=== PATIENT | male | born 1940 | race Caucasian/White ===

== ENCOUNTER 2019-12-26 06:10 | Outpatient (REF) | payer MEDICARE, SELFPAY ==
[2019-12-26 11:19] LABS: MANUAL DIFF FLAG NO
[2019-12-26 11:27] LABS: Basophils Percent Auto 0.5 % (0-2); Eosinophils Absolute Auto 0.1 X10*3/uL (0.0-0.4); Eosinophils Percent Auto 1.6 % (0-4); Hematocrit 47.3 % (42-52); Hemoglobin 14.9 g/dl (14.0-18.0); Imm Gran Abs Auto 0.02 X10*3/uL (0.00-0.03); Imm Gran Pct Auto 0.4 % (0.0-0.4); Lymphocytes Absolute Auto 1.2 X10*3/uL (1.2-4.9); Mean Corpuscular HGB Conc 31.5 g/dl (31.0-36.0); Mean Corpuscular Hemoglobin 32.5 pg (27.0-33.0); Mean Corpuscular Volume 103.3 fL (80-98); Mean Platelet Volume 12.2 fL (9.4-12.4); Monocytes Absolute Auto 0.4 X10*3/uL (0.1-1.2); Monocytes Percent Auto 7.9 % (2-11); Neutrophils Absolute Auto 3.8 X10*3/uL (2.0-8.3); Neutrophils Percent Auto 67.6 % (45-73); Platelet Count 152 X10*3/uL (160-400); Red Blood Count 4.58 X10*6/uL (4.60-5.80); White Blood Count 5.6 X10*3/uL (4.8-10.8)
[2019-12-26 12:18] LABS: Alanine Aminotransferase 11 U/L (0-40); Albumin Level 3.8 g/dL (3.5-5.0); Alkaline Phosphatase 67 U/L (39-117); Anion Gap 15 (12-20); Aspartate Amino Transferase 13 U/L (5-37); Bilirubin Total 0.9 mg/dL (0.0-1.0); Blood Urea Nitrogen 19 mg/dL (9-16); Calcium 8.2 mg/dL (8.4-10.2); Carbon Dioxide 27 mmol/L (22-29); Chloride 104 mmol/L (96-108); Cholesterol 157 mg/dL; Estimated Glomerular Filt Rate 58; Glucose Fasting 82 mg/dL (60-99); HDL Cholesterol 53 mg/dL; LDL Cholesterol Calculated 90 mg/dl; Potassium 3.9 mmol/l (3.3-5.1); Sodium 142 mmol/L (135-145); Total Protein 6.7 g/dL (6.5-8.0); Triglycerides 70 mg/dL
== END 2019-12-26 06:11 | disposition home or self-care (01) ==
LOC: HO.HMGCLDS 06:10
PROVIDERS: PCP Internal Medicine Medical Oncology; Visit Provider Internal Medicine Medical Oncology
DX: D69.6 Thrombocytopenia, unspecified (principal)
CPT/HCPCS: 36415; 80053; 80061; 84153; 85025

== ENCOUNTER → 2020-01-27 08:58 | Outpatient (BNVA) | payer MEDICARE, SELFPAY | PROVIDERS: PCP Internal Medicine Medical Oncology; Visit Provider Internal Medicine Cardiovascular Disease | DX: I48.0 Paroxysmal atrial fibrillation (principal); I50.30 Unspecified diastolic (congestive) heart failure; I51.89 Other ill-defined heart diseases; I27.20 Pulmonary hypertension, unspecified | CPT/HCPCS: 93005; 99212 ==

== ENCOUNTER → 2020-01-28 09:57 | Outpatient (BNVA) | payer MEDICARE, SELFPAY | PROVIDERS: PCP Internal Medicine Medical Oncology; Visit Provider Internal Medicine | DX: G47.33 Obstructive sleep apnea (adult) (pediatric) (principal); E66.9 Obesity, unspecified; Z99.89 Dependence on other enabling machines and devices | CPT/HCPCS: 99212 ==

== ENCOUNTER 2020-03-26 06:26 | Outpatient (REF) | payer MEDICARE, SELFPAY ==
[2020-03-26 07:02] LABS: MANUAL DIFF FLAG NO
[2020-03-26 07:10] LABS: Basophils Percent Auto 0.5 % (0-2); Eosinophils Absolute Auto 0.2 X10*3/uL (0.0-0.4); Eosinophils Percent Auto 2.6 % (0-4); Imm Gran Abs Auto 0.01 X10*3/uL (0.00-0.03); Imm Gran Pct Auto 0.2 % (0.0-0.4); Lymphocytes Absolute Auto 1.1 X10*3/uL (1.2-4.9); Lymphocytes Percent Auto 19.2 % (20-40); Mean Corpuscular HGB Conc 32.7 g/dl (31.0-36.0); Mean Corpuscular Hemoglobin 33.2 pg (27.0-33.0); Mean Corpuscular Volume 101.7 fL (80-98); Mean Platelet Volume 11.7 fL (9.4-12.4); Monocytes Absolute Auto 0.5 X10*3/uL (0.1-1.2); Monocytes Percent Auto 8.3 % (2-11); Neutrophils Absolute Auto 3.9 X10*3/uL (2.0-8.3); Neutrophils Percent Auto 69.2 % (45-73); Platelet Count 145 X10*3/uL (160-400); Red Blood Count 4.82 X10*6/uL (4.60-5.80); Red Cell Distribution Width 13.2 % (11.0-16.0); White Blood Count 5.7 X10*3/uL (4.8-10.8)
[2020-03-26 07:39] LABS: Alanine Aminotransferase 11 U/L (0-40); Albumin Level 3.9 g/dL (3.5-5.0); Alkaline Phosphatase 69 U/L (39-117); Anion Gap 11 (12-20); Aspartate Amino Transferase 13 U/L (5-37); Bilirubin Total 0.9 mg/dL (0.0-1.0); Blood Urea Nitrogen 26 mg/dL (9-16); Calcium 8.9 mg/dL (8.4-10.2); Carbon Dioxide 30 mmol/L (22-29); Chloride 105 mmol/L (96-108); Cholesterol 164 mg/dL; Estimated Glomerular Filt Rate 58; Glucose Fasting 97 mg/dL (60-99); HDL Cholesterol 48 mg/dL; LDL Cholesterol Calculated 104 mg/dl; Potassium 4.5 mmol/L (3.3-5.1); Sodium 141 mmol/L (135-145); Total Protein 6.9 g/dL (6.5-8.0); Triglycerides 63 mg/dL
== END 2020-03-26 06:27 | disposition home or self-care (01) ==
LOC: HO.LAB 06:26
PROVIDERS: Visit Provider Internal Medicine Medical Oncology
DX: D69.6 Thrombocytopenia, unspecified (principal); I10 Essential (primary) hypertension; E66.9 Obesity, unspecified
CPT/HCPCS: 36415; 80053; 80061; 85025

== ENCOUNTER 2020-06-24 06:22 | Outpatient (REF) | payer MEDICARE, SELFPAY ==
[2020-06-24 07:39] LABS: MANUAL DIFF FLAG NO
[2020-06-24 07:45] LABS: Basophils Percent Auto 0.6 % (0-2); Eosinophils Absolute Auto 0.1 X10*3/uL (0.0-0.4); Eosinophils Percent Auto 2.1 % (0-4); Hematocrit 47.5 % (42-52); Hemoglobin 15.3 g/dl (14.0-18.0); Imm Gran Abs Auto 0.01 X10*3/uL (0.00-0.03); Imm Gran Pct Auto 0.2 % (0.0-0.4); Lymphocytes Absolute Auto 1.2 X10*3/uL (1.2-4.9); Lymphocytes Percent Auto 22.4 % (20-40); Mean Corpuscular HGB Conc 32.2 g/dl (31.0-36.0); Mean Corpuscular Hemoglobin 32.6 pg (27.0-33.0); Mean Corpuscular Volume 101.3 fL (80-98); Mean Platelet Volume 12.1 fL (9.4-12.4); Monocytes Absolute Auto 0.5 X10*3/uL (0.1-1.2); Monocytes Percent Auto 9.1 % (2-11); Neutrophils Absolute Auto 3.5 X10*3/uL (2.0-8.3); Neutrophils Percent Auto 65.6 % (45-73); Platelet Count 140 X10*3/uL (160-400); Red Blood Count 4.69 X10*6/uL (4.60-5.80); Red Cell Distribution Width 13.3 % (11.0-16.0); White Blood Count 5.3 X10*3/uL (4.8-10.8)
[2020-06-24 08:01] LABS: Alanine Aminotransferase 12 U/L (0-40); Albumin Level 3.9 g/dL (3.5-5.0); Alkaline Phosphatase 72 U/L (39-117); Anion Gap 11 (12-20); Aspartate Amino Transferase 12 U/L (5-37); Bilirubin Total 0.7 mg/dL (0.0-1.0); Blood Urea Nitrogen 24 mg/dL (9-16); Calcium 8.9 mg/dL (8.4-10.2); Carbon Dioxide 29 mmol/L (22-29); Chloride 104 mmol/L (96-108); Cholesterol 159 mg/dL; Estimated Glomerular Filt Rate 49; Glucose Fasting 91 mg/dL (60-99); HDL Cholesterol 52 mg/dL; LDL Cholesterol Calculated 95 mg/dl; Potassium 4.1 mmol/L (3.3-5.1); Sodium 140 mmol/L (135-145); Total Protein 6.7 g/dL (6.5-8.0); Triglycerides 60 mg/dL
[2020-06-24 08:07] LABS: Estimated Average Glucose 97 mg/dL
[2020-06-24 08:32] LABS: Vitamin D 25-OH Total 11.7 ng/mL (>30)
== END 2020-06-24 06:23 | disposition home or self-care (01) ==
LOC: HO.LAB 06:22
PROVIDERS: PCP Internal Medicine Medical Oncology; Visit Provider Internal Medicine Medical Oncology
DX: D69.6 Thrombocytopenia, unspecified (principal); I10 Essential (primary) hypertension; E66.9 Obesity, unspecified
CPT/HCPCS: 36415; 80053; 80061; 82306; 83036; 85025

== ENCOUNTER 2020-07-01 06:42 | Emergency (ER) | payer MEDICARE, SELFPAY ==
--- NOTE | 2020-07-01 | ECG_ITS ---
Test Reason : CHEST PAIN Blood Pressure : / mmHG Vent. Rate : 067 BPM Atrial Rate : 067 BPM P-R Int : 198 ms QRS Dur : 114 ms QT Int : 468 ms P-R-T Axes : 017 -06 -11 degrees QTc Int : 494 ms Normal sinus rhythm Minimal voltage criteria for LVH, may be normal variant Prolonged QT Abnormal ECG When compared with ECG of 26-JAN-2018 12:11, Premature atrial complexes are no longer Present NM interval has decreased Referred By: Generic ED Physician Electronically Signed By:CHINMAY STOCK MD
--- NOTE | ~2020-07-01 | XR_ITS ---
EXAMINATION: XR CHEST CLINICAL INFORMATION: Chest pain COMPARISON: None TECHNIQUE: Frontal view of the chest was obtained. FINDINGS: The lungs are well-expanded and clear of acute process. There is a calcified density in the right lower lobe overlying the right anterior sixth rib likely costal cartilage calcification. The heart size and pulmonary vascularity is normal. No gross bony abnormality seen. XR/XR chest 1V IMPRESSION: Unremarkable chest exam. No major change from 05/16/2016.
[2020-07-01 06:44] VITALS: BP 156/80; BP 167/65; PULSE 66; PULSE 68; RESP 20; TEMP 36.7; O2SAT 96; O2SAT 98; BMI 38.9
--- NOTE | 2020-07-01 07:07 | ED_ITS ---
HPI - Chest Pain General Chief Complaint: Chest Pain Stated Complaint: INTERMITTENT, CHEST PAIN Time Seen by Provider: 07/01/20 06:52 Source: patient Mode of arrival: EMS Limitations: no limitations History of Present Illness HPI narrative: 79-year-old male who presents emergency department for evaluation of epigastric pain. Patient states that he woke up at 3:00 a.m. and had epigastric burning pain. He states the pain lasts approximately 15 minutes. The pain was 6/10 at its worst. The patient had no associated symptoms such as nausea, vomiting, lightheadedness, dizziness, diaphoresis, pain radiating to the neck, jaw, arms or back. He states that the symptoms resolved but then he had 2 more episodes. The last episode was at 5:30 a.m.. The patient then called an ambulance and was transported to the emergency department. He received no treatment in route. At the time of my evaluation he is pain free. Patient states he does have a history of heartburn but this pain is different than the heartburn pain these experienced in the past. He states that he has been in his normal state of health and has had no chest pain with exertion, dyspnea on exertion fever, chills, cough, change in his urine or change in his bowel movements. Related Data Home Medications Medication Instructions Recorded Confirmed amlodipine 5 mg tablet 5 mg PO DAILY 01/27/20 01/27/20 apixaban 5 mg tablet 5 mg PO BID 01/27/20 01/27/20 furosemide 40 mg tablet 40 mg PO DAILY 01/27/20 01/27/20 pantoprazole 40 mg tablet,delayed 40 mg PO .COMPLEX tab 01/27/20 01/27/20 release tamsulosin 0.4 mg capsule 0.4 mg PO DAILY 01/27/20 01/27/20 Previous Rx's Medication Instructions Recorded amiodarone 200 mg tablet 100 mg PO DAILY 90 Days #45 tab 06/30/20 Allergies Allergy/AdvReac Type Severity Reaction Status Date / Time morphine [MORPHINE] Allergy Intermediate RASH Verified 01/28/20 10:13 Review of Systems Review of Systems: Yes all other systems are reviewed and are negative [facility] Past Medical History FORMERLY [facility] Narrative: Social history: The patient is his Donna is here in the emergency department with him. He states that he is a former smoker but stopped smoking in 1966 and smoked for approximately 10 years. He drinks 4 beers per week. He denies drug use. Medical History (HFpEF) heart failure with preserved ejection fraction Diastolic dysfunction Enlarged RV (right ventricle) History of cardioversion Morbid obesity Obesity (BMI 30-39.9) RUMA on CPAP Paroxysmal atrial fibrillation Pulmonary hypertension Sleep apnea Surgical History History of excision of pilonidal cyst Hx of knee surgery Family History Family History Father Afib COPD (chronic obstructive pulmonary disease) Diabetes Mother Cancer Afib Social History Social History Smoking Status: Former smoker Advance Directives: Yes Advance Directives Information Provided: Yes Advance Directives on File: No Physical Exam Vital Signs: Vital Signs: Last Vital Signs Temp 98.1 F 07/01/20 06:44 Pulse 54 07/01/20 11:32 Resp 12 07/01/20 11:32 BP 147/64 H 07/01/20 11:32 Pulse Ox 98 07/01/20 11:32 Body Mass Index 38.9 Const: General: cooperative; No in distress Nutritional Appearance: obese Orientation/consciousness: oriented to person and oriented to place Michael itations: no limitations HENMT: Head: Yes normal to inspection, Yes normocephalic and Yes atraumatic Ears: external ears normal General nose exam: Normal external nose present Face and sinus: Yes normal facial exam Mouth: Normal oral and palatal mucosa present Throat: Yes posterior oropharynx normal Eyes: Periorbital: periorbital findings normal Eyelids: Yes eyelids normal Conjunctivae: conjunctivae normal Sclerae: sclerae normal Corneas: corneas normal Pupils: Equal, round and reactive pupils present Direct Ophthalmoscopy: normal light reflex Neck: Neck: Yes full ROM, Yes no lymphadenopathy, Yes no meningeal signs, Yes trachea midline and Yes supple Chest: Chest palpation & inspection: normal inspection of the chest and normal palpation of entire chest wall Resp: Effort & Inspection: normal respiratory effort and able to speak in complete sentences Auscultation: clear to auscultation bilaterally Cardio: Rate: regular rate Rhythm: regular rhythm Heart sounds: S1 normal heart sound present, S2 normal heart sound present and no murmurs GI: Inspection: Yes normal to inspection Palpation (GI): Soft to palpation, nontender, no guarding, not rigid and No hepatosplenomegaly present : General: Yes no CVA tenderness Back/Spine/Pelvis: Back: no CVA tenderness Cervical Spine: normal cervical lordosis Thoracic/Lumbar Spine: thoracic and lumbar spine normal to inspection Skin: Lesions: no lesions Rashes: no rashes Wounds: no wounds Neuro: General: oriented to person, oriented to place and no meningeal signs Cranial nerves: Yes CN's II-XII intact bilaterally and Yes Equal, round and reactive pupils present Cognition (Neuro): normal cognition Motor exam (neuro): 5/5 motor strength present throughout Extrem: General: Yes normal to inspection and Yes full ROM Psych: Appearance: well kempt Mental Status: mental status grossly normal Speech and movement: Normal speech and movement present Affect: normal affect Attitude: cooperative Thought process: Normal thought process present Thought content: Normal thought content present Course Course Course Narrative: 79-year-old male who presents emergency department for evaluation of 3 episodes of epigastric pain with each episode lasting approximately 10-15 minutes with no associated symptoms. Vital signs revealed that he was hypertensive with a blood pressure 167/65, respiratory rate was 20 , pulse was 66 and O2 saturation was 98% on room air. Physical examination was unremarkable, had no abdominal tenderness. Given the his age and past medical history, cardiac workup was ordered to include CBC, BMP, LFTs, lipase, troponin, chest x-ray and EKG. 1012: Patient's EKG was unremarkable with no evidence of ischemia or myocardial injury. Chest x-ray was negative. The patient's laboratory evaluation did reveal a detectable high sensitivity troponin at 4.9. I ordered a repeat high sensitivity troponin at 10:00 a.m.. The patient states these had some brief episodes of a burning sensation while he has been here in the emergency department. The sound like a typical symptoms therefore he was ordered Maalox 30 cc orally, viscous lidocaine 10 cc orally and 10 cc orally. I will also repeat his EKG. 1216: The patient's repeat 3 hour high sensitivity troponin was 4.5. This is encouraging since it did not change from the 1st troponin. The patient states that he did have another episode burning sensation but it was diminished after you received the GI cocktail pain. At this time, I suspect that the patient's pain is secondary to his gastrointestinal tract, he does take Protonix. He is advised to continue to take Protonix and to try [id number] antacids to see if this helps with his symptoms. He was advised to return to the emergency department if his symptoms persisted or if his symptoms get worse, he develops any new symptoms that were concerning to him. MDM - Chest Pain Lab Data Result diagrams: 07/01/20 07:01 07/01/20 07:01 Labs: Lab Results 07/01/20 07/01/20 07/01/20 Range/Units 07:01 07:01 07:01 WBC 4.8 (4.8-10.8) X10*3/uL RBC 4.77 (4.60-5.80) X10*6/uL Hgb 15.7 (14.0-18.0) g/dl Hct 48.1 (42-52) % MCV 100.8 H (80-98) fL MCH 32.9 (27.0-33.0) pg MCHC 32.6 (31.0-36.0) g/dl RDW 13.4 (11.0-16.0) % Plt Count 129 L (160-400) X10*3/uL MPV 11.8 (9.4-12.4) fL Immature Gran % (Auto) 0.2 (0.0-0.4) % Neut % (Auto) 69.7 (45-73) % Lymph % (Auto) 19.8 L (20-40) % [place] % (Auto) 8.4 (2-11) % Eos % (Auto) 1.3 (0-4) % Baso % (Auto) 0.6 (0-2) % Lymph # (Auto) 1.0 L (1.2-4.9) X10*3/uL [place] # (Auto) 0.4 (0.1-1.2) X10*3/uL Eos # (Auto) 0.1 (0.0-0.4) X10*3/uL Baso # (Auto) 0.0 (0.0-0.2) X10*3/uL Abs Immat Gran (auto) 0.01 (0.00-0.03) X10*3/uL Absolute Neuts (auto) 3.3 (2.0-8.3) X10*3/uL Absolute Nucleated RBC 0.000 (0.0-0.012) X10*3/uL Nucleated RBC % (auto) 0.0 (0.0-0.2) /100WBC Smear Tech's Comments VERIFIED Hold Blue Top SEE NOTE Sodium 142 (135-145) mmol/L Potassium 4.4 (3.3-5.1) mmol/L Chloride 104 (96-108) mmol/L Carbon Dioxide 29 (22-29) mmol/L Anion Gap 13 (12-20) BUN 19 H (9-16) mg/dL Creatinine 1.20 (0.5-1.4) mg/dL Estim Creat Clear Calc 64.5 Estimated GFR 58 Random Glucose 102 (60-115) mg/dL Calcium 8.8 (8.4-10.2) mg/dL Total Bilirubin 1.0 (0.0-1.0) mg/dL Direct Bilirubin 0.4 (0.0-0.5) mg/dL AST 15 (5-37) U/L ALT 13 (0-40) U/L Alkaline Phosphatase 64 (39-117) U/L Troponin I High Sens (<3.5-35.0) ng/L Total Protein 6.8 (6.5-8.0) g/dL Albumin 3.9 (3.5-5.0) g/dL Lipase 15 (8-78) U/L 07/01/20 07/01/20 Range/Units 07:01 10:15 WBC (4.8-10.8) X10*3/uL RBC (4.60-5.80) X10*6/uL Hgb (14.0-18.0) g/dl Hct (42-52) % MCV (80-98) fL MCH (27.0-33.0) pg MCHC (31.0-36.0) g/dl RDW (11.0-16.0) % Plt Count (160-400) X10*3/uL MPV (9.4-12.4) fL Immature Gran % (Auto) (0.0-0.4) % Neut % (Auto) (45-73) % Lymph % (Auto) (20-40) % [place] % (Auto) (2-11) % Eos % (Auto) (0-4) % Baso % (Auto) (0-2) % Lymph # (Auto) (1.2-4.9) X10*3/uL [place] # (Auto) (0.1-1.2) X10*3/uL Eos # (Auto) (0.0-0.4) X10*3/uL Baso # (Auto) (0.0-0.2) X10*3/uL Abs Immat Gran (auto) (0.00-0.03) X10*3/uL Absolute Neuts (auto) (2.0-8.3) X10*3/uL Absolute Nucleated RBC (0.0-0.012) X10*3/uL Nucleated RBC % (auto) (0.0-0.2) /100WBC Smear Tech's Comments Hold Blue Top Sodium (135-145) mmol/L Potassium (3.3-5.1) mmol/L Chloride (96-108) mmol/L Carbon Dioxide (22-29) mmol/L Anion Gap (12-20) BUN (9-16) mg/dL Creatinine (0.5-1.4) mg/dL Estim Creat Clear Calc Estimated GFR Random Glucose (60-115) mg/dL Calcium (8.4-10.2) mg/dL Total Bilirubin (0.0-1.0) mg/dL Direct Bilirubin (0.0-0.5) mg/dL AST (5-37) U/L ALT (0-40) U/L Alkaline Phosphatase (39-117) U/L Troponin I High Sens 4.9 4.5 (<3.5-35.0) ng/L Total Protein (6.5-8.0) g/dL Albumin (3.5-5.0) g/dL Lipase (8-78) U/L ECG Data ECG #1: Attestation: I personally reviewed and interpreted this ECG as follows: Interpretation: 0714: Normal sinus rhythm with a rate of 67, normal CO interval, prolonged QRS of 114 milliseconds, prolonged QTC of 494 milliseconds, no ST segment elevation, no ST segment depression, inverted T-wave in lead 3 and V1, no old EKG for comparison. 1022: Repeat EKG reveals sinus bradycardia with a rate of 55, prolonged CO interval of 216 milliseconds, prolonged QRS of 106 milliseconds, prolonged QTC of 482 milliseconds, inverted T-waves in lead 3 and the 1, no ST segment elevation or depression, compared to EKG 1. Done at 7:14 a.m., the bradycardia and first-degree AV block her new however there are no new ischemic or injury pattern noted. Discharge Plan Discharge Clinical Impression: Atypical chest pain Patient Disposition: Home, Self-Care Instructions: Chest Pain (ED) Additional Instructions: Your EKG is and laboratory evaluation were unremarkable. You did have a detectable high sensitivity troponin however this did not record changer 3 hours suggesting that you have not had any heart damage as the cause of today's pain. Continue taking your Protonix. If your symptoms persist try taking an [id number] antacid to see if this helps. Follow-up with your doctor in 2 days. Please return to the emergency department if your symptoms get worse or if you develop any symptoms that are concerning to you. Prescriptions: No Action amiodarone 200 mg tablet 100 mg PO DAILY 90 Days Qty: 45 RF: 1 Eliquis 5 mg tablet 5 mg PO BID RF: 0 tamsulosin 0.4 mg capsule 0.4 mg PO DAILY RF: 0 amlodipine 5 mg tablet 5 mg PO DAILY RF: 0 furosemide 40 mg tablet 40 mg PO DAILY RF: 0 pantoprazole 40 mg tablet,delayed release (DR/EC) 40 mg PO .COMPLEX RF: 0
[2020-07-01 07:09] LABS: Basophils Percent Auto 0.6 % (0-2); Eosinophils Absolute Auto 0.1 X10*3/uL (0.0-0.4); Eosinophils Percent Auto 1.3 % (0-4); Hematocrit 48.1 % (42-52); Hemoglobin 15.7 g/dl (14.0-18.0); Imm Gran Abs Auto 0.01 X10*3/uL (0.00-0.03); Imm Gran Pct Auto 0.2 % (0.0-0.4); Lymphocytes Percent Auto 19.8 % (20-40); MANUAL DIFF FLAG SCAN; Mean Corpuscular HGB Conc 32.6 g/dl (31.0-36.0); Mean Corpuscular Hemoglobin 32.9 pg (27.0-33.0); Mean Corpuscular Volume 100.8 fL (80-98); Mean Platelet Volume 11.8 fL (9.4-12.4); Monocytes Absolute Auto 0.4 X10*3/uL (0.1-1.2); Monocytes Percent Auto 8.4 % (2-11); Neutrophils Absolute Auto 3.3 X10*3/uL (2.0-8.3); Neutrophils Percent Auto 69.7 % (45-73); PLT CLUMP 1; Red Blood Count 4.77 X10*6/uL (4.60-5.80); Red Cell Distribution Width 13.4 % (11.0-16.0); SCAN SMEAR FLAG 1
[2020-07-01] MEDS: Aspirin 81 MG TAB.CHEW 162 MG PO (07:22)
[2020-07-01 07:25] VITALS: BP 138/58; PULSE 60; RESP 9; O2SAT 98
--- NOTE | 2020-07-01 07:26 | PC.NURSE ---
pt received in bed A/O x 3 RUSH follows commands. Speech clear and coherent. States CP woke him up at 3am today. 3 episdoes in total. No pain at this time. Resting in NAD. at bedside.
[2020-07-01 07:32] LABS: Platelet Count 129 X10*3/uL (160-400); SLIDE REVIEW VERIFIED; White Blood Count 4.8 X10*3/uL (4.8-10.8)
[2020-07-01 07:44] LABS: Alanine Aminotransferase 13 U/L (0-40); Albumin Level 3.9 g/dL (3.5-5.0); Alkaline Phosphatase 64 U/L (39-117); Anion Gap 13 (12-20); Aspartate Amino Transferase 15 U/L (5-37); Bilirubin Direct 0.4 mg/dL (0.0-0.5); Blood Urea Nitrogen 19 mg/dL (9-16); Calcium 8.8 mg/dL (8.4-10.2); Carbon Dioxide 29 mmol/L (22-29); Chloride 104 mmol/L (96-108); Creatinine Clr Calc Pharmacy 64.5; Estimated Glomerular Filt Rate 58; Glucose Random 102 mg/dL (60-115); Lipase 15 U/L (8-78); Potassium 4.4 mmol/L (3.3-5.1); Sodium 142 mmol/L (135-145); Total Protein 6.8 g/dL (6.5-8.0)
[2020-07-01 07:51] LABS: Troponin-I High Sensitivity 4.9 ng/L (<3.5-35.0)
--- NOTE | 2020-07-01 10:10 | ECG_ITS ---
Test Reason : REPEAT Blood Pressure : / mmHG Vent. Rate : 055 BPM Atrial Rate : 055 BPM P-R Int : 216 ms QRS Dur : 106 ms QT Int : 504 ms P-R-T Axes : 020 -11 -16 degrees QTc Int : 482 ms Sinus bradycardia with 1st degree A-V block Minimal voltage criteria for LVH, may be normal variant Prolonged QT Abnormal ECG When compared with ECG of 01-JUL-2020 06:51, No significant change was found Referred By: Sumeet Gerber Electronically Signed By:CHINMAY STOCK MD
[2020-07-01] MEDS: Lidocaine HCl Viscous 2 % 15 ML SOLUTION 10 ML PO (10:17)
[2020-07-01] MEDS: Magnesium Hydrox/Alum Hydrox 30 ML ORAL.SUSP PO (10:17)
[2020-07-01] MEDS: PHENobarb/Hyoscy/Atropine/Scop 10 ML ELIXIR PO (10:18)
--- NOTE | 2020-07-01 10:49 | PC.NURSE ---
patient alert and oriented; seen by Dr Gerber after initial labs. Repeat trop and ECG done; meds given as ordered. Pt in NAD. Awaiting dispo
[2020-07-01 10:57] LABS: Troponin-I High Sensitivity 4.5 ng/L (<3.5-35.0)
[2020-07-01 11:32] VITALS: BP 147/64; PULSE 54; RESP 12; O2SAT 98
== END 2020-07-01 12:42 | disposition home or self-care (01) ==
PROVIDERS: Emergency Provider Emergency Medicine Emergency Medical Services; PCP Internal Medicine Medical Oncology
DX: R07.89 Other chest pain (principal); R10.13 Epigastric pain; Z79.899 Other long term (current) drug therapy; Z87.891 Personal history of nicotine dependence
CPT/HCPCS: 36415; 71045; 80048; 80076; 83690; 84484; 85025; 93005; 99285

== ENCOUNTER → 2020-07-16 09:10 | Outpatient (REF) | payer MEDICARE, SELFPAY ==
--- NOTE | 2020-07-16 09:13 | CA_ITS ---
Transthoracic Echocardiogram Patient (Last, First, Middle): Behzad Mendoza P Gender: Male Date of : 1940 Age: 79 Procedure Date: 07/16/2020 Procedure Type: Transthoracic Echocardiogram Location: OP Height: 175.26 cm Weight: 122.47 kg BSA: 2.35 m2 Heart Rate: bpm BP: 135 / 80 mmHg [employer] Practitioner: ADELINE Serra MD: Durga Clayton MD Hides Soaker: Durga Clayton MD Symptoms: I48.0 - Paroxysmal atrial fibrillation Study Quality: Fair/contrast ECG Rhythm: Sinus Conclusions: - 1. Normal LV systolic function with pseudonormal filling pattern 2. Severely dilated left atrium 3. Trivial aortic regurgitation next 4. Normal RV systolic pressure 5. No pericardial effusion Findings Procedure Information Contrast agent, definity, is being given per protocol without apparent complications. Left Ventricle Normal left ventricular size, thickness, and systolic function. The visually estimated ejection fraction is between 60-65%. There is no evidence of regional wall motion abnormalities. Spectral Doppler is indicative of a pseudonormal filling pattern. E/E prime ratio is between 8 and 15 consistent with indeterminate filling pressures. Right Ventricle Moderately increased right ventricular cavity size. There is borderline right ventricular systolic function. Atria The left atrium is severely dilated. There is no evidence of interatrial shunt. The right atrium is mildly dilated. Aortic Valve There is mild calcification of the aortic valve. There is no aortic valve stenosis. There is trace (trivial) aortic valve regurgitation. Mitral Valve There is mild anterior and posterior mitral leaflet thickening. There is mild mitral annular calcification. There is trace mitral valve regurgitation. There is no mitral valve stenosis. Pulmonic Valve The pulmonic valve was not well visualized. Tricuspid Valve Likely normal tricuspid valve structure and function. There is mild tricuspid valve regurgitation. The right ventricular systolic pressure is normal. The right ventricular systolic pressure is 38 mmHg. Normal right atrial pressure. There is no evidence of pulmonary hypertension. Great Vessels All visible segments of the aorta are normal in size. The pulmonary artery was not well visualized. Venous The inferior vena cava is normal in size and collapses greater than 50% with inspiration. Pericardium/Pleural There is no evidence of pericardial effusion. Prior Study Comparison Changes noted compared to prior study dated: 04/26/2019. RV systolic pressure have improved Measurements 2D Linear Measurements IVSd: 1.10 0.6-0.9/0.6-1.0 cm LVIDd: 3.87 3.9-5.3/4.2-5.9 cm LVIDd Index: 1.65 2.4-3.2/2.2-3.1 cm/m2 LVIDs: 2.58 2.0-3.6 cm LVPWd: 1.10 0.7-1.1 cm Ao Root: 3.90 2.1-3.5 cm LA Diam: 4.50 2.7-3.8/3.0-4.0 cm LAIDs Index: 1.91 1.5-2.3 cm/m2 LV Mass: 185.19 67-162/88-224 g LV Mass Index: 78.80 43-95/49-115 g/m2 LVOT Diam: 2.10 3.0+(-)1.3 cm Mitral Valve MV Pk E: 0.74 MV PK A: 0.63 MV Decel Time: 339.00 E/A: 1.20 E'Lateral: 8.16 E'Medial: 5.66 E/E' Med: 13.00 E/E' Lat: 9.00 PHT: 99.00 MVA PHT: 2.22 Decel [place]: 2.17 Aortic Valve AoV Pk Emory: 1.32 AoV Mn Emory: 0.87 AoV VTI: 0.32 AoV Pk Grad: 7.00 Aov Mn Grad: 3.00 MARLON Cont.VTI: 2.74 LVOT LVOT Pk Emory: 1.03 LVOT Mn Emory: 0.63 LVOT VTI: 0.26 LVOT Pk Grad: 4.00 LVOT Mn Grad: 2.00 LVOT Diam: 2.10 LVOT Area: 3.46 Diastolic Function MV Pk E: 0.74 MV Pk A: 0.63 E/A: 1.20 E'Medial: 5.66 E/E' Med: 13.00 E' Laterial: 8.16 E/E' Lat: 9.00 Tricuspid Valve TR Pk Emory: 2.97 TR Pk Grad: 35.00 RA Press: 3.00 RVSP: 38.00 Great Vessels Aorta Ao Root-2D: 3.90 2.0-3.7 cm Ao Asc: 3.50 2.1-3.4 cm Ao Arch: 2.40 Updated in Other Vendor System with Status of Final Durga Clayton MD electronically signed on 07/17/2020 12:43:13 PM with status of Final
== END ==
LOC: HO.CARD 09:10
PROVIDERS: PCP Internal Medicine Medical Oncology; Visit Provider Internal Medicine Cardiovascular Disease
DX: I48.0 Paroxysmal atrial fibrillation (principal); I50.30 Unspecified diastolic (congestive) heart failure; I27.20 Pulmonary hypertension, unspecified; I51.89 Other ill-defined heart diseases
CPT/HCPCS: 93306; Q9957

== ENCOUNTER → 2020-08-26 14:29 | Outpatient (BNVA) | payer MEDICARE, SELFPAY | PROVIDERS: PCP Internal Medicine Medical Oncology; Visit Provider Internal Medicine Cardiovascular Disease | DX: I48.0 Paroxysmal atrial fibrillation (principal); I50.30 Unspecified diastolic (congestive) heart failure; R07.9 Chest pain, unspecified | CPT/HCPCS: 93005; 99212 ==

== ENCOUNTER → 2020-09-04 08:24 | Outpatient (REF) | payer MEDICARE, SELFPAY ==
--- NOTE | ~2020-09-04 | NM_ITS ---
Myocardial perfusion study Indication: Chest pain to evaluate for myocardial ischemia Technique: The patient was brought in for a Lexiscan perfusion study on 09/04/2020. Patient performed low-level exercise and was injected 0.4 mg of Lexiscan intravenously. Within a minute of injection, 45 mCi of sestamibi was given intravenously. Images were obtained using the SPECT gamma camera interlaced with the gating device. Images were obtained in supine position. Resting perfusion study was performed on 09/07/2020. Patient was administered 45 mCi of sestamibi intravenously at rest. Images were then obtained in supine position. Images obtained with and without CT attenuation. Total DLP 134 mGy-cm. Images were processed with the software and compared side to side in short axis, horizontal long axis and vertical long axis views. Findings: The stress perfusion study showed nonattenuated images show mildly to moderately reduced uptake in the inferior wall of the LV myocardium. Remainder of the LV myocardium is normally perfused. Attenuation corrected images show minimally reduced uptake in the apex of the LV myocardium.. The gated study shows normal LV systolic function with calculated LVEF of 56%. LV cavity is normal in size. The gated study shows normal systolic wall thickening and contraction of segments. Resting study shows no change in perfusion pattern compared to stress perfusion study. Gating at rest reveals normal systolic wall motion with ejection fraction at 64%. The findings are consistent with normal myocardial perfusion. NM/NM cardiolite stress test Impression: 1. Myocardial perfusion imaging study shows normal myocardial perfusion 2. Gated LVEF is 56% 3. Transient ischemic dilatation not present EKG is nondiagnostic for ischemia
--- NOTE | 2020-09-04 08:28 | CA_ITS ---
Acquisition Time: 2020-09-04 08:31:51 Total Exercise Time: 00:02:00 Test Indications: Chest Pain Medications: AMLODIPINE ELIQUIS AMIODORONE FUROSEMIDE PANTOPRAZOLE Protocol: LEXISCAN Max HR: 085 BPM 60% of Pred: 140 BPM Max BP: 140/068 mmHG Max Work Load: 1.6 METS Pharmacological stress test with Lexiscan injection, while walking on the treadmill, without anginal symptoms, without arrythmia, with normotensive response to injection, with nondiagnostic EKG for ischemia. Nuclear images pending. Test reviewed with Dr Clayton. Referred By: Durga Clayton Overread By: TRINA OSORIO
== END ==
LOC: HO.CARD 08:24
PROVIDERS: Visit Provider Internal Medicine Cardiovascular Disease
DX: R07.9 Chest pain, unspecified (principal)
CPT/HCPCS: 78452; 93017; A9500; J0280; J2785

== ENCOUNTER 2020-10-28 06:14 | Outpatient (REF) | payer MEDICARE, SELFPAY ==
[2020-10-28 11:22] LABS: MANUAL DIFF FLAG NO
[2020-10-28 11:30] LABS: Basophils Percent Auto 0.6 % (0-2); Eosinophils Absolute Auto 0.1 X10*3/uL (0.0-0.4); Eosinophils Percent Auto 2.5 % (0-4); Hematocrit 47.5 % (42-52); Hemoglobin 15.3 g/dl (14.0-18.0); Imm Gran Abs Auto 0.01 X10*3/uL (0.00-0.03); Imm Gran Pct Auto 0.2 % (0.0-0.4); Lymphocytes Absolute Auto 1.2 X10*3/uL (1.2-4.9); Lymphocytes Percent Auto 23.1 % (20-40); Mean Corpuscular HGB Conc 32.2 g/dl (31.0-36.0); Mean Corpuscular Hemoglobin 32.8 pg (27.0-33.0); Mean Corpuscular Volume 101.7 fL (80-98); Mean Platelet Volume 12.5 fL (9.4-12.4); Monocytes Absolute Auto 0.4 X10*3/uL (0.1-1.2); Monocytes Percent Auto 8.3 % (2-11); Neutrophils Absolute Auto 3.5 X10*3/uL (2.0-8.3); Neutrophils Percent Auto 65.3 % (45-73); Platelet Count 146 X10*3/uL (160-400); Red Blood Count 4.67 X10*6/uL (4.60-5.80); Red Cell Distribution Width 13.8 % (11.0-16.0); White Blood Count 5.3 X10*3/uL (4.8-10.8)
[2020-10-28 12:36] LABS: Alanine Aminotransferase 9 U/L (0-40); Albumin Level 3.8 g/dL (3.5-5.0); Alkaline Phosphatase 50 U/L (39-117); Anion Gap 13 (12-20); Aspartate Amino Transferase 13 U/L (5-37); Bilirubin Total 1.4 mg/dL (0.0-1.0); Blood Urea Nitrogen 17 mg/dL (9-16); Calcium 9.1 mg/dL (8.4-10.2); Carbon Dioxide 28 mmol/L (22-29); Chloride 105 mmol/L (96-108); Cholesterol 157 mg/dL; Estimated Glomerular Filt Rate > 60; Glucose Fasting 90 mg/dL (60-99); HDL Cholesterol 56 mg/dL; LDL Cholesterol Calculated 88 mg/dl; Sodium 142 mmol/L (135-145); Total Protein 6.5 g/dL (6.5-8.0); Triglycerides 66 mg/dL
== END 2020-10-28 06:15 | disposition home or self-care (01) ==
LOC: HO.HMGCLDS 06:14
PROVIDERS: PCP Internal Medicine Medical Oncology; Visit Provider Internal Medicine Medical Oncology
DX: D69.6 Thrombocytopenia, unspecified (principal); N40.0 Benign prostatic hyperplasia without lower urinary tract symptoms; E66.9 Obesity, unspecified; Z12.5 Encounter for screening for malignant neoplasm of prostate
CPT/HCPCS: 36415; 80053; 80061; 84153; 85025

== ENCOUNTER → 2021-01-18 09:28 | Outpatient (BNVA) | payer MEDICARE, SELFPAY | PROVIDERS: PCP Internal Medicine Medical Oncology; Visit Provider Internal Medicine | DX: G47.33 Obstructive sleep apnea (adult) (pediatric) (principal); E66.9 Obesity, unspecified; Z99.89 Dependence on other enabling machines and devices | CPT/HCPCS: 99212 ==

== ENCOUNTER → 2021-04-13 09:17 | Outpatient (BNVA) | payer MEDICARE, SELFPAY | PROVIDERS: PCP Internal Medicine Medical Oncology; Visit Provider Internal Medicine Cardiovascular Disease | DX: I48.19 Other persistent atrial fibrillation (principal); I50.30 Unspecified diastolic (congestive) heart failure; Z79.01 Long term (current) use of anticoagulants; Z99.89 Dependence on other enabling machines and devices | CPT/HCPCS: 93005; 99212 ==

== ENCOUNTER → 2021-04-27 06:53 | Outpatient (REF) | payer MEDICARE, SELFPAY ==
--- NOTE | 2021-04-27 06:56 | HM_ITS ---
Conclusion: 1. Patient was monitored for total period of 10 days and 16 hours 2. Baseline rhythm is atrial fibrillation with average heart of 62 beats per minute 3. No significant pauses or bradycardia noted 4. Total of 877 PVCs accounting for 0.34% total burden account for occasional PVCs 5. No patient reported events MTDD
== END ==
LOC: HO.CARD 06:53
PROVIDERS: PCP Internal Medicine Medical Oncology; Visit Provider Internal Medicine Cardiovascular Disease
DX: I48.19 Other persistent atrial fibrillation (principal)
CPT/HCPCS: 93242

== ENCOUNTER 2021-04-30 06:49 | Outpatient (REF) | payer MEDICARE, SELFPAY ==
[2021-04-30 07:05] LABS: MANUAL DIFF FLAG NO
[2021-04-30 07:24] LABS: Basophils Percent Auto 0.4 % (0-2); Eosinophils Absolute Auto 0.1 X10*3/uL (0.0-0.4); Hematocrit 53.1 % (42.0-52.0); Hemoglobin 16.9 g/dl (14.0-18.0); Imm Gran Abs Auto 0.02 X10*3/uL (0.00-0.03); Imm Gran Pct Auto 0.3 % (0.0-0.4); Lymphocytes Absolute Auto 1.2 X10*3/uL (1.2-4.9); Lymphocytes Percent Auto 16.9 % (20-40); Mean Corpuscular HGB Conc 31.8 g/dl (31.0-36.0); Mean Corpuscular Volume 100.6 fL (80.0-98.0); Mean Platelet Volume 12.2 fL (9.4-12.4); Monocytes Absolute Auto 0.7 X10*3/uL (0.1-1.2); Monocytes Percent Auto 10.1 % (2-11); Neutrophils Percent Auto 71.3 % (45-73); Platelet Count 143 X10*3/uL (160-400); Red Blood Count 5.28 X10*6/uL (4.60-5.80); White Blood Count 6.9 X10*3/uL (4.8-10.8)
[2021-04-30 07:43] LABS: Alanine Aminotransferase 19 U/L (0-40); Albumin Level 3.7 g/dL (3.5-5.0); Alkaline Phosphatase 56 U/L (39-117); Anion Gap 16 (12-20); Aspartate Amino Transferase 12 U/L (5-37); Bilirubin Total 1.6 mg/dL (0.0-1.0); Blood Urea Nitrogen 18 mg/dL (9-16); Calcium 9.5 mg/dL (8.4-10.2); Carbon Dioxide 26 mmol/L (22-29); Chloride 102 mmol/L (96-108); Cholesterol 152 mg/dL; Estimated Glomerular Filt Rate 56; Glucose Random 95 mg/dL (60-115); HDL Cholesterol 47 mg/dL; LDL Cholesterol Calculated 91 mg/dl; Potassium 4.2 mmol/L (3.3-5.1); Sodium 140 mmol/L (135-145); Total Protein 6.6 g/dL (6.5-8.0); Triglycerides 70 mg/dL
[2021-04-30 08:06] LABS: Prostate Specific Antigen 3.37 ng/mL (<0.05-4.0)
== END 2021-04-30 06:50 | disposition home or self-care (01) ==
LOC: HO.LAB 06:49
PROVIDERS: PCP Internal Medicine Medical Oncology; Visit Provider Internal Medicine Medical Oncology
DX: Z12.5 Encounter for screening for malignant neoplasm of prostate (principal); N40.0 Benign prostatic hyperplasia without lower urinary tract symptoms; D69.6 Thrombocytopenia, unspecified; I10 Essential (primary) hypertension
CPT/HCPCS: 36415; 80053; 80061; 84153; 85025

== ENCOUNTER → 2021-05-12 11:16 | Outpatient (BNVA) | payer MEDICARE, SELFPAY | PROVIDERS: PCP Internal Medicine Medical Oncology; Visit Provider Internal Medicine | DX: G47.33 Obstructive sleep apnea (adult) (pediatric) (principal); E66.9 Obesity, unspecified; Z99.89 Dependence on other enabling machines and devices | CPT/HCPCS: 99212 ==

== ENCOUNTER 2021-05-25 09:08 | Outpatient (REF) | payer MEDICARE, SELFPAY ==
[2021-05-25 12:22] LABS: Alanine Aminotransferase 16 U/L (0-40); Albumin Level 3.7 g/dL (3.5-5.0); Alkaline Phosphatase 51 U/L (39-117); Anion Gap 13 (12-20); Aspartate Amino Transferase 13 U/L (5-37); Bilirubin Direct 0.5 mg/dL (0.0-0.5); Bilirubin Total 1.2 mg/dL (0.0-1.0); Blood Urea Nitrogen 18 mg/dL (9-16); Calcium 9.3 mg/dL (8.4-10.2); Carbon Dioxide 26 mmol/L (22-29); Chloride 106 mmol/L (96-108); Estimated Glomerular Filt Rate 60; Glucose Random 96 mg/dL (60-115); Potassium 4.2 mmol/L (3.3-5.1); Sodium 141 mmol/L (135-145); Total Protein 6.7 g/dL (6.5-8.0)
[2021-05-25 12:25] LABS: B Type Natriuretic Peptide 247 pg/mL (<100)
[2021-05-25 12:43] LABS: TSH reflex Free T4 2.09 uIU/mL (0.32-4.0)
== END 2021-05-25 09:09 | disposition home or self-care (01) ==
LOC: HO.LAB 09:08
PROVIDERS: PCP Internal Medicine Medical Oncology; Referring Provider Internal Medicine Medical Oncology; Visit Provider Internal Medicine Cardiovascular Disease
DX: I50.30 Unspecified diastolic (congestive) heart failure (principal); I11.0 Hypertensive heart disease with heart failure; I48.19 Other persistent atrial fibrillation; I48.0 Paroxysmal atrial fibrillation; R42 Dizziness and giddiness; G47.33 Obstructive sleep apnea (adult) (pediatric); E66.01 Morbid (severe) obesity due to excess calories; Z68.39 Body mass index [BMI] 39.0-39.9, adult; Z87.891 Personal history of nicotine dependence; Z91.81 History of falling; Z98.890 Other specified postprocedural states; Z88.6 Allergy status to analgesic agent; Z99.89 Dependence on other enabling machines and devices; Z79.899 Other long term (current) drug therapy
CPT/HCPCS: 36415; 80048; 80076; 83880; 84443; 93005; 99212

== ENCOUNTER 2021-06-09 11:28 | Day surgery (SDC) | payer MEDICARE, SELFPAY ==
[2021-06-04 09:27] VITALS: BMI 39.5
[2021-06-09 12:10] VITALS: BMI 38.7
[2021-06-09 12:11] VITALS: BP 164/86; PULSE 60; RESP 16; TEMP 36.9; O2SAT 96
--- NOTE | 2021-06-09 12:14 | P.CONAN_ITS ---
[facility] Active Problems Active Problems: All Active Problems (Updated 06/03/21 @ 15:42 by Jocelyn Torres RN) Chest pain (Acute) Persistent atrial fibrillation (Acute) RUMA on CPAP (Acute) Obesity (BMI 30-39.9) (Acute) (HFpEF) heart failure with preserved ejection fraction (Acute) Diastolic dysfunction (Acute) Pulmonary hypertension (Acute) Enlarged RV (right ventricle) (Acute) Sleep apnea (Acute) Morbid obesity (Acute) Past Medical History Medical History (HFpEF) heart failure with preserved ejection fraction Diastolic dysfunction Enlarged RV (right ventricle) History of cardioversion Morbid obesity Obesity (BMI 30-39.9) RUMA on CPAP Paroxysmal atrial fibrillation Persistent atrial fibrillation Pulmonary hypertension Family History Family History Father Afib COPD (chronic obstructive pulmonary disease) Diabetes Mother Cancer Afib Surgical History Surgical History H/O colonoscopy History of excision of pilonidal cyst Hx of cataract extraction Hx of knee surgery History of Problems with Anesthesia: No Social History Social History Patient Tobacco Use Status: Former Tobacco user Quit Date: 54 Tobacco use type: Cigarette Years Smoked: 12 Smoked in Last 30 Days: No Use of substances other than those prescribed or required for medical reasons: No Are you DNR?: No Advance Directives Information Provided: Yes (brochure mailed) Advance Directives on File: No Meds Allergies Allergy/AdvReac Type Severity Reaction Status Date / Time morphine [MORPHINE] Allergy Intermediate RASH Verified 06/09/21 11:54 Home Medications Medication Instructions Recorded Confirmed Last Taken Type tamsulosin 0.4 mg capsule 0.4 mg PO DAILY 01/27/20 06/04/21 Unknown History pantoprazole 40 mg tablet,delayed 40 mg PO DAILY tab 08/26/20 06/04/21 06/09/21 05:30 History release cholecalciferol (vitamin D3) 25 25 mcg PO DAILY 01/18/21 06/04/21 Unknown History mcg (1,000 unit) tablet Exam Exam Date and Time: June 09, 2021 1214 Height,Weight and Vital Signs: Height 5 ft 10 in Weight 122.47 kg Airway Mallampati Class: III TM Dist: >3cm Neck ROM: Full Loose/Missing/Broken Teeth: No Heart: RRR Lungs: CTA Assessment and Plan Assessment Anesthesia Assessment: Anesthesia Plan Discussed and Chart Reviewed Final Anesthetic Review History of Problems with Anesthesia: No NPO: Yes ASA Class: III Final Preanesthetic Review: Meds/Allgs Chart Reviewed, Consent Obtained/Reviewed and Anes Risks/Benef Reviewed Patient Risk: Intermediate Procedure Risk: Intermediate Anesthetic Plan Anesthetic Plan: GA Disposition: Standard PACU
--- NOTE | 2021-06-09 12:29 | MHC.SHP ---
Pre-Procedural Eval Section A Date of Service: 06/09/21 The patient is an INPATIENT: No Changes since office visit: Yes Patient answered all questions; No Cold of Flu in the past 2 weeks, No New Medical Problems and No Changes in Medication The History & Physical has been completed within 30 days and I have reviewed it.: Yes Section B Chief Complaint: a-fib Allergies: Allergies Allergy/AdvReac Type Severity Reaction Status Date / Time morphine [MORPHINE] Allergy Intermediate RASH Verified 06/09/21 11:54 Plan I have reviewed the history and physical and performed a pertinent physical examination on my patient. No changes have occurred unless specified.
[2021-06-09] MEDS: Lactated Ringers 1,000 ML 50 ML IVCONT (13:16)
[2021-06-09 13:35] VITALS: BP 144/71; PULSE 56; RESP 12; TEMP 36.4; O2SAT 96
[2021-06-09 13:49] VITALS: BP 124/64; PULSE 55; RESP 14; O2SAT 95
--- NOTE | 2021-06-09 13:55 | ECG_ITS ---
Test Reason : post cardioversion Blood Pressure : / mmHG Vent. Rate : 052 BPM Atrial Rate : 052 BPM P-R Int : 276 ms QRS Dur : 106 ms QT Int : 524 ms P-R-T Axes : 055 -05 -09 degrees QTc Int : 487 ms Sinus bradycardia with 1st degree A-V block Nonspecific T wave abnormality Prolonged QT Abnormal ECG No previous ECGs available Referred By: Durga Clayton Electronically Signed By:JOSE DESHPANDE
--- NOTE | 2021-06-09 13:55 | HO.CARDIVERS ---
Cardioversion Procedure Note Cardioversion Date of Procedure: 06/09/2021 Ordering Provider: Myself Performing Provider: Myself Indication for Procedure: Symptomatic persistent atrial fibrillation Pre-Op Diagnosis: Same Post-Op Diagnosis: Sinus rhythm Performed with Transesophageal Echo: No History: See my office note Consent: Verbal and Written consent was obtained from the patient before starting and confirming oral anticoagulation use The patient was made aware of the risk of synchronized cardioversion including benefits, alternatives 2nd opinion. Procedure: After consent obtained, cardioversion pads were attached in AP configuration and the patient was sedated by the anesthesia team. Once adequate sedation achieved, patient was delivered 200 joules of biphasic synchronized energy in anteroposterior configuration. Complications: None Impression: Successful conversion to sinus rhythm Recommendations: 1. 12 lead EKG 2. Switch amiodarone to 200 mg daily 3. Follow-up Holter monitor in office visit in few weeks time 4. Continue full oral anticoagulation.
[2021-06-09 14:03] VITALS: BP 154/76; PULSE 53; RESP 14; TEMP 36.3; O2SAT 97
== END 2021-06-09 14:45 | disposition home or self-care (01) ==
PROVIDERS: PCP Internal Medicine Medical Oncology; Visit Provider Internal Medicine Cardiovascular Disease
PROC: 5A2204Z Restoration of Cardiac Rhythm, Single (ICD-10-PCS; principal; 2021-06-09 13:00)
DX: I48.19 Other persistent atrial fibrillation (principal); Z79.01 Long term (current) use of anticoagulants; R42 Dizziness and giddiness; I50.30 Unspecified diastolic (congestive) heart failure; I27.20 Pulmonary hypertension, unspecified; I51.7 Cardiomegaly; E66.01 Morbid (severe) obesity due to excess calories; Z68.39 Body mass index [BMI] 39.0-39.9, adult; G47.33 Obstructive sleep apnea (adult) (pediatric); Z79.899 Other long term (current) drug therapy; Z99.89 Dependence on other enabling machines and devices; Z88.8 Allergy status to other drugs, medicaments and biological substances; Z87.891 Personal history of nicotine dependence
CPT/HCPCS: 92960; 93005; J0461

== ENCOUNTER → 2021-06-23 06:54 | Outpatient (REF) | payer MEDICARE, SELFPAY ==
--- NOTE | 2021-06-23 06:58 | HM_ITS ---
* Total monitoring time 3 days 19 hours. * Underlying rhythm is sinus 60% the time and atrial fibrillation 40% the time. * While in sinus, average rate 69/Min. While atrial fibrillation, some controlled rates and some rapid rates up to 130s/Min. * Rare ventricular ectopy with minimal burden. * No patient events. MTDD
== END ==
LOC: HO.CARD 06:54
PROVIDERS: Visit Provider Internal Medicine Cardiovascular Disease
DX: I48.19 Other persistent atrial fibrillation (principal)
CPT/HCPCS: 93242

== ENCOUNTER → 2021-07-09 09:11 | Outpatient (BNVA) | payer MEDICARE, SELFPAY | PROVIDERS: PCP Internal Medicine Medical Oncology; Referring Provider Internal Medicine Medical Oncology; Visit Provider Internal Medicine Cardiovascular Disease | DX: I48.92 Unspecified atrial flutter (principal); I50.30 Unspecified diastolic (congestive) heart failure | CPT/HCPCS: 93005; 99212 ==

== ENCOUNTER 2021-08-04 06:18 | Outpatient (REF) | payer MEDICARE, SELFPAY ==
[2021-08-04 11:23] LABS: MANUAL DIFF FLAG NO
[2021-08-04 11:29] LABS: Basophils Percent Auto 0.5 % (0-2); Eosinophils Percent Auto 0.7 % (0-4); Hematocrit 50.1 % (42.0-52.0); Hemoglobin 16.2 g/dl (14.0-18.0); Imm Gran Abs Auto 0.03 X10*3/uL (0.00-0.03); Imm Gran Pct Auto 0.5 % (0.0-0.4); Lymphocytes Absolute Auto 1.1 X10*3/uL (1.2-4.9); Lymphocytes Percent Auto 19.1 % (20-40); Mean Corpuscular HGB Conc 32.3 g/dl (31.0-36.0); Mean Corpuscular Hemoglobin 33.2 pg (27.0-33.0); Mean Corpuscular Volume 102.7 fL (80.0-98.0); Mean Platelet Volume 12.3 fL (9.4-12.4); Monocytes Absolute Auto 0.5 X10*3/uL (0.1-1.2); Monocytes Percent Auto 7.9 % (2-11); Neutrophils Absolute Auto 4.3 x10*3/uL (2.0-8.3); Neutrophils Percent Auto 71.3 % (45-73); Platelet Count 151 X10*3/uL (160-400); Red Blood Count 4.88 X10*6/uL (4.60-5.80); Red Cell Distribution Width 14.6 % (11.0-16.0)
[2021-08-04 12:12] LABS: Alanine Aminotransferase 12 U/L (0-40); Albumin Level 3.7 g/dL (3.5-5.0); Alkaline Phosphatase 55 U/L (39-117); Anion Gap 11 (12-20); Aspartate Amino Transferase 12 U/L (5-37); Bilirubin Total 1.2 mg/dL (0.0-1.0); Blood Urea Nitrogen 20 mg/dL (9-16); Calcium 8.8 mg/dL (8.4-10.2); Carbon Dioxide 30 mmol/L (22-29); Chloride 104 mmol/L (96-108); Cholesterol 166 mg/dL; Estimated Glomerular Filt Rate 51; Glucose Fasting 100 mg/dL (60-99); HDL Cholesterol 61 mg/dL; LDL Cholesterol Calculated 94 mg/dl; Potassium 3.8 mmol/L (3.3-5.1); Sodium 141 mmol/L (135-145); Total Protein 6.4 g/dL (6.5-8.0); Triglycerides 58 mg/dL
== END 2021-08-04 06:19 | disposition home or self-care (01) ==
LOC: HO.HMGCLDS 06:18
PROVIDERS: Visit Provider Internal Medicine Medical Oncology
DX: D69.6 Thrombocytopenia, unspecified (principal); I10 Essential (primary) hypertension; I48.0 Paroxysmal atrial fibrillation; E66.9 Obesity, unspecified
CPT/HCPCS: 36415; 80053; 80061; 85025

== ENCOUNTER → 2021-09-13 08:17 | Outpatient (REF) | payer MEDICARE, SELFPAY ==
--- NOTE | 2021-09-13 08:20 | CA_ITS ---
Transthoracic Echocardiogram Patient (Last, First, Middle): Behzad Mendoza P Gender: Male Date of : 1940 Age: 80 Procedure Date: 09/13/2021 Procedure Type: Transthoracic Echocardiogram Location: OP Height: 175.26 cm Weight: 124.74 kg BSA: 2.37 m2 Heart Rate: bpm BP: 135 / 85 mmHg Jump Roll Operator: KAI Referring MD: Durga Clayton MD Ceramic Engineer: Durga Clayton MD Symptoms: I50.30 - Unspecified diastolic (congestive) heart failure Study Quality: Technically Difficult/BSA/No IV access ECG Rhythm: Atrial Fibrillation Conclusions: - 1. Technically limited study 2. Normal LV systolic function with LVEF of 55-60% 3. Severe biatrial enlargement 4. Mildly dilated ascending aorta at 3.9 cm 5. Normal RV systolic pressure Findings Left Ventricle Normal left ventricular size, thickness, and systolic function. The visually estimated ejection fraction is between 55-60%. Diastolic function is indeterminate on the basis of available data. Right Ventricle Severely increased right ventricular cavity size. Atria The left atrium is severely dilated. Interatrial shunt cannot be excluded. The right atrium is severely dilated. Aortic Valve There is mild calcification of the aortic valve. There is no aortic valve stenosis. There is no aortic valve regurgitation. Mitral Valve There is mild anterior and posterior mitral leaflet thickening. There is mild mitral annular calcification. There is trace mitral valve regurgitation. There is no mitral valve stenosis. Pulmonic Valve The pulmonic valve was not well visualized. There is trace to mild pulmonic valve regurgitation. Tricuspid Valve Likely normal tricuspid valve structure and function. There is mild to moderate tricuspid valve regurgitation. The right ventricular systolic pressure is normal. The right ventricular systolic pressure is 33 mmHg. There is no evidence of pulmonary hypertension. Great Vessels The pulmonary artery was not well visualized. There is mild dilatation of the ascending aorta measuring 3.90 cm. Venous The inferior vena cava is normal in size and collapses greater than 50% with inspiration. Pericardium/Pleural The pericardium was not well visualized. Prior Study Comparison Changes noted compared to prior study dated: 07/16/2020. ascending aorta is mildly dilated on this study. Patient noted to be in atrial fibrillation Measurements 2D Linear Measurements IVSd: 1.33 0.6-0.9/0.6-1.0 cm LVIDd: 5.28 3.9-5.3/4.2-5.9 cm LVIDd Index: 2.23 2.4-3.2/2.2-3.1 cm/m2 LVIDs: 3.69 2.0-3.6 cm LVPWd: 1.10 0.7-1.1 cm LA Diam: 4.90 2.7-3.8/3.0-4.0 cm LAIDs Index: 2.07 1.5-2.3 cm/m2 LV Mass: 329.89 67-162/88-224 g LV Mass Index: 139.20 43-95/49-115 g/m2 LVOT Diam: 2.20 3.0+(-)1.3 cm Aortic Valve AoV Pk [facility]: 1.16 AoV Mn [facility]: 0.78 AoV VTI: 0.25 AoV Pk Grad: 5.00 Aov Mn Grad: 3.00 MARLON Cont.VTI: 2.52 LVOT LVOT Pk [facility]: 0.71 LVOT Mn [facility]: 0.50 LVOT VTI: 0.17 LVOT Pk Grad: 2.00 LVOT Mn Grad: 1.00 LVOT Diam: 2.20 LVOT Area: 3.80 Right Ventricle TVS' [facility]: 6.20 Tricuspid Valve TR Pk [facility]: 2.49 TR Pk Grad: 25.00 RA Press: 8.00 RVSP: 33.00 Great Vessels Aorta Sinus of Valsalva: 3.80 2.0-3.5 cm Ao Asc: 3.90 2.1-3.4 cm Ao Arch: 3.70 Pulmonary Valve PV Pk [facility]: 0.63 Peak PV Grad: 2.00 Updated in Other Vendor System with Status of Final Durga Clayton MD electronically signed on 09/13/2021 12:17:20 PM with status of Final
== END ==
LOC: HO.CARD 08:17
PROVIDERS: PCP Internal Medicine Medical Oncology; Visit Provider Internal Medicine Cardiovascular Disease
DX: I50.30 Unspecified diastolic (congestive) heart failure (principal)
CPT/HCPCS: 93306

== ENCOUNTER → 2021-10-19 09:57 | Outpatient (BNVA) | payer MEDICARE, SELFPAY | PROVIDERS: PCP Internal Medicine Medical Oncology; Referring Provider Internal Medicine Medical Oncology; Visit Provider Internal Medicine Cardiovascular Disease | DX: I48.19 Other persistent atrial fibrillation (principal); I50.30 Unspecified diastolic (congestive) heart failure; R00.1 Bradycardia, unspecified; Z79.01 Long term (current) use of anticoagulants; Z79.899 Other long term (current) drug therapy | CPT/HCPCS: 93005; 99212 ==

== ENCOUNTER 2021-11-05 08:19 | Outpatient (REF) | payer MEDICARE, SELFPAY ==
[2021-11-05 11:12] LABS: MANUAL DIFF FLAG NO
[2021-11-05 11:22] LABS: Basophils Percent Auto 0.4 % (0-2); Eosinophils Absolute Auto 0.1 X10*3/uL (0.0-0.4); Eosinophils Percent Auto 1.2 % (0-4); Hematocrit 50.3 % (42.0-52.0); Hemoglobin 16.4 g/dl (14.0-18.0); Imm Gran Abs Auto 0.02 X10*3/uL (0.00-0.03); Imm Gran Pct Auto 0.4 % (0.0-0.4); Lymphocytes Percent Auto 20.5 % (20-40); Mean Corpuscular HGB Conc 32.6 g/dl (31.0-36.0); Mean Corpuscular Hemoglobin 33.6 pg (27.0-33.0); Mean Corpuscular Volume 103.1 fL (80.0-98.0); Mean Platelet Volume 12.3 fL (9.4-12.4); Monocytes Absolute Auto 0.5 X10*3/uL (0.1-1.2); Monocytes Percent Auto 9.4 % (2-11); Neutrophils Absolute Auto 3.3 x10*3/uL (2.0-8.3); Neutrophils Percent Auto 68.1 % (45-73); Platelet Count 146 X10*3/uL (160-400); Red Blood Count 4.88 X10*6/uL (4.60-5.80); Red Cell Distribution Width 13.7 % (11.0-16.0); White Blood Count 4.9 X10*3/uL (4.8-10.8)
[2021-11-05 11:48] LABS: Alanine Aminotransferase 14 U/L (0-40); Alkaline Phosphatase 62 U/L (39-117); Anion Gap 15 (12-20); Aspartate Amino Transferase 14 U/L (5-37); Bilirubin Total 1.4 mg/dL (0.0-1.0); Blood Urea Nitrogen 19 mg/dL (9-16); Calcium 8.9 mg/dL (8.4-10.2); Carbon Dioxide 28 mmol/L (22-29); Chloride 103 mmol/L (96-108); Cholesterol 162 mg/dL; Estimated Glomerular Filt Rate 50; Glucose Fasting 129 mg/dL (60-99); HDL Cholesterol 56 mg/dL; LDL Cholesterol Calculated 95 mg/dl; Potassium 4.3 mmol/L (3.3-5.1); Sodium 142 mmol/L (135-145); Total Protein 6.8 g/dL (6.5-8.0); Triglycerides 57 mg/dL
[2021-11-05 11:57] LABS: Prostate Specific Antigen 3.34 ng/mL (<0.05-4.0); Vitamin D 25-OH Total 29.8 ng/mL (>30)
== END 2021-11-05 08:20 | disposition home or self-care (01) ==
LOC: HO.HMGCLDS 08:19
PROVIDERS: PCP Internal Medicine Medical Oncology; Visit Provider Internal Medicine Medical Oncology
DX: Z12.5 Encounter for screening for malignant neoplasm of prostate (principal); D69.6 Thrombocytopenia, unspecified; N40.0 Benign prostatic hyperplasia without lower urinary tract symptoms; E66.01 Morbid (severe) obesity due to excess calories
CPT/HCPCS: 36415; 80053; 80061; 82306; 84153; 85025

== ENCOUNTER 2021-11-08 10:06 | Outpatient (REF) | payer MEDICARE, SELFPAY ==
--- NOTE | ~2021-11-08 | XR_ITS ---
EXAMINATION: XR THORACIC SPINE CLINICAL INFORMATION: Back pain COMPARISON: None TECHNIQUE: AP and lateral views of the thoracic spine. FINDINGS: Normal alignment and thoracic kyphosis. Moderate multilevel degenerative disc disease, most prominent in the mid thoracic spine and thoracolumbar junction. No fracture. XR/XR thoracic spine 2V IMPRESSION: Normal alignment with no acute fracture demonstrated. Moderate degenerative disc disease of the midthoracic spine.
== END 2021-11-08 10:07 | disposition home or self-care (01) ==
LOC: HO.XRAY 10:06
PROVIDERS: PCP Internal Medicine Medical Oncology; Visit Provider Internal Medicine Medical Oncology
DX: M54.50 Low back pain, unspecified (principal)
CPT/HCPCS: 72070

== ENCOUNTER → 2021-11-11 09:40 | Outpatient (BNVA) | payer MEDICARE, SELFPAY | PROVIDERS: PCP Internal Medicine Medical Oncology; Visit Provider Internal Medicine | DX: G47.33 Obstructive sleep apnea (adult) (pediatric) (principal); E66.9 Obesity, unspecified; Z99.89 Dependence on other enabling machines and devices | CPT/HCPCS: 99212 ==

== ENCOUNTER 2022-03-31 06:21 | Outpatient (REF) | payer MEDICARE, SELFPAY ==
[2022-03-31 11:24] LABS: MANUAL DIFF FLAG NO
[2022-03-31 11:32] LABS: Basophils Percent Auto 0.5 % (0-2); Eosinophils Absolute Auto 0.1 X10*3/uL (0.0-0.4); Eosinophils Percent Auto 1.2 % (0-4); Hematocrit 49.5 % (42.0-52.0); Hemoglobin 15.8 g/dl (14.0-18.0); Imm Gran Abs Auto 0.03 X10*3/uL (0.00-0.03); Imm Gran Pct Auto 0.5 % (0.0-0.4); Lymphocytes Absolute Auto 1.3 X10*3/uL (1.2-4.9); Lymphocytes Percent Auto 22.8 % (20-40); Mean Corpuscular HGB Conc 31.9 g/dl (31.0-36.0); Mean Corpuscular Hemoglobin 32.2 pg (27.0-33.0); Mean Platelet Volume 12.6 fL (9.4-12.4); Monocytes Absolute Auto 0.6 X10*3/uL (0.1-1.2); Monocytes Percent Auto 9.6 % (2-11); Neutrophils Absolute Auto 3.8 x10*3/uL (2.0-8.3); Neutrophils Percent Auto 65.4 % (45-73); Platelet Count 125 X10*3/uL (160-400); Red Cell Distribution Width 13.9 % (11.0-16.0); White Blood Count 5.8 X10*3/uL (4.8-10.8)
[2022-03-31 12:08] LABS: Alanine Aminotransferase 13 U/L (0-40); Albumin Level 3.6 g/dL (3.5-5.0); Alkaline Phosphatase 60 U/L (39-117); Anion Gap 14 (12-20); Aspartate Amino Transferase 13 U/L (5-37); Bilirubin Total 1.2 mg/dL (0.0-1.0); Blood Urea Nitrogen 24 mg/dL (9-16); Calcium 8.8 mg/dL (8.4-10.2); Carbon Dioxide 26 mmol/L (22-29); Chloride 106 mmol/L (96-108); Cholesterol 147 mg/dL; Estimated Glomerular Filt Rate 50; Glucose Fasting 99 mg/dL (60-99); HDL Cholesterol 52 mg/dL; LDL Cholesterol Calculated 82 mg/dl; Potassium 3.7 mmol/L (3.3-5.1); Sodium 142 mmol/L (135-145); Total Protein 6.2 g/dL (6.5-8.0); Triglycerides 66 mg/dL; Vitamin D 25-OH Total 29.4 ng/mL (>30)
== END 2022-03-31 06:22 | disposition home or self-care (01) ==
LOC: HO.HMGCLDS 06:21
PROVIDERS: PCP Internal Medicine Medical Oncology; Visit Provider Internal Medicine Medical Oncology
DX: D69.6 Thrombocytopenia, unspecified (principal); I10 Essential (primary) hypertension
CPT/HCPCS: 36415; 80053; 80061; 82306; 85025

== ENCOUNTER → 2022-05-17 09:03 | Outpatient (BNVA) | payer MEDICARE, SELFPAY | PROVIDERS: PCP Internal Medicine Medical Oncology; Visit Provider Internal Medicine | DX: G47.33 Obstructive sleep apnea (adult) (pediatric) (principal); E66.9 Obesity, unspecified; Z99.89 Dependence on other enabling machines and devices; Z68.39 Body mass index [BMI] 39.0-39.9, adult | CPT/HCPCS: 99212 ==

== ENCOUNTER → 2022-06-09 08:23 | Outpatient (BNVA) | payer MEDICARE, SELFPAY | PROVIDERS: PCP Internal Medicine Medical Oncology; Referring Provider Internal Medicine Medical Oncology; Visit Provider Internal Medicine Cardiovascular Disease | DX: I48.0 Paroxysmal atrial fibrillation (principal); I48.19 Other persistent atrial fibrillation; I45.10 Unspecified right bundle-branch block; I50.30 Unspecified diastolic (congestive) heart failure; I27.20 Pulmonary hypertension, unspecified; Z87.891 Personal history of nicotine dependence; Z98.890 Other specified postprocedural states | CPT/HCPCS: 93005; 99212 ==

== ENCOUNTER 2022-06-21 06:09 | Outpatient (REF) | payer MEDICARE, SELFPAY ==
[2022-06-21 11:22] LABS: MANUAL DIFF FLAG NO
[2022-06-21 11:31] LABS: Basophils Percent Auto 0.7 % (0-2); Eosinophils Absolute Auto 0.1 X10*3/uL (0.0-0.4); Eosinophils Percent Auto 1.4 % (0-4); Hematocrit 51.5 % (42.0-52.0); Hemoglobin 16.5 g/dl (14.0-18.0); Imm Gran Abs Auto 0.02 X10*3/uL (0.00-0.03); Imm Gran Pct Auto 0.3 % (0.0-0.4); Lymphocytes Absolute Auto 1.4 X10*3/uL (1.2-4.9); Lymphocytes Percent Auto 23.5 % (20-40); Mean Corpuscular Hemoglobin 32.4 pg (27.0-33.0); Mean Platelet Volume 12.7 fL (9.4-12.4); Monocytes Absolute Auto 0.5 X10*3/uL (0.1-1.2); Monocytes Percent Auto 9.2 % (2-11); Neutrophils Absolute Auto 3.8 x10*3/uL (2.0-8.3); Neutrophils Percent Auto 64.9 % (45-73); Platelet Count 137 X10*3/uL (160-400); Red Cell Distribution Width 13.9 % (11.0-16.0); White Blood Count 5.8 X10*3/uL (4.8-10.8)
[2022-06-21 12:42] LABS: Alanine Aminotransferase 14 U/L (0-40); Albumin Level 3.6 g/dL (3.5-5.0); Alkaline Phosphatase 60 U/L (39-117); Anion Gap 14 (12-20); Aspartate Amino Transferase 14 U/L (5-37); Bilirubin Total 1.9 mg/dL (0.0-1.0); Blood Urea Nitrogen 14 mg/dL (9-16); Carbon Dioxide 29 mmol/L (22-29); Chloride 104 mmol/L (96-108); Cholesterol 149 mg/dL; Estimated Glomerular Filt Rate 57; Glucose Fasting 83 mg/dL (60-99); HDL Cholesterol 46 mg/dL; LDL Cholesterol Calculated 87 mg/dl; Potassium 4.2 mmol/L (3.3-5.1); Sodium 143 mmol/L (135-145); Total Protein 6.2 g/dL (6.5-8.0); Triglycerides 83 mg/dL
== END 2022-06-21 06:10 | disposition home or self-care (01) ==
LOC: HO.HMGCLDS 06:09
PROVIDERS: PCP Internal Medicine Medical Oncology; Visit Provider Internal Medicine Medical Oncology
DX: I10 Essential (primary) hypertension (principal); I48.0 Paroxysmal atrial fibrillation; D69.6 Thrombocytopenia, unspecified; N40.0 Benign prostatic hyperplasia without lower urinary tract symptoms; E55.9 Vitamin D deficiency, unspecified
CPT/HCPCS: 36415; 80053; 80061; 82306; 85025

== ENCOUNTER 2022-08-09 07:34 | Outpatient (REF) | payer MEDICARE, SELFPAY ==
--- NOTE | ~2022-08-09 | XR_ITS ---
EXAMINATION: XR CHEST CLINICAL INFORMATION: Shortness of breath. Cough. COMPARISON: Previous chest x-ray June 2020 TECHNIQUE: 2 views of the chest were obtained. FINDINGS: The cardiac silhouette is enlarged but stable. Hilar and mediastinal contours are unremarkable. The lungs are clear. No pleural effusion or pneumothorax. There are degenerative changes of the spine. XR/XR chest 2V IMPRESSION: Stable enlargement of the cardiac silhouette.
[2022-08-09 08:46] LABS: B Type Natriuretic Peptide 416 pg/mL (<100)
== END 2022-08-09 07:35 | disposition home or self-care (01) ==
LOC: HO.LAB 07:34
PROVIDERS: Absent Provider Internal Medicine Cardiovascular Disease; Visit Provider Internal Medicine Medical Oncology
DX: I48.19 Other persistent atrial fibrillation (principal); I50.30 Unspecified diastolic (congestive) heart failure; I51.89 Other ill-defined heart diseases; R06.02 Shortness of breath; R05.1 Acute cough
CPT/HCPCS: 36415; 71046; 83880; 93005; 99211; Q3014

== ENCOUNTER 2022-08-17 06:41 | Outpatient (REF) | payer MEDICARE, SELFPAY | END 2022-08-17 06:42 | disposition home or self-care (01) | LOC: HO.LAB 06:41 | PROVIDERS: PCP Internal Medicine Medical Oncology; Visit Provider Internal Medicine Cardiovascular Disease | DX: I50.30 Unspecified diastolic (congestive) heart failure (principal) | CPT/HCPCS: 36415; 83880 ==

== ENCOUNTER 2022-11-02 06:22 | Outpatient (REF) | payer MEDICARE, SELFPAY ==
[2022-11-02 12:13] LABS: MANUAL DIFF FLAG NO
[2022-11-02 12:17] LABS: Basophils Percent Auto 0.7 % (0-2); Eosinophils Absolute Auto 0.1 X10*3/uL (0.0-0.4); Eosinophils Percent Auto 1.3 % (0-4); Hematocrit 54.1 % (42.0-52.0); Hemoglobin 17.1 g/dl (14.0-18.0); Imm Gran Abs Auto 0.01 X10*3/uL (0.00-0.03); Imm Gran Pct Auto 0.2 % (0.0-0.4); Lymphocytes Absolute Auto 1.3 X10*3/uL (1.2-4.9); Lymphocytes Percent Auto 23.6 % (20-40); Mean Corpuscular HGB Conc 31.6 g/dl (31.0-36.0); Mean Corpuscular Hemoglobin 32.4 pg (27.0-33.0); Mean Corpuscular Volume 102.5 fL (80.0-98.0); Mean Platelet Volume 12.8 fL (9.4-12.4); Monocytes Absolute Auto 0.4 X10*3/uL (0.1-1.2); Monocytes Percent Auto 7.9 % (2-11); Neutrophils Absolute Auto 3.7 x10*3/uL (2.0-8.3); Neutrophils Percent Auto 66.3 % (45-73); Platelet Count 146 X10*3/uL (160-400); Red Blood Count 5.28 X10*6/uL (4.60-5.80); Red Cell Distribution Width 14.1 % (11.0-16.0); White Blood Count 5.6 X10*3/uL (4.8-10.8)
[2022-11-02 13:05] LABS: Alanine Aminotransferase 14 U/L (0-40); Albumin Level 3.7 g/dL (3.5-5.0); Alkaline Phosphatase 56 U/L (39-117); Anion Gap 13 (12-20); Aspartate Amino Transferase 18 U/L (5-37); Bilirubin Total 1.1 mg/dL (0.0-1.0); Blood Urea Nitrogen 18 mg/dL (9-16); Calcium 9.6 mg/dL (8.4-10.2); Carbon Dioxide 29 mmol/L (22-29); Chloride 107 mmol/L (96-108); Cholesterol 144 mg/dL (<200); Estimated Glomerular Filt Rate 56; Glucose Fasting 104 mg/dL (60-99); HDL Cholesterol 52 mg/dL (>40); LDL Cholesterol Calculated 79 mg/dL (<100); Potassium 4.1 mmol/L (3.3-5.1); Sodium 145 mmol/L (135-145); Total Protein 6.8 g/dL (6.5-8.0); Triglycerides 67 mg/dL (<150)
[2022-11-02 13:12] LABS: Prostate Specific Antigen 3.45 ng/mL (<0.05-4.0)
== END 2022-11-02 06:23 | disposition home or self-care (01) ==
LOC: HO.HMGCLDS 06:22
PROVIDERS: PCP Internal Medicine Medical Oncology; Visit Provider Internal Medicine Medical Oncology
DX: Z12.5 Encounter for screening for malignant neoplasm of prostate (principal); I10 Essential (primary) hypertension; D69.6 Thrombocytopenia, unspecified; N40.0 Benign prostatic hyperplasia without lower urinary tract symptoms; E66.01 Morbid (severe) obesity due to excess calories; E55.9 Vitamin D deficiency, unspecified
CPT/HCPCS: 36415; 80053; 80061; 82306; 84153; 85025

== ENCOUNTER 2022-11-30 10:38 | Outpatient (AMB) | payer MEDICARE, SELFPAY ==
--- NOTE | 2022-11-30 10:50 | MHC.OFFVIS ---
Intake Vital Signs 11/30/22 10:57 Height 5 ft 10 in Weight 274 lb BMI 39.3 BP 110/70 Blood Pressure Location Lt brachial Position Sitting Pulse 74 Pulse Oximetry (%) 98 Intake Visit Reasons: Obstructive sleep apnea Allergies morphine [MORPHINE] Allergy (Intermediate, Verified 11/30/22 11:18) RASH Medication List - Last Reconciled 11/30/22 by Shaniqua Munson MD amlodipine 2.5 mg PO DAILY apixaban (Eliquis) 5 mg PO BID cholecalciferol (vitamin D3) 25 mcg PO DAILY empagliflozin (Jardiance) 10 mg PO DAILY furosemide 40 mg PO DAILY metoprolol succinate ER 50 mg PO DAILY pantoprazole 40 mg PO DAILY tamsulosin 0.4 mg PO DAILY Do you need a note to return to daycare/school/sports/work: No HPI Obstructive sleep apnea HPI Details This 82 years old very pleasant gentleman is here for 6 months follow-up for his sleep apnea. He uses his CPAP very regularly every night and sleeps well at least for 7 hours. He has no issue with the CPAP device or the mask. He denies. any daytime sleepiness Weight paula there has been no change. [facility] Medical History Atrial flutter Persistent atrial fibrillation RUMA on CPAP Obesity (BMI 30-39.9) Diastolic dysfunction Pulmonary hypertension Enlarged RV (right ventricle) Morbid obesity (HFpEF) heart failure with preserved ejection fraction Paroxysmal atrial fibrillation History of cardioversion Surgical History H/O colonoscopy Hx of cataract extraction History of excision of pilonidal cyst Hx of knee surgery Family History Father Afib COPD (chronic obstructive pulmonary disease) Diabetes Mother Cancer Afib Social History Patient Tobacco Use Status: Former Tobacco user Quit Date: 54 Tobacco use type: Cigarette Years Smoked: 12 Review of Systems Const All systems reviewed & are unremarkable except as noted in HPI and below Eyes Reports no additional complaints ENT Reports no additional complaints Card Reports irregular heart rhythm (Atrial fibrillation controlled) and Reports dyspnea (On walking) Resp Reports dyspnea (On walking) GI Reports heartburn (Controlled with med) Reports urinary hesitancy (Being treated with Flomax) Musc Reports joint swelling (Niece) Skin/Breast Reports system reviewed and no additional complaints, except as documented Neuro Reports no additional complaints Psych Reports no additional complaints Physical Exam Vital Signs: Last Vital Signs Pulse 74 11/30/22 10:57 BP 110/70 11/30/22 10:57 Pulse Ox 98 11/30/22 10:57 BMI result Body Mass Index 39.3 Const General: healthy appearing (Except for being overweight), comfortable, no acute distress, alert and awake Orientation/consciousness: patient oriented x3 HEENT Head: Yes normal to inspection General nose exam: No nasal polyps present and No nasal discharge present Face and sinus: Yes sinuses nontender Mouth: oropharynx normal Throat: Yes posterior oropharynx normal Eyes General: appearance normal, both eyes and all related structures Neck Neck: Yes normal visual inspection, Yes no lymphadenopathy, Yes trachea midline and Yes no JVD Thyroid: Thyroid normal Chest Chest palpation & inspection: normal inspection of the chest, normal palpation of entire chest wall and no tenderness Resp Effort & Inspection: normal respiratory effort and no cough Auscultation: clear to auscultation bilaterally, no crackles and no wheezes Percussion: percussion normal Cardio Palpation: normal PMI Rate: regular rate Rhythm: abnormal rhythm (Atrial fib) Heart sounds: no gallops and no murmurs GI Palpation (GI): Soft to palpation, nontender, No hepatosplenomegaly present, no masses and Other GI palpation findings present ( Abdomen is moderately obese and protuberant) Auscultation: normal bowel sounds Back/Spine/Pelvis Thoracic/Lumbar Spine: thoracic and lumbar spine normal to inspection Skin General skin exam: no rashes or lesions noted Neuro General: patient oriented x3 and no focal motor deficits Cranial nerves: Yes CN's II-XII intact bilaterally Extrem General: Yes normal to inspection, Yes no clubbing, cyanosis or edema and Yes no calf tenderness Psych Appearance: grossly normal and well kempt Speech and movement: Normal speech and movement present Results Reviewed Results Reviewed: Compliance report is reviewed. He has used 30/30 nights., 100% Average use it per night 7 hours 59 minutes. Pressure setting 10 cm. Residual AHI 4.8. This is due to some air leakage, maximum is 119 L per hour Assessment & Plan Assessment & Plan (1) Obesity (BMI 30-39.9): Comment: This is a chronic problem and it is difficult for him to lose weight as he cannot do much physical activity. He tries to control his diet. I educated him about the type of diet. He has to cut down the use of carbohydrates and increase the use of vegetables and salads etc. Code(s): E66.9 - Obesity, unspecified (2) RUMA on CPAP: Comment: Very COMPLIANT ,, and BENEFITTING . New CPAP machine is working well. We were able to download the compliance data online. Patient is commended for excellent compliance and he is advised to continue using. The CPAP regularly Code(s): G47.33 - Obstructive sleep apnea (adult) (pediatric); Z99.89 - Dependence on other enabling machines and devices Coding Level of Care Code Est Pt Level 3 (33530) Diagnoses Obesity (BMI 30-39.9) E66.9 RUMA on CPAP G47.33; Z99.89
[2022-11-30 10:57] VITALS: BP 110/70; PULSE 74; O2SAT 98; BMI 39.3
== END 2022-11-30 11:13 | disposition home or self-care (01) ==
PROVIDERS: PCP Internal Medicine Medical Oncology; Visit Provider Internal Medicine
DX: E66.9 Obesity, unspecified (principal); G47.33 Obstructive sleep apnea (adult) (pediatric); Z99.89 Dependence on other enabling machines and devices
CPT/HCPCS: 99213

== ENCOUNTER → 2022-11-30 10:38 | Outpatient (BNVA) | payer MEDICARE, SELFPAY | PROVIDERS: PCP Internal Medicine Medical Oncology; Visit Provider Internal Medicine | DX: G47.33 Obstructive sleep apnea (adult) (pediatric) (principal); E66.9 Obesity, unspecified; Z99.89 Dependence on other enabling machines and devices; Z68.39 Body mass index [BMI] 39.0-39.9, adult | CPT/HCPCS: 99212 ==

== ENCOUNTER 2022-12-12 08:26 | Outpatient (AMB) | payer MEDICARE, SELFPAY ==
[2022-12-12 08:29] VITALS: BP 106/68; PULSE 76; BMI 38.3
--- NOTE | 2022-12-12 08:29 | A.OFFVIS_ITS ---
Intake Vital Signs 12/12/22 08:29 Height 5 ft 10 in Weight 266 lb 12.149 oz BMI 38.3 BP 106/68 Blood Pressure Location Lt brachial Position Sitting Pulse 76 Intake Visit Reasons: 6 mth f/up Intake Note: 6 month follow-up feeling good Supervisor Partial Denture Department Required: No Plumbers And Top Helpers: Plumbers And Top Helpers Present Accompanied by: Spouse Allergies morphine [MORPHINE] Allergy (Intermediate, Verified 11/30/22 11:18) RASH Medication List - Last Reconciled 12/12/22 by Durga Clayton MD amlodipine 2.5 mg PO DAILY apixaban (Eliquis) 5 mg PO BID cholecalciferol (vitamin D3) 25 mcg PO DAILY empagliflozin (Jardiance) 10 mg PO DAILY furosemide 40 mg PO DAILY metoprolol succinate ER 50 mg PO DAILY pantoprazole 40 mg PO DAILY tamsulosin 0.4 mg PO DAILY HPI HPI Comments History of Present Illness Details Joshua comes for follow-up with his . Recently climbing many steps while he was in [facility] he had significant shortness of breath. Otherwise overall he is doing well. Continues to have exertional shortness of breath. No orthopnea, PND, leg edema has overall lost about 15 lb. No palpitation irregular heartbeat. Will also more short of breath when he had a low cold but this is not improved. No bleeding issues or neurologic events [facility] Medical History Atrial flutter Persistent atrial fibrillation RUMA on CPAP Obesity (BMI 30-39.9) Diastolic dysfunction Pulmonary hypertension Enlarged RV (right ventricle) Morbid obesity (HFpEF) heart failure with preserved ejection fraction Paroxysmal atrial fibrillation History of cardioversion Surgical History H/O colonoscopy Hx of cataract extraction History of excision of pilonidal cyst Hx of knee surgery Family History Father Afib COPD (chronic obstructive pulmonary disease) Diabetes Mother Cancer Afib Social History Patient Tobacco Use Status: Former Tobacco user Quit Date: 54 Tobacco use type: Cigarette Years Smoked: 12 Review of Systems Const Denies chills, Denies fatigue, Denies fever(s), Denies frequent falls, Denies weakness, Denies weight gain and Denies weight loss ENT Denies dizziness Card Denies chest pain, Denies leg edema, Denies lightheadedness, Denies palpitations, Denies dyspnea, Denies dyspnea on exertion, Denies orthopnea and Denies other (loss of consciousness) Resp Denies cough, Denies dyspnea and Denies dyspnea on exertion GI Denies hematochezia and Denies change in stool character Musc Denies abnormal gait, Denies muscle weakness, Denies numbness, Denies radiating pain into limb and Denies tingling Neuro Denies abnormal gait, Denies dizziness, Denies frequent falls, Denies numbness, Denies tingling and Denies weakness Endo Denies fatigue and Denies palpitations Physical Exam Vital Signs: Last Vital Signs Pulse 76 12/12/22 08:29 BP 106/68 12/12/22 08:29 BMI result Body Mass Index 38.3 Const General: cooperative, comfortable, no acute distress, alert and awake Nutritional Appearance: obese Orientation/consciousness: patient oriented x3 Limitations: no limitations HEENT Head: Yes normal to inspection, Yes normocephalic and Yes atraumatic Eyes General: appearance normal, both eyes and all related structures Neck Neck: Yes trachea midline, Yes supple and Yes no JVD Chest Chest palpation & inspection: normal inspection of the chest Resp Effort & Inspection: normal respiratory effort Auscultation: clear to auscultation bilaterally Cardio Jugular venous distension: no JVD Palpation: normal PMI Rate: bradycardic Rhythm: abnormal rhythm irregularly irregular Heart sounds: S1 normal heart sound present and S2 normal heart sound present GI Inspection: Yes obesity Auscultation: normal bowel sounds Skin General skin exam: no rashes or lesions noted and ecchymosis Neuro General: patient oriented x3 and no focal motor deficits Extrem General: Yes no clubbing, cyanosis or edema and Yes venous stasis dermatitis Psych Appearance: grossly normal Assessment & Plan Assessment & Plan (1) (HFpEF) heart failure with preserved ejection fraction: Code(s): I50.30 - Unspecified diastolic (congestive) heart failure Plan: Heart failure preserved ejection fraction secondary to chronic atrial fibrillation hypertensive heart disease. Clinically doing well. Clinically appears to be euvolemic and well compensated. Continue current diuretic dose. Daily weight monitoring avoidance of salt loading was discussed. Continue current therapy with Jardiance. Continue aggressive rate control approach. Continue CPAP therapy. Advised to call me with worsening symptoms. (2) Persistent atrial fibrillation: Code(s): I48.19 - Other persistent atrial fibrillation Plan: Persistent chronic atrial fibrillation has failed rhythm control approach given significant structural abnormality. Continue rate control approach at this point time. Unlikely to pursue rhythm control approach at this point time. Continue full oral anticoagulation, currently on Eliquis 5 mg b.i.d.. Semi annual renal function test should be pursued. Continue CPAP therapy. Will follow up in the clinic in 6 months time, sooner p.r.n.. Thank you for allowing me to partake in his care Coding Level of Care Code Est Pt Level 4 (93359) Diagnoses (HFpEF) heart failure with preserved ejection fraction I50.30 Persistent atrial fibrillation I48.19
== END 2022-12-12 08:56 | disposition home or self-care (01) ==
PROVIDERS: Visit Provider Internal Medicine Cardiovascular Disease
DX: I50.30 Unspecified diastolic (congestive) heart failure (principal); I48.19 Other persistent atrial fibrillation
CPT/HCPCS: 99214

== ENCOUNTER → 2022-12-12 08:26 | Outpatient (BNVA) | payer MEDICARE, SELFPAY | PROVIDERS: Visit Provider Internal Medicine Cardiovascular Disease | DX: I48.19 Other persistent atrial fibrillation (principal); I48.92 Unspecified atrial flutter; I48.0 Paroxysmal atrial fibrillation; I11.0 Hypertensive heart disease with heart failure; I50.33 Acute on chronic diastolic (congestive) heart failure; Z87.891 Personal history of nicotine dependence; Z98.890 Other specified postprocedural states | CPT/HCPCS: 99212 ==

== ENCOUNTER 2023-02-14 06:20 | Outpatient (REF) | payer MEDICARE, SELFPAY ==
[2023-02-14 06:28] LABS: MANUAL DIFF FLAG NO
[2023-02-14 07:08] LABS: Basophils Percent Auto 0.3 % (0-2); Eosinophils Absolute Auto 0.1 X10*3/uL (0.0-0.4); Eosinophils Percent Auto 1.6 % (0-4); Hematocrit 53.3 % (42.0-52.0); Hemoglobin 17.2 g/dl (14.0-18.0); Imm Gran Abs Auto 0.03 X10*3/uL (0.00-0.03); Imm Gran Pct Auto 0.5 % (0.0-0.4); Lymphocytes Absolute Auto 1.3 X10*3/uL (1.2-4.9); Lymphocytes Percent Auto 21.8 % (20-40); Mean Corpuscular HGB Conc 32.3 g/dl (31.0-36.0); Mean Corpuscular Hemoglobin 33.1 pg (27.0-33.0); Mean Corpuscular Volume 102.7 fL (80.0-98.0); Mean Platelet Volume 12.3 fL (9.4-12.4); Monocytes Absolute Auto 0.5 X10*3/uL (0.1-1.2); Monocytes Percent Auto 8.1 % (2-11); Neutrophils Absolute Auto 4.2 x10*3/uL (2.0-8.3); Neutrophils Percent Auto 67.7 % (45-73); Platelet Count 136 X10*3/uL (160-400); Red Blood Count 5.19 X10*6/uL (4.60-5.80); White Blood Count 6.2 X10*3/uL (4.8-10.8)
[2023-02-14 07:26] LABS: Alanine Aminotransferase 29 U/L (0-40); Albumin Level 3.8 g/dL (3.5-5.0); Alkaline Phosphatase 69 U/L (39-117); Anion Gap 12 (12-20); Aspartate Amino Transferase 24 U/L (5-37); Bilirubin Total 1.2 mg/dL (0.0-1.0); Blood Urea Nitrogen 17 mg/dL (9-16); Calcium 9.4 mg/dL (8.4-10.2); Carbon Dioxide 30 mmol/L (22-29); Chloride 107 mmol/L (96-108); Cholesterol 152 mg/dL (<200); Estimated Glomerular Filt Rate 59; Glucose Random 104 mg/dL (60-115); HDL Cholesterol 59 mg/dL (>40); LDL Cholesterol Calculated 81 mg/dL (<100); Sodium 145 mmol/L (135-145); Total Protein 7.1 g/dL (6.5-8.0); Triglycerides 62 mg/dL (<150)
[2023-02-14 07:50] LABS: Prostate Specific Antigen 3.89 ng/mL (<0.05-4.0)
[2023-02-14 07:58] LABS: Estimated Average Glucose 100 mg/dL; Hemoglobin A1c % 5.1 % (<6.0)
[2023-02-14 08:02] LABS: Creatinine Urine 243.52 mg/dL; Microalbum/Creatinine Ratio Ur 10.6 ug/mg cr (<30)
== END 2023-02-14 06:21 | disposition home or self-care (01) ==
LOC: HO.LAB 06:20
PROVIDERS: PCP Internal Medicine Medical Oncology; Visit Provider Internal Medicine Medical Oncology
DX: Z00.00 Encounter for general adult medical examination without abnormal findings (principal); I10 Essential (primary) hypertension; N40.0 Benign prostatic hyperplasia without lower urinary tract symptoms; E66.01 Morbid (severe) obesity due to excess calories; R73.09 Other abnormal glucose; Z12.5 Encounter for screening for malignant neoplasm of prostate
CPT/HCPCS: 36415; 80053; 80061; 82043; 82570; 83036; 84153; 85025

== ENCOUNTER 2023-05-11 06:11 | Outpatient (REF) | payer MEDICARE, SELFPAY ==
[2023-05-11 10:08] LABS: MANUAL DIFF FLAG NO
[2023-05-11 10:32] LABS: Basophils Percent Auto 0.6 % (0-2); Eosinophils Absolute Auto 0.1 X10*3/uL (0.0-0.4); Eosinophils Percent Auto 1.7 % (0-4); Imm Gran Abs Auto 0.02 X10*3/uL (0.00-0.03); Imm Gran Pct Auto 0.4 % (0.0-0.4); Lymphocytes Absolute Auto 1.4 X10*3/uL (1.2-4.9); Lymphocytes Percent Auto 25.2 % (20-40); Mean Corpuscular HGB Conc 32.7 g/dl (31.0-36.0); Mean Corpuscular Hemoglobin 32.8 pg (27.0-33.0); Mean Corpuscular Volume 100.4 fL (80.0-98.0); Mean Platelet Volume 12.3 fL (9.4-12.4); Monocytes Absolute Auto 0.5 X10*3/uL (0.1-1.2); Monocytes Percent Auto 9.8 % (2-11); Neutrophils Absolute Auto 3.4 x10*3/uL (2.0-8.3); Neutrophils Percent Auto 62.3 % (45-73); Platelet Count 129 X10*3/uL (160-400); Red Blood Count 5.18 X10*6/uL (4.60-5.80); Red Cell Distribution Width 14.5 % (11.0-16.0); White Blood Count 5.4 X10*3/uL (4.8-10.8)
[2023-05-11 11:17] LABS: Alanine Aminotransferase 13 U/L (0-40); Albumin Level 3.6 g/dL (3.5-5.0); Alkaline Phosphatase 58 U/L (39-117); Anion Gap 11 (12-20); Aspartate Amino Transferase 18 U/L (5-37); Bilirubin Total 1.1 mg/dL (0.0-1.0); Blood Urea Nitrogen 16 mg/dL (9-16); Calcium 9.1 mg/dL (8.4-10.2); Carbon Dioxide 28 mmol/L (22-29); Chloride 105 mmol/L (96-108); Cholesterol 148 mg/dL (<200); Estimated Glomerular Filt Rate > 60; Glucose Fasting 95 mg/dL (60-99); HDL Cholesterol 52 mg/dL (>40); LDL Cholesterol Calculated 83 mg/dL (<100); Potassium 3.3 mmol/L (3.3-5.1); Sodium 141 mmol/L (135-145); Total Protein 6.6 g/dL (6.5-8.0); Triglycerides 69 mg/dL (<150)
== END 2023-05-11 06:12 | disposition home or self-care (01) ==
LOC: HO.HMGCLDS 06:11
PROVIDERS: PCP Internal Medicine Medical Oncology; Visit Provider Internal Medicine Medical Oncology
DX: I10 Essential (primary) hypertension (principal); E66.01 Morbid (severe) obesity due to excess calories
CPT/HCPCS: 36415; 80053; 80061; 85025

== ENCOUNTER 2023-05-31 09:09 | Outpatient (AMB) | payer MEDICARE, SELFPAY ==
[2023-05-31 09:28] VITALS: BP 102/70; PULSE 70; O2SAT 98
--- NOTE | 2023-05-31 09:28 | MHC.OFFVIS ---
Intake Vital Signs 05/31/23 09:28 Height 50 ft Weight 264 lb BMI 0.5 BP 102/70 Blood Pressure Location Lt brachial Position Sitting Pulse 70 Pulse Source Pulse Oximeter Pulse Oximetry (%) 98 Oxygen Delivery Method Room Air Intake Visit Reasons: Obstructive sleep apnea Intake Note: pt is here for follow up and states he is doing well Rug Backing Stenciler Required: No Allergies morphine [MORPHINE] Allergy (Intermediate, Verified 05/31/23 09:33) RASH Do you need a note to return to daycare/school/sports/work: No HPI Obstructive sleep apnea HPI Details Mr. Kingsley 82 years old gentleman is the most dedicated patient to using CPAP. He uses every night and sleeps well up to 7 hours. He has no issues with the mask or CPAP machine. He remains very active. Denies any cough or shortness of breath. [facility] Medical History Atrial flutter Persistent atrial fibrillation RUMA on CPAP Obesity (BMI 30-39.9) Diastolic dysfunction Pulmonary hypertension Enlarged RV (right ventricle) Morbid obesity (HFpEF) heart failure with preserved ejection fraction Paroxysmal atrial fibrillation History of cardioversion Surgical History H/O colonoscopy Hx of cataract extraction History of excision of pilonidal cyst Hx of knee surgery Family History Father Afib COPD (chronic obstructive pulmonary disease) Diabetes Mother Cancer Afib Social History Patient Tobacco Use Status: Former Tobacco user Quit Date: 54 Tobacco use type: Cigarette Years Smoked: 12 Review of Systems Const All systems reviewed & are unremarkable except as noted in HPI and below Eyes Reports no additional complaints ENT Reports no additional complaints Card Reports irregular heart rhythm (Atrial fibrillation controlled) and Reports dyspnea (On walking) Resp Reports dyspnea (On walking) GI Reports heartburn (Controlled with med) Reports urinary hesitancy (Being treated with Flomax) Musc Reports joint swelling (Niece) Skin/Breast Reports system reviewed and no additional complaints, except as documented Neuro Reports no additional complaints Psych Reports no additional complaints Physical Exam Const General: healthy appearing (Except for being overweight), comfortable, no acute distress, alert and awake Orientation/consciousness: patient oriented x3 HEENT Head: Yes normal to inspection General nose exam: No nasal polyps present and No nasal discharge present Face and sinus: Yes sinuses nontender Mouth: oropharynx normal Throat: Yes posterior oropharynx normal Eyes General: appearance normal, both eyes and all related structures Neck Neck: Yes normal visual inspection, Yes no lymphadenopathy, Yes trachea midline and Yes no JVD Thyroid: Thyroid normal Chest Chest palpation & inspection: normal inspection of the chest, normal palpation of entire chest wall and no tenderness Resp Effort & Inspection: normal respiratory effort and no cough Auscultation: clear to auscultation bilaterally, no crackles and no wheezes Percussion: percussion normal Cardio Palpation: normal PMI Rate: regular rate Rhythm: abnormal rhythm (Atrial fib) Heart sounds: no gallops and no murmurs GI Palpation (GI): Soft to palpation, nontender, No hepatosplenomegaly present, no masses and Other GI palpation findings present ( Abdomen is moderately obese and protuberant) Auscultation: normal bowel sounds Back/Spine/Pelvis Thoracic/Lumbar Spine: thoracic and lumbar spine normal to inspection Skin General skin exam: no rashes or lesions noted Neuro General: patient oriented x3 and no focal motor deficits Cranial nerves: Yes CN's II-XII intact bilaterally Extrem General: Yes normal to inspection, Yes no clubbing, cyanosis or edema and Yes no calf tenderness Psych Appearance: grossly normal and well kempt Speech and movement: Normal speech and movement present Results Reviewed Results Reviewed: Compliance report is reviewed. His usage is 100% of the nights Average use it per night 7 hours 52 minutes. Pressure 10 cm. There is some leak at maximum of 111.8 L per minute, Residual AHI 3.3 Assessment & Plan Assessment & Plan (1) Obesity (BMI 30-39.9): Comment: This is a chronic problem and it is difficult for him to lose weight as he cannot do much physical activity. He tries to control his diet. Code(s): E66.9 - Obesity, unspecified Plan: Talked about the diet and level of exercise. Advised to keep on losing a few lb at a time. (2) RUMA on CPAP: Comment: Very COMPLIANT ,, and BENEFITTING . New CPAP machine is working well. Code(s): G47.33 - Obstructive sleep apnea (adult) (pediatric); Z99.89 - Dependence on other enabling machines and devices Plan: Commended for excellent compliance. Advised to continue using CPAP regularly. Coding Level of Care Code Est Pt Level 3 (48724) Diagnoses Obesity (BMI 30-39.9) E66.9 RUMA on CPAP G47.33; Z99.89
== END 2023-05-31 09:53 | disposition home or self-care (01) ==
PROVIDERS: PCP Internal Medicine Medical Oncology; Visit Provider Internal Medicine
DX: E66.9 Obesity, unspecified (principal); G47.33 Obstructive sleep apnea (adult) (pediatric); Z99.89 Dependence on other enabling machines and devices
CPT/HCPCS: 99213

== ENCOUNTER → 2023-05-31 09:09 | Outpatient (BNVA) | payer MEDICARE, SELFPAY | PROVIDERS: PCP Internal Medicine Medical Oncology; Visit Provider Internal Medicine | DX: G47.33 Obstructive sleep apnea (adult) (pediatric) (principal); E66.9 Obesity, unspecified; Z99.89 Dependence on other enabling machines and devices | CPT/HCPCS: 99212 ==

== ENCOUNTER 2023-06-13 08:48 | Outpatient (AMB) | payer MEDICARE, SELFPAY ==
[2023-06-13 09:00] VITALS: BP 120/70; PULSE 67; BMI 38.3
--- NOTE | 2023-06-13 09:00 | MHC.OFFVIS ---
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 He said he has been doing stable or slightly better. Still continues to have shortness of breath. No worsening orthopnea, PND, leg edema. No weight gain. As per his he has been increasing his activity level. Recent blood work has been stable. Denies any palpitations. No lightheadedness, syncope. No bleeding issues or neurologic events. Uses CPAP at nighttime. [facility] Medical History Atrial flutter Persistent atrial fibrillation RUMA on CPAP Obesity (BMI 30-39.9) Diastolic dysfunction Pulmonary hypertension Enlarged RV (right ventricle) Morbid obesity (HFpEF) heart failure with preserved ejection fraction Paroxysmal atrial fibrillation History of cardioversion Surgical History H/O colonoscopy Hx of cataract extraction History of excision of pilonidal cyst Hx of knee surgery Family History Father Afib COPD (chronic obstructive pulmonary disease) Diabetes Mother Cancer Afib Social History Patient Tobacco Use Status: Former Tobacco user Quit Date: 54 Tobacco use type: Cigarette Years Smoked: 12 Review of Systems Const Denies chills, Denies fatigue, Denies fever(s), Denies frequent falls, Denies weakness, Denies weight gain and Denies weight loss ENT Denies dizziness Card Denies chest pain, Denies leg edema, Denies lightheadedness, Denies palpitations, Denies dyspnea, Denies dyspnea on exertion, Denies orthopnea and Denies other (loss of consciousness) Resp Denies cough, Denies dyspnea and Denies dyspnea on exertion GI Denies hematochezia and Denies change in stool character Musc Denies abnormal gait, Denies muscle weakness, Denies numbness, Denies radiating pain into limb and Denies tingling Neuro Denies abnormal gait, Denies dizziness, Denies frequent falls, Denies numbness, Denies tingling and Denies weakness Endo Denies fatigue and Denies palpitations Physical Exam Vital Signs: Last Vital Signs Pulse 67 06/13/23 09:00 BP 120/70 06/13/23 09:00 BMI result Body Mass Index 38.3 Const General: cooperative, comfortable, no acute distress, alert and awake Nutritional Appearance: obese Orientation/consciousness: patient oriented x3 Limitations: no limitations HEENT Head: Yes normal to inspection, Yes normocephalic and Yes atraumatic Eyes General: appearance normal, both eyes and all related structures Neck Neck: Yes trachea midline, Yes supple and Yes no JVD Chest Chest palpation & inspection: normal inspection of the chest Resp Effort & Inspection: normal respiratory effort Auscultation: clear to auscultation bilaterally Cardio Jugular venous distension: no JVD Palpation: normal PMI Rate: bradycardic Rhythm: abnormal rhythm irregularly irregular Heart sounds: S1 normal heart sound present and S2 normal heart sound present GI Inspection: Yes obesity Auscultation: normal bowel sounds Skin General skin exam: no rashes or lesions noted and ecchymosis Neuro General: patient oriented x3 and no focal motor deficits Extrem General: Yes no clubbing, cyanosis or edema and Yes venous stasis dermatitis Psych Appearance: grossly normal Office Procedures EKG Details: EKG shows atrial fibrillation with complete right bundle-branch block [id number], Complete Assessment & Plan Assessment & Plan (1) (HFpEF) heart failure with preserved ejection fraction: Code(s): I50.30 - Unspecified diastolic (congestive) heart failure Category: Medical Plan: Heart failure preserved ejection fraction, clinically euvolemic and well compensated. Doing well on current diuretic therapy along with Jardiance. Continue the same. Daily weight monitoring avoidance of salt loading was discussed. Additional diuretics as need be. Goals of therapy were discussed including improving quality of life as well as avoiding hospitalizations. He understands and agrees. Advised to increase activity level gradually as the weather improves. He understands agrees. Continue current rate control strategy with metoprolol. Continue aggressive blood pressure control which appears to be well optimized at this point in time. Continue CPAP therapy. (2) Persistent atrial fibrillation: Code(s): I48.19 - Other persistent atrial fibrillation Category: Medical Plan: Chronic persistent atrial fibrillation which has failed rhythm control approach after long-term use of amiodarone. Severe biatrial enlargement. Unlikely to pursue rhythm control approach at this point time. Risk associated with this was discussed. Continue current rate control with metoprolol. Continue full oral anticoagulation, currently on Eliquis 5 mg b.i.d.. Semi annual renal function test should be pursued. Will follow up in the clinic in 6 months time after an echocardiogram. Thank you for allowing me to partake in his care Coding Level of Care Code Est Pt Level 4 (96632) Diagnoses (HFpEF) heart failure with preserved ejection fraction I50.30 Persistent atrial fibrillation I48.19 CPT Codes EKG - CPT: 16119-[id number], Complete ([id number])
== END 2023-06-13 09:31 | disposition home or self-care (01) ==
PROVIDERS: PCP Internal Medicine Medical Oncology; Visit Provider Internal Medicine Cardiovascular Disease
DX: I50.30 Unspecified diastolic (congestive) heart failure (principal); I48.19 Other persistent atrial fibrillation
CPT/HCPCS: 93010; 99214

== ENCOUNTER → 2023-06-13 08:48 | Outpatient (BNVA) | payer MEDICARE, SELFPAY | PROVIDERS: PCP Internal Medicine Medical Oncology; Visit Provider Internal Medicine Cardiovascular Disease | DX: I50.30 Unspecified diastolic (congestive) heart failure (principal); I48.19 Other persistent atrial fibrillation | CPT/HCPCS: 93005; 99212 ==

== ENCOUNTER 2023-08-24 06:10 | Outpatient (REF) | payer MEDICARE, SELFPAY ==
[2023-08-24 10:09] LABS: MANUAL DIFF FLAG NO
[2023-08-24 10:22] LABS: Basophils Percent Auto 0.8 % (0-2); Eosinophils Absolute Auto 0.1 X10*3/uL (0.0-0.4); Eosinophils Percent Auto 2.2 % (0-4); Hematocrit 49.9 % (42.0-52.0); Hemoglobin 16.1 g/dl (14.0-18.0); Imm Gran Abs Auto 0.01 X10*3/uL (0.00-0.03); Imm Gran Pct Auto 0.2 % (0.0-0.4); Lymphocytes Absolute Auto 1.3 X10*3/uL (1.2-4.9); Lymphocytes Percent Auto 25.8 % (20-40); Mean Corpuscular HGB Conc 32.3 g/dl (31.0-36.0); Mean Corpuscular Hemoglobin 32.4 pg (27.0-33.0); Mean Corpuscular Volume 100.4 fL (80.0-98.0); Mean Platelet Volume 12.9 fL (9.4-12.4); Monocytes Absolute Auto 0.5 X10*3/uL (0.1-1.2); Monocytes Percent Auto 10.8 % (2-11); Neutrophils Absolute Auto 2.9 x10*3/uL (2.0-8.3); Neutrophils Percent Auto 60.2 % (45-73); Platelet Count 140 X10*3/uL (160-400); Red Blood Count 4.97 X10*6/uL (4.60-5.80); Red Cell Distribution Width 14.2 % (11.0-16.0); White Blood Count 4.9 X10*3/uL (4.8-10.8)
[2023-08-24 10:25] LABS: Estimated Average Glucose 103 mg/dL; Hemoglobin A1c % 5.2 % (<6.0)
[2023-08-24 10:41] LABS: Alanine Aminotransferase 10 U/L (0-40); Albumin Level 3.4 g/dL (3.5-5.0); Alkaline Phosphatase 54 U/L (39-117); Anion Gap 13 (12-20); Aspartate Amino Transferase 14 U/L (5-37); Bilirubin Total 0.8 mg/dL (0.0-1.0); Blood Urea Nitrogen 20 mg/dL (9-16); Calcium 9.5 mg/dL (8.4-10.2); Carbon Dioxide 27 mmol/L (22-29); Chloride 104 mmol/L (96-108); Estimated Glomerular Filt Rate 56; Glucose Random 94 mg/dL (60-115); Potassium 3.7 mmol/L (3.3-5.1); Sodium 140 mmol/L (135-145); Total Protein 6.7 g/dL (6.5-8.0)
== END 2023-08-24 06:11 | disposition home or self-care (01) ==
LOC: HO.HMGCLDS 06:10
PROVIDERS: PCP Internal Medicine Medical Oncology; Visit Provider Internal Medicine Medical Oncology
DX: I10 Essential (primary) hypertension (principal); I48.0 Paroxysmal atrial fibrillation; D69.6 Thrombocytopenia, unspecified; Z13.1 Encounter for screening for diabetes mellitus
CPT/HCPCS: 36415; 80053; 83036; 85025

== ENCOUNTER 2023-11-08 06:11 | Outpatient (REF) | payer MEDICARE, SELFPAY ==
[2023-11-08 10:10] LABS: MANUAL DIFF FLAG NO
[2023-11-08 10:16] LABS: Basophils Percent Auto 0.5 % (0-2); Eosinophils Absolute Auto 0.1 X10*3/uL (0.0-0.4); Eosinophils Percent Auto 1.4 % (0-4); Hematocrit 54.8 % (42.0-52.0); Hemoglobin 17.8 g/dl (14.0-18.0); Imm Gran Abs Auto 0.03 X10*3/uL (0.00-0.03); Imm Gran Pct Auto 0.5 % (0.0-0.4); Lymphocytes Absolute Auto 1.1 X10*3/uL (1.2-4.9); Lymphocytes Percent Auto 16.1 % (20-40); Mean Corpuscular HGB Conc 32.5 g/dl (31.0-36.0); Mean Corpuscular Hemoglobin 33.3 pg (27.0-33.0); Mean Corpuscular Volume 102.6 fL (80.0-98.0); Mean Platelet Volume 11.9 fL (9.4-12.4); Monocytes Absolute Auto 0.6 X10*3/uL (0.1-1.2); Monocytes Percent Auto 8.3 % (2-11); Neutrophils Absolute Auto 4.9 x10*3/uL (2.0-8.3); Neutrophils Percent Auto 73.2 % (45-73); Platelet Count 131 X10*3/uL (160-400); Red Blood Count 5.34 X10*6/uL (4.60-5.80); Red Cell Distribution Width 14.6 % (11.0-16.0); White Blood Count 6.7 X10*3/uL (4.8-10.8)
[2023-11-08 10:32] LABS: Estimated Average Glucose 97 mg/dL
[2023-11-08 10:54] LABS: Alanine Aminotransferase 13 U/L (0-40); Albumin Level 3.7 g/dL (3.5-5.0); Alkaline Phosphatase 56 U/L (39-117); Anion Gap 14 (12-20); Aspartate Amino Transferase 13 U/L (5-37); Bilirubin Total 1.7 mg/dL (0.0-1.0); Blood Urea Nitrogen 17 mg/dL (9-16); Calcium 9.7 mg/dL (8.4-10.2); Carbon Dioxide 29 mmol/L (22-29); Chloride 104 mmol/L (96-108); Cholesterol 141 mg/dL (<200); Estimated Glomerular Filt Rate 56; Glucose Fasting 85 mg/dL (60-99); HDL Cholesterol 51 mg/dL (>40); LDL Cholesterol Calculated 78 mg/dL (<100); Sodium 142 mmol/L (135-145); Total Protein 7.2 g/dL (6.5-8.0); Triglycerides 62 mg/dL (<150)
== END 2023-11-08 06:12 | disposition home or self-care (01) ==
LOC: HO.HMGCLDS 06:11
PROVIDERS: PCP Internal Medicine Medical Oncology; Visit Provider Internal Medicine Medical Oncology
DX: I10 Essential (primary) hypertension (principal); D69.6 Thrombocytopenia, unspecified; E66.9 Obesity, unspecified; Z13.1 Encounter for screening for diabetes mellitus
CPT/HCPCS: 36415; 80053; 80061; 83036; 85025

== ENCOUNTER 2023-11-21 09:30 | Outpatient (AMB) | payer MEDICARE, SELFPAY ==
--- NOTE | 2023-11-21 09:32 | MHC.OFFVIS ---
Vital Signs 11/21/23 09:33 Height 5 ft 10 in Weight 260 lb 2.327 oz BMI 37.3 BP 118/64 Blood Pressure Location Lt brachial Position Sitting Pulse 60 Pulse Source Pulse Oximeter Pulse Oximetry (%) 95 Oxygen Delivery Method Room Air Intake Visit Reasons: Sleep apnea Allergies morphine [MORPHINE] Allergy (Intermediate, Verified 11/21/23 09:38) RASH Medication List - Last Reconciled 11/21/23 by Shaniqua Munson MD amlodipine 2.5 mg PO DAILY apixaban (Eliquis) 5 mg PO BID cholecalciferol (vitamin D3) 25 mcg PO DAILY empagliflozin (Jardiance) 10 mg PO DAILY furosemide 40 mg PO DAILY metoprolol succinate ER 50 mg PO DAILY pantoprazole 40 mg PO DAILY tamsulosin 0.4 mg PO DAILY Do you need a note to return to daycare/school/sports/work: No HPI HPI Sleep apnea: Details: Mr. Mendoza 82 years old very pleasant gentleman, grossly obese. Known case of obstructive sleep apnea which is being treated with the CPAP. He is very compliant and sleeps very good with the help of CPAP. In fact he is using it for more than 7 hours every night. He has no daytime sleepiness. No issues with the CPAP machine. Weight remains up but he did lose 6 lb since last visit. [facility] Medical History Atrial flutter Persistent atrial fibrillation RUMA on CPAP Obesity (BMI 30-39.9) Diastolic dysfunction Pulmonary hypertension Enlarged RV (right ventricle) Morbid obesity (HFpEF) heart failure with preserved ejection fraction Paroxysmal atrial fibrillation History of cardioversion Surgical History H/O colonoscopy Hx of cataract extraction History of excision of pilonidal cyst Hx of knee surgery Family History Father Afib COPD (chronic obstructive pulmonary disease) Diabetes Mother Cancer Afib Social History Patient Tobacco Use Status: Former Tobacco user Tobacco use type: Cigarette Years Smoked: 12 Review of Systems Const All systems reviewed & are unremarkable except as noted in HPI and below Eyes Reports no additional complaints ENT Reports no additional complaints Card Reports irregular heart rhythm (Atrial fibrillation controlled) and Reports dyspnea (On walking) Resp Reports dyspnea (On walking) GI Reports heartburn (Controlled with med) Reports urinary hesitancy (Being treated with Flomax) Musc Reports joint swelling (Niece) Skin/Breast Reports system reviewed and no additional complaints, except as documented Neuro Reports no additional complaints Psych Reports no additional complaints Physical Exam Vital Signs: Last Vital Signs Pulse 60 11/21/23 09:33 BP 118/64 11/21/23 09:33 Pulse Ox 95 11/21/23 09:33 Oxygen Delivery Method Room Air 11/21/23 09:33 BMI result Body Mass Index 37.3 Const General: healthy appearing (Except for being overweight), comfortable, no acute distress, alert and awake Orientation/consciousness: patient oriented x3 HEENT Head: Yes normal to inspection General nose exam: No nasal polyps present and No nasal discharge present Face and sinus: Yes sinuses nontender Mouth: oropharynx normal Throat: Yes posterior oropharynx normal Eyes General: appearance normal, both eyes and all related structures Neck Neck: Yes normal visual inspection, Yes no lymphadenopathy, Yes trachea midline and Yes no JVD Thyroid: Thyroid normal Chest Chest palpation & inspection: normal inspection of the chest, normal palpation of entire chest wall and no tenderness Resp Effort & Inspection: normal respiratory effort and no cough Auscultation: clear to auscultation bilaterally, no crackles and no wheezes Percussion: percussion normal Cardio Palpation: normal PMI Rate: regular rate Rhythm: abnormal rhythm (Atrial fib) Heart sounds: no gallops and no murmurs GI Palpation (GI): Soft to palpation, nontender, No hepatosplenomegaly present, no masses and Other GI palpation findings present ( Abdomen is moderately obese and protuberant) Auscultation: normal bowel sounds Back/Spine/Pelvis Thoracic/Lumbar Spine: thoracic and lumbar spine normal to inspection Skin General skin exam: no rashes or lesions noted Neuro General: patient oriented x3 and no focal motor deficits Cranial nerves: Yes CN's II-XII intact bilaterally Extrem General: Yes normal to inspection, Yes no clubbing, cyanosis or edema and Yes no calf tenderness Psych Appearance: grossly normal and well kempt Speech and movement: Normal speech and movement present Results Reviewed Results Reviewed: Compliance report for the last 30 nights reviewed and his usage has been 100% of the nights. Average use per night. 7 hours 39 minutes which is excellent Pressure 10 cm, there is moderate amount of air leak. No residual AHI Assessment & Plan Assessment & Plan (1) Obesity (BMI 30-39.9): Comment: This is a chronic problem and it is difficult for him to lose weight as he cannot do much physical activity. He tries to control his diet. He did lose 6 lb in the last 6 months. Code(s): E66.9 - Obesity, unspecified Category: Medical Plan: Discussed about the diet and walking around during the daytime as much as tolerated. (2) RUMA on CPAP: Comment: Very COMPLIANT ,, and BENEFITTING . New CPAP machine is working well. Code(s): G47.33 - Obstructive sleep apnea (adult) (pediatric); Z99.89 - Dependence on other enabling machines and devices Category: Medical Plan: Commended for excellent compliance and advised to continue using it regularly. Coding Level of Care Code Est Pt Level 3 (02473) Diagnoses Obesity (BMI 30-39.9) E66.9 RUMA on CPAP G47.33; Z99.89
[2023-11-21 09:33] VITALS: BP 118/64; PULSE 60; O2SAT 95; BMI 37.3
== END 2023-11-21 09:49 | disposition home or self-care (01) ==
PROVIDERS: PCP Internal Medicine Medical Oncology; Visit Provider Internal Medicine
DX: E66.9 Obesity, unspecified (principal); G47.33 Obstructive sleep apnea (adult) (pediatric); Z99.89 Dependence on other enabling machines and devices
CPT/HCPCS: 99213

== ENCOUNTER → 2023-11-21 09:30 | Outpatient (BNVA) | payer MEDICARE, SELFPAY | PROVIDERS: PCP Internal Medicine Medical Oncology; Visit Provider Internal Medicine | DX: E66.9 Obesity, unspecified (principal); G47.33 Obstructive sleep apnea (adult) (pediatric); Z99.89 Dependence on other enabling machines and devices; Z68.37 Body mass index [BMI] 37.0-37.9, adult | CPT/HCPCS: 99212 ==

== ENCOUNTER 2023-12-29 08:21 | Outpatient (AMB) | payer MEDICARE, SELFPAY ==
--- NOTE | 2023-12-29 08:25 | A.OFFVIS_ITS ---
Vital Signs 12/29/23 08:26 Height 5 ft 10 in Weight 257 lb 15.053 oz BMI 37.0 BP 120/78 Blood Pressure Location Lt brachial Position Sitting Pulse 73 Intake Visit Reasons: 6 mth f/up Intake Note: 6 month follow-up with ekg feeling good has tooth extraction coming up ? hold blood thinner Senior Abap Developer Required: No Allergies morphine [MORPHINE] Allergy (Intermediate, Verified 11/21/23 09:38) RASH Medication List - Last Reconciled 12/29/23 by Durga Clayton MD amlodipine 2.5 mg PO DAILY apixaban (Eliquis) 5 mg PO BID cholecalciferol (vitamin D3) 25 mcg PO DAILY empagliflozin (Jardiance) 10 mg PO DAILY furosemide 40 mg PO DAILY metoprolol succinate ER 50 mg PO DAILY pantoprazole 40 mg PO DAILY tamsulosin 0.4 mg PO DAILY HPI Comments Details: Joshua comes for follow-up, accompanied by his . He had 1 fall recently very could not balance himself. He did not have any major injuries. He has been more sedentary as per the . She says that when he walks regularly he feels better and has less shortness of breath. He has no other symptoms at current time. No worsening shortness of breath. No orthopnea, PND, leg edema. Does not measures weight on a regular basis. Denies any palpitations. Denies any lightheadedness, syncope. Denies any exertional chest pain. No bleeding issues or neurologic events. [facility] Medical History Atrial flutter Persistent atrial fibrillation RUMA on CPAP Obesity (BMI 30-39.9) Diastolic dysfunction Pulmonary hypertension Enlarged RV (right ventricle) Morbid obesity (HFpEF) heart failure with preserved ejection fraction Paroxysmal atrial fibrillation History of cardioversion Surgical History H/O colonoscopy Hx of cataract extraction History of excision of pilonidal cyst Hx of knee surgery Family History Father Afib COPD (chronic obstructive pulmonary disease) Diabetes Mother Cancer Afib Social History Patient Tobacco Use Status: Former Tobacco user Tobacco use type: Cigarette Years Smoked: 12 Review of Systems Const Denies chills, Denies fatigue, Denies fever(s), Denies frequent falls, Denies weakness, Denies weight gain and Denies weight loss ENT Denies dizziness Card Denies chest pain, Denies leg edema, Denies lightheadedness, Denies palpitations, Denies dyspnea, Denies dyspnea on exertion, Denies orthopnea and Denies other (loss of consciousness) Resp Denies cough, Denies dyspnea and Denies dyspnea on exertion GI Denies hematochezia and Denies change in stool character Musc Denies abnormal gait, Denies muscle weakness, Denies numbness, Denies radiating pain into limb and Denies tingling Neuro Denies abnormal gait, Denies dizziness, Denies frequent falls, Denies numbness, Denies tingling and Denies weakness Endo Denies fatigue and Denies palpitations Physical Exam Vital Signs: Last Vital Signs Pulse 73 12/29/23 08:26 BP 120/78 12/29/23 08:26 BMI result Body Mass Index 37.0 Const General: cooperative, comfortable, no acute distress, alert and awake Nutritional Appearance: obese Orientation/consciousness: patient oriented x3 Limitations: no limitations HEENT Head: Yes normal to inspection, Yes normocephalic and Yes atraumatic Eyes General: appearance normal, both eyes and all related structures Neck Neck: Yes trachea midline, Yes supple and Yes no JVD Chest Chest palpation & inspection: normal inspection of the chest Resp Effort & Inspection: normal respiratory effort Auscultation: clear to auscultation bilaterally Cardio Jugular venous distension: no JVD Palpation: normal PMI Rate: bradycardic Rhythm: abnormal rhythm irregularly irregular Heart sounds: S1 normal heart sound present and S2 normal heart sound present GI Inspection: Yes obesity Auscultation: normal bowel sounds Skin General skin exam: no rashes or lesions noted and ecchymosis Neuro General: patient oriented x3 and no focal motor deficits Extrem General: Yes no clubbing, cyanosis or edema and Yes venous stasis dermatitis Psych Appearance: grossly normal Office Procedures EKG Details: EKG shows atrial fibrillation with incomplete right bundle-branch block and nonspecific ST changes 70164-Tbenpuarzrjaykquc, Complete Assessment & Plan Assessment & Plan (1) (HFpEF) heart failure with preserved ejection fraction: Code(s): I50.30 - Unspecified diastolic (congestive) heart failure Category: Medical Plan: Heart failure preserved ejection fraction, clinically euvolemic and well compe nsated. Has NYHA class 2 symptoms mostly due to sedentary lifestyle. Continue current diuretic regimen. Importance of daily weight monitoring was discussed. Continue current Jardiance therapy also to reduce risk of recurrent heart failure hospitalization. Continue rate control approach. Continue aggressive blood pressure control. Avoidance of salt loading was discussed. Additional diuretics as need be. Advised to call me with any new symptoms. Encouraged to increase activity level and will refer him to physical therapy for balance training. Continue CPAP therapy. Continue participate in weight loss program. (2) Persistent atrial fibrillation: Code(s): I48.19 - Other persistent atrial fibrillation Category: Medical Plan: Chronic persistent atrial fibrillation has failed rhythm control approach after ocean transportation intermediary control with amiodarone. Had done well and currently doing well with no progressive signs of heart failure although remains at risk for the same. Continue current rate control approach. Continue full oral anticoagulation, currently on Eliquis 5 mg b.i.d.. Semi annual renal function test should be pursued. Continue CPAP therapy. Will follow up in the clinic in 6 months time, sooner p.r.n.. Thank you for a llowing me to partake in his care Orders: Orders PT Evaluation and Treatment Today W19.XXXA - Unspecified fall, initial encounter Coding Level of Care Code Est Pt Level 4 (91966) Complex EM visit Add On G2211 Diagnoses (HFpEF) heart failure with preserved ejection fraction I50.30 Persistent atrial fibrillation I48.19 CPT Codes EKG - CPT: 25930-Nratonmywavrtgjpu, Complete ([id number])
[2023-12-29 08:26] VITALS: BP 120/78; PULSE 73; BMI 37.0
== END 2023-12-29 08:58 | disposition home or self-care (01) ==
PROVIDERS: PCP Internal Medicine Medical Oncology; Visit Provider Internal Medicine Cardiovascular Disease
DX: I50.30 Unspecified diastolic (congestive) heart failure (principal); I48.19 Other persistent atrial fibrillation
CPT/HCPCS: 93010; 99214; G2211

== ENCOUNTER → 2023-12-29 08:21 | Outpatient (BNVA) | payer MEDICARE, SELFPAY | PROVIDERS: PCP Internal Medicine Medical Oncology; Visit Provider Internal Medicine Cardiovascular Disease | DX: I50.30 Unspecified diastolic (congestive) heart failure (principal); I48.19 Other persistent atrial fibrillation; I45.10 Unspecified right bundle-branch block; R94.31 Abnormal electrocardiogram [ECG] [EKG] | CPT/HCPCS: 93005; 99212 ==

== ENCOUNTER 2024-01-20 07:11 | Emergency (ER) | payer MEDICARE, SELFPAY ==
[2024-01-20 07:14] VITALS: BP 161/85; PULSE 66; RESP 19; TEMP 36.6; O2SAT 100; BMI 38.7
--- NOTE | 2024-01-20 08:00 | ED_ITS ---
HPI - Wound/Laceration General Chief Complaint: Wound/Laceration Stated Complaint: l leg laceration Time Seen by Provider: 01/20/24 09:06 Source: patient Mode of arrival: ambulatory Limitations: no limitations History of Present Illness ED Provider: VARUN MUSTAFA PA-C HPI narrative: 83 yo male hx of RUMA on CPAP, pulmonary HTN, afib on eliquis, CHF here for eval of skin tear to left goncalves since last night after tripping and hitting the goncalves against a table. he did not fall to the ground. denies head strike or LOC. he is on eliquis. reports continued bleeding to the area. he presents with the wound bandaged. denies fatigue, chest pain, sob. States his tetanus is not up-to-date. Related Data Home Medications ?Medication ?Instructions ?Recorded ?Confirmed tamsulosin 0.4 mg capsule 0.4 mg PO DAILY 01/27/20 12/29/23 pantoprazole 40 mg tablet,delayed 40 mg PO DAILY 08/26/20 12/29/23 release cholecalciferol (vitamin D3) 25 25 mcg PO DAILY 01/18/21 12/29/23 mcg (1,000 unit) tablet Previous Rx's ?Medication ?Instructions ?Recorded apixaban 5 mg tablet (Eliquis) 5 mg PO BID #180 tabs 07/04/23 furosemide 40 mg tablet 40 mg PO DAILY #90 tabs 07/04/23 empagliflozin 10 mg tablet 10 mg PO DAILY #90 tabs 08/11/23 (Jardiance) amlodipine 2.5 mg tablet 2.5 mg PO DAILY #90 tabs 09/18/23 metoprolol succinate 50 mg 50 mg PO DAILY #90 tabs 12/11/23 tablet,extended release 24 hr Allergies Allergy/AdvReac Type Severity Reaction Status Date / Time morphine [MORPHINE] Allergy Intermediate RASH Verified 01/20/24 07:16 Review of Systems Review of Systems: Yes all other systems are reviewed and are negative PMFSH Past Medical History Attestation statement: The following information was validated with the patient. Source: old records reviewed and nursing notes reviewed Medical History Atrial flutter Persistent atrial fibrillation RUMA on CPAP Obesity (BMI 30-39.9) Diastolic dysfunction Pulmonary hypertension Enlarged RV (right ventricle) Morbid obesity (HFpEF) heart failure with preserved ejection fraction Paroxysmal atrial fibrillation History of cardioversion Surgical History H/O colonoscopy Hx of cataract extraction History of excision of pilonidal cyst Hx of knee surgery Family History Family History Father Afib COPD (chronic obstructive pulmonary disease) Diabetes Mother Cancer Afib Social History Social History Patient Tobacco Use Status: Former Tobacco user Tobacco use type: Cigarette Years Smoked: 12 Physical Exam Vital Signs: Vital Signs: Last Vital Signs Temp 97.6 F 01/20/24 10:51 Pulse 68 01/20/24 10:51 Resp 18 01/20/24 10:51 BP 158/66 H 01/20/24 10:51 Pulse Ox 96 01/20/24 10:51 O2 Del Method Room Air 01/20/24 10:51 BMI result Body Mass Index 38.7 hypertensive, vitals are otherwise wnl General: Well appearing, in no acute distress. Skin: +approx 3 cm laceration to anterior left goncalves. no active bleeding. no involvement of deeper structures. no palpable fracture or crepitus. 2+ dp/pt pulse inact. Head: Normocephalic, atraumatic. EENT: Hearing is intact b/l. Conjunctiva clear. PERRLA. EOM intact. Moist mucous membranes.? Cardiac: Chest wall symmetric. RRR Lungs: Normal respiratory effort without accessory muscle use. CTA bilaterally. Ext: Upper and lower extremities atraumatic, without tenderness, deformity, swelling or erythema. Full ROM throughout. Strength 5/5 throughout. Capillary refill <2 seconds in all extremities. Pulses 2+ equal and bilateral. Neuro: AOx3. Normal speech. Ambulating with steady gait. Psych: Appropriate mood and affect. Responds appropriately to questions. Course Course Course Narrative: Skin tear repaired with Steri-Strips. Patient tolerated well. No active bleeding. No indication to discontinue blood thinner at this time. His tetanus was updated today. Advised to follow up with PCP. Patient has remained stable throughout ED visit today. Discussed worrisome signs and symptoms and when to return to the ED. All questions answered at this time. Patient is agreeable with disposition and stable for discharge. Medications Administered Discontinued Medications Generic Name Dose Route Start Last Admin Trade Name Frearun PRN Reason Stop Dose Admin Diphtheria/Tetanus/Acell Pertussis 0.5 ml 01/20/24 09:18 01/20/24 09:28 Diphth,Pertus(Acell),Tet Adult 0.5 Ml Syringe IM 01/20/24 09:19 0.5 ml .ONCE ONE Administration Lidocaine HCl 1 appl 01/20/24 09:17 01/20/24 09:27 Lidocaine 4 % Cream Kit TOPICAL 01/20/24 09:18 Not Given ONCE ONE Protocol Medical Decision Making Medical Decision Making MDM Narrative: 83 yo male hx of RUMA on CPAP, pulmonary HTN, afib on eliquis, CHF here for eval of skin tear to left goncalves since last night after tripping and hitting the goncalves against a table. patient hypertensive, vitals are otherwise wnl. he is non toxic appearing and in NAD. on exam, there is approx 3 cm laceration to anterior left goncalves. no active bleeding. no involvement of deeper structures. no palpable fracture or crepitus. 2+ dp/pt pulse inact. ambulating w/ steady gait. Differential diagnosis includes skin tear, laceration, abrasion. unlikely fracture, osteomyelitis, open fracture. Plan for tdap, repair, and disposition. Differential Diagnosis Differential Diagnoses: The differential diagnosis associated with the presentation includes as above. Admission/Observation not indicated.83 yo male hx of RUMA on CPAP, pulmonary HTN, afib on eliquis, CHF here for eval of skin tear to left goncalves since last night after tripping and hitting the goncalves against a table. Chronic Conditions Patient?s care impacted by: Other (afib) Social Determinants Patient?s care significantly limited by Social Determinants of Health including: Other Social Determinant of Health Procedures Laceration Laceration 1: Site: lower extremity Side (If applicable): left Size (cm): 3 Description: linear Depth: simple, single layer Local Anesthetic: lidocaine 1% (LMX cream) Pre-repair: wound explored and irrigated extensively Skin layer closed with: other (steri strips) Critical Care Time Critical Care Time Critical Care Time: No Discharge Plan Discharge Clinical Impression: Noninfected skin tear of left leg Patient Disposition: Home, Self-Care Instructions: Laceration (ED), Steristrips (ED) Additional Instructions: You were evaluated in the ED today for a skin tear. This was repaired with steri strips. Keep these in place until they wall off. Your tetanus vaccination was updated today. You need to follow up with wound care. You have been provided with a referral Call them to make an appointment, they will not call you. Return with new or worsening symptoms. In the case of an emergency call 911. Prescriptions: No Action furosemide 40 mg tablet 40 mg PO DAILY Qty: 90 3RF Eliquis 5 mg tablet 5 mg PO BID Qty: 180 3RF Jardiance 10 mg tablet 10 mg PO DAILY Qty: 90 3RF amlodipine 2.5 mg tablet 2.5 mg PO DAILY Qty: 90 3RF metoprolol succinate 50 mg tablet extended release 24 hr 50 mg PO DAILY Qty: 90 3RF Rx Instructions: ATTN: [facility] Invoice # [id number] tamsulosin 0.4 mg capsule 0.4 mg PO DAILY pantoprazole 40 mg tablet,delayed release (DR/EC) 40 mg PO DAILY cholecalciferol (vitamin D3) 25 mcg (1,000 unit) tablet 25 mcg PO DAILY Referrals: [facility] [Provider Group] - 2 days Inocente Painting MD [Primary Care Provider] - Interventions: ED Discharge Assessment Last Done: 01/20/24 10:51 Discharge Date/Time: 01/20/24 10:52 Print Language: Citizen Of [place]
[2024-01-20] MEDS: Diphth,Pertus(ACell),Tet Adult 0.5 ML SYRINGE IM (09:28)
--- NOTE | 2024-01-20 09:34 | PC.NURSE ---
pt medicated with tetanus per order, provider opted to hold lido
[2024-01-20 10:51] VITALS: BP 158/66; PULSE 68; RESP 18; TEMP 36.4; O2SAT 96
== END 2024-01-20 10:52 | disposition home or self-care (01) ==
PROVIDERS: Emergency Provider Emergency Medicine Emergency Medical Services; PCP Internal Medicine Medical Oncology
DX: S81.812A Laceration without foreign body, left lower leg, initial encounter (principal); W18.49XA Other slipping, tripping and stumbling without falling, initial encounter; I48.0 Paroxysmal atrial fibrillation; Z79.01 Long term (current) use of anticoagulants; Y93.9 Activity, unspecified; Y92.9 Unspecified place or not applicable; Y99.9 Unspecified external cause status; Z23 Encounter for immunization
CPT/HCPCS: 90471; 90715; 99282; 99284

== ENCOUNTER 2024-02-02 06:36 | Outpatient (REF) | payer MEDICARE, SELFPAY ==
[2024-02-02 10:51] LABS: MANUAL DIFF FLAG NO
[2024-02-02 11:00] LABS: Basophils Percent Auto 0.7 % (0-2); Eosinophils Absolute Auto 0.1 X10*3/uL (0.0-0.4); Eosinophils Percent Auto 1.8 % (0-4); Hemoglobin 15.9 g/dl (14.0-18.0); Imm Gran Abs Auto 0.02 X10*3/uL (0.00-0.03); Imm Gran Pct Auto 0.4 % (0.0-0.4); Lymphocytes Absolute Auto 1.2 X10*3/uL (1.2-4.9); Lymphocytes Percent Auto 22.5 % (20-40); Mean Corpuscular HGB Conc 33.1 g/dl (31.0-36.0); Mean Corpuscular Hemoglobin 33.1 pg (27.0-33.0); Mean Corpuscular Volume 99.8 fL (80.0-98.0); Mean Platelet Volume 12.5 fL (9.4-12.4); Monocytes Absolute Auto 0.6 X10*3/uL (0.1-1.2); Monocytes Percent Auto 10.7 % (2-11); Neutrophils Absolute Auto 3.5 x10*3/uL (2.0-8.3); Neutrophils Percent Auto 63.9 % (45-73); Platelet Count 148 X10*3/uL (160-400); Red Blood Count 4.81 X10*6/uL (4.60-5.80); Red Cell Distribution Width 14.4 % (11.0-16.0); White Blood Count 5.4 X10*3/uL (4.8-10.8)
[2024-02-02 11:36] LABS: Alanine Aminotransferase 13 U/L (0-40); Albumin Level 3.4 g/dL (3.5-5.0); Alkaline Phosphatase 58 U/L (39-117); Anion Gap 13 (12-20); Aspartate Amino Transferase 19 U/L (5-37); Bilirubin Total 0.8 mg/dL (0.0-1.0); Blood Urea Nitrogen 22 mg/dL (9-16); Calcium 8.8 mg/dL (8.4-10.2); Carbon Dioxide 28 mmol/L (22-29); Chloride 105 mmol/L (96-108); Cholesterol 128 mg/dL (<200); Estimated Glomerular Filt Rate > 60; Glucose Fasting 98 mg/dL (60-99); HDL Cholesterol 48 mg/dL (>40); LDL Cholesterol Calculated 71 mg/dL (<100); Potassium 3.8 mmol/L (3.3-5.1); Sodium 142 mmol/L (135-145); Total Protein 6.6 g/dL (6.5-8.0); Triglycerides 45 mg/dL (<150); Vitamin D 25-OH Total 29.8 ng/mL (>30)
== END 2024-02-02 06:37 | disposition home or self-care (01) ==
LOC: HO.HMGCLDS 06:36
PROVIDERS: PCP Internal Medicine Medical Oncology; Visit Provider Internal Medicine Medical Oncology
DX: I10 Essential (primary) hypertension (principal); E55.9 Vitamin D deficiency, unspecified; E66.9 Obesity, unspecified
CPT/HCPCS: 36415; 80053; 80061; 82306; 85025

== ENCOUNTER 2024-02-29 09:15 | Outpatient (RCR) | payer MEDICARE, SELFPAY | END 2024-04-08 13:52 | disposition home or self-care (01) | LOC: HO.WCC 09:15 | PROVIDERS: PCP Internal Medicine Medical Oncology; Visit Provider Surgery | DX: S81.812D Laceration without foreign body, left lower leg, subsequent encounter (principal) | CPT/HCPCS: 11042; 99212 ==

== ENCOUNTER 2024-03-22 07:00 | Outpatient (RCR) | payer MEDICARE, SELFPAY ==
--- NOTE | 2024-02-20 08:03 | MHC.PT.EP ---
[facility] [place] Office [place] Office [place] [facility] [address] Jeana Edwardsley Katerin [address] [phone] F: [phone] F: [phone] F: [phone] F: [phone] Physical Therapy Plan of Care Date of Evaluation: 02/20/24 Date of Surgery: Diagnosis: other abnormalities of gait and mobility. Assessment: Patient is a 83 year old R handed male who presents with s/s consistent with abnormalities of gait and moiblity. He does not work and is fairly sedentary [place] . Patient past medical history includes b/l TKA and AFib. Current impairments include pain, balance, ROM, strength, activity tolerance and functional mobility. Functional limitations include decreased ability to transfer, walk, stand, negotiate stairs, get in/out of car, and get out into the community. Patient is motivated with good rehab potential. Skilled PT will address impairments and functional limitations in order to achieve goals. Frequency and Duration: The patient will be seen 2x/week for 5 weeks. Short Term Goals: I with HEP - 2 weeks SLB > 5 seconds b/l - 3 weeks Able to walk 20 minutes or greater with rest - 3 weeks STS 5x in 30 seconds - 3 weeks [facility] Goals: STS 7x in 30 seconds - 5 weeks Able to walk 30 minutes without rest - 5 weeks LEFS 49/80 - 5 weeks LE strength 4+/5 grossly - 5 weeks SLB > 8 seconds - 5 weeks Treatment Plan: Modalities to reduce pain, spasms and effusion. Manual therapy to restore motion and function. Therapeutic exercise to improve strength and flexibility. Neuromuscular re-education for posture and balance. Therapeutic activities to return to functional activities of daily living. Electronically signed by: Luis Miguel Reynoso, PT Please sign and return to therapist. Thank you for your referral.
--- NOTE | 2024-03-27 13:26 | MHC.PT.DC ---
[facility] [place] Office [place] Office [place] Office [address] Jeana Conklin [address] [phone] F: [phone] F: [phone] F: [phone] F: [phone] Physical Therapy Discharge Report Diagnosis: other abnormalities of gait and mobility. Date of Surgery: Date of Evaluation: 02/20/24 Date of Discharge: 03/22/24 Treatments to Date: 9 Cancellations to Date: No Shows to Date: Discharge Status: Improved Function Independent with HEP Discharge Summary: 03/22/24: reviewed HEP. no adverse reactions. pt progressed towards or met all goals. he is appropriate to d/c to HEP at this time. 03/19/24: pt progressing well with skilled PT. responding well to progress and I with HEP. we will plan to d/c to HEP [place]. 03/15/24: pt progressing well and maintains good motivation. reduced fatigue and rest breaks throughout. we will continue to progress as tolerated. 03/12/24: reduced STS to 1 airex. 10 in 30 seconds. continue to progress strength and balance. 03/08/24: pt progressing well. motivated and works hard. progressed with step ups and EO/EC on airex. able to correct for mod multi-directional perts with EO, a few LOB with EC. 03/06/24: progressed with balance and strength. continues to be motivated and progress well. 03/01/24: pt progressing well. 11 STS in 30 seconds 3x today. continue to progress towards lower seat. progress hip and ankle strategy interventions as well as tolerated. 02/27/24: pt progressing well with skilled PT. no adverse reactions. progressing strength and balance. 02/23/24: pt compliant with HEP. progressed ex and balance. no adverse reactions. continue to progress as tolerated. Patient is a 83 year old R handed male who presents with s/s consistent with abnormalities of gait and moiblity. He does not work and is fairly sedentary [place] . Patient past medical history includes b/l TKA and AFib. Current impairments include pain, balance, ROM, strength, activity tolerance and functional mobility. Functional limitations include decreased ability to transfer, walk, stand, negotiate stairs, get in/out of car, and get out into the community. Patient is motivated with good rehab potential. Skilled PT will address impairments and functional limitations in order to achieve goals. Electronically signed by: Luis Miguel Reynoso, PT Please sign and return to therapist. Thank you for your referral.
== END 2024-03-27 13:27 | disposition home or self-care (01) ==
LOC: HO.PTCHIC 07:00
PROVIDERS: PCP Internal Medicine Medical Oncology; Visit Provider Internal Medicine Cardiovascular Disease
DX: R26.89 Other abnormalities of gait and mobility (principal)
CPT/HCPCS: 97110; 97112; 97163

== ENCOUNTER 2024-05-23 09:32 | Outpatient (AMB) | payer MEDICARE, SELFPAY ==
--- NOTE | 2024-05-23 09:50 | MHC.OFFVIS ---
Vital Signs 05/23/24 09:51 Height 5 ft 9 in Weight 262 lb 5.601 oz BMI 38.7 BP 140/78 H Blood Pressure Location Lt brachial Position Sitting Pulse 65 Pulse Source Pulse Oximeter Pulse Oximetry (%) 99 Oxygen Delivery Method Room Air Intake Visit Reasons: Sleep apnea Intake Note: pt is her for jackson follow up and does well. 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 Sleep apnea comes for follow-up after 6 months He is a very regular user of CPAP, Sleeps better than what he used to do in his younger age. Wakes up refreshed, and denies any daytime sleepiness. He is aware of the fact that there is some air leak during the night, and he has to adjust the mask. There has been no change in his weight. [facility] Medical History Atrial flutter Persistent atrial fibrillation JACKSON on CPAP Obesity (BMI 30-39.9) Diastolic dysfunction Pulmonary hypertension Enlarged RV (right ventricle) Morbid obesity (HFpEF) heart failure with preserved ejection fraction Paroxysmal atrial fibrillation History of cardioversion Surgical History H/O colonoscopy Hx of cataract extraction History of excision of pilonidal cyst Hx of knee surgery Family History Father Afib COPD (chronic obstructive pulmonary disease) Diabetes Mother Cancer Afib Social History Patient Tobacco Use Status: Former Tobacco user Tobacco use type: Cigarette Years Smoked: 12 Review of Systems Const All systems reviewed & are unremarkable except as noted in HPI and below Eyes Reports no additional complaints ENT Reports no additional complaints Card Reports irregular heart rhythm (Atrial fibrillation controlled) and Reports dyspnea (On walking) Resp Reports dyspnea (On walking) GI Reports heartburn (Controlled with med) Reports urinary hesitancy (Being treated with Flomax) Musc Reports joint swelling (Niece) Skin/Breast Reports system reviewed and no additional complaints, except as documented Neuro Reports no additional complaints Psych Reports no additional complaints Physical Exam Vital Signs: Last Vital Signs Pulse 65 05/23/24 09:51 BP 140/78 H 05/23/24 09:51 Pulse Ox 99 05/23/24 09:51 Oxygen Delivery Method Room Air 05/23/24 09:51 BMI result Body Mass Index 38.7 Const General: healthy appearing (Except for being overweight), comfortable, no acute distress, alert and awake Orientation/consciousness: patient oriented x3 HEENT Head: Yes normal to inspection General nose exam: No nasal polyps present and No nasal discharge present Face and sinus: Yes sinuses nontender Mouth: oropharynx normal Throat: Yes posterior oropharynx normal Eyes General: appearance normal, both eyes and all related structures Neck Neck: Yes normal visual inspection, Yes no lymphadenopathy, Yes trachea midline and Yes no JVD Thyroid: Thyroid normal Chest Chest palpation & inspection: normal inspection of the chest, normal palpation of entire chest wall and no tenderness Resp Effort & Inspection: normal respiratory effort and no cough Auscultation: clear to auscultation bilaterally, no crackles and no wheezes Percussion: percussion normal Cardio Palpation: normal PMI Rate: regular rate Rhythm: abnormal rhythm (Atrial fib) Heart sounds: no gallops and no murmurs GI Palpation (GI): Soft to palpation, nontender, No hepatosplenomegaly present, no masses and Other GI palpation findings present ( Abdomen is moderately obese and protuberant) Auscultation: normal bowel sounds Back/Spine/Pelvis Thoracic/Lumbar Spine: thoracic and lumbar spine normal to inspection Skin General skin exam: no rashes or lesions noted Neuro General: patient oriented x3 and no focal motor deficits Cranial nerves: Yes CN's II-XII intact bilaterally Extrem General: Yes normal to inspection, Yes no clubbing, cyanosis or edema, Yes no calf tenderness and Yes venous stasis dermatitis (He does have mild skin discoloration due to chronic stasis dermatitis) Psych Appearance: grossly normal and well kempt Speech and movement: Normal speech and movement present Results Reviewed Results Reviewed: Compliance report for the last 30 nights is excellent showing that he uses 100% of the nights and average use it per night is 8 hours 11 minutes. Assessment & Plan Assessment & Plan (1) JACKSON on CPAP: Comment: Very COMPLIANT ,, and BENEFITTING . CPAP machine is working well. He is very happy with the CPAP usage. Code(s): G47.33 - Obstructive sleep apnea (adult) (pediatric); Z99.89 - Dependence on other enabling machines and devices Category: Medical Plan: Commended for good compliance and advise that he should continue using the CPAP every night. He needs to tighten the straps to minimize air leak issue. (2) Obesity (BMI 30-39.9): Comment: This is a chronic problem and it is difficult for him to lose weight as he cannot do much physical activity. He tries to control his diet. Some of his weight is due to fluid retention in the legs which is being kept under control. Code(s): E66.9 - Obesity, unspecified Category: Medical Plan: Continue to try losing weight by restricting the calories intake. Coding Level of Care Code Est Pt Level 3 (26378) Diagnoses JACKSON on CPAP G47.33; Z99.89 Obesity (BMI 30-39.9) E66.9
[2024-05-23 09:51] VITALS: BP 140/78; PULSE 65; O2SAT 99; BMI 38.7
--- OUTSIDE RECORDS SUMMARY | 2024-05-23 10:32 | XMS_ITS | Clinical Summary ---
Author Organization [facility] Address [address] [place] [address] Care Team Providers Care Traffic Court Referee Name Role Phone Shaniqua Munson Primary Care Provider [phone] Surgical History Surgery Date Site/Laterality Comments KNEE SURGERY PROCEDURE: HISTORICAL KNEE SURGERY; COMMENT: bilateral Medical History Medical History Date Comments HTN (hypertension) DX:HTN (hyper tension) GERD (gastroesophageal reflux disease) DX:GERD (gastroesophageal reflux disease) Atrial fibrillation (CMS/HCC V24, CMS/HCC V28) DX:Atrial fibrillation (HCC) Pulmonary hypertension (CMS/ HCC V24, CMS/HCC V28) DX:Pulmonary hypertension (H CC) Urinary retention DX:Urinary ret ention Family History Medical History Relation Name Comments Hypertension Father Other: atrial fib Father Hypertension Mother Other: atrial fib Mother Other: renal cancer Mother Relation Name Status Comments Father Mother Social History Tobacco Use Types Packs/Day Years Used Date Smoking Tobacco: Former Cigarettes Q uit: 08/24/1966 Smokeless Tobacco: Never Alcohol Use Standard Drinks/Week Comments Yes 0 (1 standard drink = 0.6 oz pur e alcohol) Sex and Gender Information Value Date Recorded Sex Assigned at Not on file Legal Sex Male 12:23 PM EST Gender Identity Not on file Sexual Orientation Not on file Obstetrics History Plan of Treatment Health Maintenance Due Date Last Done Comments DTaP,Tdap,and Td Vaccines (1 - Tdap) 11/22/1958 Pneumococcal Vaccine: 50+ Ye ars (1 of 1 - PCV) 11/22/1989 Zoster Vaccines (1 of 2) 11/22/1989 RSV Immunization Adult Patie nts (1 - 1-dose 75+ series) 11/22/2014 COVID-19 Vaccine ( - 2023-2 5 season) 2023 Influenza Vaccine (Season Ended) 2024 HIB Vaccines Aged Out No longer eligi ble based on patient's age to complete this topic HPV Vaccines Aged Out No longer eligi ble based on patient's age to complete this topic Hepatitis A Vaccines Aged Out No long er eligible based on patient's age to complete this topic Hepatitis B Vaccines Aged Out No long er eligible based on patient's age to complete this topic IPV Vaccines Aged Out No longer eligi ble based on patient's age to complete this topic MMR Vaccines Aged Out No longer eligi ble based on patient's age to complete this topic Meningococcal ACWY Vaccine Aged Out N o longer eligible based on patient's age to complete this topic Meningococcal B Vaccine Aged Out No l onger eligible based on patient's age to complete this topic RSV Immunization Patients Un fely 20 months Aged Out No longer eligible b ased on patient's age to complete this topic Varicella Vaccines Aged Out No longer eligible based on patient's age to complete this topic Advance Directives Documents on File Type Date Recorded 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 Expl anation Health Care Decision (hx) 02/27/2019 AD JACKSON DIRECTIVE Health Care Decision (hx) 02/27/2019 AD JACKSON DIRECTIVE Health Care Decision (hx) 02/27/2019 AD JACKSON DIRECTIVE Health Care Decision (hx) 02/27/2019 AD JACKSON DIRECTIVE Health Care Decision (hx) 02/27/2019 AD JACKSON DIRECTIVE Health Care Decision (hx) 02/27/2019 AD JACKSON DIRECTIVE Health Care Decision (hx) 02/27/2019 AD JACKSON DIRECTIVE Health Care Decision (hx) 02/27/2019 AD JACKSON DIRECTIVE Care Teams Traffic Court Referee Relationship Specialty Start Date End Date Shaniqua Munson [address] [place] [address] Dr Alex MA PCP - General Internal Medicine 03/06/19
--- OUTSIDE RECORDS SUMMARY | 2024-05-23 10:32 | XMS_ITS ---
Author Organization [facility], MD Address [address] [place] [address] Care Team Providers Care Corporate Concierge Name Role Phone [facility] Primary Care Provider Allergies Allergen (clinical drug [...] Date Provider Diagnosis In[facility] Painting III, MD [address] [place] [address] [place] [address] 02/09/2024 [facility] Essential hypertensi on I10 [...] - K21.9) The reflux is well-controlled with zvfu-ccm-oahnyxy medications. 02/09/2024 Central sleep apnea (ICD-10 - [...] Up: 4 Months, Reason: OV Provider Name:Inocente Painting, 06/11/2024 09:00:00 AM, [address] [place] [address] [place] [address], [place], [address], Provider Name:[facility] Painting, 11/14/2024 10:00:00 AM, [address] [place] [address] ISAIAS WHITLEY, [place], [address], Progress Notes * Behzad MENDOZADOB:[birth year] (83 yo M)Acc No.[id number]:02/09/2024 Progress Notes Patient:Behzad RYAN Provider:?Inocente Painting MD :1940???Age:83 Y???Sex:Male Gordo e:02/09/2024 Address: [address] [facility] [id number] Subjective: * Chief Complaints: * ???HypertensionLaceration an terior left lower leg, treated in wound clinicParoxysmal atrial fibrillationSleep apneaGERDMacrocytosisHistory of pulmonary embolismChronic anticoagulationObesity * HPI: ???COVID-19 Screening:?Questions?Have you had any new onset fever, chills, cough, congestion, sore throat, shortness of breath, muscle aches??No ???:?The patient, an 83-year-old male, reported a recent incident where he tripped on a steel object at his balhhc-gi-nme's place a couple of weeks ago, resulting in a significant gouge in his left leg. The wound has not completely healed, and the patient has been attending a wound clinic for treatment. The patient has not reported any other new symptoms or problems. Inspection of the left leg shows the wound is almost healed.? On examination today he was a slow irregular rhythm.? He is anticoagulated without any bleeding.? He has had no difficulty breathing.? His appetite is good.? His vital signs were stable. * ROS:?General/Constitutional:?pain?left leg wound, otherwise only normal aches and pains.?Chills?denies.?Fatigue?admits.?Fever?denies.?ENT:?Decreased hearing?in both ears.?Respiratory:?Cough?denies.?Cardiovascular:?Chest pain with exertion?denies.?Dyspnea on exertion?denies.?Shortness of breath?denies.?Gastrointestinal:?Constipation?occasional.?Decreased appetite?denies.?Diarrhea?denies.?Heartburn?denies.?Nausea?denies.?Rectal bleeding?denies.?Vomiting?denies.?Hematology:?bruising?denies.?petechiae?denies.?Swollen glands?none have been noted.?Genitourinary:?Frequent urination?once a night.?Musculoskeletal:?Muscle aches?denies.?Painful joints?denies.?Sciatica?denies.?Weakness?denies.?Skin:?Itching?denies.?Rash?denies.?Skin lesion(s)?denies.?Neurologic:?Difficulty speaking?denies.?Dizziness?denies.?Headache?denies.?Low back pain?denies.?Psychiatric:?Depressed mood?denies.? * Medical History:? * Surgical History:?right knee rplacement [facility] 2012T&A 1944 pilonidal cyxt 1059 breast biopsy right lipoma excisions basal cell ca excisions right breast mass, benign September 2003colonoscopy, tubular adenoma May 2006colonoscopy, tubular adenoma September 2009colonoscopy 2015cardio verted Melanoma removed from upper left chest- Negative result 10/2023No history * Hospitalization/Major Diagno stic Procedure:?Epigastric pain 06/2020Intermittent chest pain 06/2020No history * Family History:?Father: dece ased 91 yrs, diabetes mellitus, hypertension, artial fibrillation, dementia, diagnosed with DM, HTN.?Mother: 91 yrs, Macular, renal cell cancer, diagnosed with HTN, Cancer.?Spouse: alive.?1 brother(s) , 3 sister(s) . 2 daughter(s) - healthy. .? His youngest sister had breast cancer twice and leukemia. Brother had cancer. One of his brothers had cancer. His oldest sister is hypertensive. 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 He has been to Donna for 43 years. They have 2 healthy daughters and 4 grandchildren. He no longer smokes cigarettes. He says he has several drinks per day. * Medications:?TakingProtonix 40 MG Tablet Delayed Release 1 tablet [...] reviewed and reconciled with the patient * Allergies:?Morphine Sulfate: Rashno[Allergies Verified] Objective: * Vitals:?Ht: 69.5, Wt:264, BM I:38.42, BP:130/70, HR:73, Temp:98.2, Wt-k.75. * ???Past Orders: Lab:Complete Blood Count Aut o Diff [...] g/dl) Hematocrit 48.0 (Ref Range: 42.0-52.0 %) 54.8?H (Ref Range: 42.0-52.0 %) 49.9 (Ref Range: 42.0-52.0 %) Mean Corpuscular Volume 99.8?H (Ref Range: 80.0-98.0 fL) 102.6?H (Ref Range: 80.0-98.0 fL) 100.4?H (Ref Range: 80.0-98.0 fL) Mean Corpuscular Hemoglobin 33.1?H (Ref Range: 27.0-33.0 pg) 33.3?H (Ref Range: 27.0-33.0 pg) 32.4 (Ref Range: 27.0-33.0 pg) Mean Corpuscular HGB Conc 33.1 (Ref Range: 31.0-36.0 g/dl) 32.5 (Ref Range: 31.0-36.0 g/dl) 32.3 (Ref Range: 31.0-36.0 g/dl) Red Cell Distribution Width 14.4 (Ref Range: 11.0-16.0 %) 14.6 (Ref Range: 11.0-16.0 %) 14.2 (Ref Range: 11.0-16.0 %) Platelet Count 148?L (Ref Range: 160-400 X10*3/uL) 131?L (Ref Range: 160-400 X10*3/uL) 140?L (Ref Range: 160-400 X10*3/uL) Mean Platelet Volume 12.5?H (Ref Range: 9.4-12.4 fL) 11.9 (Ref Range: 9.4-12.4 fL) 12.9?H (Ref Range: 9.4-12.4 fL) Neutrophils Percent Auto 63.9 (Ref Range: 45-73 %) 73.2?H (Ref Range: 45-73 %) 60.2 (Ref Range: 45-73 %) Imm Gran Pct Auto 0.4 (Ref Range: 0.0-0.4 %) 0.5?H (Ref Range: 0.0-0.4 %) 0.2 (Ref Range: 0.0-0.4 %) Lymphocytes Percent Auto 22.5 (Ref Range: 20-40 %) 16.1?L (Ref Range: 20-40 %) 25.8 (Ref Range: [...] Absolute Auto 1.2 (Ref Range: 1.2-4.9 X10*3/uL) 1.1?L (Ref Range: 1.2-4.9 X10*3/uL) 1.3 (Ref Range: [...] 0.000 (Ref Range: 0.0-0.012 X10*3/uL) * Lab:[facility] * Collection Date 02/02/2024 11/08/2023 05/11/2023 Collection Time 06:52 AM 06:32 AM 06:17 AM Order Date 02/02/2024 11/08/2023 05/11/2023 Sodium 142 (Ref Range: 135-145 mmol/L) 142 (Ref Range: 135-145 mmol/L) 141 (Ref Range: 135-145 mmol/L) Bilirubin Total 0.8 (Ref Range: 0.0-1.0 mg/dL) 1.7?H (Ref Range: 0.0-1.0 mg/dL) 1.1?H (Ref Range: 0.0-1.0 mg/dL) Aspartate Amino Transferase 19 (Ref Range: 5-37 U/L) 13 (Ref Range: 5-37 U/L) 18 (Ref Range: 5-37 U/L) Alanine Aminotransferase 13 (Ref Range: 0-40 U/L) 13 (Ref Range: 0-40 U/L) 13 (Ref Range: 0-40 U/L) Total Protein 6.6 (Ref Range: 6.5-8.0 g/dL) 7.2 (Ref Range: 6.5-8.0 g/dL) 6.6 (Ref Range: 6.5-8.0 g/dL) Albumin Level 3.4?L (Ref Range: 3.5-5.0 g/dL) 3.7 (Ref Range: [...] (Ref Range: 12-20) 14 (Ref Range: 12-20) 11?L (Ref Range: 12-20) Blood Urea Nitrogen 22?H (Ref Range: 9-16 mg/dL) 17?H (Ref Range: 9-16 mg/dL) 16 (Ref Range: [...] 02/02/2024 11/02/2022 06/21/2022 Vitamin D 25-OH Total 29.8?L (Ref Range: >30 ng/mL) 33.0 (Ref Range: [...] Negative -) Menstrating NR N/A * Examination: ???General Examination: ?GENERAL APPEARANCE:?pleasant, well nourished, well developed, in no acute distress, calm and relaxed, obese, elderly man, obese, elderly man.?HEAD:?atraumatic, normocephalic.?EYES:?eomi, perrla, anicteric, conjugate.?EARS:?normal.?NOSE:?septum intact.?ORAL CAVITY:?normal, unremarkable.?NECK/THYROID:?no jugular venous distention, no carotid bruit, thyroid normal.?LYMPH NODES:?no enlarged lymph nodes,spleen normal.?SKIN:?no suspicious lesions, anicteric.?HEART:?no clicks, gallops, murmurs, or rubs, irregular rhythm, S1, S2 normal, no s3, or vascular bruits.?LUNGS:?clear to auscultation .?BREASTS:??no masses palpable bilaterally.?ABDOMEN:?bowel sounds normal, no ascites, no organomegaly, no mass, centripital obesity.?RECTAL EXAM:?not examined.?MUSCULOSKELETAL:?extremities unremarkable, no clubbing, cyanosis or edema, Healing laceration just above left ankle anteriorly.?PERIPHERAL PULSES:?normal.?NEUROLOGIC:?alert and oriented, cranial nerves 2-12 grossly intact, deep tendon reflexes 2+ symmetrical, motor strength normal upper and lower extremities, sensory exam intact.?PSYCH:?alert, oriented, cognitive function intact, thought process logical, goal directed.? Assessment: * Assessment: 1.?AF (paroxysmal atrial fib rillation) - I48.0 (Primary)???Notes :His heart rate was irregular today and well controlled. No change in his regimen was necessary. He remains anticoagulated.???2.?Essential hypertension - I10???Notes :His blood pressure is stable today at 130/70 and no change in his regimen was necessary. We reviewed the wisdom of progressive sodium restriction and weight loss.???3.?Obesity (BMI 30- 39.9) - E66.9???Notes :His body mass index is 38.4.? He weighs 264 pounds.? We discussed his diet and nutrition.? We discussed lifestyle modifications he could make to lose weight.? We made a plan to lose weight at a rate of one half of a pound per week.???4.?Former smoker - Z87.891???Notes :He is highly motivated not to smoke. We discussed a plan for prevention of relapse in times of stress.???5.?Gastro- esophageal reflux disease without esophagitis - K21.9???Notes :The reflux is well- controlled with qcfn-gua-cfmkmod medications.???6.?Central sleep apnea - G47.31???Notes :He is using his CPAP every night and feels much better.???7.?Thrombocytopenia - D69.6???Notes :His platelet count has increased from 131,000-148,000. He is anticoagulated and has had no bleeding. No change in his therapy is indicated. He is avoiding aspirin.???8.?Macrocytosis - D75.89???Notes :His mean cell volume is now 99.8. It has improved substantially from 102.6. The cause is unclear but may be dietary.Evaluation with folic acid and vitamin B12 and reticulocytes is indicated.???9.?History of pulmonary embolism - Z86.711???Notes :He is had no further pulmonary symptoms and is anticoagulated. The fat was in 2004 and he has been anticoagulated.???10.?BPH (benign prostatic hyperplasia) - N40.0???Notes :He arises from sleep once or twice a night to urinate. It depends upon fluid intake. We discussed lifestyle modification as a way to relieve nocturia.??? Plan: * Treatment: 2.?Obesity (BMI 30-39.9)?LAB: PROFILE, FASTING (COMPREHENSIVE METABOLIC) ?LAB: PSA, TOTAL ?LAB: CBC WITH AUTO DIFF ?LAB: Lipid Panel 3.?BPH (benign prostatic hyp erplasia)?LAB: PROFILE, FASTING (COMPREHENSIVE METABOLIC) ?LAB: PSA, TOTAL ?LAB: CBC WITH AUTO DIFF ?LAB: Lipid Panel 4.?Others? Continue Protonix Tablet Delayed Release, 40 MG, 1 tablet, Orally, every other day;?Continue Vitamin D Tablet, 25 MCG (1000 UT), 1 tablet, Orally, Once a day;?Continue Flomax Capsule Extended Release 24 Hour, 0.4 MG, 1 capsule 30 minutes after the same meal each day, Orally, Once a day;?Continue Jardiance Tablet, 10 MG, Oral.?? * Procedure Codes:? * Preventive Medicine:? ??Counseling:?Care goal follow-up plan:?Counseling for abnormal BMI given?Yes ?Above Normal BMI Follow-up?Dietary management education, guidance, and counseling, Dietary needs education, Exercise promotion: strength training, Exercise promotion: stretching, Feeding regime, Giving encouragement to exercise, Lifestyle education regarding diet, Nutrition / feeding management, Nutrition therapy, Prescribed activity/exercise education, Prescribed diet education, Prescribed dietary intake, Special diet education, Weight monitoring , Intervention, Order not done: Medical or Other reason not done ?Smoking/Tobacco Use?Patient counseled on the dangers of tobacco use and urged to quit.?02/09/2024 * Follow Up:?4 Months (Reason: OV) * Images: * Sign off status: Completed true * Provider:?[facility] MD Date:?01/14 Generated for Vu cole/Vaughn/eTransmitting on:?05/23/2024 10:32 AM EDT History and Physical Notes * [...]
--- OUTSIDE RECORDS SUMMARY | 2024-05-23 10:33 | XMS_ITS ---
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 08/31/2023 AF (paroxysmal atria l fibrillation) [...] As Scheduled, Kim son: OV Provider Name:In[facility] Painting, 06/11/2024 09:00:00 AM, [address] [place] [address] DR, [facility] [address], [place], [address], Provider Name:Inocente Amadorrne, 11/14/2024 10:00:00 AM, [address] [place] [address] [address]AI[address], [place], [address], Progress Notes * Behzad MENDOZADOB:[birth year] (82 yo M)Acc No.[id number]:08/31/2023 Progress Notes Patient:?Behzad Mendoza Provider:?Inocente Painting MD :1940???Age:82 Y???Sex:Male Gordo e:08/31/2023 [facility] [id number] Subjective: * Chief Complaints: * ???HypertensionParoxysmal at rial fibrillationAnticoagulationOccurredMacrocytosisThrombocytopeniaSleep apneaHistory of pulmonary embolismBenign prostatic hypertrophyObesity * HPI: ???COVID-19 Screening:? He returns to the office for a [...] of his medications. His heartburn is controlled. ?Questions?Have you experienced fever, chills, cough, sore throat, shortness of breath, difficulty breathing, muscle aches, loss of taste or smell??No ?Have you been exposed to the virus within the last 10 days??No ?Have you travelled internationally in the last 10 days??No ?Have you been exposed to COVID-19 in the past??Yes * ROS:?General/Constitutional:?pain?only normal aches and pains.?Chills?denies.?Fatigue?admits.?Fever?denies.?ENT:?Decreased hearing?mild.?Respiratory:?Cough?denies.?Cardiovascular:?Chest pain with exertion?denies.?Dyspnea on exertion?denies.?Shortness of breath?denies.?Gastrointestinal:?Constipation?occasional.?Decreased appetite?denies.?Diarrhea?denies.?Heartburn?controlled with medications.?Nausea?denies.?Rectal bleeding?denies.?Vomiting?denies.?Hematology:?bruising?denies.?petechiae?denies.?Swollen glands?none have been noted.?Genitourinary:?Frequent urination?once a night.?Musculoskeletal:?Muscle aches?denies.?Painful joints?denies.?Sciatica?denies.?Weakness?denies.?Skin:?Itching?denies.?Rash?denies.?Skin lesion(s)?denies.?Neurologic:?Difficulty speaking?denies.?Dizziness?denies.?Headache?denies.?Low back pain?denies.?Psychiatric:?Depressed mood?denies.? * Medical History:? * Surgical History:?right knee rplacement [facility] 2012T&A 1944 pilonidal cyxt 1059 breast biopsy right lipoma excisions basal cell ca excisions right breast mass, benign September 2003colonoscopy, tubular adenoma May 2006colonoscopy, tubular adenoma September 2009colonoscopy 2015cardio verted * Hospitalization/Major Diagno stic Procedure:?Epigastric pain 06/2020Intermittent chest pain 06/2020 * Family History:?Father: dece ased 91 yrs, diabetes mellitus, hypertension, artial fibrillation, dementia, diagnosed with DM, HTN.?Mother: 91 yrs, Macular, renal cell cancer, diagnosed with Cancer, HTN.?Spouse: alive.?1 brother(s) , 3 sister(s) . 2 daughter(s) - healthy. .? His youngest sister had breast cancer twice and leukemia. Brother had cancer. One of his brothers had cancer. His oldest sister is hypertensive. 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 He has been to Donna for 43 [...] Sulfate: Rashno[Allergies Verified] Objective: * Vitals:?Ht: 69.5, Wt:262, BM I:38.13, BP:140/87, HR:68, Temp:97.6, Wt-k.84. * ???Past Orders: Lab:Hemoglobin A1c * Order Date 08/24/2023 [...] Bilirubin Total 0.8 (Ref Range: 0.0-1.0 mg/dL) 1.2?H (Ref Range: 0.0-1.0 mg/dL) 1.6?H (Ref Range: 0.0-1.0 mg/dL) Aspartate Amino Transferase 14 (Ref Range: 5-37 U/L) 24 (Ref Range: 5-37 U/L) 12 (Ref Range: 5-37 U/L) Alanine Aminotransferase 10 (Ref Range: 0-40 U/L) 29 (Ref Range: 0-40 U/L) 19 (Ref Range: 0-40 U/L) Total Protein 6.7 (Ref Range: 6.5-8.0 g/dL) 7.1 (Ref Range: 6.5-8.0 g/dL) 6.6 (Ref Range: 6.5-8.0 g/dL) Albumin Level 3.4?L (Ref Range: 3.5-5.0 g/dL) 3.8 (Ref Range: [...] Carbon Dioxide 27 (Ref Range: 22-29 mmol/L) 30?H (Ref Range: 22-29 mmol/L) 26 (Ref Range: 22-29 mmol/L) Anion Gap 13 (Ref Range: 12-20) 12 (Ref Range: 12-20) 16 (Ref Range: 12-20) Blood Urea Nitrogen 20?H (Ref Range: 9-16 mg/dL) 17?H (Ref Range: 9-16 mg/dL) 18?H (Ref Range: 9-16 mg/dL) Creatinine 1.23 (Ref [...] 42.0-52.0 %) 52.0 (Ref Range: 42.0-52.0 %) 53.3?H (Ref Range: 42.0-52.0 %) Mean Corpuscular Volume 100.4?H (Ref Range: 80.0-98.0 fL) 100.4?H (Ref Range: 80.0-98.0 fL) 102.7?H (Ref Range: 80.0-98.0 fL) Mean Corpuscular Hemoglobin 32.4 (Ref Range: 27.0-33.0 pg) 32.8 (Ref Range: 27.0-33.0 pg) 33.1?H (Ref Range: 27.0-33.0 pg) Mean Corpuscular HGB Conc 32.3 (Ref Range: 31.0-36.0 g/dl) 32.7 (Ref Range: 31.0-36.0 g/dl) 32.3 (Ref Range: 31.0-36.0 g/dl) Red Cell Distribution Width 14.2 (Ref Range: 11.0-16.0 %) 14.5 (Ref Range: 11.0-16.0 %) 15.0 (Ref Range: 11.0-16.0 %) Platelet Count 140?L (Ref Range: 160-400 X10*3/uL) 129?L (Ref Range: 160-400 X10*3/uL) 136?L (Ref Range: 160-400 X10*3/uL) Mean Platelet Volume 12.9?H (Ref Range: 9.4-12.4 fL) 12.3 (Ref Range: 9.4-12.4 fL) 12.3 (Ref Range: 9.4-12.4 fL) Neutrophils Percent Auto 60.2 (Ref Range: 45-73 %) 62.3 (Ref Range: 45-73 %) 67.7 (Ref Range: 45-73 %) Imm Gran Pct Auto 0.2 (Ref Range: 0.0-0.4 %) 0.4 (Ref Range: 0.0-0.4 %) 0.5?H (Ref Range: 0.0-0.4 %) Lymphocytes Percent Auto [...] 0.000 (Ref Range: 0.0-0.012 X10*3/uL) * Examination: ???General Examination: ?GENERAL APPEARANCE:?pleasant, well nourished, well developed, in no acute distress, calm and relaxed , obese , man.?HEAD:?atraumatic, normocephalic.?EYES:?eomi, perrla, anicteric, conjugate.?EARS:?normal.?NOSE:?septum intact.?ORAL CAVITY:?normal, unremarkable.?NECK/THYROID:?no jugular venous distention, no carotid bruit, thyroid normal.?LYMPH NODES:?no enlarged lymph nodes,spleen normal.?SKIN:?no suspicious lesions, anicteric.?HEART:?no clicks, gallops, murmurs, or rubs, irregular rhythm, S1, S2 normal, no s3, or vascular bruits.?LUNGS:?clear to auscultation .?BREASTS:??no masses palpable bilaterally.?ABDOMEN:?bowel sounds normal, no ascites, no organomegaly, no mass , centripital obesity.?RECTAL EXAM:?not examined.?MUSCULOSKELETAL:?extremities unremarkable, no clubbing, cyanosis or edema.?PERIPHERAL PULSES:?normal.?NEUROLOGIC:?alert and oriented, cranial nerves 2-12 grossly intact, deep tendon reflexes 2+ symmetrical, motor strength normal upper and lower extremities, sensory exam intact.?PSYCH:?alert, oriented , cognitive function intact , cooperative with exam , good eye contact , speech clear.? Assessment: * Assessment: 1.?Essential hypertension - I10 (Primary), His blood pressure is stable today and no change in his regimen was necessary. We reviewed the wisdom of progressive sodium restriction and weight loss.?2.?Thrombocytopenia - D69.6, His platelet count has increased from 129,000-140,000. He is anticoagulated and has had no bleeding. No change in his therapy is indicated. He is avoiding aspirin.?3.?Obesity (BMI 30- 39.9) - E66.9, He has lost 1 pound and weighs 262. His body mass index is 38. We reviewed his weight loss strategy today. We made a plan to lose weight at a rate of one half of a pound per week through a diet restricted in fat calories and sodium.?4.?Gastro-esophageal reflux disease without esophagitis - K21.9, The reflux is well-controlled with pyce-wgr-miryqut medications.?5.?AF (paroxysmal atrial fibrillation) - I48.0, His heart rate was regular today and well controlled. No change in his regimen was necessary. He remains anticoagulated. 6.?Macrocytosis - D75.89, His mean cell volume has improved now being 100.4. The cause is unclear but may be dietary.?7.?Central sleep apnea - G47.31, He is using his CPAP every night and feels much better.?8.?History of pulmonary embolism - Z86.711, He is had no further pulmonary symptoms and is anticoagulated. The fat was in 2004 and he has been anticoagulated. 9.?Former smoker - Z87.891, He is highly motivated not to smoke. We discussed a plan for prevention of relapse in times of stress.?10.?BPH (benign prostatic hyperplasia) - N40.0, He arises from sleep once or twice a night to urinate. It depends upon fluid intake. We discussed lifestyle modification as a way to relieve nocturia.?11.?Chronic anticoagulation - Z79.01, He has had no bleeding or clotting. Since his last visit. He will continue on current therapy. Because of the atrial fibrillation.?12.?Vitamin D deficiency, unspecified - E55.9, He has been compliant with his vitamin D supplementation.? Plan: * Treatment: 2.?Thrombocytopenia?LAB: PROFILE, FASTING (COMPREHENSIVE METABOLIC) ?LAB: CBC WITH AUTO DIFF ?LAB: Lipid Panel ?LAB: Hemoglobin A1c 3.?Obesity (BMI 30-39.9)?LAB: PROFILE, FASTING (COMPREHENSIVE METABOLIC) ?LAB: CBC WITH AUTO DIFF ?LAB: Lipid Panel ?LAB: Hemoglobin A1c 4.?Others? Continue Protonix Tablet Delayed Release, 40 [...] dangers of tobacco use and urged to quit.?08/31/2023 ??DM Care Plan:?Patient Lifestyle Goals?Patient wants to be able to manage diabetes without too much effort.?Treatment Goals?Blood Sugars less than < 115, HbA1C < 7.0.?Barriers?no barriers.?Self-Managment Goals?Work on weight loss, with a goal of losing 1 lb per week, Increase exercise to 3 times a week for 30 mins, Stop drinking juice and/or soda, replace with more water.? * Follow Up:?As Scheduled (Kim son: OV) * Images: * Sign off status: Completed true * Provider:?Inocente Painting MD Date:?08/13 Generated for Vu cole/Vaughn/eTransmitting on:?05/23/2024 10:32 AM [...]
--- OUTSIDE RECORDS SUMMARY | 2024-05-23 10:34 | XMS_ITS | Patient Health Record ---
Author Organization Inocente Painting III, MD Address [address] [place] [address] Care Team Providers Care 3D Designer Name Role Phone Inocente Painting Primary Care [...] 0.2 - 1.3 BLD Negative Negative - Complete Blood Count Auto Di ff Reviewed date:08/26/2023 07:07:58 AM Interpretation: Performing Lab:[facility], [address] [place] [phone] Notes/Report: White Blood Count 4.9 4.8-10.8 X10*3/uL Red Blood Count 4.97 4.60-5.80 X10*6/uL Hemoglobin 16.1 14.0-18.0 g/dl Hematocrit 49.9 42.0-52.0 % Mean Corpuscular Volume 100.4 80.0-98.0 fL Mean Corpuscular Hemoglobin 32.4 27.0-33.0 pg Mean Corpuscular HGB Conc 32.3 31.0-36.0 g/dl Red Cell Distribution Width 14.2 11.0-16.0 % Platelet Count 140 160-400 X10*3/uL Mean Platelet Volume 12.9 9.4-12.4 fL Neutrophils Percent Auto 60.2 45-73 % Imm Gran Pct Auto 0.2 0.0-0.4 % Lymphocytes Percent Auto 25.8 20-40 % Monocytes Percent Auto 10.8 2-11 % Eosinophils Percent Auto 2.2 0-4 % Basophils Percent Auto 0.8 0-2 % NRBC Pct Auto 0.0 0.0-0.2 /100WBC Neutrophils Absolute Auto 2.9 2.0-8.3 x10*3/u L Imm Gran Abs Auto 0.01 0.00-0.03 X10*3/uL Lymphocytes Absolute Auto 1.3 1.2-4.9 X10*3/u L Monocytes Absolute Auto 0.5 0.1-1.2 X10*3/uL Eosinophils Absolute Auto 0.1 0.0-0.4 X10*3/u L Basophils Absolute Auto 0.0 0.0-0.2 X10*3/uL NRBC Abs Auto 0.000 0.0-0.012 X10*3/uL Comprehensive Met. Panel Reviewed date:08/26/2023 07:07:58 AM Interpretation: Performing Lab:[facility], [address] [place] [phone] Notes/Report: Sodium 140 135-145 mmol/L Potassium 3.7 3.3-5.1 mmol/L Chloride 104 96-108 mmol/L Carbon Dioxide 27 22-29 mmol/L Anion Gap 13 12-20 Blood Urea Nitrogen 20 9-16 mg/dL Creatinine 1.23 0.5-1.4 mg/dL Estimated Glomerular Filt Rate 56 NOTE: For -[place] Zeal[place] individuals, multiply the result by 1.210. Chronic Kidney Disease: Estimated GFR < 60 mL/min/1.73m2 Severe Kidney Disease: Estimated GFR < 15 mL/min/1.73m2 Glucose Random 94 60-115 mg/dL Calcium 9.5 8.4-10.2 mg/dL Bilirubin Total 0.8 0.0-1.0 mg/dL Aspartate Amino Transferase 14 5-37 U/L Alanine Aminotransferase 10 0-40 U/L Total Protein 6.7 6.5-8.0 g/dL Albumin Level 3.4 3.5-5.0 g/dL Alkaline Phosphatase 54 39-117 U/L Hemoglobin A1c Reviewed date:08/26/2023 07:07:58 AM Interpretation: Performing Lab:[facility], [address] [place] [phone] Notes/Report: Hemoglobin A1c % 5.2 <6.0 % Hemoglobin A1C Reference Range Adults: 4.8 - 6.0 % Non diabetic: < 6.0 % Goal: < 7.0 % Additional Action Suggested: > 8.0 % Note: Hemoglobin A1c results are invalid for patients with abnormal amounts of HbF. Blood transfusions may impact the HbA1c concentration in the patient sample. Estimated Average Glucose 103 eAG = Estimated average glucose which is %A1C expressed as average glucose, using the formula of the I5H-Ztkffui Average Glucose study (ADAG), Diabetes Care, Vol.31,#8, Sep. 2007 Complete Blood Count Auto Di ff Reviewed date:11/13/2023 05:56:09 AM Interpretation: Performing Lab:[facility], [address] [place] [phone] Notes/Report: White Blood Count 6.7 4.8-10.8 X10*3/uL Red Blood Count 5.34 4.60-5.80 X10*6/uL Hemoglobin 17.8 14.0-18.0 g/dl Hematocrit 54.8 42.0-52.0 % Mean Corpuscular Volume 102.6 80.0-98.0 fL Mean Corpuscular Hemoglobin 33.3 27.0-33.0 pg Mean Corpuscular HGB Conc 32.5 31.0-36.0 g/dl Red Cell Distribution Width 14.6 11.0-16.0 % Platelet Count 131 160-400 X10*3/uL Mean Platelet Volume 11.9 9.4-12.4 fL Neutrophils Percent Auto 73.2 45-73 % Imm Gran Pct Auto 0.5 0.0-0.4 % Lymphocytes Percent Auto 16.1 20-40 % Monocytes Percent Auto 8.3 2-11 % Eosinophils Percent Auto 1.4 0-4 % Basophils Percent Auto 0.5 0-2 % NRBC Pct Auto 0.0 0.0-0.2 /100WBC Neutrophils Absolute Auto 4.9 2.0-8.3 x10*3/u L Imm Gran Abs Auto 0.03 0.00-0.03 X10*3/uL Lymphocytes Absolute Auto 1.1 1.2-4.9 X10*3/u L Monocytes Absolute Auto 0.6 0.1-1.2 X10*3/uL Eosinophils Absolute Auto 0.1 0.0-0.4 X10*3/u L Basophils Absolute Auto 0.0 0.0-0.2 X10*3/uL NRBC Abs Auto 0.000 0.0-0.012 X10*3/uL Comprehensive [employer] [place]. Panel Fa st Reviewed date:11/13/2023 05:56:09 AM Interpretation: Performing Lab:[address] [phone] Notes/Report: Sodium 142 135-145 mmol/L Potassium 5.0 3.3-5.1 mmol/L Chloride 104 96-108 mmol/L Carbon Dioxide 29 22-29 mmol/L Anion Gap 14 12-20 Blood Urea Nitrogen 17 9-16 mg/dL Creatinine 1.24 0.5-1.4 mg/dL Estimated Glomerular Filt Rate 56 NOTE: For -[place] Ze[place] individuals, multiply the result by 1.210. Chronic Kidney Disease: Estimated GFR < 60 mL/min/1.73m2 Severe Kidney Disease: Estimated GFR < 15 mL/min/1.73m2 Glucose Fasting 85 60-99 mg/dL Calcium 9.7 8.4-10.2 mg/dL Bilirubin Total 1.7 0.0-1.0 mg/dL Aspartate Amino Transferase 13 5-37 U/L Alanine Aminotransferase 13 0-40 U/L Total Protein 7.2 6.5-8.0 g/dL Albumin Level 3.7 3.5-5.0 g/dL Alkaline Phosphatase 56 39-117 U/L Lipid Panel Reviewed date:11/13/2023 05:56:09 AM Interpretation: Performing Lab:[facility], [address] [place] [phone] Notes/Report: Triglycerides 62 <150 mg/dL Desirable Triglyceride: less than 150 mg/dL Borderline High Triglyceride 150-199 mg/dL High Triglyceride: 200-499 mg/dL Very High Triglyceride: greater than or equal to 5OO mg/dL Cholesterol 141 <200 mg/dL Desirable Cholesterol: less than 200 mg/dL Borderline High Cholesterol: 200-239 mg/dL High Cholesterol: greater than 239 mg/dL LDL Cholesterol Calculated 78 <100 mg/dL Desirable LDL: less than 100 mg/dL Near Optimal/Above Optimal LDL: 110-129 mg/dL Borderline High LDL: 130-159 mg/dL High LDL: 160-189 mg/dL Very High LDL: greater than or equal to 190 mg/dL HDL Cholesterol 51 >40 mg/dL Desirable HDL: greater than 40 mg/dL Note: This HDL assay may give artificially low results in patients with liver disease. Hemoglobin A1c Reviewed date:11/13/2023 05:56:09 AM Interpretation: Performing Lab:[facility], [address] [place] [phone] Notes/Report: Hemoglobin A1c % 5.0 <6.0 % Hemoglobin A1C Reference Range Adults: 4.8 - 6.0 % Non diabetic: < 6.0 % Goal: < 7.0 % Additional Action Suggested: > 8.0 % Note: Hemoglobin A1c results are invalid for patients with abnormal amounts of HbF. Blood transfusions may impact the HbA1c concentration in the patient sample. Estimated Average Glucose 97 eAG = Estimated average glucose which is %A1C expressed as average glucose, using the formula of the H7R-Krhusjr Average Glucose study (ADAG), Diabetes Care, Vol.31,#8, Sep. 2007 Complete Blood Count Auto Di ff Reviewed date:02/04/2024 08:33:16 PM Interpretation: Performing Lab:[facility], [address] [place] [phone] Notes/Report: White Blood Count 5.4 4.8-10.8 X10*3/uL Red Blood Count 4.81 4.60-5.80 X10*6/uL Hemoglobin 15.9 14.0-18.0 g/dl Hematocrit 48.0 42.0-52.0 % Mean Corpuscular Volume 99.8 80.0-98.0 fL Mean Corpuscular Hemoglobin 33.1 27.0-33.0 pg Mean Corpuscular HGB Conc 33.1 31.0-36.0 g/dl Red Cell Distribution Width 14.4 11.0-16.0 % Platelet Count 148 160-400 X10*3/uL Mean Platelet Volume 12.5 9.4-12.4 fL Neutrophils Percent Auto 63.9 45-73 % Imm Gran Pct Auto 0.4 0.0-0.4 % Lymphocytes Percent Auto 22.5 20-40 % Monocytes Percent Auto 10.7 2-11 % Eosinophils Percent Auto 1.8 0-4 % Basophils Percent Auto 0.7 0-2 % NRBC Pct Auto 0.0 0.0-0.2 /100WBC Neutrophils Absolute Auto 3.5 2.0-8.3 x10*3/u L Imm Gran Abs Auto 0.02 0.00-0.03 X10*3/uL Lymphocytes Absolute Auto 1.2 1.2-4.9 X10*3/u L Monocytes Absolute Auto 0.6 0.1-1.2 X10*3/uL Eosinophils Absolute Auto 0.1 0.0-0.4 X10*3/u L Basophils Absolute Auto 0.0 0.0-0.2 X10*3/uL NRBC Abs Auto 0.000 0.0-0.012 X10*3/uL Comprehensive [employer]. Panel Fa st Reviewed date:02/04/2024 08:33:16 PM Interpretation: Performing Lab:[facility], [address] [place] [phone] Notes/Report: Sodium 142 135-145 mmol/L Potassium 3.8 3.3-5.1 mmol/L Chloride 105 96-108 mmol/L Carbon Dioxide 28 22-29 mmol/L Anion Gap 13 12-20 Blood Urea Nitrogen 22 9-16 mg/dL Creatinine 1.08 0.5-1.4 mg/dL Estimated Glomerular Filt Rate > 60 Chronic Kidney Disease: Estimated GFR < 60 mL/min/1.73m2 Severe Kidney Disease: Estimated GFR < 15 mL/min/1.73m2 Glucose Fasting 98 60-99 mg/dL Calcium 8.8 8.4-10.2 mg/dL Bilirubin Total 0.8 0.0-1.0 mg/dL Aspartate Amino Transferase 19 5-37 U/L Alanine Aminotransferase 13 0-40 U/L Total Protein 6.6 6.5-8.0 g/dL Albumin Level 3.4 3.5-5.0 g/dL Alkaline Phosphatase 58 39-117 U/L Lipid Panel Reviewed date:02/04/2024 08:33:16 PM Interpretation: Performing Lab:[facility], [address] [place] [phone] Notes/Report: Triglycerides 45 <150 mg/dL Desirable Triglyceride: less than 150 mg/dL Borderline High Triglyceride 150-199 mg/dL High Triglyceride: 200-499 mg/dL Very High Triglyceride: greater than or equal to 5OO mg/dL Cholesterol 128 <200 mg/dL Desirable Cholesterol: less than 200 mg/dL Borderline High Cholesterol: 200-239 mg/dL High Cholesterol: greater than 239 mg/dL LDL Cholesterol Calculated 71 <100 mg/dL Desirable LDL: less than 100 mg/dL Near Optimal/Above Optimal LDL: 110-129 mg/dL Borderline High LDL: 130-159 mg/dL High LDL: 160-189 mg/dL Very High LDL: greater than or equal to 190 mg/dL HDL Cholesterol 48 >40 mg/dL Desirable HDL: greater than 40 mg/dL Note: This HDL assay may give artificially low results in patients with liver disease. Vitamin D 25-OH Total Reviewed date:02/04/2024 08:33:16 PM Interpretation: Performing Lab:[facility], [address] [place] [phone] Notes/Report: Vitamin D 25-OH Total 29.8 >30 ng/mL Health Based Reference Values* < 20 ng/mL Deficient 20-30 ng/mL Insufficient > 30 ng/mL Sufficient *Ayleen HOANG. N Engl J Med. 2007;357:266-280 Care must be taken in interpreting Vitamin D results from different laboratories and methodologies. Published data demonstrated that results from patients undergoing hemodialysis may show a negative bias when tested with various automated 25-OH vitamin D assays when compared to LC-MS/MS. When testing samples from patients whose predominant form of Vitamin D is Vitamin D2, such as patients receiving Vitamin D2 supplementation, results that are subtherapeutic should be confirmed with another method such as LC-MS/MS. Reason For Referral No Information Medications Medication SIG (Take, Route, Frequency, Duration) [...] tablet Orally Once a day A ctive Eliquis 5 MG as directed Orally t wice a day Active amLODIPine Besylate 2.5 MG 1 tablet Orally Once a day Active Immunizations Vaccine Route Administration Date Status Comme nts Influenza Unknown 11/25/2014 Administered Influenza IM Intramuscular 12/31/2015 Administered Influenza no Preserv 3 and > IM Intramuscular 12/06/2016 Administered Influenza no Preserv 3 and > IM Intramuscular 11/24/2017 Administered Influenza no Preserv 3 and > IM Intramuscular 12/11/2018 Administered COVID- 19 Vaccine Unknown 04/02/2020 Administered Social History Tobacco Use: Social History Observation [...] ast year? No Points 0 Interpretation Negative Problems Problem Type SNOMED Code ICD Code Onset Dates Problem Status W/U Status Risk Notes Problem 0276850 Former smoker (Z87.891) Active confirmed He is highly motivated not to smoke. We discussed a plan for prevention of relapse in times of stress. Problem 780302736 Thrombocytopenia (D69.6) Active confirmed His platelet count has increased from 131,000-148,000. He is anticoagulated and has had no bleeding. No change in his therapy is indicated. He is avoiding aspirin. Problem Vitamin D deficiency (66395770) Vitamin D deficiency, unspecified (E55.9) Active confirmed He was continue d on his vitamin D supplements Problem 765304286 Gastro-esophagea l reflux disease without esophagitis (K21.9) Active confirmed The reflux is well-controlled with qwow-hkl-lznqjnx medications. Problem 546323173 BPH (benign prostatic hyperplasia) (N40.0) Active confirmed He arises from sleep once or twice a night to urinate. It depends upon fluid intake. We discussed lifestyle modification as a way to relieve nocturia. Problem 861648394 Obesity (BMI 30-39.9) (E66.9) Active confirmed His body ma ss index is 38.4. He weighs 264 pounds. We discussed his diet and nutrition. We discussed lifestyle modifications he could make to lose weight. We made a plan to lose weight at a rate of one half of a pound per week. Problem 879520970 Chronic anticoagulation (Z79.01) Active confirmed He has had no bleeding or clotting. Since his last visit. He will continue on current therapy. Because of the atrial fibrillation. Problem 43067365 Essential hypertension (I10) Active confirmed His blood pressure is stable today at 130/70 and no change in his regimen was necessary. We reviewed the wisdom of progressive sodium restriction and weight loss. Problem 55465651 Colonic polyp (K63.5) Active confirmed He will undergo colonoscopies periodically. He is currently up-to-date. Problem 254893757 Osteoarthritis (M19.90) Active confirmed The pain is primarily in his knees and he feels quite well. Problem 884595707 History of pulmonary embolism (Z86.711) Active confirmed He is had no further pulmonary symptoms and is anticoagulated. The fat was in 2004 and he has been anticoagulated. Problem 154185754 AF (paroxysmal atrial fibrillation) (I48.0) Active confirmed His heart rate was irregular today and well controlled. No change in his regimen was necessary. He remains anticoagulated. Problem 71896193 Strabismus (H50.9) Active confirmed This abnormality was still present and is long-standing. He was encouraged to see the maintenance engineer oil field regularly. Problem 154255635 Macrocytosis (D75.89) Active confirmed His mean cell volume is now 99.8. It has improved substantially from 102.6. The cause is unclear but may be dietary.Evaluati on with folic acid and vitamin B12 and reticulocytes is indicated. Problem 95644295 Central sleep apnea (G47.31) Active confirmed He is using h is CPAP every night and feels much better. Vital Signs Heart Rate 73 /min 02/09/2024 Temperature 98.2 degrees Fahrenheit 02/09/2024 Oximetry 100 % 11/13/2023 Blood pressure diastolic 70 mm Hg 02/09/2024 Height 69.5 in 02/09/2024 Blood pressure systolic 130 mm Hg 02/09/2024 Weight 264 lbs 02/09/2024 BMI 38.42 kg/m2 02/09/2024 Encounters Encounter Location Date Provider Diagnosis Inocente Painting III, MD [address] [place] [address] [place] [address] 08/31/2023 Inocente Painting Essential hypertensi on I10 ; Thrombocytopenia D69.6 ; Obesity (BMI 30-39.9) E66.9 ; Gastro-esophageal reflux disease without esophagitis K21.9 ; AF (paroxysmal atrial fibrillation) I48.0 ; Macrocytosis D75.89 ; Central sleep apnea G47.31 ; History of pulmonary embolism Z86.711 ; Former smoker Z87.891 ; BPH (benign prostatic hyperplasia) N40.0 ; Chronic anticoagulation Z79.01 and Vitamin D deficiency, unspecified E55.9 Inocente Painting III, MD [address] [place] [address] [place] [phone] 11/13/2023 Inocente Painting Essential hypertensi on I10 [...] prostatic hyperplasia) N40.0 and Chronic anticoagulation Z79.01 Inocente Painting III, MD [address] [place] [address] [place] [phone] 02/09/2024 Inocente Painting Essential hypertensi on I10 [...] T reatment Notes Treatment Clinical Notes 08/31/2023 Thrombocytopenia (ICD-10 - D69.6) His platelet count has increased from 129,000-140,000. He is anticoagulated and has had no bleeding. No change in his therapy is indicated. He is avoiding aspirin. 08/31/2023 Essential hypertensi on (ICD-10 - I10) His blood pressure is stable today and no change in his regimen was necessary. We reviewed the wisdom of progressive sodium restriction and weight loss. 11/13/2023 Essential hypertensi on (ICD-10 - I10) His blood pressure is stable today at 143/75 and no change in his regimen was necessary. We reviewed the wisdom of progressive sodium restriction and weight loss. 11/13/2023 AF (paroxysmal atria l fibrillation) (ICD-10 - I48.0) His heart rate was irregular today and well controlled. No change in his regimen was necessary. He remains anticoagulated. 02/09/2024 Essential hypertensi on (ICD-10 - I10) His blood pressure is stable today at 130/70 and no change in his regimen was necessary. We reviewed the wisdom of progressive sodium restriction and weight loss. 02/09/2024 AF (paroxysmal atria l fibrillation) (ICD-10 - I48.0) His heart rate was irregular today and well controlled. No change in his regimen was necessary. He remains anticoagulated. 08/31/2023 Obesity (BMI 30-39.9 ) (ICD-10 - E66.9) He has lost 1 pound and weighs 262. His body mass index is 38. We reviewed his weight loss strategy today. We made a plan to lose weight at a rate of one half of a pound per week through a diet restricted in fat calories and sodium. 11/13/2023 Vitamin D deficiency , unspecified (ICD-10 - E55.9) He was continued on his vitamin D supplements 02/09/2024 Obesity (BMI 30-39.9 ) (ICD-10 - E66.9) His body mass index is 38.4. He weighs 264 pounds. We discussed his diet and nutrition. We discussed lifestyle modifications he could make to lose weight. We made a plan to lose weight at a rate of one half of a pound per week. 08/31/2023 Gastro-esophageal reflux disease without esophagitis (ICD-10 - K21.9) The reflux is well-controlled with mcxh-ijz-buduwdt medications. 11/13/2023 Obesity (ICD-10 - E66.9) His body [...] of relapse in times of stress. 08/31/2023 AF (paroxysmal atria l fibrillation) (ICD-10 - I48.0) His heart rate was regular today and well controlled. No change in his regimen was necessary. He remains anticoagulated. 11/13/2023 Gastro-esophageal reflux disease without esophagitis (ICD-10 - K21.9) The reflux is well-controlled with byol-rmg-djuxncd medications. 02/09/2024 Gastro-esophageal reflux disease without esophagitis (ICD-10 - K21.9) The reflux is well-controlled with ljqz-qli-nrdjxqi medications. 08/31/2023 Macrocytosis (ICD-10 - D75.89) His mean cell volume has improved now being 100.4. The cause is unclear but may be dietary. 11/13/2023 Strabismus (ICD-10 - H50.9) This abnormality was still present and is long-standing. He was encouraged to see the maintenance engineer oil field regularly. 02/09/2024 Central sleep apnea (ICD-10 - G47.31) He is using his CPAP every night and feels much better. 08/31/2023 Central sleep apnea (ICD-10 - G47.31) He is using his CPAP every night and feels much better. 11/13/2023 Colonic polyp (ICD-1 0 - K63.5) He will undergo colonoscopies periodically. He is currently up-to-date. 02/09/2024 Thrombocytopenia (ICD-10 - D69.6) His platelet count has increased from 131,000-148,000. He is anticoagulated and has had no bleeding. No change in his therapy is indicated. He is avoiding aspirin. 08/31/2023 History of pulmonary embolism (ICD-10 - Z86.711) He is had no further pulmonary symptoms and is anticoagulated. The fat was in 2004 and he has been anticoagulated. 11/13/2023 Macrocytosis (ICD-10 - D75.89) His mean cell volume is now 102. The cause is unclear but may be dietary.Evaluation with folic acid and vitamin B12 and reticulocytes is indicated. 02/09/2024 Macrocytosis (ICD-10 - D75.89) His mean cell volume is now 99.8. It has improved substantially from 102.6. The cause is unclear but may be dietary.Evaluation with folic acid and vitamin B12 and reticulocytes is indicated. 08/31/2023 Former smoker (ICD-1 0 - Z87.891) He is highly motivated not to smoke. We discussed a plan for prevention of relapse in times of stress. 11/13/2023 Thrombocytopenia (ICD-10 - D69.6) His platelet count has increased from 129,000-140,000. He is anticoagulated and has had no bleeding. No change in his therapy is indicated. He is avoiding aspirin. 02/09/2024 History of pulmonary embolism (ICD-10 - Z86.711) He is had no further pulmonary symptoms and is anticoagulated. The fat was in 2004 and he has been anticoagulated. 08/31/2023 BPH (benign prostati c hyperplasia) (ICD-10 - N40.0) He arises from sleep once or twice a night to urinate. It depends upon fluid intake. We discussed lifestyle modification as a way to relieve nocturia. 11/13/2023 Central sleep apnea (ICD-10 - G47.31) He is using his CPAP every night and feels much better. 02/09/2024 BPH (benign prostati c hyperplasia) (ICD-10 - N40.0) He arises from sleep once or twice a night to urinate. It depends upon fluid intake. We discussed lifestyle modification as a way to relieve nocturia. 08/31/2023 Chronic anticoagulation (ICD-10 - Z79.01) He has had no bleeding or clotting. Since his last visit. He will continue on current therapy. Because of the atrial fibrillation. 11/13/2023 Osteoarthritis (ICD- 10 - M19.90) The pain is primarily in his knees and he feels quite well. 08/31/2023 Vitamin D deficiency , unspecified (ICD-10 - E55.9) He has been compliant with his vitamin D supplementation. 11/13/2023 Former smoker (ICD-1 0 - Z87.891) [...] of the atrial fibrillation. Plan Of Treatment Pending Test Test Name Order Date PROFILE, FASTING (COMPREHENSIVE METABOLI C) 11/13/2023 PROFILE, FASTING (COMPREHENSIVE METABOLI C) 11/09/2022 PROFILE, FASTING (COMPREHENSIVE METABOLI C) 06/30/2022 PROFILE, FASTING (COMPREHENSIVE METABOLI C) 02/16/2023 PROFILE, FASTING (COMPREHENSIVE METABOLI C) 09/27/2019 PROFILE, FASTING (COMPREHENSIVE METABOLI C) 08/31/2023 PROFILE, FASTING (COMPREHENSIVE METABOLI C) 04/07/2022 PROFILE, FASTING (COMPREHENSIVE METABOLI C) 07/15/2020 PROFILE, FASTING (COMPREHENSIVE METABOLI C) 04/02/2020 PROFILE, FASTING (COMPREHENSIVE METABOLI C) 08/11/2021 PROFILE, FASTING (COMPREHENSIVE METABOLI C) 01/03/2022 PROFILE, FASTING (COMPREHENSIVE METABOLI C) 02/09/2024 PROFILE, FASTING (COMPREHENSIVE METABOLI C) 01/02/2020 PROFILE, FASTING (COMPREHENSIVE METABOLI C) 05/06/2021 PROFILE, RANDOM (COMPREHENSIVE METABOLIC ) 02/03/2021 PROFILE, RANDOM (COMPREHENSIVE METABOLIC ) 05/18/2023 HEMOGLOBIN A1C (GLYCOHEMOGLOBIN) 023 HEMOGLOBIN A1C (GLYCOHEMOGLOBIN) 021 HEMOGLOBIN A1C (GLYCOHEMOGLOBIN) 024 LIPID PANEL 01/02/2020 LIPID PANEL 05/06/2021 LIPID PANEL 06/30/2022 LIPID PANEL 09/27/2019 LIPID PANEL 02/03/2021 LIPID PANEL 11/09/2022 LIPID PANEL 04/07/2022 LIPID PANEL 01/03/2022 LIPID PANEL 04/02/2020 PSA, TOTAL 02/09/2024 PSA, TOTAL 06/30/2022 PSA, TOTAL 09/27/2019 PSA, TOTAL 02/03/2021 PSA, TOTAL 07/15/2020 PSA, TOTAL 11/09/2022 PSA, TOTAL 08/11/2021 MICROALBUMIN, RANDOM 11/09/2022 CBC w DIFF 11/09/2022 CBC w DIFF 01/03/2022 CBC w DIFF 04/02/2020 CBC w DIFF 05/18/2023 CBC w DIFF 01/02/2020 CBC w DIFF 05/06/2021 CBC w DIFF 06/30/2022 CBC w DIFF 09/27/2019 CBC w DIFF 02/03/2021 CBC w DIFF 04/07/2022 CBC w DIFF 07/15/2020 CBC w DIFF 08/11/2021 XR CHEST 2 VIEW PA & LAT 08/08/2022 XR LUMBAR SPINE 4+ VIEWS 11/08/2021 VITAMIN D 25-OH TOTAL 08/11/2021 VITAMIN D 25-OH TOTAL 01/03/2022 VITAMIN D 25-OH TOTAL 04/02/2020 VITAMIN D 25-OH TOTAL 06/30/2022 VITAMIN D 25-OH TOTAL 04/07/2022 CBC WITH AUTO DIFF 02/09/2024 CBC WITH AUTO DIFF 11/13/2023 CBC WITH AUTO DIFF 02/16/2023 CBC WITH AUTO DIFF 08/31/2023 Lipid Panel 07/15/2020 Lipid Panel 08/11/2021 Lipid Panel 02/09/2024 Lipid Panel 11/13/2023 Lipid Panel 02/16/2023 Lipid Panel 08/31/2023 Vitamin D 25-OH Total 11/13/2023 Hemoglobin A1c 08/31/2023 Next Appt Details Provider Name:Inocente Painting, 06/11/2024 09:00:00 AM, [address] [facility] [place], [place], [address], Provider Name:Inocente Painting, 11/14/2024 10:00:00 AM, [address] [facility] [place], [place], [address], Insurance Providers Payer Name Payer Address Payer Phone Subscriber Number Group Number Insured Name Patient Relationship to Insured Coverage Start Date Coverage End Date [employer] [address] [address] [place] [address] [id number] Behzad Mendoza Self - patient is the insured MEDICARE NGS [address] [place] [phone] [id number] Behzad [place] Self - patient is the insured Medical (General) History Medical History History ICD Code sleep apnea with cpap at10 cm 2004 pulmonary embolism atrial fibrillation obesity bph hypertension thrombocytopenia gerd right strabismus tubular adenomas on colonoscopy macrocytosis osteoarthritis obesity former smoker intermittent low back pain left TKR 07/2015 [facility] Surgical History Surgery Date(Month/Year) right knee rplacement [facility] 2012 T&A 1944 pilonidal cyxt 1059 breast biopsy right lipoma excisions basal cell ca excisions right breast mass, benign September 2003 colonoscopy, tubular adenoma May 2006 colonoscopy, tubular adenoma September 2009 colonoscopy 2014 cardio verted Melanoma removed from upper left chest- Negative result 10/2023 No history Hospitalization History Reason Date(Month/Year) Epigastric pain 06/2020 Intermittent chest pain 06/2020 No history
--- OUTSIDE RECORDS SUMMARY | 2024-05-23 10:34 | XMS_ITS ---
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 [address] 11/13/2023 [facility] Essential hypertensi on I10 [...] - K21.9) The reflux is well-controlled with nnfb-ddv-kwltswn medications. 11/13/2023 Strabismus (ICD-10 - H50.9) This abnormality was still present and is long-standing. He was encouraged to see the signal and communications maintainer regularly. 11/13/2023 Colonic polyp (ICD-1 0 - [...] Up: 3 Months, Reason: OV Provider Name:[facility], 06/11/2024 09:00:00 AM, [address] [place] [address] [address], [place], [address], Provider Name:[facility], 11/14/2024 10:00:00 AM, [address] [place] [address] [address], [place], [address], Progress Notes * Behzad MENDOZADOB:[birth year] (82 yo M)Acc No.[id number]:11/13/2023 Progress Notes Patient:Behzad RYAN Provider:?[facility] Painting MD :1940???Age:82 Y???Sex:Male Gordo e:11/13/2023 [facility] [id number] Subjective: * Chief Complaints: * ???Annual Exam * HPI: ???Depression Screening:?He returns to the office at the age of 82 for his annual physical examination.? Since his last visit he has been well.? He has been compliant with all of his medications.? He rises from sleep about once a night to urinate.? We have discussed lifestyle modifications that would reduce nocturia.? His platelet count was slightly low at 131,000 but improved.? He was has slow atrial fibrillation today with normal vital signs. A biopsy of a skin lesion on his left breast recently showed early stage melanoma.? A wide excision was recently done.? We have requested the records from dermatology.? The wound is healing well with no sign of infection. ?PHQ-9?Little interest or pleasure in doing things?Not at all ?Feeling down, depressed, or hopeless?Not at all ?Trouble falling or staying asleep, or sleeping too much?Not at all ?Feeling tired or having little energy?Not at all ?Poor appetite or overeating?Not at all ?Feeling bad about yourself or that you are a failure, or have let yourself or your family down?Not at all ?Trouble concentrating on things, such as reading the newspaper or watching television?Not at all ?Moving or speaking so slowly that other people could have noticed; or the opposite, being so fidgety or restless that you have been moving around a lot more than usual?Not at all ?Thoughts that you would be better off or of hurting yourself in some way?Not at all ?Total Score?0 ???COVID-19 Screening:?old, skin left upper chest melanoma excised,. ?Questions?Have you experienced fever, chills, cough, sore throat, shortness of breath, difficulty breathing, muscle aches, loss of taste or smell??No ?Have you been exposed to the virus within the last 10 days??No ?Have you travelled internationally in the last 10 days??No ?Have you been exposed to COVID-19 in the past??Yes ???Fall Risk Screening:?Fall History?Have you had any falls with injury in the past year??No ?Have you had two or more falls in the past year??No ?Fall Risk Assessment:?No falls in the past year * ROS:?General/Constitutional:?pain?Incision left breast.?Chills?denies.?Fatigue?admits.?Fever?denies.?ENT:?Decreased hearing?mild.?Respiratory:?Cough?denies.?Cardiovascular:?Chest pain with exertion?denies.?Dyspnea on exertion?denies.?Shortness of breath?denies.?Gastrointestinal:?Constipation?occasional.?Decreased appetite?denies.?Diarrhea?denies.?Heartburn?denies.?Nausea?denies.?Rectal bleeding?denies.?Vomiting?denies.?Hematology:?bruising?denies.?petechiae?denies.?Swollen glands?none have been noted.?Genitourinary:?Frequent urination?once a night.?Musculoskeletal:?Muscle aches?denies.?Painful joints?denies.?Sciatica?denies.?Weakness?denies.?Skin:?Itching?denies.?Rash?denies.?Skin lesion(s)?Recent lesion removed left breast.?Neurologic:?Difficulty speaking?denies.?Dizziness?denies.?Headache?denies.?Low back pain?denies.?Psychiatric:?Depressed mood?denies.? * Medical History:? * Surgical History:?right knee rplacement [facility] 2012T&A 1944 pilonidal cyxt 1059 breast biopsy right lipoma excisions basal cell ca excisions right breast mass, benign September 2003colonoscopy, tubular adenoma May 2006colonoscopy, tubular adenoma September 2009colonoscopy 2014cardio verted Melanoma removed from upper left chest- Negative result 10/2023 * Hospitalization/Major Diagno stic Procedure:?Epigastric pain 06/2020Intermittent [...] 10 years ?Additional Findings: Tobacco non-user?Ex-cigarette smoker ???Drugs/Alcohol:?Drugs?Have you used drugs other than those for medical reasons in the past 12 months??No ???Drug/Alcohol:?AUDIT-C (Standard)?Did you have a drink containing alcohol in the past year??No ?Points?0 ?Interpretation?Negative ???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 He has been to [place] for 43 [...] reconciled with the patient * Allergies:?Morphine Sulfate: Elzano[Allergies Verified] Objective: * Vitals:?Ht: 69.5, Wt:262, BM I:38.13, BP:143/75, HR:72, Temp:97.2, Oxygen sat %:100, Wt-k.84. * ???Past Orders: Lab:Hemoglobin A1c * Collection Date 11/08/2023 [...] 59 (Ref Range: >40 mg/dL) * Lab:Comprehensive [place]. Pane l Fast * Collection Date 11/08/2023 05/11/2023 11/02/2022 Collection Time 06:32 AM 06:17 AM 06:28 AM Order Date 11/08/2023 05/11/2023 11/02/2022 Sodium 142 (Ref Range: 135-145 mmol/L) 141 (Ref Range: 135-145 mmol/L) 145 (Ref Range: 135-145 mmol/L) Bilirubin Total 1.7?H (Ref Range: 0.0-1.0 mg/dL) 1.1?H (Ref Range: 0.0-1.0 mg/dL) 1.1?H (Ref Range: [...] mmol/L) Anion Gap 14 (Ref Range: 12-20) 11?L (Ref Range: 12-20) 13 (Ref Range: 12-20) Blood Urea Nitrogen 17?H (Ref Range: 9-16 mg/dL) 16 (Ref Range: 9-16 mg/dL) 18?H (Ref Range: 9-16 mg/dL) Creatinine 1.24 (Ref Range: 0.5-1.4 mg/dL) 1.11 (Ref Range: 0.5-1.4 mg/dL) 1.24 (Ref Range: 0.5-1.4 mg/dL) Estimated Glomerular Filt Rate 56 > 60 56 Glucose Fasting 85 (Ref Range: 60-99 mg/dL) 95 (Ref Range: 60-99 mg/dL) 104?H (Ref Range: 60-99 mg/dL) Calcium 9.7 (Ref [...] g/dl) 17.0 (Ref Range: 14.0-18.0 g/dl) Hematocrit 54.8?H (Ref Range: 42.0-52.0 %) 49.9 (Ref Range: 42.0-52.0 %) 52.0 (Ref Range: 42.0-52.0 %) Mean Corpuscular Volume 102.6?H (Ref Range: 80.0-98.0 fL) 100.4?H (Ref Range: 80.0-98.0 fL) 100.4?H (Ref Range: 80.0-98.0 fL) Mean Corpuscular Hemoglobin 33.3?H (Ref Range: 27.0-33.0 pg) 32.4 (Ref Range: 27.0-33.0 pg) 32.8 (Ref Range: 27.0-33.0 pg) Mean Corpuscular HGB Conc 32.5 (Ref Range: 31.0-36.0 g/dl) 32.3 (Ref Range: 31.0-36.0 g/dl) 32.7 (Ref Range: 31.0-36.0 g/dl) Red Cell Distribution Width 14.6 (Ref Range: 11.0-16.0 %) 14.2 (Ref Range: 11.0-16.0 %) 14.5 (Ref Range: 11.0-16.0 %) Platelet Count 131?L (Ref Range: 160-400 X10*3/uL) 140?L (Ref Range: 160-400 X10*3/uL) 129?L (Ref Range: 160-400 X10*3/uL) Mean Platelet Volume 11.9 (Ref Range: 9.4-12.4 fL) 12.9?H (Ref Range: 9.4-12.4 fL) 12.3 (Ref Range: 9.4-12.4 fL) Neutrophils Percent Auto 73.2?H (Ref Range: 45-73 %) 60.2 (Ref Range: 45-73 %) 62.3 (Ref Range: 45-73 %) Imm Gran Pct Auto 0.5?H (Ref Range: 0.0-0.4 %) 0.2 (Ref Range: 0.0-0.4 %) 0.4 (Ref Range: 0.0-0.4 %) Lymphocytes Percent Auto 16.1?L (Ref Range: 20-40 %) 25.8 (Ref [...] (Ref Range: 0.00-0.03 X10*3/uL) Lymphocytes Absolute Auto 1.1?L (Ref Range: 1.2-4.9 X10*3/uL) 1.3 (Ref [...] neg Menstrating NR N/A no * Examination: ???General Examination: ?GENERAL APPEARANCE:?pleasant, well nourished, well developed, in no acute distress, calm and relaxed, overweight, elderly man.?HEAD:?atraumatic, normocephalic.?EYES:?eomi, perrla, anicteric, Strabismus.?EARS:?normal.?NOSE:?septum intact.?ORAL CAVITY:?normal, unremarkable.?NECK/THYROID:?no jugular venous distention, no [...] upper and lower extremities, sensory exam intact.?PSYCH:?alert, oriented.? Assessment: * Assessment: 1.?AF (paroxysmal atrial fib rillation) - I48.0 (Primary)???Notes :His heart rate was irregular today and well controlled. No change in his regimen was necessary. He remains anticoagulated.???2.?Essential hypertension - I10???Notes :His blood pressure is stable today at 143/75 and no change in his regimen was necessary. We reviewed the wisdom of progressive sodium restriction and weight loss.???3.?Vitamin D deficiency, unspecified - E55.9???Notes :He was continued on his vitamin D supplements???4.?Obesity - E66.9???Notes :His body mass index is stable at 38.? I strongly recommended aggressive weight loss and sodium restriction.? We made a plan to lose weight at a rate of one half of a pound per week.???5.?Gastro-esophageal reflux disease without esophagitis - K21.9???Notes :The reflux is well- controlled with bzkt-trt-vidocvr medications.???6.?Strabismus - H50.9???Notes :This abnormality was still present and is long-standing.? He was encouraged to see the signal and communications maintainer regularly.???7.?Colonic polyp - K63.5???Notes :He will undergo colonoscopies periodically. He is currently up-to-date.???8.?Macrocytosis - D75.89???Notes :His mean cell volume is now 102. The cause is unclear but may be dietary.Evaluation with folic acid and vitamin B12 and reticulocytes is indicated.???9.?Thrombocytopenia - D69.6???Notes :His platelet count has increased from 129,000-140,000. He is anticoagulated and has had no bleeding. No change in his therapy is indicated. He is avoiding aspirin.???10.?Central sleep apnea - G47.31???Notes :He is using his CPAP every night and feels much better.???11.?Osteoarthritis - M19.90???Notes :The pain is primarily in his knees and he feels quite well.???12.?Former smoker - Z87.891???Notes :He is highly motivated not to smoke. We discussed a plan for prevention of relapse in times of stress.???13.?BPH (benign prostatic hyperplasia) - N40.0???Notes :He arises from sleep once or twice a night to urinate. It depends upon fluid intake. We discussed lifestyle modification as a way to relieve nocturia.???14.?Chronic anticoagulation - Z79.01???Notes :He has had no bleeding or clotting. Since his last visit. He will continue on current therapy. Because of the atrial fibrillation.??? Plan: * Treatment: 2.?Vitamin D deficiency, uns pecified?LAB: PROFILE, FASTING (COMPREHENSIVE METABOLIC) ?LAB: CBC WITH AUTO DIFF ?LAB: Lipid Panel ?LAB: Vitamin D 25-OH Total 3.?Obesity?LAB: PROFILE, FASTING (COMPREHENSIVE METABOLIC) ?LAB: CBC WITH AUTO DIFF ?LAB: Lipid Panel ?LAB: Vitamin D 25-OH Total 4.?Others? Continue Protonix Tablet Delayed Release, 40 MG, 1 tablet, Orally, every other day;?Continue Vitamin D Tablet, 25 MCG (1000 UT), 1 tablet, Orally, Once a day;?Continue Flomax Capsule Extended Release 24 Hour, 0.4 MG, 1 capsule 30 minutes after the same meal each day, Orally, Once a day;?Continue Jardiance Tablet, 10 MG, Oral.?? * Labs:? * ?Lab: URINE DIP STICK (C ollection Date & Time - 11/13/2023) ? Value Reference Range ?SG 1.010 1.005 - 1.025 * ?pH 6.5 5.0 - 9.0 * ?CASTILLO Negative Negative - * ?NIT Negative Negative - * ?PRO 15 Negative - Trac e * ?GLU 500 Negative - * ?KET 5 Negative - * ?UBG 0.2 0.1 - 1.8 * ?EVERETT Negative 0.2 - 1.3 * ?BLD Negative Negative - * Procedure Codes:?07581 MEASU RE BLOOD OXYGEN [id number] URINE-NO MICRO * Preventive Medicine:? ??Counseling:?Care goal follow-up plan:?Counseling [...] dangers of tobacco use and urged to quit.?11/13/2023 * Follow Up:?3 Months (Reason: OV) * Images: * Sign off status: Completed true * Provider:?[facility] MD Date:?10/16 Generated for Akankshai kelsey/Vaughn/eTransmitting on:?05/23/2024 10:33 AM EDT History and Physical Notes * [...] Have you been exposed to the virus with n the last 10 days?: No Have you travelled internationally in [facility] last 10 days?: No Have you been [...]
== END 2024-05-23 10:12 | disposition home or self-care (01) ==
LOC: HO.HPS 09:33
PROVIDERS: PCP Internal Medicine Medical Oncology; Visit Provider Internal Medicine
DX: G47.33 Obstructive sleep apnea (adult) (pediatric) (principal); Z99.89 Dependence on other enabling machines and devices; E66.9 Obesity, unspecified
CPT/HCPCS: 99213

== ENCOUNTER → 2024-05-23 09:32 | Outpatient (BNVA) | payer MEDICARE, SELFPAY | PROVIDERS: PCP Internal Medicine Medical Oncology; Visit Provider Internal Medicine | DX: G47.33 Obstructive sleep apnea (adult) (pediatric) (principal); E66.09 Other obesity due to excess calories; Z68.38 Body mass index [BMI] 38.0-38.9, adult; Z99.89 Dependence on other enabling machines and devices | CPT/HCPCS: 99212 ==

== ENCOUNTER 2024-06-04 06:15 | Outpatient (REF) | payer MEDICARE, SELFPAY ==
--- OUTSIDE RECORDS SUMMARY | 2024-06-04 06:18 | XMS_ITS ---
Author Organization [facility], MD Address [address] [place] [address] Care Team Providers Care Radioisotope Production Operator Name Role Phone [facility] Primary [...] Date Provider Diagnosis [facility] III, MD [address] [place] [address] [place] [address] 02/09/2024 [facility] Essential hypertensi on I10 [...] - K21.9) The reflux is well-controlled with xgko-zhd-bqrfyyg medications. 02/09/2024 Central sleep apnea (ICD-10 - [...] OV Provider Name:[facility]ting, 06/11/2024 09:00:00 AM, [address] [place] [address] [place] [address], [place], [address], Provider Name:[facility]ting, 11/14/2024 10:00:00 AM, [address] [place] [address] [address], [place], [address], Progress Notes * Behzad MENDOZADOB:[birth year] (83 yo M)Acc No.[id number]:02/09/2024 Progress Notes Patient:Behzad RYAN Provider:?[facility] Painting MD :1940???Age:83 Y???Sex:Male Gordo e:02/09/2024 Address: [address] [facility] [id number] Subjective: * Chief Complaints: * ???HypertensionLaceration an terior left lower leg, treated in wound clinicParoxysmal atrial fibrillationSleep apneaGERDMacrocytosisHistory of pulmonary embolismChronic anticoagulationObesity * HPI: ???COVID-19 Screening:?Questions?Have you had any new onset fever, chills, cough, congestion, sore throat, shortness of breath, muscle aches??No ???:?The patient, an 83-year-old male, reported a recent incident where he tripped on a steel object at his zgiydi-au-jra's place a couple of weeks ago, resulting [...] 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
--- OUTSIDE RECORDS SUMMARY | 2024-06-04 06:18 | XMS_ITS | Clinical Summary ---
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
--- OUTSIDE RECORDS SUMMARY | 2024-06-04 06:19 | XMS_ITS ---
Author Organization [facility], MD Address [address] [place] [address] Care Team Providers Care Yard Worker Name Role Phone [facility] Primary Care [...] Date Provider Diagnosis [facility] III, MD [address] [place] [address] [place], [place] [address] 08/31/2023 [facility] Essential hypertensi on I10 [...] - K21.9) The reflux is well-controlled with pvbf-ccg-suwvrlr medications. 08/31/2023 AF (paroxysmal atria l fibrillation) [...] OV Provider Name:Inocente Painting, 06/11/2024 09:00:00 AM, [address] [place] [address] DR, [facility] [address], [place], [address], Provider Name:Inocente Amadorrne, 11/14/2024 10:00:00 AM, [address] [place] [address] [address], [place], [address], Progress Notes * Behzad MENDOZADOB:[birth year] (82 yo M)Acc No.[id number]:08/31/2023 Progress Notes Patient:?Behzad Mendoza Provider:?Inocente Painting MD :1940???Age:82 Y???Sex:Male Gordo e:08/31/2023 [facility] [id number] Subjective: * Chief Complaints: * ???HypertensionParoxysmal at [...] Tobacco Non-User?Ex-cigarette smoker ???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 He has been to [place] for 43 [...] - K21.9, The reflux is well-controlled with waew-gyz-eqpvpts medications.?5.?AF (paroxysmal atrial fibrillation) - I48.0, His [...] Painting MD Date:?08/13 Generated for Vu cole/Vaughn/eTransmitting on:?06/04/2024 06:18 AM [...]
--- OUTSIDE RECORDS SUMMARY | 2024-06-04 06:19 | XMS_ITS | Patient Health Record ---
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 Name Role Phone Inocente Painting Primary Care [...] ff Reviewed date:08/26/2023 07:07:58 AM Interpretation: Performing Lab:[facility], [address] [place] [phone] Notes/Report: White Blood Count 4.9 4.8-10.8 X10*3/uL [...] Panel Reviewed date:08/26/2023 07:07:58 AM Interpretation: Performing Lab:[facility], [address] [place] [phone] Notes/Report: Sodium 140 135-145 mmol/L Potassium 3.7 3.3-5.1 mmol/L Chloride 104 96-108 mmol/L Carbon Dioxide 27 22-29 mmol/L Anion Gap 13 12-20 Blood Urea Nitrogen 20 9-16 mg/dL Creatinine 1.23 0.5-1.4 mg/dL Estimated Glomerular Filt Rate 56 NOTE: For -Ivorian individuals, multiply the result by 1.210. Chronic [...] A1c Reviewed date:08/26/2023 07:07:58 AM Interpretation: Performing Lab:[facility], [address] [place] [phone] Notes/Report: Hemoglobin A1c % 5.2 <6.0 % [...] average glucose, using the formula of the C4L-Tcxytvj Average Glucose study (ADAG), Diabetes Care, Vol.31,#8, Sep. 2007 Complete Blood Count Auto Di ff Reviewed date:11/13/2023 05:56:09 AM Interpretation: Performing Lab:[facility], [address] [place] [phone] Notes/Report: White Blood Count 6.7 4.8-10.8 X10*3/uL [...] NRBC Abs Auto 0.000 0.0-0.012 X10*3/uL Comprehensive [place]. Panel Fa st Reviewed date:11/13/2023 05:56:09 AM Interpretation: Performing Lab:[address] [phone] Notes/Report: Sodium 142 135-145 mmol/L Potassium 5.0 3.3-5.1 mmol/L Chloride 104 96-108 mmol/L Carbon Dioxide 29 22-29 mmol/L Anion Gap 14 12-20 Blood Urea Nitrogen 17 9-16 mg/dL Creatinine 1.24 0.5-1.4 mg/dL Estimated Glomerular Filt Rate 56 NOTE: For -Ivorian individuals, multiply the result by 1.210. Chronic [...] Panel Reviewed date:11/13/2023 05:56:09 AM Interpretation: Performing Lab:[facility], [address] [place] [phone] Notes/Report: Triglycerides 62 <150 mg/dL Desirable Triglyceride: [...] A1c Reviewed date:11/13/2023 05:56:09 AM Interpretation: Performing Lab:[facility], [address] [place] [phone] Notes/Report: Hemoglobin A1c % 5.0 <6.0 % [...] average glucose, using the formula of the J6R-Dfelqho Average Glucose study (ADAG), Diabetes Care, Vol.31,#8, Sep. 2007 Complete Blood Count Auto Di ff Reviewed date:02/04/2024 08:33:16 PM Interpretation: Performing Lab:[facility], [address] [place] [phone] Notes/Report: White Blood Count 5.4 4.8-10.8 X10*3/uL [...] NRBC Abs Auto 0.000 0.0-0.012 X10*3/uL Comprehensive [place]. Panel Fa st Reviewed date:02/04/2024 08:33:16 PM Interpretation: Performing Lab:[facility], [address] [place] [phone] Notes/Report: Sodium 142 135-145 mmol/L Potassium 3.8 [...] Panel Reviewed date:02/04/2024 08:33:16 PM Interpretation: Performing Lab:[facility], [address] [place] [phone] Notes/Report: Triglycerides 45 <150 mg/dL Desirable Triglyceride: [...] Total Reviewed date:02/04/2024 08:33:16 PM Interpretation: Performing Lab:[facility], [address] [place] [phone] Notes/Report: Vitamin D 25-OH Total 29.8 >30 [...] Problem Status W/U Status Risk Notes Problem 0942210 Former smoker (Z87.891) Active confirmed He is highly motivated not to smoke. We discussed a plan for prevention of relapse in times of stress. Problem 784278680 Thrombocytopenia (D69.6) Active confirmed His platelet count has increased from 131,000-148,000. He is anticoagulated and has had no bleeding. No change in his therapy is indicated. He is avoiding aspirin. Problem Vitamin D deficiency (97022977) Vitamin D deficiency, unspecified (E55.9) Active confirmed He was continue d on his vitamin D supplements Problem 782838442 Gastro-esophagea l reflux disease without esophagitis (K21.9) Active confirmed The reflux is well-controlled with tdvj-ior-kaodfxn medications. Problem 639364461 BPH (benign prostatic hyperplasia) (N40.0) Active confirmed He arises from sleep once or twice a night to urinate. It depends upon fluid intake. We discussed lifestyle modification as a way to relieve nocturia. Problem 668364004 Obesity (BMI 30-39.9) (E66.9) Active confirmed His body ma ss index is 38.4. He weighs 264 pounds. We discussed his diet and nutrition. We discussed lifestyle modifications he could make to lose weight. We made a plan to lose weight at a rate of one half of a pound per week. Problem 098556362 Chronic anticoagulation (Z79.01) Active confirmed He has had no bleeding or clotting. Since his last visit. He will continue on current therapy. Because of the atrial fibrillation. Problem 13011089 Essential hypertension (I10) Active confirmed His blood pressure is stable today at 130/70 and no change in his regimen was necessary. We reviewed the wisdom of progressive sodium restriction and weight loss. Problem 08289735 Colonic polyp (K63.5) Active confirmed He will undergo colonoscopies periodically. He is currently up-to-date. Problem 917087673 Osteoarthritis (M19.90) Active confirmed The pain is primarily in his knees and he feels quite well. Problem 502145382 History of pulmonary embolism (Z86.711) Active confirmed He is had no further pulmonary symptoms and is anticoagulated. The fat was in 2004 and he has been anticoagulated. Problem 725935028 AF (paroxysmal atrial fibrillation) (I48.0) Active confirmed His heart rate was irregular today and well controlled. No change in his regimen was necessary. He remains anticoagulated. Problem 78083667 Strabismus (H50.9) Active confirmed This abnormality was still present and is long-standing. He was encouraged to see the linseed cake trimmer regularly. Problem 686617870 Macrocytosis (D75.89) Active confirmed His mean cell volume is now 99.8. It has improved substantially from 102.6. The cause is unclear but may be dietary.Evaluati on with folic acid and vitamin B12 and reticulocytes is indicated. Problem 33382772 Central sleep apnea (G47.31) Active confirmed He [...] Date Provider Diagnosis Inocente Painting III, MD [address] [place] [address] [place] [address] 08/31/2023 Inocente Painting Essential hypertensi on I10 [...] deficiency, unspecified E55.9 Inocente Painting III, MD [address] [place] [address] [place] [phone] 11/13/2023 Inocente Painting Essential hypertensi on I10 [...] Chronic anticoagulation Z79.01 Inocente Painting III, MD [address] [place] [address] [place] [address] 02/09/2024 Inocente Painting Essential hypertensi on I10 [...] - K21.9) The reflux is well-controlled with mnlh-tet-txjhnjd medications. 11/13/2023 Obesity (ICD-10 - E66.9) His [...] - K21.9) The reflux is well-controlled with pttj-ama-vxraxqj medications. 02/09/2024 Gastro-esophageal reflux disease without esophagitis (ICD-10 - K21.9) The reflux is well-controlled with sbeh-flb-ktwmola medications. 08/31/2023 Macrocytosis (ICD-10 - D75.89) His mean cell volume has improved now being 100.4. The cause is unclear but may be dietary. 11/13/2023 Strabismus (ICD-10 - H50.9) This abnormality was still present and is long-standing. He was encouraged to see the linseed cake trimmer regularly. 02/09/2024 Central sleep apnea (ICD-10 - [...] Order Date PROFILE, FASTING (COMPREHENSIVE METABOLI C) 11/09/2022 PROFILE, FASTING (COMPREHENSIVE METABOLI C) 11/13/2023 PROFILE, FASTING (COMPREHENSIVE METABOLI C) 06/30/2022 PROFILE, [...] TOTAL 09/27/2019 PSA, TOTAL 02/03/2021 PSA, TOTAL 11/09/2022 PSA, TOTAL 07/15/2020 PSA, TOTAL 08/11/2021 MICROALBUMIN, RANDOM 11/09/2022 CBC w DIFF 01/03/2022 CBC w DIFF 11/09/2022 CBC w DIFF 04/02/2020 CBC w DIFF 05/18/2023 CBC w DIFF 01/02/2020 CBC w DIFF 05/06/2021 CBC w DIFF 06/30/2022 CBC w DIFF 04/07/2022 CBC w DIFF 09/27/2019 CBC w DIFF 02/03/2021 CBC w DIFF 07/15/2020 CBC w DIFF [...] Provider Name:Inocente Painting, 06/11/2024 09:00:00 AM, [address] [facility] [place] [place], [place], [address], Provider Name:Inocente Painting, 11/14/2024 10:00:00 AM, [address] [facility] [place], [place], [address], Insurance Providers Payer Name Payer Address Payer Phone Subscriber Number Group Number Insured Name Patient Relationship to Insured Coverage Start Date Coverage End Date [employer]age [address] [address] [place] [address] [id number] Behzad Mendoza Self - patient is the insured MEDICARE NGS [address] [place] [phone] [id number] Behzad Mendoza Self - patient is [...]
--- OUTSIDE RECORDS SUMMARY | 2024-06-04 06:19 | XMS_ITS ---
Author Organization Inocente Painting III, MD Address [address] [place] [address] Care Team Providers Care Bakery Chef Name Role Phone [facility] Painting Primary Care Provider [phone] Allergies Allergen (clinical drug ingredient) Drug/Non Drug [...] Provider Diagnosis Inocente Painting III, MD [address] [place] [address] [address] [place] [address] 11/13/2023 Inocente Painting Essential hypertensi on I10 [...] - K21.9) The reflux is well-controlled with ndqy-slx-ctvfuxs medications. 11/13/2023 Strabismus (ICD-10 - H50.9) This abnormality was still present and is long-standing. He was encouraged to see the civil clerk regularly. 11/13/2023 Colonic polyp (ICD-1 0 - [...] OV Provider Name:Inocente Painting, 06/11/2024 09:00:00 AM, [address] [place] [address] [address] [place], [place], [address], Provider Name:Inocente Painting, 11/14/2024 10:00:00 AM, [address] [place] [address] [address], [place], [address], Progress Notes * Behzad MENDOZADOB:[birth year] (82 yo M)Acc No.[id number]:11/13/2023 Progress Notes Patient:Behzad RYAN Provider:?Inocente Painting MD :1940???Age:82 Y???Sex:Male Gordo e:11/13/2023 [facility] [id number] Subjective: * Chief Complaints: * ???Annual [...] 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 He has been to [place] for 43 [...] 59 (Ref Range: >40 mg/dL) * Lab:[facility] * Collection Date 11/08/2023 [...] K21.9???Notes :The reflux is well- controlled with xhof-icz-cxrozmk medications.???6.?Strabismus - H50.9???Notes :This abnormality was still present and is long-standing.? He was encouraged to see the civil clerk regularly.???7.?Colonic polyp - K63.5???Notes :He will undergo [...] * ?BLD Negative Negative - * Procedure Codes:?91719 MEASU RE BLOOD OXYGEN [id number] URINE-NO MICRO * Preventive Medicine:? ??Counseling:?Care goal [...] Painting MD Date:?10/16 Generated for Akankshai kelsey/Vaughn/eTransmitting on:?06/04/2024 06:18 AM EDT History and Physical [...] days?: No Have you travelled internationally in [facility] last 10 days?: No Have you [...]
[2024-06-04 10:10] LABS: MANUAL DIFF FLAG NO
[2024-06-04 10:23] LABS: Basophils Percent Auto 0.4 % (0-2); Eosinophils Absolute Auto 0.1 X10*3/uL (0.0-0.4); Eosinophils Percent Auto 0.8 % (0-4); Hematocrit 51.2 % (42.0-52.0); Hemoglobin 16.4 g/dl (14.0-18.0); Imm Gran Abs Auto 0.03 X10*3/uL (0.00-0.03); Imm Gran Pct Auto 0.4 % (0.0-0.4); Lymphocytes Absolute Auto 1.3 X10*3/uL (1.2-4.9); Lymphocytes Percent Auto 17.8 % (20-40); Mean Corpuscular Hemoglobin 32.8 pg (27.0-33.0); Mean Corpuscular Volume 102.4 fL (80.0-98.0); Mean Platelet Volume 12.6 fL (9.4-12.4); Monocytes Absolute Auto 0.6 X10*3/uL (0.1-1.2); Monocytes Percent Auto 7.7 % (2-11); Neutrophils Absolute Auto 5.3 x10*3/uL (2.0-8.3); Neutrophils Percent Auto 72.9 % (45-73); Platelet Count 155 X10*3/uL (160-400); Red Cell Distribution Width 14.7 % (11.0-16.0); White Blood Count 7.3 X10*3/uL (4.8-10.8)
[2024-06-04 10:34] LABS: Alanine Aminotransferase 16 U/L (0-40); Albumin Level 3.7 g/dL (3.5-5.0); Alkaline Phosphatase 57 U/L (39-117); Anion Gap 10 (12-20); Aspartate Amino Transferase 22 U/L (5-37); Blood Urea Nitrogen 25 mg/dL (9-16); Calcium 9.3 mg/dL (8.4-10.2); Carbon Dioxide 32 mmol/L (22-29); Chloride 106 mmol/L (96-108); Cholesterol 129 mg/dL (<200); Estimated Glomerular Filt Rate 58; Glucose Fasting 98 mg/dL (60-99); HDL Cholesterol 54 mg/dL (>40); LDL Cholesterol Calculated 66 mg/dL (<100); Potassium 5.1 mmol/L (3.3-5.1); Sodium 143 mmol/L (135-145); Total Protein 6.5 g/dL (6.5-8.0); Triglycerides 49 mg/dL (<150)
[2024-06-04 11:00] LABS: Prostate Specific Antigen 3.88 ng/mL (<0.05-4.0)
== END 2024-06-04 06:16 | disposition home or self-care (01) ==
LOC: HO.HMGCLDS 06:15
PROVIDERS: PCP Internal Medicine Medical Oncology; Visit Provider Internal Medicine Medical Oncology
DX: I10 Essential (primary) hypertension (principal); N40.0 Benign prostatic hyperplasia without lower urinary tract symptoms; E66.9 Obesity, unspecified; Z12.5 Encounter for screening for malignant neoplasm of prostate
CPT/HCPCS: 36415; 80053; 80061; 84153; 85025

== ENCOUNTER 2024-07-03 08:30 | Outpatient (AMB) | payer MEDICARE, SELFPAY ==
[2024-07-03 08:38] VITALS: BP 138/84; PULSE 69; BMI 37.8
--- NOTE | 2024-07-03 08:38 | A.OFFVIS_ITS ---
Vital Signs 07/03/24 08:38 Height 5 ft 9 in Weight 255 lb 11.779 oz BMI 37.8 BP 138/84 Blood Pressure Location Lt brachial Position Sitting Pulse 69 Intake Visit Reasons: 6m follow up Intake Note: 6 month follow-up with ekg feeling good need letter regarding holding eliquis prior to dental extration Protective Signal Installer Helper Required: No Allergies morphine [MORPHINE] Allergy (Intermediate, Verified 05/23/24 10:12) RASH Medication List - Last Reconciled 07/03/24 by Durga Clayton MD amlodipine 2.5 mg PO DAILY apixaban (Eliquis) 5 mg PO BID cholecalciferol (vitamin D3) 25 mcg PO DAILY empagliflozin (Jardiance) 10 mg PO DAILY furosemide 40 mg PO DAILY metoprolol succinate ER 50 mg PO DAILY pantoprazole 40 mg PO DAILY tamsulosin 0.4 mg PO DAILY HPI Comments Details: Joshua comes for follow-up. Overall he has been doing well. He has not had any significant worsening symptoms of heart failure. Denies any significant weight gain, leg edema, orthopnea, PND. Continues to be exertionally short of breath although says does not participate in regular physical activity. Denies any prolonged palpitation irregular heartbeat. No lightheadedness, syncope. No exertional chest pain. Kidney functions have remained stable. No bleeding issues or neurologic events. [facility] Medical History Atrial flutter Persistent atrial fibrillation RUMA on CPAP Obesity (BMI 30-39.9) Diastolic dysfunction Pulmonary hypertension Enlarged RV (right ventricle) Morbid obesity (HFpEF) heart failure with preserved ejection fraction Paroxysmal atrial fibrillation History of cardioversion Surgical History H/O colonoscopy Hx of cataract extraction History of excision of pilonidal cyst Hx of knee surgery Family History Father Afib COPD (chronic obstructive pulmonary disease) Diabetes Mother Cancer Afib Social History Patient Tobacco Use Status: Former Tobacco user Tobacco use type: Cigarette Years Smoked: 12 Review of Systems Const Denies chills, Denies fatigue, Denies fever(s), Denies frequent falls, Denies weakness, Denies weight gain and Denies weight loss ENT Denies dizziness Card Denies chest pain, Denies leg edema, Denies lightheadedness, Denies palpitations, Denies dyspnea, Denies dyspnea on exertion, Denies orthopnea and Denies other (loss of consciousness) Resp Denies cough, Denies dyspnea and Denies dyspnea on exertion GI Denies hematochezia and Denies change in stool character Musc Denies abnormal gait, Denies muscle weakness, Denies numbness, Denies radiating pain into limb and Denies tingling Neuro Denies abnormal gait, Denies dizziness, Denies frequent falls, Denies numbness, Denies tingling and Denies weakness Endo Denies fatigue and Denies palpitations Physical Exam Vital Signs: Last Vital Signs Pulse 69 07/03/24 08:38 BP 138/84 07/03/24 08:38 BMI result Body Mass Index 37.8 Const General: cooperative, comfortable, no acute distress, alert and awake Nutritional Appearance: obese Orientation/consciousness: patient oriented x3 Limitations: no limitations HEENT Head: Yes normal to inspection, Yes normocephalic and Yes atraumatic Eyes General: appearance normal, both eyes and all related structures Neck Neck: Yes trachea midline, Yes supple and Yes no JVD Chest Chest palpation & inspection: normal inspection of the chest Resp Effort & Inspection: normal respiratory effort Auscultation: clear to auscultation bilaterally Cardio Jugular venous distension: no JVD Palpation: normal PMI Rate: bradycardic Rhythm: abnormal rhythm irregularly irregular Heart sounds: S1 normal heart sound present and S2 normal heart sound present GI Inspection: Yes obesity Auscultation: normal bowel sounds Skin General skin exam: no rashes or lesions noted and ecchymosis Neuro General: patient oriented x3 and no focal motor deficits Extrem General: Yes edema (Plus one edema bilaterally) and Yes venous stasis dermatitis Psych Appearance: grossly normal Office Procedures EKG Details: EKG shows atrial fibrillation with incomplete right bundle-branch block at 69 beats per minute 87636-[id number], Complete Assessment & Plan Assessment & Plan (1) (HFpEF) heart failure with preserved ejection fraction: Code(s): I50.30 - Unspecified diastolic (congestive) heart failure Category: Medical Plan: Heart failure with preserved ejection fraction with secondary complications pulmonary hypertension as well as enlarged right ventricle in the setting of chronic atrial fibrillation. Has failed rhythm control. Clinically appears to be euvolemic and well compensated. At this point time advised to continue current diuretic therapy along with Jardiance. We discussed about management of heart failure. Daily weight monitoring avoidance salt loading was discussed additional diuretics as need be. Goals of therapy were discussed. Encouraged to increase activity level as tolerated. Continue CPAP therapy. (2) Persistent atrial fibrillation: Code(s): I48.19 - Other persistent atrial fibrillation Category: Medical Plan: Persistent rate control atrial fibrillation has failed rhythm control approach. Will continue current rate control with metoprolol. Continue CPAP therapy. Continue full oral anticoagulation, currently on apixaban 5 mg b.i.d.. Semi annual renal function test should be pursued. Continue aggressive blood pressure control. Will follow up in the clinic in 6 months time, sooner p.r.n.. Thank you for allowing me to partake in his care Coding Level of Care Code Est Pt Level 4 (62762) Complex EM visit Add On G2211 Diagnoses (HFpEF) heart failure with preserved ejection fraction I50.30 Persistent atrial fibrillation I48.19 CPT Codes EKG - CPT: 04312-Xmiybylylzvklazia, Complete ([id number])
== END 2024-07-03 08:56 | disposition home or self-care (01) ==
LOC: HO.HCS 08:31
PROVIDERS: PCP Internal Medicine Medical Oncology; Visit Provider Internal Medicine Cardiovascular Disease
DX: I50.30 Unspecified diastolic (congestive) heart failure (principal); I48.19 Other persistent atrial fibrillation
CPT/HCPCS: 93010; 99214; G2211

== ENCOUNTER → 2024-07-03 08:30 | Outpatient (BNVA) | payer MEDICARE, SELFPAY | PROVIDERS: PCP Internal Medicine Medical Oncology; Visit Provider Internal Medicine Cardiovascular Disease | DX: I50.30 Unspecified diastolic (congestive) heart failure (principal); I48.19 Other persistent atrial fibrillation; R94.31 Abnormal electrocardiogram [ECG] [EKG]; I45.19 Other right bundle-branch block | CPT/HCPCS: 93005; 99212 ==

== ENCOUNTER 2024-09-25 06:11 | Outpatient (REF) | payer MEDICARE, SELFPAY ==
--- OUTSIDE RECORDS SUMMARY | 2024-06-11 05:00 | XMS_ITS ---
Author Organization [facility], MD Address [address] [place] [address] Care Team Providers Care Devulcanizer Tender Name Role Phone [facility]ting Primary Care Provider [phone] Allergies Allergen (clinical drug ingredient) Drug/Non Drug [...] Date Provider Diagnosis [facility]ente Painting III, MD [address] [place] [address] [place], [place] [address] 06/11/2024 [facility] Essential hypertensi on I10 [...] - K21.9) The reflux is well-controlled with dwsw-def-gyjrmoo medications. 06/11/2024 Macrocytosis (ICD-10 - D75.89) His [...] labs Provider Name:Inocente Painting, 10/01/2024 09:30:00 AM, [address] [place] [address] DR, [address], [place], [address], Provider Name:Inocente Painting, 11/14/2024 10:00:00 AM, [address] [place] [address] [address] [place], [place], [address], Progress Notes * Behzad MENDOZADOB:[birth year] (83 yo M)Acc No.[id number]:06/11/2024 Progress Notes Patient: Behzad OQUENDO Provider: Autumn Painting MD :1940 A ge:83 Y S ex:Male Date:06/11/2024 [facility] [place] [id number] Subjective: * Chief Complaints: * H ypertensionParoxysmal [...] 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 He has been to [place] for 43 [...] K21.9 ?Notes :The reflux is well-controlled with frzd-faa-kzkjwfm medications. 5 . M acrocytosis - D75.89 [...] 06/11/2024 Generated for Vu cole/Vaughn/Brandoitting on: 0 09/25/2024 06:13 AM EDT History and Physical Notes * [...]
--- OUTSIDE RECORDS SUMMARY | 2024-09-25 06:13 | XMS_ITS | Clinical Summary ---
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
--- OUTSIDE RECORDS SUMMARY | 2024-09-25 06:13 | XMS_ITS | Clinical Summary ---
Author Organization [facility] Address [address] [place] [address] Phone Care Team Providers Care Concrete Mixer Operator Helper Name Role Phone Inocente Painting MD Primary Care Provider [phone] Allergies Active Allergy Reactions Criticality Noted Date Comments Morphine Rash Low 06/05/2014 Medications apixaban (ELIQUIS) 5 mg tablet Take 5 mg by mouth 2 (two) times a day. Active pantoprazole (PROTONIX) 40 MG tablet Take 40 mg by mouth daily. Active amLODIPine (NORVASC) 5 MG tablet Take 5 mg by mouth daily. Active metoprolol tartrate (LOPRESSOR) 50 MG tablet Take 50 mg by mouth 2 (two) times a day. Active tamsulosin (FLOMAX) 0.4 mg Cap Take 0.4 mg by mouth daily. Active furosemide (LASIX) 40 MG tablet Take 40 mg by mouth. Active Active Problems Problem Noted Date Diagnosed Date Thrombocytopenic disorder 06/05/2014 Overview (01/20/2015): Thrombocytopenic disorder Family History Medical History Relation Comments Diabetes Father Diabetes Mellitu s Hypertension Mother Hypertension Uncoded Family History Mother Renal Can cer Relation Status Comments Father Mother Social History Tobacco Use Types Packs/Day Years Used Date Smoking Tobacco: Never Assessed Education Answer Date Recorded Are you interested in more education? Not on jorge e 06/27/2022 Are you concerned about learning? Not on file 06/27/2022 No 06/27/2022 No 06/27/2022 Digital Access Answer Date Recorded No 07/11/2022 No 07/11/2022 Reliable internet access at home? Not on file 07/11/2022 Device with a working camera? Not on file Sex and Gender Information Value Date Recorded Sex Assigned at Not on file Legal Sex Male 7:04 PM EST Gender Identity Not on file Sexual Orientation Not on file Last Filed Vital Signs Vital Sign Reading Time Taken Comments Blood Pressure 127/69 05/20/2021 6:28 PM EDT Pulse 79 05/20/2021 6:28 PM EDT Temperature 36.9 C (98.4 F) 05/20/2021 6:28 PM EDT Respiratory Rate 18 05/20/2021 6:28 PM EDT Oxygen Saturation 98% 05/20/2021 6:28 PM EDT Inhaled Oxygen Concentration - - Weight 122.5 kg (270 lb) 05/20/2021 4:42 PM EDT Height 177.8 cm (5' 10 ) 05/20/2021 4:42 PM EDT Body Mass Index 38.74 05/20/2021 4:42 PM EDT Plan of Treatment Health Maintenance Due Date Last Done Comments Adult Td,Tdap Booster 1940 DEPRESSION SCREENING 1952 PNEUMOCOCCAL VACCINES (50+ years) (1 of 1 - PCV) 11/22/1989 RSV VACCINE (1 - 1-dose 75+ series) 11/22/2014 CREATININE LEVEL 12/04/2015 12/03/2014, , 08/08/2011 COVID-19 VACCINE ( season) 2023 11/07/2020, 04/14/2020, 04/02/2020, Additional history exists ZOSTER VACCINES Completed 02/16/2020, 12/18/2019 HEPATITIS A VACCINES Aged Out No long er eligible based on patient's age to complete this topic HIB VACCINES Aged Out No longer eligi ble based on patient's age to complete this topic MENINGOCOCCAL VACCINES (ACWY) Aged Out No longer eligible based on patient's age to complete this topic MENINGOCOCCAL VACCINES (B) Aged Out N o longer eligible based on patient's age to complete this topic Medical Devices Not on file Procedures Procedure Name Priority Date/Time Associated Diagnosis Comments BASIC METABOLIC PANEL Routine 12/03/2014 8:12 AM EDT from Last 3 Months or Most Recently Relevant to Health Maintenance Results * (ABNORMAL) Basic metabolic panel (12/03/2014 8:12 AM EDT) Plasma Sodium 141 135 - 145 mmol/L [facility] Plasma Potassium 4.7 3.4 - 5.0 mmol/L [facility] Plasma Chloride 102 98 - 108 mmol/L [facility] Plasma Carbon Dioxide 28 23 - 32 mmol/L [facility] Plasma Urea Nitrogen 14 8 - 25 mg/dL [facility] Plasma Creatinine 1.18 0.60 - 1.50 mg/dL [facility] Plasma Glucose 112(Abnor thomas H) 70 - 110 mg/dL [facility] Calcium 9.5 8.5 - 10.5 mg/dL [facility] eGFR >60 mL/min/1. 73m2 [facility] Comment: Abnormal if <60 mL/min/1.73m2. If patient is -Canadian, multiply the result by 1.21. Plasma Anion GAP 11 3 - 17 mmol/L [facility] 12/03/2014 8:12 AM EDT 12/03/2014 8:14 AM EDT Comment:BLOOD us Jennyfer Fitzgerald MD LAB BLOOD ORDERABLES Edited Result - Final [address] [address] from Last 3 Months or Most Recently Relevant to Health Maintenance Insurance [facility] MEDICARE REPLACEMENT [facility] MEDICARE REPLACEMENT [facility] MEDICARE REPLACEMENT [facility] MEDICARE REPLACEMENT [facility] MEDICARE REPLACEMENT [facility] MEDICARE REPLACEMENT [facility] MEDICARE REPLACEMENT [facility] MEDICARE REPLACEMENT Care Teams Concrete Mixer Operator Helper Relationship Specialty Start Date End Date Inocente Painting MD [address] [place] [address] PCP - General Medical Oncology 05/20/21 Additional Source Comments The information contained in this document represents components of the legal health record. It is not the complete legal health record.[facility]
[2024-09-25 10:37] LABS: MANUAL DIFF FLAG NO
[2024-09-25 10:43] LABS: Hematocrit 51.3 % (42.0-52.0); Hemoglobin 16.8 g/dl (14.0-18.0); Imm Gran Abs Auto 0.03 X10*3/uL (0.00-0.03); Imm Gran Pct Auto 0.5 % (0.0-0.4); Lymphocytes Absolute Auto 1.2 X10*3/uL (1.2-4.9); Mean Corpuscular HGB Conc 32.7 g/dl (31.0-36.0); Mean Corpuscular Hemoglobin 33.1 pg (27.0-33.0); Mean Corpuscular Volume 101.0 fL (80.0-98.0); NRBC Abs Auto 0.000 X10*3/uL (0.0-0.012); NRBC Pct Auto 0.0 /100WBC (0.0-0.2); Platelet Count 126 X10*3/uL (160-400); Red Blood Count 5.08 X10*6/uL (4.60-5.80); White Blood Count 6.0 X10*3/uL (4.8-10.8)
[2024-09-25 11:18] LABS: Alanine Aminotransferase 15 U/L (0-40); Albumin Level 3.6 g/dL (3.5-5.0); Alkaline Phosphatase 49 U/L (39-117); Anion Gap 13 (12-20); Aspartate Amino Transferase 23 U/L (5-37); Blood Urea Nitrogen 21 mg/dL (9-16); Calcium 8.5 mg/dL (8.4-10.2); Carbon Dioxide 25 mmol/L (22-29); Chloride 107 mmol/L (96-108); Cholesterol 142 mg/dL (<200); Estimated Glomerular Filt Rate > 60; HDL Cholesterol 50 mg/dL (>40); Potassium 3.9 mmol/L (3.3-5.1); Sodium 141 mmol/L (135-145); Total Protein 6.4 g/dL (6.5-8.0); Triglycerides 55 mg/dL (<150)
== END 2024-09-25 06:12 | disposition home or self-care (01) ==
LOC: HO.HMGCLDS 06:11
PROVIDERS: PCP Internal Medicine Medical Oncology; Visit Provider Internal Medicine Medical Oncology
DX: I10 Essential (primary) hypertension (principal); D69.6 Thrombocytopenia, unspecified; E55.9 Vitamin D deficiency, unspecified; E66.9 Obesity, unspecified
CPT/HCPCS: 36415; 80053; 80061; 82306; 85025

== ENCOUNTER 2024-09-30 14:23 | Outpatient (AMB) | payer MEDICARE, SELFPAY ==
--- OUTSIDE RECORDS SUMMARY | 2024-06-11 05:00 | XMS_ITS ---
Author Organization Inocente Painting III, MD Address [address] [place] [address] Care Team Providers Care Heating Repair Technician Name Role Phone Inocente Painting Primary Care [...] has it been since you last smoked? [address] ter than 10 years Additional Findings: Tobacco non-user Ex-cigaret te smoker Vital Signs Temperature 97.3 degrees Fahrenheit 06/12/19 25 Blood pressure systolic 134 mm Hg 06/12/19 25 Blood pressure diastolic 78 mm Hg 025 Heart Rate 77 /min 06/11/2024 Height 69.5 in 06/11/2024 Weight 258 lbs 06/11/2024 BMI 37.55 kg/m2 06/11/2024 Encounters Encounter Location Date Provider Diagnosis Inocente Painting III, MD [address] [place] [address] [place], [place] [address] 06/11/2024 Inocente Painting Essential hypertensi on I10 [...] - K21.9) The reflux is well-controlled with xtzk-zok-milyejp medications. 06/11/2024 Macrocytosis (ICD-10 - D75.89) His [...] Months, Reason: ov review labs Provider Name:Inocente Painting, 10/01/2024 09:30:00 AM, [address] [place] [address] DR, [address], [place], [address], Provider Name:Inocente Painting, 11/14/2024 10:00:00 AM, [address] [place] [address] [place], [place], [address], Progress Notes * Behzad MENDOZADOB:[birth year] (83 yo M)Acc No.[id number]:06/11/2024 Progress Notes Patient: Behzad OQUENDO Provider: Autumn Painting MD :1940 A ge:83 Y S ex:Male Date:06/11/2024 [facility] [place] [id number] Subjective: * Chief Complaints: * H ypertensionParoxysmal [...] 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 5 . M acrocytosis - D75.89 [...] 06/11/2024 Generated for Vu cole/Vaughn/Brandoitting on: 0 09/30/2024 03:06 PM EDT History and Physical Notes * HPI [...]
--- OUTSIDE RECORDS SUMMARY | 2024-09-30 15:06 | XMS_ITS | Clinical Summary ---
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
--- OUTSIDE RECORDS SUMMARY | 2024-09-30 15:07 | XMS_ITS | Clinical Summary ---
Author Organization [facility] Address [address] [facility] [address] [place] [address] Phone Care Team Providers Care Car Ferry Captain Name Role Phone Inocente Painting MD Primary Care Provider [phone] Allergies Active Allergy Reactions Criticality Noted Date [...] Plasma Sodium 141 135 - 145 mmol/L [facility] Plasma Potassium 4.7 3.4 - 5.0 mmol/L [facility] Plasma Chloride 102 98 - 108 mmol/L [facility] Plasma Carbon Dioxide 28 23 - 32 mmol/L [facility] Plasma Urea Nitrogen 14 8 - 25 mg/dL [facility] Plasma Creatinine 1.18 0.60 - 1.50 mg/dL [facility] Plasma Glucose 112(Abnor thomas H) 70 - 110 mg/dL [facility] Calcium 9.5 8.5 - 10.5 mg/dL [facility] eGFR >60 mL/min/1. 73m2 [facility] Comment: Abnormal if <60 mL/min/1.73m2. If patient is -Guyanese, multiply the result by 1.21. Plasma Anion GAP 11 3 - 17 mmol/L [facility] 12/03/2014 8:12 AM EDT 12/03/2014 8:14 AM EDT Comment:BLOOD us Jennyfer Fitzgerald MD LAB BLOOD ORDERABLES Edited Result - Final [address] [address] from Last 3 Months or Most Recently Relevant to Health Maintenance Insurance [facility] RE[facility] Care Teams Car Ferry Captain Relationship Specialty Start Date End Date Inocente Painting MD [address] [place] [id number] PCP - General Medical Oncology 05/20/21 Additional Source Comments The information contained in this document represents components of the legal health record. It is not the complete legal health record.[facility]
== END 2024-09-30 14:25 | disposition home or self-care (01) ==
LOC: HO.HMGAL 14:23
PROVIDERS: PCP Internal Medicine Medical Oncology; Visit Provider Registered Nurse Emergency
DX: J30.89 Other allergic rhinitis (principal)
CPT/HCPCS: 95117; 95165

== ENCOUNTER 2024-11-04 13:45 | Outpatient (AMB) | payer MEDICARE, SELFPAY ==
--- OUTSIDE RECORDS SUMMARY | 2023-08-31 05:15 | XMS_ITS ---
Demographics Address [address] [place] [address] Mobile Email Address [email or web address]
== END 2024-11-04 13:55 | disposition home or self-care (01) ==
LOC: HO.HMGAL 13:45
PROVIDERS: PCP Internal Medicine Medical Oncology; Visit Provider Registered Nurse Emergency
DX: J30.89 Other allergic rhinitis (principal)
CPT/HCPCS: 95117; 95165

== ENCOUNTER 2024-11-06 06:17 | Outpatient (REF) | payer MEDICARE, SELFPAY ==
--- OUTSIDE RECORDS SUMMARY | 2023-08-31 05:15 | XMS_ITS ---
Author Organization [facility], MD Address [address] [place] [address] Care Team Providers Care Field Checker Name Role Phone Dr. [facility] III [...] Date Provider Diagnosis [facility], MD [address] [place] [address] [place] [address] 08/31/2023 [facility] Essential hypertensi on I10 [...] - K21.9) The reflux is well-controlled with egbd-bnq-dyeaoao medications. 08/31/2023 AF (paroxysmal atria l fibrillation) [...] Kim son: OV Provider Name:[facility] , 11/14/2024 10:00:00 AM, [address] [place] [address] [address], [place], [address], Progress Notes * Behzad MENDOZADOB:[birth year] (82 yo M)Acc No.[id number]:08/31/2023 Progress Notes Patient: Behzad Agrawal Provider: [facility] MD :1940 A ge:82 Y S ex:Male Date:08/31/2023 [facility] [place] [id number] Subjective: * Chief Complaints: * H ypertensionParoxysmal [...] Surgical History: r ight knee rplacement [facility] 2011T&A 194 pilonidal cyxt 1059 breast biopsy right lipoma [...] x-cigarette smoker 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 He has been to [place] for 43 [...] Examination: G eneral Examination: GENERAL APPEARANCE: p krystina, well nourished, well developed, in no acute [...] - K21.9, The reflux is well-controlled with bbxq-zal-vsfhamp medications. 5 . A F (paroxysmal atrial [...] true * Provider: [facility] MD Date: 08/31/2023 Generated for Vu cole/Vaughn/Brandoitting on: 0 11/06/2024 06:20 AM EDT History and Physical Notes * HPI (History of Present Illness) Category Sub-Category Detail Notes COVID-19 Screening Questions Have you had any new onset fever, chills, cough, congestion, sore throat, shortness of breath, muscle aches?: No Have you been exposed to the virus withi n the last 10 days?: No Have you travelled internationally in last 10 days?: No Have you been [...]
--- OUTSIDE RECORDS SUMMARY | 2023-11-13 06:00 | XMS_ITS ---
Author Organization [facility] III, MD Address [address] [place] [address] Care Team Providers Care Parachute Line Tier Name Role Phone Dr. Inocente Painting III Primary Care Provider [phone] Allergies Allergen (clinical drug ingredient) Drug/Non Drug [...] Date Provider Diagnosis Inocente Painting III, MD [address] [place] [address] [place] [address] 11/13/2023 [facility] Essential hypertensi on I10 [...] - K21.9) The reflux is well-controlled with cnmj-eqk-qjxqvmy medications. 11/13/2023 Strabismus (ICD-10 - H50.9) This abnormality was still present and is long-standing. He was encouraged to see the four slide machine setter regularly. 11/13/2023 Colonic polyp (ICD-1 0 - [...] Months, Reason: OV Provider Name:Inocente Painting , 11/14/2024 10:00:00 AM, [address] [place] [address], [address], Progress Notes * Behzad MENDOZADOB:[birth year] (82 yo M)Acc No.[id number]:11/13/2023 Progress Notes Patient: Behzad OQUENDO Provider: Autumn Painting MD :1940 A ge:82 Y S ex:Male Date:11/13/2023 Address:[address] [place] [address] [facility] Subjective: * Chief Complaints: * A nnual [...] non-user E x-cigarette smoker D rugs/Alcohol: D rugs H ave you used drugs other than those for medical reasons in the past 12 months? N o D rug/Alcohol: A RUSH-C (Standard) D id you have a drink containing alcohol in the past year? 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 Pane l Fast * Collection Date 11/08/2023 [...] K21.9 ?Notes :The reflux is well-controlled with cuar-oii-phindhj medications. 6 . S trabismus - H50.9 N otes :This abnormality was still present and is long-standing. He was encouraged to see the four slide machine setter regularly. 7 . C olonic polyp - [...] Procedure Codes: 9 4760 MEASURE BLOOD OXYGEN [id number] URINE-NO MICRO * Preventive Medicine: Counseling: C [...] MD Date: 0 11/13/2023 Generated for Vu cole/Vaughn/eTcarylsmitting on: 11/06/2024 06:20 AM EDT History and Physical [...] had two or more falls in the year?: No Fall Risk Assessment:: No falls in the p year COVID-19 Screening Questions Have you had [...]
--- OUTSIDE RECORDS SUMMARY | 2024-02-09 05:00 | XMS_ITS ---
Author Organization Inocente Painting III, MD Address [address] [place] [address] Care Team Providers Care Solo Truck Driver Name Role Phone Dr. Inocente Painting III Primary Care Provider [phone] Allergies Allergen (clinical drug ingredient) Drug/Non Drug [...] Date Provider Diagnosis Inocente Painting III, MD [address] [place] [address] [place] [address] 02/09/2024 Inocente Painting Essential hypertensi on I10 [...] - K21.9) The reflux is well-controlled with ughz-zcp-vciohnf medications. 02/09/2024 Central sleep apnea (ICD-10 - [...] Provider Name:Inocente Painting , 11/14/2024 10:00:00 AM, [address] [place] [address] , [facility], [place], [address], Progress Notes * Jd MENDOZA:[birth year] (83 yo M)Acc No.[id number]:02/09/2024 Progress Notes Patient: Behzad OQUENDO Provider: Autumn Painting MD :1940 A ge:83 Y S ex:Male Date:02/09/2024 Address: [place], [id number] Subjective: * Chief Complaints: * H ypertensionLaceration anterior left lower leg, treated in wound clinicParoxysmal atrial fibrillationSleep apneaGERDMacrocytosisHistory of pulmonary embolismChronic anticoagulationObesity * HPI: C - Screening: Questions H ave you had any new onset fever, chills, cough, congestion, sore throat, shortness of breath, muscle aches? 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 * Collection Date 02/02/2024 11/08/2023 [...] restriction and weight loss. 3 . O besity (BMI 30-39.9) - E66.9 N otes :His [...] K21.9 ?Notes :The reflux is well-controlled with pwxk-vnp-ykuuwhd medications. 6 . C entral sleep apnea [...] relieve nocturia. Plan: * Treatment: 2. O besity (BMI 30-39.9) L AB: PROFILE, [...] Autumn Painting MD Date: 04/11/2023 Generated for Akankshai kelsey/Vaughn/eTransmitting on: 0 11/06/2024 06:19 AM EDT History and Physical Notes * [...]
--- OUTSIDE RECORDS SUMMARY | 2024-06-11 05:00 | XMS_ITS ---
Author Organization Inocente Painting III, MD Address [address] [place] [address] Care Team Providers Care Data Operations Leader Name Role Phone Dr. Inocente Painting III [...] Date Provider Diagnosis Inocente Painting III, MD [address] [place] [address] [place], [place] [id number] 06/11/2024 Inocente Painting Essential hypertensi on I10 [...] - K21.9) The reflux is well-controlled with lpvm-jhp-gralucp medications. 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 He has been to [place] for 43 [...] 0.000 (Ref Range: 0.0-0.012 X10*3/uL) * Lab:Jesusita rodriguez Fast * Collection Date 06/04/2024 02/02/2024 11/08/2023 [...] K21.9 ?Notes :The reflux is well-controlled with qeep-new-uaoocvp medications. 5 . M acrocytosis - D75.89 [...] 0 06/11/2024 Generated for Vu cole/Vaughn/Brandoitting on: 0 11/06/2024 06:19 AM EDT History [...]
--- OUTSIDE RECORDS SUMMARY | 2024-10-01 05:30 | XMS_ITS ---
Author Organization Inocente Painting III, MD Address [address] [facility] [place] [address] Care Team Providers Care Sports Intern Name Role Phone Dr. Inocente Painting III [...] Date Provider Diagnosis Inocente Painting III, MD [address] [place] [address] [address] [place], [place] [address] 10/01/2024 Inocente Painting Essential hypertensi on I10 [...] - K21.9) The reflux is well-controlled with hsxl-dpw-yufoeqk medications. 10/01/2024 Strabismus (ICD-10 - H50.9) This abnormality was still present and is long-standing. He was encouraged to see the home health care provider regularly. 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 3 . O besity (BMI 30-39.9) - [...] K21.9 ?Notes :The reflux is well-controlled with xsrc-btk-avwubyf medications. 5 . S trabismus - H50.9 N otes :This abnormality was still present and is long-standing. He was encouraged to see the home health care provider regularly. 6 . C hronic anticoagulation - [...] MD Date: 0 10/01/2024 Generated for Vu cole/Vaughn/eTransmitting on: 0 11/06/2024 06:19 AM EDT History [...]
--- OUTSIDE RECORDS SUMMARY | 2024-11-06 06:20 | XMS_ITS | Encounter Summary ---
Author Organization [facility] Address [address] [place] [address] Phone Care Team Providers Care Natural Gas Field Processing Supervisor Name Role Phone Inocente Painting MD Primary Care Provider [phone] Encounter Details Date Type Department Care Team (Late st Contact Info) Description 05/20/2021 Procedure Pass [facility], Ct Scan - [address] [address] Social History Tobacco Use Types Packs/Day Years Used Date Smoking Tobacco: Never Assessed Sex and Gender Information Value Date Recorded Sex Assigned at Not on file Legal Sex Male 7:04 PM EST Gender Identity Not on file Sexual Orientation Not on file documented as of this encounter Functional Status * Calculated C-SSRS Risk Score (Lifetime/Recent) Answer Date of Assessment Author No Risk Indicated 05/20/2021 4:45 PM EDT Josie Martínez RN * [place] Suicide Severity Rating Scale (Screener/Recent Self-Report) Question Answer Date of Assessment Author 1. Wish to be (Past 1 Month) No 05/20/2021 4:45 PM EDT Josie Martínez RN 2. Non-Specific Active Suici marjorie Thoughts (Past 1 Month) No 05/20/2021 4:45 PM EDT Bev Martínez RN 6. Suicidal Behavior (Lifetime) No 4:45 PM EDT Josie Martínez RN documented as of this encounter Plan of Treatment Not on file documented as of this encounter Visit Diagnoses Not on filedocumented in this encounter Care Teams Natural Gas Field Processing Supervisor Relationship Specialty Start Date End Date Inocente Painting MD [facility] [place] [address] PCP - General Medical Oncology 05/20/21 documented as of this encounter Additional Source Comments The information contained in this document represents components of the legal health record. It is not the complete legal health record.[facility]
--- OUTSIDE RECORDS SUMMARY | 2024-11-06 06:20 | XMS_ITS | Patient Health Record ---
Author Organization Inocente Painting III, MD Address [address] [place] [address] Care Team Providers Care Park Keeper Name Role Phone Dr. Inocente Painting III [...] ff Reviewed date:11/13/2023 05:56:09 AM Interpretation: Performing Lab:[facility], [address] [place] [phone] Notes/Report: White Blood Count 6.7 4.8-10.8 X10*3/uL [...] NRBC Abs Auto 0.000 0.0-0.012 X10*3/uL Comprehensive [place]. Panel Fa st Reviewed date:11/13/2023 05:56:09 AM Interpretation: Performing Lab:[facility], [address] [place] [phone] Notes/Report: Sodium 142 135-145 mmol/L Potassium 5.0 3.3-5.1 mmol/L Chloride 104 96-108 mmol/L Carbon Dioxide 29 22-29 mmol/L Anion Gap 14 12-20 Blood Urea Nitrogen 17 9-16 mg/dL Creatinine 1.24 0.5-1.4 mg/dL Estimated Glomerular Filt Rate 56 NOTE: For -Citizen Of [place] individuals, multiply the result by 1.210. Chronic [...] Panel Reviewed date:11/13/2023 05:56:09 AM Interpretation: Performing Lab:[facility], [address] [place] [phone] Notes/Report: Triglycerides 62 <150 mg/dL Desirable Triglyceride: [...] A1c Reviewed date:11/13/2023 05:56:09 AM Interpretation: Performing Lab:[facility], [address] [place] [phone] Notes/Report: Hemoglobin A1c % 5.0 <6.0 % [...] average glucose, using the formula of the [id number] Average Glucose study (ADAG), Diabetes Care, Vol.31,#8, Sep. 2007 Complete Blood Count Auto Di ff Reviewed date:02/04/2024 08:33:16 PM Interpretation: Performing Lab:[facility], [address] [place] [phone] Notes/Report: White Blood Count 5.4 4.8-10.8 X10*3/uL [...] NRBC Abs Auto 0.000 0.0-0.012 X10*3/uL Comprehensive [place]. Panel Fa st Reviewed date:02/04/2024 08:33:16 PM Interpretation: Performing Lab:[facility], [address] [place] [phone] Notes/Report: Sodium 142 135-145 mmol/L Potassium 3.8 [...] Panel Reviewed date:02/04/2024 08:33:16 PM Interpretation: Performing Lab:[facility], [address] [place] [phone] Notes/Report: Triglycerides 45 <150 mg/dL Desirable Triglyceride: [...] Total Reviewed date:02/04/2024 08:33:16 PM Interpretation: Performing Lab:[facility], [address] [place] [phone] Notes/Report: Vitamin D 25-OH Total 29.8 >30 [...] confirmed with another method such as LC-MS/MS. Complete Blood Count Auto Di ff Reviewed date:06/05/2024 05:13:41 AM Interpretation: Performing Lab:[facility], [address] [place] [phone] Notes/Report: White Blood Count 7.3 4.8-10.8 X10*3/uL Red Blood Count 5.00 4.60-5.80 X10*6/uL Hemoglobin 16.4 14.0-18.0 g/dl Hematocrit 51.2 42.0-52.0 % Mean Corpuscular Volume 102.4 80.0-98.0 fL Mean Corpuscular Hemoglobin 32.8 27.0-33.0 pg Mean Corpuscular HGB Conc 32.0 31.0-36.0 g/dl Red Cell Distribution Width 14.7 11.0-16.0 % Platelet Count 155 160-400 X10*3/uL Mean Platelet Volume 12.6 9.4-12.4 fL Neutrophils Percent Auto 72.9 45-73 % Imm Gran Pct Auto 0.4 0.0-0.4 % Lymphocytes Percent Auto 17.8 20-40 % Monocytes Percent Auto 7.7 2-11 % Eosinophils Percent Auto 0.8 0-4 % Basophils Percent Auto 0.4 0-2 % NRBC Pct Auto 0.0 0.0-0.2 /100WBC Neutrophils Absolute Auto 5.3 2.0-8.3 x10*3/u L Imm Gran Abs Auto 0.03 0.00-0.03 X10*3/uL Lymphocytes Absolute Auto 1.3 1.2-4.9 X10*3/u L Monocytes Absolute Auto 0.6 0.1-1.2 X10*3/uL Eosinophils Absolute Auto 0.1 0.0-0.4 X10*3/u L Basophils Absolute Auto 0.0 0.0-0.2 X10*3/uL NRBC Abs Auto 0.000 0.0-0.012 X10*3/uL Comprehensive [place]. Panel Fa st Reviewed date:06/05/2024 05:13:41 AM Interpretation: Performing Lab:[facility], [address] [place] [phone] Notes/Report: Sodium 143 135-145 mmol/L Potassium 5.1 3.3-5.1 mmol/L Chloride 106 96-108 mmol/L Carbon Dioxide 32 22-29 mmol/L Anion Gap 10 12-20 Blood Urea Nitrogen 25 9-16 mg/dL Creatinine 1.19 0.5-1.4 mg/dL Estimated Glomerular Filt Rate 58 Chronic Kidney Disease: Estimated GFR < 60 mL/min/1.73m2 Severe Kidney Disease: Estimated GFR < 15 mL/min/1.73m2 Glucose Fasting 98 60-99 mg/dL Calcium 9.3 8.4-10.2 mg/dL Bilirubin Total 1.0 0.0-1.0 mg/dL Aspartate Amino Transferase 22 5-37 U/L Alanine Aminotransferase 16 0-40 U/L Total Protein 6.5 6.5-8.0 g/dL Albumin Level 3.7 3.5-5.0 g/dL Alkaline Phosphatase 57 39-117 U/L Lipid Panel Reviewed date:06/05/2024 05:13:41 AM Interpretation: Performing Lab:[facility], [address] [place] [phone] Notes/Report: Triglycerides 49 <150 mg/dL Desirable Triglyceride: less than 150 mg/dL Borderline High Triglyceride 150-199 mg/dL High Triglyceride: 200-499 mg/dL Very High Triglyceride: greater than or equal to 5OO mg/dL Cholesterol 129 <200 mg/dL Desirable Cholesterol: less than 200 mg/dL Borderline High Cholesterol: 200-239 mg/dL High Cholesterol: greater than 239 mg/dL LDL Cholesterol Calculated 66 <100 mg/dL Desirable LDL: less than 100 mg/dL Near Optimal/Above Optimal LDL: 110-129 mg/dL Borderline High LDL: 130-159 mg/dL High LDL: 160-189 mg/dL Very High LDL: greater than or equal to 190 mg/dL HDL Cholesterol 54 >40 mg/dL Desirable HDL: greater than 40 mg/dL Note: This HDL assay may give artificially low results in patients with liver disease. Prostate Specific Antigen Reviewed date:06/05/2024 05:13:41 AM Interpretation: Performing Lab:[facility], [address] [place] [phone] Notes/Report: Prostate Specific Antigen 3.88 <0.05-4.0 ng/mL PSA methodology: Paz Alinity i Chemiluminescent Microparticle Immunoassay (CMIA) Complete Blood Count Auto Di ff Reviewed date:10/01/2024 09:40:10 AM Interpretation: Performing Lab:[facility], [address] [place] [address], [place] [address] Notes/Report: White Blood Count 6.0 4.8-10.8 X10*3/uL Red Blood Count 5.08 4.60-5.80 X10*6/uL Hemoglobin 16.8 14.0-18.0 g/dl Hematocrit 51.3 42.0-52.0 % Mean Corpuscular Volume 101.0 80.0-98.0 fL Mean Corpuscular Hemoglobin 33.1 27.0-33.0 pg Mean Corpuscular HGB Conc 32.7 31.0-36.0 g/dl Red Cell Distribution Width 14.2 11.0-16.0 % Platelet Count 126 160-400 X10*3/uL Mean Platelet Volume 11.7 9.4-12.4 fL Neutrophils Percent Auto 71.0 45-73 % Imm Gran Pct Auto 0.5 0.0-0.4 % Lymphocytes Percent Auto 20.0 20-40 % Monocytes Percent Auto 6.5 2-11 % Eosinophils Percent Auto 1.7 0-4 % Basophils Percent Auto 0.3 0-2 % NRBC Pct Auto 0.0 0.0-0.2 /100WBC Neutrophils Absolute Auto 4.3 2.0-8.3 x10*3/u L Imm Gran Abs Auto 0.03 0.00-0.03 X10*3/uL Lymphocytes Absolute Auto 1.2 1.2-4.9 X10*3/u L Monocytes Absolute Auto 0.4 0.1-1.2 X10*3/uL Eosinophils Absolute Auto 0.1 0.0-0.4 X10*3/u L Basophils Absolute Auto 0.0 0.0-0.2 X10*3/uL NRBC Abs Auto 0.000 0.0-0.012 X10*3/uL Comprehensive [place]. Panel Fa st Reviewed date:10/01/2024 09:40:10 AM Interpretation: Performing Lab:[facility], [address] [place] [phone] Notes/Report: Sodium 141 135-145 mmol/L Potassium 3.9 3.3-5.1 mmol/L Chloride 107 96-108 mmol/L Carbon Dioxide 25 22-29 mmol/L Anion Gap 13 12-20 Blood Urea Nitrogen 21 9-16 mg/dL Creatinine 1.12 0.5-1.4 mg/dL Estimated Glomerular Filt Rate > 60 Chronic Kidney Disease: Estimated GFR < 60 mL/min/1.73m2 Severe Kidney Disease: Estimated GFR < 15 mL/min/1.73m2 Glucose Fasting 77 60-99 mg/dL Calcium 8.5 8.4-10.2 mg/dL Bilirubin Total 1.5 0.0-1.0 mg/dL Aspartate Amino Transferase 23 5-37 U/L Alanine Aminotransferase 15 0-40 U/L Total Protein 6.4 6.5-8.0 g/dL Albumin Level 3.6 3.5-5.0 g/dL Alkaline Phosphatase 49 39-117 U/L Lipid Panel Reviewed date:10/01/2024 09:40:10 AM Interpretation: Performing Lab:[facility], [address] [place] [phone] Notes/Report: Triglycerides 55 <150 mg/dL Desirable Triglyceride: less than 150 mg/dL Borderline High Triglyceride 150-199 mg/dL High Triglyceride: 200-499 mg/dL Very High Triglyceride: greater than or equal to 5OO mg/dL Cholesterol 142 <200 mg/dL Desirable Cholesterol: less than 200 mg/dL Borderline High Cholesterol: 200-239 mg/dL High Cholesterol: greater than 239 mg/dL LDL Cholesterol Calculated 81 <100 mg/dL Desirable LDL: less than 100 mg/dL Near Optimal/Above Optimal LDL: 110-129 mg/dL Borderline High LDL: 130-159 mg/dL High LDL: 160-189 mg/dL Very High LDL: greater than or equal to 190 mg/dL HDL Cholesterol 50 >40 mg/dL Desirable HDL: greater than 40 mg/dL Note: This HDL assay may give artificially low results in patients with liver disease. Vitamin D 25-OH Total Reviewed date:10/01/2024 09:40:10 AM Interpretation: Performing Lab:[facility], [address] [place] [phone] Notes/Report: Vitamin D 25-OH Total 37.6 >30 ng/mL Health Based Reference Values* < 20 ng/mL Deficient 20-30 ng/mL Insufficient > 30 ng/mL Sufficient *Ayleen HOANG. N Engl J Med. 2007;357:266-280 There is no well-established upper level of normal vitamin D levels. Some laboratories use 50 ng/mL as an upper limit of normal. However, toxicity is patient-dependent and may occur at any level. Careful correlation with the patient's presentation is necessary and, if there is concern for vitamin D toxicity, treatment should be considered irrespective of the serum level. Care must be taken in interpreting Vitamin [...] Duration) Notes Start Date End Date Status Protonix 40 MG 1 tablet Orally ever y other day Active Vitamin D 25 MCG (1000 UT) 1 tablet Orally Once a day Active Jardiance 10 MG Oral Acti ve Flomax [...] directed Orally t wice a day Active Immunizations Vaccine Route Administration [...] Problem Status W/U Status Risk Notes Problem 1630837 Former smoker (Z87.891) Active confirmed He is highly motivated not to smoke. We discussed a plan for prevention of relapse in times of stress. Problem 930299372 Thrombocytopenia (D69.6) Active confirmed This platelet count is currently stable and improved at 155,000. No change in his regimen was made. Problem Vitamin D deficiency (11439137) Vitamin D deficiency, unspecified (E55.9) Active confirmed He was continue d on his vitamin D supplements Problem 449526849 Gastro-esophagea l reflux disease without esophagitis (K21.9) Active confirmed The reflux is well-controlled with ihev-htg-joxlhiw medications. Problem 708338573 BPH (benign prostatic hyperplasia) (N40.0) Active confirmed He arises from sleep once or twice a night to urinate. It depends upon fluid intake. We discussed lifestyle modification as a way to relieve nocturia. Problem 159170362 Obesity (BMI 30-39.9) (E66.9) Active confirmed His body ma ss index is 37.1.He has lost 6 pounds. We discussed his diet and nutrition. We discussed lifestyle modifications he could make to lose weight. We made a plan to lose weight at a rate of one half of a pound per week. Problem 657129067 Chronic anticoagulation (Z79.01) Active confirmed He has had no bleeding or clotting. Since his last visit. He will continue on current therapy. Because of the atrial fibrillation. Problem 50395516 Essential hypertension (I10) Active confirmed His blood pressure is stable today at 133/78 and no change in his regimen was necessary. We reviewed the wisdom of progressive sodium restriction and weight loss. Problem 45132155 Colonic polyp (K63.5) Active confirmed He will undergo colonoscopies periodically. He is currently up-to-date. Problem 611118294 Osteoarthritis (M19.90) Active confirmed The pain is primarily in his knees and he feels quite well. Problem 177043842 History of pulmonary embolism (Z86.711) Active confirmed He is had no further pulmonary symptoms and is anticoagulated. The fat was in 2004 and he has been anticoagulated. Problem 955155562 AF (paroxysmal atrial fibrillation) (I48.0) Active confirmed His heart rate was regular today and well controlled. No change in his regimen was necessary. He remains anticoagulated. 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 He was encouraged to see the cinder pit crane operator regularly. Problem 541004722 Macrocytosis (D75.89) Active confirmed His mean cell volume is now 102.4. It has improved substantially from 102.6. The cause is unclear but may be dietary.Evaluati on with folic acid and vitamin B12 and reticulocytes is indicated. Problem 46531347 Central sleep apnea (G47.31) Active confirmed He is using h is CPAP every night and feels much better. Vital Signs Heart Rate 69 /min 10/01/2024 Temperature 97.2 degrees Fahrenheit 10/01/2024 Oximetry 100 % 11/13/2023 Blood pressure diastolic 78 mm Hg 10/01/2024 Height 69.5 in 10/01/2024 Blood pressure systolic 133 mm Hg 10/01/2024 Weight 255 lbs 10/01/2024 BMI 37.11 kg/m2 10/01/2024 Encounters Encounter Location Date Provider Diagnosis Inocente Painting III, MD [address] [place] [address] [place] [address] 11/13/2023 Inocente Painting Essential hypertensi on I10 [...] Chronic anticoagulation Z79.01 Inocente Painting III, MD [address] [place] [address] [place] [phone] 02/09/2024 Inocente Painting Essential hypertensi on I10 ; AF (paroxysmal atrial fibrillation) I48.0 ; Obesity (BMI 30-39.9) E66.9 ; Former smoker Z87.891 ; Gastro-esophageal reflux disease without esophagitis K21.9 ; Central sleep apnea G47.31 ; Thrombocytopenia D69.6 ; Macrocytosis D75.89 ; History of pulmonary embolism Z86.711 and BPH (benign prostatic hyperplasia) N40.0 Inocente Painting III, MD [address] [place] [address] [address] [place] [address] 06/11/2024 Inocente Painting Essential hypertensi on I10 ; AF (paroxysmal atrial fibrillation) I48.0 ; Thrombocytopenia D69.6 ; Gastro-esophageal reflux disease without esophagitis K21.9 ; Macrocytosis D75.89 ; Central sleep apnea G47.31 ; Osteoarthritis M19.90 ; History of pulmonary embolism Z86.711 ; BPH (benign prostatic hyperplasia) N40.0 ; Former smoker Z87.891 ; Chronic anticoagulation Z79.01 and Obesity (BMI 30-39.9) E66.9 Inocente Painting III, MD [address] [place] [address] [address] [place] [address] 10/01/2024 Inocente Painting Essential hypertensi on I10 [...] regimen was necessary. He remains anticoagulated. 06/11/2024 Essential hypertensi on (ICD-10 - I10) His blood pressure is stable today at 134/78 and no change in his regimen was necessary. We reviewed the wisdom of progressive sodium restriction and weight loss. 06/11/2024 AF (paroxysmal atria l fibrillation) (ICD-10 - I48.0) His heart rate was regular today and well controlled. No change in his regimen was necessary. He remains anticoagulated. 10/01/2024 Former smoker (ICD-1 0 - Z87.891) He is highly motivated not to smoke. We discussed a plan for prevention of relapse in times of stress. 10/01/2024 Essential hypertensi on (ICD-10 - I10) His blood pressure is stable today at 133/78 and no change in his regimen was necessary. We reviewed the wisdom of progressive sodium restriction and weight loss. 11/13/2023 Vitamin D deficiency , unspecified (ICD-10 [...] one half of a pound per week. 06/11/2024 Thrombocytopenia (ICD-10 - D69.6) This platelet count is currently stable and improved at 155,000. No change in his regimen was made. 10/01/2024 Obesity (BMI 30-39.9 ) (ICD-10 - E66.9) His body mass index is 37.1.He has lost 6 pounds. We discussed his diet and nutrition. We discussed lifestyle modifications he could make to lose weight. We made a plan to lose weight at a rate of one half of a pound per week. 11/13/2023 Obesity (ICD-10 - E66.9) His body [...] of relapse in times of stress. 06/11/2024 Gastro-esophageal reflux disease without esophagitis (ICD-10 - K21.9) The reflux is well-controlled with zhjg-eyi-oglqbmj medications. 10/01/2024 Gastro-esophageal reflux disease without esophagitis (ICD-10 - K21.9) The reflux is well-controlled with gzwu-mqk-vihozbq medications. 11/13/2023 Gastro-esophageal reflux disease without esophagitis (ICD-10 - K21.9) The reflux is well-controlled with fgqy-vgf-qqhjqxe medications. 02/09/2024 Gastro-esophageal reflux disease without esophagitis (ICD-10 - K21.9) The reflux is well-controlled with ypdh-nqa-fferyhz medications. 06/11/2024 Macrocytosis (ICD-10 - D75.89) His mean cell volume is now 102.4. It has improved substantially from 102.6. The cause is unclear but may be dietary.Evaluation with folic acid and vitamin B12 and reticulocytes is indicated. 10/01/2024 Strabismus (ICD-10 - H50.9) This abnormality was still present and is long-standing. He was encouraged to see the cinder pit crane operator regularly. 11/13/2023 Strabismus (ICD-10 - H50.9) This abnormality was still present and is long-standing. He was encouraged to see the cinder pit crane operator regularly. 02/09/2024 Central sleep apnea (ICD-10 - G47.31) He is using his CPAP every night and feels much better. 06/11/2024 Central sleep apnea (ICD-10 - G47.31) He is using his CPAP every night and feels much better. 10/01/2024 Chronic anticoagulation (ICD-10 - Z79.01) He has had no bleeding or clotting. Since his last visit. He will continue on current therapy. Because of the atrial fibrillation. 11/13/2023 Colonic polyp (ICD-1 0 - K63.5) He will undergo colonoscopies periodically. He is currently up-to-date. 02/09/2024 Thrombocytopenia (ICD-10 - D69.6) His platelet count has increased from 131,000-148,000. He is anticoagulated and has had no bleeding. No change in his therapy is indicated. He is avoiding aspirin. 06/11/2024 Osteoarthritis (ICD- 10 - M19.90) The pain is primarily in his knees and he feels quite well. 10/01/2024 BPH (benign prostati c hyperplasia) (ICD-10 - N40.0) He arises from sleep once or twice a night to urinate. It depends upon fluid intake. We discussed lifestyle modification as a way to relieve nocturia. 11/13/2023 Macrocytosis (ICD-10 - D75.89) His mean [...] vitamin B12 and reticulocytes is indicated. 06/11/2024 History of pulmonary embolism (ICD-10 - Z86.711) He is had no further pulmonary symptoms and is anticoagulated. The fat was in 2004 and he has been anticoagulated. 10/01/2024 History of pulmonary embolism (ICD-10 - Z86.711) He is had no further pulmonary symptoms and is anticoagulated. The fat was in 2004 and he has been anticoagulated. 11/13/2023 Thrombocytopenia (ICD-10 - D69.6) His platelet [...] as a way to relieve nocturia. 10/01/2024 Vitamin D deficiency , unspecified (ICD-10 - E55.9) He was continued on his vitamin D supplements 11/13/2023 Central sleep apnea (ICD-10 - G47.31) [...] of relapse in times of stress. 11/13/2023 Osteoarthritis (ICD- 10 - M19.90) The pain is primarily in his knees and he feels quite well. 06/11/2024 Chronic anticoagulation (ICD-10 - Z79.01) He has had no bleeding or clotting. Since his last visit. He will continue on current therapy. Because of the atrial fibrillation. 11/13/2023 Former smoker (ICD-1 0 - Z87.891) He is highly motivated not to smoke. We discussed a plan for prevention of relapse in times of stress. 06/11/2024 Obesity (BMI 30-39.9 ) (ICD-10 - E66.9) His body mass index is 37.5.He has lost 6 pounds. We discussed his diet and nutrition. We discussed lifestyle modifications he could make to lose weight. We made a plan to lose weight at a rate of one half of a pound per week. 11/13/2023 BPH (benign prostati c hyperplasia) (ICD-10 [...] C) 08/31/2023 PROFILE, FASTING (COMPREHENSIVE METABOLI C) 10/01/2024 PROFILE, FASTING (COMPREHENSIVE METABOLI C) 04/07/2022 PROFILE, FASTING (COMPREHENSIVE METABOLI C) 07/15/2020 PROFILE, FASTING (COMPREHENSIVE METABOLI C) 04/02/2020 PROFILE, FASTING (COMPREHENSIVE METABOLI C) 08/11/2021 PROFILE, FASTING (COMPREHENSIVE METABOLI C) 06/11/2024 PROFILE, FASTING (COMPREHENSIVE METABOLI C) 01/03/2022 PROFILE, [...] TOTAL 02/09/2024 PSA, TOTAL 06/30/2022 PSA, TOTAL 10/01/2024 PSA, TOTAL 09/27/2019 PSA, TOTAL 02/03/2021 PSA, TOTAL 11/09/2022 PSA, TOTAL 07/15/2020 PSA, TOTAL 08/11/2021 MICROALBUMIN, RANDOM 11/09/2022 CBC w DIFF 01/03/2022 CBC w DIFF 11/09/2022 CBC w DIFF 04/02/2020 CBC w DIFF 05/18/2023 CBC w DIFF 01/02/2020 CBC w DIFF 05/06/2021 CBC w DIFF 06/30/2022 CBC w DIFF 10/01/2024 CBC w DIFF 04/07/2022 CBC w DIFF 09/27/2019 CBC w DIFF 06/11/2024 CBC w DIFF 02/03/2021 CBC w DIFF [...] 11/13/2023 Lipid Panel 02/16/2023 Lipid Panel 08/31/2023 Lipid Panel 10/01/2024 Lipid Panel 06/11/2024 Vitamin D 25-OH Total 10/01/2024 Vitamin D 25-OH Total 06/11/2024 Vitamin D 25-OH Total 11/13/2023 Hemoglobin A1c 08/31/2023 Next Appt Details Provider Name:Inocente Gaviota Painting , 11/14/2024 10:00:00 AM, [address] [place] [address] ISAIAS [address]LEY, [place], [address], Insurance Providers Payer Name Payer Address Payer Phone Subscriber Number Group Number Insured Name Patient Relationship to Insured Coverage Start Date Coverage End Date [employer] Advantage [address] [address] [place] [address] [id number] Behzad Mendoza Self - patient is the insured MEDICARE NGS [address] [place] [phone] [id number] Kelly Behzad Self - patient is the insured Medical (General) History Medical History History ICD Code sleep apnea with cpap at10 cm 2004 pulmonary embolism atrial fibrillation obesity bph hypertension thrombocytopenia gerd right strabismus tubular adenomas on colonoscopy macrocytosis osteoarthritis obesity former smoker intermittent low back pain left TKR 07/2015 [facility] Surgical History Surgery Date(Month/Year) No history Melanoma removed from upper left chest- Negative result 10/2023 cardio verted colonoscopy 2014 colonoscopy, tubular adenoma September 2009 colonoscopy, tubular adenoma May 2006 right breast mass, benign September 2003 basal cell ca excisions lipoma excisions breast biopsy right pilonidal cyxt 1059 T&A 1944 right knee rplacement [facility] 2012 Hospitalization History Reason Date(Month/Year) No history Intermittent chest pain 06/2020 Epigastric pain 06/2020
--- OUTSIDE RECORDS SUMMARY | 2024-11-06 06:20 | XMS_ITS | Encounter Summary ---
Author Organization [facility] Address [address] [place] [address] Phone Care Team Providers Care Sports Instructor Name Role Phone Inocente Painting MD Primary Care Provider [phone] Encounter Details Date Type Department Care Team (Late st Contact Info) Description 05/20/2021 Procedure [facility], Ct Scan - [address] [address] Social History Tobacco Use Types Packs/Day Years [...] 4:45 PM EDT Josie Martínez RN * Rudolph Suicide Severity Rating Scale (Screener/Recent Self-Report) Question [...] on filedocumented in this encounter Care Teams Sports Instructor Relationship Specialty Start Date End Date Inocente Painting MD [facility] [place] [address] PCP - General Medical Oncology 05/20/21 documented as of this encounter Additional Source Comments The information contained in this document represents components of the legal health record. It is not the complete legal health record.[facility]
--- OUTSIDE RECORDS SUMMARY | 2024-11-06 06:20 | XMS_ITS | Clinical Summary ---
Author Organization [facility] Address [address] [place] [address] Phone Care Team Providers Care Rack Pusher Name Role Phone Inocente Painting MD Primary Care Provider [phone] Allergies Active Allergy Reactions Criticality Noted Date [...] 11/22/2014 CREATININE LEVEL 12/04/2015 12/03/2014, , 08/08/2011 INFLUENZA VACCINE (#1) 2024 , 12/18/2019, 12/11/2018, Additional history exists COVID-19 VACCINE ( season) 2024 11/07/2020, 04/14/2020, 04/02/2020, Additional history exists ZOSTER [...] Plasma Sodium 141 135 - 145 mmol/L [facility] Plasma Potassium 4.7 3.4 - 5.0 mmol/L [facility] Plasma Chloride 102 98 - 108 mmol/L [facility] Plasma Carbon Dioxide 28 23 - 32 mmol/L [facility] Plasma Urea Nitrogen 14 8 - 25 mg/dL [facility] Plasma Creatinine 1.18 0.60 - 1.50 mg/dL [facility] Plasma Glucose 112(Abnor thomas H) 70 - 110 mg/dL [facility] Calcium 9.5 8.5 - 10.5 mg/dL [facility] eGFR >60 mL/min/1. 73m2 [facility] Comment: Abnormal if <60 mL/min/1.73m2. If patient is -Tanz[place], multiply the result by 1.21. Plasma Anion GAP 11 3 - 17 mmol/L [facility] 12/03/2014 8:12 AM EDT 12/03/2014 8:14 AM EDT Comment:BLOOD us Jennyfer Fitzgerald MD LAB BLOOD ORDERABLES Edited Result - Final [address] [phone] from Last 3 Months or Most Recently Relevant to Health Maintenance Insurance MEDICARE REPLACEMENT MEDICARE [place] [address] [address] MEDICARE REPLACEMENT [facility] MEDICARE REPLACEMENT [facility] MEDICARE REPLACEMENT [facility] MEDICARE REPLACEMENT [facility] MEDICARE REPLACEMENT Care Teams Rack Pusher Relationship Specialty Start Date End Date Inocente Painting MD [address] [place] [address] [phone] PCP - General Medical Oncology 05/20/21 Additional Source Comments The information contained in this document represents components of the legal health record. It is not the complete legal health record.[facility]
--- OUTSIDE RECORDS SUMMARY | 2024-11-06 06:20 | XMS_ITS | Clinical Summary ---
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
[2024-11-06 10:34] LABS: MANUAL DIFF FLAG NO
[2024-11-06 10:40] LABS: Hematocrit 49.4 % (42.0-52.0); Hemoglobin 16.0 g/dl (14.0-18.0); Imm Gran Abs Auto 0.02 X10*3/uL (0.00-0.03); Imm Gran Pct Auto 0.4 % (0.0-0.4); Lymphocytes Absolute Auto 1.1 X10*3/uL (1.2-4.9); Mean Corpuscular HGB Conc 32.4 g/dl (31.0-36.0); Mean Corpuscular Hemoglobin 32.9 pg (27.0-33.0); Mean Corpuscular Volume 101.4 fL (80.0-98.0); NRBC Abs Auto 0.000 X10*3/uL (0.0-0.012); NRBC Pct Auto 0.0 /100WBC (0.0-0.2); Platelet Count 122 X10*3/uL (160-400); Red Blood Count 4.87 X10*6/uL (4.60-5.80); White Blood Count 5.0 X10*3/uL (4.8-10.8)
[2024-11-06 11:42] LABS: Alanine Aminotransferase 15 U/L (0-40); Albumin Level 3.6 g/dL (3.5-5.0); Alkaline Phosphatase 59 U/L (39-117); Anion Gap 11 (12-20); Aspartate Amino Transferase 20 U/L (5-37); Blood Urea Nitrogen 17 mg/dL (9-16); Calcium 8.8 mg/dL (8.4-10.2); Carbon Dioxide 26 mmol/L (22-29); Chloride 108 mmol/L (96-108); Cholesterol 137 mg/dL (<200); Estimated Glomerular Filt Rate 59; HDL Cholesterol 48 mg/dL (>40); Potassium 3.9 mmol/L (3.3-5.1); Sodium 141 mmol/L (135-145); Total Protein 6.5 g/dL (6.5-8.0); Triglycerides 53 mg/dL (<150)
[2024-11-06 11:46] LABS: Prostate Specific Antigen 3.59 ng/mL (<0.05-4.0)
== END 2024-11-06 06:18 | disposition home or self-care (01) ==
LOC: HO.HMGCLDS 06:17
PROVIDERS: PCP Internal Medicine Medical Oncology; Visit Provider Internal Medicine Medical Oncology
DX: Z12.5 Encounter for screening for malignant neoplasm of prostate (principal); I10 Essential (primary) hypertension; N40.0 Benign prostatic hyperplasia without lower urinary tract symptoms; E55.9 Vitamin D deficiency, unspecified; E66.9 Obesity, unspecified; D75.89 Other specified diseases of blood and blood-forming organs
CPT/HCPCS: 36415; 80053; 80061; 82306; 84153; 85025

== ENCOUNTER 2024-11-21 09:22 | Outpatient (AMB) | payer MEDICARE, SELFPAY ==
[2024-11-21 09:27] VITALS: BP 140/82; PULSE 45; O2SAT 97; BMI 39.2
--- NOTE | 2024-11-21 09:27 | A.OFFVIS_ITS ---
Vital Signs 11/21/24 09:27 Height 5 ft 9 in Weight 265 lb 10.512 oz BMI 39.2 BP 140/82 H Blood Pressure Location Rt brachial Position Sitting Pulse 45 L Pulse Source Pulse Oximeter Pulse Oximetry (%) 97 Oxygen Delivery Method Room Air Intake Visit Reasons: Sleep apnea Allergies morphine (MORPHINE) Allergy (Intermediate, Verified 11/21/24 09:48) RASH Medication List - Last Reconciled 11/21/24 by Shaniqua Munson MD amlodipine 2.5 mg PO DAILY apixaban (Eliquis) 5 mg PO BID cholecalciferol (vitamin D3) 25 mcg PO DAILY empagliflozin (Jardiance) 10 mg PO DAILY furosemide 40 mg PO DAILY metoprolol succinate ER 50 mg PO DAILY pantoprazole 40 mg PO DAILY tamsulosin 0.4 mg PO DAILY Do you need a note to return to daycare/school/sports/work: No HPI HPI Sleep apnea: Details: 83 years old very pleasant gentleman is here for 6 months follow-up for his sleep apnea. He uses CPAP device every night and sleeps up to 8 hours per night, with only 1 awakening to go to the bathroom. He remains very active and also remains very fond of eating. Does his weight is up by a few lbs. He has no issues with the CPAP device are any daytime sleepiness. HAS BEEN USING THE CPAP SINCE 2020 FORMERLY [facility] Medical History Atrial flutter Persistent atrial fibrillation RUMA on CPAP Obesity (BMI 30-39.9) Diastolic dysfunction Pulmonary hypertension Enlarged RV (right ventricle) Morbid obesity (HFpEF) heart failure with preserved ejection fraction Paroxysmal atrial fibrillation History of cardioversion Surgical History H/O colonoscopy Hx of cataract extraction History of excision of pilonidal cyst Hx of knee surgery Family History Father Afib COPD (chronic obstructive pulmonary disease) Diabetes Mother Cancer Afib Social History Patient Tobacco Use Status: Former Tobacco user Tobacco use type: Cigarette Years Smoked: 12 Review of Systems Const All systems reviewed & are unremarkable except as noted in HPI and below Eyes Reports no additional complaints ENT Reports no additional complaints Card Reports irregular heart rhythm (Atrial fibrillation controlled) and Reports dyspnea (On walking) Resp Reports dyspnea (On walking) GI Reports heartburn (Controlled with med) Reports urinary hesitancy (Being treated with Flomax) Musc Reports joint swelling (Niece) Skin/Breast Reports system reviewed and no additional complaints, except as documented Neuro Reports no additional complaints Psych Reports no additional complaints Physical Exam Vital Signs: Last Vital Signs Pulse 45 L 11/21/24 09:27 BP 140/82 H 11/21/24 09:27 Pulse Ox 97 11/21/24 09:27 Oxygen Delivery Method Room Air 11/21/24 09:27 BMI result Body Mass Index 39.2 Const General: healthy appearing (Except for being overweight), comfortable, no acute distress, alert and awake Orientation/consciousness: patient oriented x3 HEENT Head: Yes normal to inspection General nose exam: No nasal polyps present and No nasal discharge present Face and sinus: Yes sinuses nontender Mouth: oropharynx normal Throat: Yes posterior oropharynx normal Eyes General: appearance normal, both eyes and all related structures Neck Neck: Yes normal visual inspection, Yes no lymphadenopathy, Yes trachea midline and Yes no JVD Thyroid: Thyroid normal Chest Chest palpation & inspection: normal inspection of the chest, normal palpation of entire chest wall and no tenderness Resp Effort & Inspection: normal respiratory effort and no cough Auscultation: clear to auscultation bilaterally, no crackles and no wheezes Percussion: percussion normal Cardio Palpation: normal PMI Rate: regular rate Rhythm: abnormal rhythm (Atrial fib) Heart sounds: no gallops and no murmurs GI Palpation (GI): Soft to palpation, nontender, No hepatosplenomegaly present, no masses and Other GI palpation findings present ( Abdomen is moderately obese and protuberant) Auscultation: normal bowel sounds Back/Spine/Pelvis Thoracic/Lumbar Spine: thoracic and lumbar spine normal to inspection Skin General skin exam: no rashes or lesions noted Neuro General: patient oriented x3 and no focal motor deficits Cranial nerves: Yes CN's II-XII intact bilaterally Extrem General: Yes normal to inspection, Yes no clubbing, cyanosis or edema, Yes no calf tenderness and Yes venous stasis dermatitis (He does have mild skin discoloration due to chronic stasis dermatitis) Psych Appearance: grossly normal and well kempt Speech and movement: Normal speech and movement present Results Reviewed Results Reviewed: COMPLIANCE REPORT FOR THE LAST 30 NIGHTS REVIEWED AND HE HAS USED 100% OF THE NIGHTS WITH AVERAGE USE IT PER NIGHT 8 HOURS 0 MINUTES. HE IS ON CPAP OF 10 CM THERE IS A SLIGHT AIR LEAK THIS HAPPENS WHEN HE GOES TO THE BATHROOM. RESIDUAL AHI 5.7 Assessment & Plan Assessment & Plan (1) Obesity (BMI 30-39.9): Comment: This is a chronic problem and it is difficult for him to lose weight as he cannot do much physical activity. He tries to control his diet, but he also loves to go out and eat. Some of his weight is due to fluid retention in the legs which is being kept under control. Code(s): E66.9 - Obesity, unspecified Category: Medical Plan: Discussed about his weight and he would try to limit his calories intake (2) RUMA on CPAP: Comment: Very COMPLIANT ,, and BENEFITTING . Using CPAP since 2020. CPAP machine is working well. He is very happy with the CPAP usage. Code(s): G47.33 - Obstructive sleep apnea (adult) (pediatric); Z99.89 - Dependence on other enabling machines and devices Category: Medical Plan: Continue to use the CPAP regularly. Try to lose weight. Coding Level of Care Code Est Pt Level 3 (18205) Diagnoses Obesity (BMI 30-39.9) E66.9 RUMA on CPAP G47.33; Z99.89
== END 2024-11-21 09:49 | disposition home or self-care (01) ==
LOC: HO.HPS 09:23
PROVIDERS: PCP Internal Medicine Medical Oncology; Visit Provider Internal Medicine
DX: E66.9 Obesity, unspecified (principal); G47.33 Obstructive sleep apnea (adult) (pediatric); Z99.89 Dependence on other enabling machines and devices
CPT/HCPCS: 99213

== ENCOUNTER → 2024-11-21 09:22 | Outpatient (BNVA) | payer MEDICARE, SELFPAY | PROVIDERS: PCP Internal Medicine Medical Oncology; Visit Provider Internal Medicine | DX: G47.33 Obstructive sleep apnea (adult) (pediatric) (principal); E66.9 Obesity, unspecified; Z99.89 Dependence on other enabling machines and devices | CPT/HCPCS: 99212 ==

== ENCOUNTER 2024-12-02 13:52 | Outpatient (AMB) | payer MEDICARE, SELFPAY | END 2024-12-02 14:01 | disposition home or self-care (01) | LOC: HO.HMGAL 13:52 | PROVIDERS: PCP Internal Medicine Medical Oncology; Visit Provider Registered Nurse Emergency | DX: J30.89 Other allergic rhinitis (principal) | CPT/HCPCS: 95117; 95165 ==

== ENCOUNTER 2024-12-30 13:56 | Outpatient (AMB) | payer MEDICARE, SELFPAY | END 2024-12-30 13:57 | disposition home or self-care (01) | LOC: HO.HMGAL 13:56 | PROVIDERS: PCP Internal Medicine Medical Oncology; Visit Provider Registered Nurse Emergency | DX: J30.89 Other allergic rhinitis (principal) | CPT/HCPCS: 95117; 95165 ==

== ENCOUNTER 2025-01-01 08:20 | Outpatient (AMB) | payer MEDICARE, SELFPAY ==
--- OUTSIDE RECORDS SUMMARY | 2023-08-31 04:15 | XMS_ITS ---
Author Organization [facility], MD Address [address] [place] [address] Care Team Providers Care Help Desk Coordinator Name Role Phone Dr. [facility] [...] Date Provider Diagnosis [facility], MD [address] [place] [address] [place] [address] 08/31/2023 [facility] Essential hypertensi on I10 [...] - K21.9) The reflux is well-controlled with omql-ugk-oddgxkx medications. 08/31/2023 AF (paroxysmal atria l fibrillation) [...] Provider Name:[facility] , 03/18/2025 09:00:00 AM, [address] [place] [address] [address], [address], [facility], [address], Provider Name:[facility]ador[facility] , 11/18/2025 09:00:00 AM, [address] [place] [address] [address], [place], [address], Progress Notes * Behzad MENDOZADOB:[birth year] (82 yo M)Acc No.[id number]:08/31/2023 Progress Notes Patient: Behzad Agrawal Provider: [facility] MD :1940 A ge:82 Y S ex:Male Date:08/31/2023 [facility] [place] [id number] Subjective: * Chief Complaints: * H ypertensionParoxysmal [...] Findings: Tobacco Non-User E x-cigarette smoker 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 He has been to [place] for 43 [...] - K21.9, The reflux is well-controlled with ypnu-fug-kjtpeku medications. 5 . A F (paroxysmal atrial [...] 0 08/31/2023 Generated for Vu cole/Vaughn/eTcarylsmitting on: 03/03/2024 04:01 PM EST History and Physical Notes * HPI (History of Present Illness) Category Sub-Category Detail Notes COVID-19 Screening Questions Have you had any new onset fever, chills, cough, congestion, sore throat, shortness of breath, muscle aches?: No Have you been exposed to the virus withi n the last 10 days?: No Have you travelled internationally in [facility] last 10 days?: No Have you [...]
--- OUTSIDE RECORDS SUMMARY | 2023-11-13 05:00 | XMS_ITS ---
Author Organization [facility] III, MD Address [address] [place] [place] [address] Care Team Providers Care Spout Liner Name Role Phone Dr. Inocente Painting III [...] Date Provider Diagnosis Inocente Painting III, MD [address] [place] [address] [place] [address] 11/13/2023 [facility] Essential hypertensi on I10 [...] - K21.9) The reflux is well-controlled with dofh-xvh-oaweqth medications. 11/13/2023 Strabismus (ICD-10 - H50.9) This abnormality was still present and is long-standing. He was encouraged to see the sound mixer regularly. 11/13/2023 Colonic polyp (ICD-1 0 - [...] Provider Name:Inocente Painting , 03/18/2025 09:00:00 AM, [address] [place] [address] [address], [place], [address], Provider Name:Inocente Painting , 11/18/2025 09:00:00 AM, [address] [place] [address] [address], [place], [address], Progress Notes * Behzad MENDOZADOB:[birth year] (82 yo M)Acc No.[id number]:11/13/2023 Progress Notes Patient: Behzad OQUENDO Provider: Autmun Painting MD :1940 A ge:82 Y S ex:Male Date:11/13/2023 [facility] [id number] Subjective: * Chief Complaints: * A [...] 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 Pane l Fast * Collection Date 11/08/2023 [...] K21.9 ?Notes :The reflux is well-controlled with ihub-mry-qhxukyw medications. 6 . S trabismus - H50.9 N otes :This abnormality was still present and is long-standing. He was encouraged to see the sound mixer regularly. 7 . C olonic polyp - [...] Procedure Codes: 9 4760 MEASURE BLOOD OXYGEN [id number] URINE-NO MICRO * Preventive Medicine: Counseling: C [...] 0 11/13/2023 Generated for Vu cole/Vaughn/Brandoitting on: 03/03/2024 04:01 PM EST History and [...]
--- OUTSIDE RECORDS SUMMARY | 2024-02-09 04:00 | XMS_ITS ---
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 Inocente Painting III [...] Date Provider Diagnosis Inocente Painting III, MD [address] [place] [address] [place] [address] 02/09/2024 Inocente Painting Essential hypertensi on I10 [...] - K21.9) The reflux is well-controlled with kavn-nqn-yimzvzw medications. 02/09/2024 Central sleep apnea (ICD-10 - [...] Provider Name:Inocente Painting , 03/18/2025 09:00:00 AM, [address] [place] [address], [place] [address], [place], [address], Provider Name:Inocente Painting , 11/18/2025 09:00:00 AM, [address] [place] [address] [address], [place], [address], Progress Notes * Behzad MENDOZADOB:[birth year] (83 yo M)Acc No.[id number]:02/09/2024 Progress Notes Patient: Behzad OQUENDO Provider: Autumn Painting MD :1940 A ge:83 Y S ex:Male Date:02/09/2024 Address: [address] [place], [id number] Subjective: * Chief Complaints: * H ypertensionLaceration [...] tripped on a steel object at his dqubtx-zf-uhz's place a couple of weeks ago, resulting [...] x-cigarette smoker 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 6 . C entral sleep apnea [...] Date: 04/11/2023 Generated for Vu cole/Vaughn/Brandoitting on: 03/03/2024 04:01 [...]
--- OUTSIDE RECORDS SUMMARY | 2024-06-11 04:00 | XMS_ITS ---
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 Inocente Painting III Primary Care Provider [phone] Allergies Allergen (clinical drug ingredient) Drug/Non Drug Allergy documented on EMR Reaction Allergy Type Onset Date Status morphine Morphine Sulfate Rash Drug Allergy Active REASON FOR VISIT Hypertension, Paroxysmal atrial fibrillation, GERD, Thrombocytopenia, Macrocytosis, Sleep apnea, Obesity, Anticoagulated, Benign prostatic hypertrophy Medications Medication SIG (Take, Route, Frequency, Duration) Notes Start Date End Date Status Flomax 0.4 MG 1 capsule 30 minutes after the same meal each day Orally Once a day 02/16/2023 Active Metoprolol Succinate ER 50 MG 1 tablet Orally Once a day A ctive Jardiance 10 MG Oral Acti ve Lasix 40 MG 1 tablet Orally Once a day Active amLODIPine Besylate 2.5 MG [...] Observation Description Sex Assigned At Male Tobacco Control (Standard) Question Answer Notes Tobacco use: Former smoker How long has it been since you last smoked? Grea ter than 10 years Additional Findings: Tobacco non-user Ex-cigaret te smoker Vital Signs Temperature 97.3 degrees Fahrenheit 06/12/19 25 Blood pressure systolic 134 mm Hg 04/29/20 25 Blood pressure diastolic 78 mm Hg 025 Heart Rate 77 /min 06/11/2024 Height 69.5 in 06/11/2024 Weight 258 lbs 06/11/2024 BMI 37.55 kg/m2 06/11/2024 Encounters Encounter Location Date Provider Diagnosis Inocente Painting III, MD [address] [place] [address] [place], [place] [address] 06/11/2024 Inocente Painting Essential hypertensi on I10 ; AF (paroxysmal atrial fibrillation) I48.0 ; Thrombocytopenia D69.6 ; Gastro-esophageal reflux disease without esophagitis K21.9 ; Macrocytosis D75.89 ; Central sleep apnea G47.31 ; Osteoarthritis M19.90 ; History of pulmonary embolism Z86.711 ; BPH (benign prostatic hyperplasia) N40.0 ; Former smoker Z87.891 ; Chronic anticoagulation Z79.01 and Obesity (BMI 30-39.9) E66.9 Assessments Encounter Date Diagnosis (ICD Code) Assessment Notes Treat ment Notes Treatment Clinical Notes 06/11/2024 Essential hypertensi on (ICD-10 - I10) His blood pressure is stable today at 134/78 and no change in his regimen was necessary. We reviewed the wisdom of progressive sodium restriction and weight loss. 06/11/2024 AF (paroxysmal atria l fibrillation) (ICD-10 - I48.0) His heart rate was regular today and well controlled. No change in his regimen was necessary. He remains anticoagulated. 06/11/2024 Thrombocytopenia (ICD-10 - D69.6) This platelet count is currently stable and improved at 155,000. No change in his regimen was made. 06/11/2024 Gastro-esophageal reflux disease without esophagitis (ICD-10 - K21.9) The reflux is well-controlled with pmdo-yvl-uwanfid medications. 06/11/2024 Macrocytosis (ICD-10 - D75.89) His mean cell volume is now 102.4. It has improved substantially from 102.6. The cause is unclear but may be dietary.Evaluation with folic acid and vitamin B12 and reticulocytes is indicated. 06/11/2024 Central sleep apnea (ICD-10 - G47.31) He is using his CPAP every night and feels much better. 06/11/2024 Osteoarthritis (ICD- 10 - M19.90) The pain is primarily in his knees and he feels quite well. 06/11/2024 History of pulmonary embolism (ICD-10 - Z86.711) He is had no further pulmonary symptoms and is anticoagulated. The fat was in 2004 and he has been anticoagulated. 06/11/2024 BPH (benign prostati c hyperplasia) (ICD-10 - N40.0) He arises from sleep once or twice a night to urinate. It depends upon fluid intake. We discussed lifestyle modification as a way to relieve nocturia. 06/11/2024 Former smoker (ICD-1 0 - Z87.891) He is highly motivated not to smoke. We discussed a plan for prevention of relapse in times of stress. 06/11/2024 Chronic anticoagulation (ICD-10 - Z79.01) He has had no bleeding or clotting. Since his last visit. He will continue on current therapy. Because of the atrial fibrillation. 06/11/2024 Obesity (BMI 30-39.9 ) (ICD-10 - E66.9) His body mass index is 37.5.He has lost 6 pounds. We discussed his diet and nutrition. We discussed lifestyle modifications he could make to lose weight. We made a plan to lose weight at a rate of one half of a pound per week. Plan Of Treatment Medication Medication Name Sig Start Date Stop Date Notes Flomax 0.4 MG 1 capsule 30 minutes after the same meal each day Orally Once a day 02/16/2023 Metoprolol Succinate ER 50 MG 1 tablet Orally Once a day Jardiance 10 MG Oral Lasix 40 MG [...] Order Date PROFILE, FASTING (COMPREHENSIVE METABOLI C) 06/11/2024 CBC w DIFF 06/11/2024 Lipid Panel 06/11/2024 Vitamin D 25-OH Total 06/11/2024 Next Appt Details Follow Up: 4 Months, Reason: ov review labs Provider Name:Inocente Painting , 03/18/2025 09:00:00 AM, [address] [place] [address] , [address], [place], [address], Provider Name:Inocente Painting , 11/18/2025 09:00:00 AM, [address] [place] [address] [address] [place], [place], [address], Progress Notes * Behzad MENDOZADOB:[birth year] (83 yo M)Acc No.[id number]:06/11/2024 Progress Notes Patient: Behzad OQUENDO Provider: Autumn Painting MD :1940 A ge:83 Y S ex:Male Date:06/11/2024 [facility] [id number] Subjective: * Chief Complaints: * H ypertensionParoxysmal atrial fibrillationGERDThrombocytopeniaMacrocytosisSleep apneaObesityAnticoagulatedBenign prostatic hypertrophy * HPI: C OVID-19 Screening: He returns to the office for management of several medical issues. He was in normal sinus rhythm today. His blood pressure was controlled and his heart rate was normal. He is anticoagulated and has had no bleeding. Diana george has been compliant with all of his medications. He is trying to lose weight steadily. He is using his CPAP machine without difficulty. His esophageal reflux symptoms are well controlled with medication. Questions H ave you had any new onset fever, chills, cough, congestion, sore throat, shortness of breath, muscle aches? N o * ROS: G eneral/Constitutional: pain o nly normal aches and pains. C hills d enies.?Fatigue a dmits. F ever d enies. E NT: Decreased hearing m ild. R espiratory: Cough d enies. C ardiovascular: Chest pain with exertion d enies. D yspnea on exertion?denies. S hortness of breath w ith exertion. G astrointestinal: Constipation o ccasional. D ecreased [...] Muscle aches d enies. P ainful joints S houlders, hips and knees. S ciatica d enies. W eakness d [...] mellitus, hypertension, artial fibrillation, dementia, diagnosed with HTN, DM. M other: 89 yrs, Macular, renal cell cancer, diagnosed with HTN, Cancer. S pouse: alive. 1 brother(s) , 3 sister(s) . 2 daughter(s) - healthy. . His youngest sister had breast cancer twice and leukemia. Brother had cancer. One of his brothers had cancer. His oldest sister is hypertensive. 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 He has been to [place] for [...] Verified] Objective: * Vitals: H t: 69.5, Wt:258, BMI:37.55, BP:134/78, HR:77, Temp:97.3, Wt-k.03. * P ast Orders: Lab:Complete Blood Count Aut o Diff * Collection Date 06/04/2024 02/02/2024 11/08/2023 Collection Time 06:28 AM 06:52 AM 06:32 AM Order Date 06/04/2024 02/02/2024 11/08/2023 White Blood Count 7.3 (Ref Range: 4.8-10.8 X10*3/uL) 5.4 (Ref Range: 4.8-10.8 X10*3/uL) 6.7 (Ref Range: 4.8-10.8 X10*3/uL) Red Blood Count 5.00 (Ref Range: 4.60-5.80 X10*6/uL) 4.81 (Ref Range: 4.60-5.80 X10*6/uL) 5.34 (Ref Range: 4.60-5.80 X10*6/uL) Hemoglobin 16.4 (Ref Range: 14.0-18.0 g/dl) 15.9 (Ref Range: 14.0-18.0 g/dl) 17.8 (Ref Range: 14.0-18.0 g/dl) Hematocrit 51.2 (Ref Range: 42.0-52.0 %) 48.0 (Ref Range: 42.0-52.0 %) 54.8 H (Ref Range: 42.0-52.0 %) Mean Corpuscular Volume 102.4 H (Ref Range: 80.0-98.0 fL) 99.8 H (Ref Range: 80.0-98.0 fL) 102.6 H (Ref Range: 80.0-98.0 fL) Mean Corpuscular Hemoglobin 32.8 (Ref Range: 27.0-33.0 pg) 33.1 H (Ref Range: 27.0-33.0 pg) 33.3 H (Ref Range: 27.0-33.0 pg) Mean Corpuscular HGB Conc 32.0 (Ref Range: 31.0-36.0 g/dl) 33.1 (Ref Range: 31.0-36.0 g/dl) 32.5 (Ref Range: 31.0-36.0 g/dl) Red Cell Distribution Width 14.7 (Ref Range: 11.0-16.0 %) 14.4 (Ref Range: 11.0-16.0 %) 14.6 (Ref Range: 11.0-16.0 %) Platelet Count 155 L (Ref Range: 160-400 X10*3/uL) 148 L (Ref Range: 160-400 X10*3/uL) 131 L (Ref Range: 160-400 X10*3/uL) Mean Platelet Volume 12.6 H (Ref Range: 9.4-12.4 fL) 12.5 H (Ref Range: 9.4-12.4 fL) 11.9 (Ref Range: 9.4-12.4 fL) Neutrophils Percent Auto 72.9 (Ref Range: 45-73 %) 63.9 (Ref Range: 45-73 %) 73.2 H (Ref Range: 45-73 %) Imm Gran Pct Auto 0.4 (Ref Range: 0.0-0.4 %) 0.4 (Ref Range: 0.0-0.4 %) 0.5 H (Ref Range: 0.0-0.4 %) Lymphocytes Percent Auto 17.8 L (Ref Range: 20-40 %) 22.5 (Ref Range: 20-40 %) 16.1 L (Ref Range: 20-40 %) Monocytes Percent Auto 7.7 (Ref Range: 2-11 %) 10.7 (Ref Range: 2-11 %) 8.3 (Ref Range: 2-11 %) Eosinophils Percent Auto 0.8 (Ref Range: 0-4 %) 1.8 (Ref Range: 0-4 %) 1.4 (Ref Range: 0-4 %) Basophils Percent Auto 0.4 (Ref Range: 0-2 %) 0.7 (Ref Range: 0-2 %) 0.5 (Ref Range: 0-2 %) NRBC Pct Auto 0.0 (Ref Range: 0.0-0.2 /100WBC) 0.0 (Ref Range: 0.0-0.2 /100WBC) 0.0 (Ref Range: 0.0-0.2 /100WBC) Neutrophils Absolute Auto 5.3 (Ref Range: 2.0-8.3 x10*3/uL) 3.5 (Ref Range: 2.0-8.3 x10*3/uL) 4.9 (Ref Range: 2.0-8.3 x10*3/uL) Imm Gran Abs Auto 0.03 (Ref Range: 0.00-0.03 X10*3/uL) 0.02 (Ref Range: 0.00-0.03 X10*3/uL) 0.03 (Ref Range: 0.00-0.03 X10*3/uL) Lymphocytes Absolute Auto 1.3 (Ref Range: 1.2-4.9 X10*3/uL) 1.2 (Ref Range: 1.2-4.9 X10*3/uL) 1.1 L (Ref Range: 1.2-4.9 X10*3/uL) Monocytes Absolute Auto 0.6 (Ref Range: 0.1-1.2 X10*3/uL) 0.6 (Ref Range: 0.1-1.2 X10*3/uL) 0.6 (Ref Range: 0.1-1.2 X10*3/uL) Eosinophils Absolute Auto 0.1 (Ref Range: 0.0-0.4 X10*3/uL) 0.1 (Ref Range: 0.0-0.4 X10*3/uL) 0.1 (Ref Range: 0.0-0.4 X10*3/uL) Basophils Absolute Auto 0.0 (Ref Range: 0.0-0.2 X10*3/uL) 0.0 (Ref Range: 0.0-0.2 X10*3/uL) 0.0 (Ref Range: 0.0-0.2 X10*3/uL) NRBC Abs Auto 0.000 (Ref Range: 0.0-0.012 X10*3/uL) 0.000 (Ref Range: 0.0-0.012 X10*3/uL) 0.000 (Ref Range: 0.0-0.012 X10*3/uL) * Lab:Jesusita Chery. Irena l Fast * Collection Date 06/04/2024 02/02/2024 11/08/2023 Collection Time 06:28 AM 06:52 AM 06:32 AM Order Date 06/04/2024 02/02/2024 11/08/2023 Sodium 143 (Ref Range: 135-145 mmol/L) 142 (Ref Range: 135-145 mmol/L) 142 (Ref Range: 135-145 mmol/L) Bilirubin Total 1.0 (Ref Range: 0.0-1.0 mg/dL) 0.8 (Ref Range: 0.0-1.0 mg/dL) 1.7 H (Ref Range: 0.0-1.0 mg/dL) Aspartate Amino Transferase 22 (Ref Range: 5-37 U/L) 19 (Ref Range: 5-37 U/L) 13 (Ref Range: 5-37 U/L) Alanine Aminotransferase 16 (Ref Range: 0-40 U/L) 13 (Ref Range: 0-40 U/L) 13 (Ref Range: 0-40 U/L) Total Protein 6.5 (Ref Range: 6.5-8.0 g/dL) 6.6 (Ref Range: 6.5-8.0 g/dL) 7.2 (Ref Range: 6.5-8.0 g/dL) Albumin Level 3.7 (Ref Range: 3.5-5.0 g/dL) 3.4 L (Ref Range: 3.5-5.0 g/dL) 3.7 (Ref Range: 3.5-5.0 g/dL) Alkaline Phosphatase 57 (Ref Range: 39-117 U/L) 58 (Ref Range: 39-117 U/L) 56 (Ref Range: 39-117 U/L) Potassium 5.1 (Ref Range: 3.3-5.1 mmol/L) 3.8 (Ref Range: 3.3-5.1 mmol/L) 5.0 (Ref Range: 3.3-5.1 mmol/L) Chloride 106 (Ref Range: 96-108 mmol/L) 105 (Ref Range: 96-108 mmol/L) 104 (Ref Range: 96-108 mmol/L) Carbon Dioxide 32 H (Ref Range: 22-29 mmol/L) 28 (Ref Range: 22-29 mmol/L) 29 (Ref Range: 22-29 mmol/L) Anion Gap 10 L (Ref Range: 12-20) 13 (Ref Range: 12-20) 14 (Ref Range: 12-20) Blood Urea Nitrogen 25 H (Ref Range: 9-16 mg/dL) 22 H (Ref Range: 9-16 mg/dL) 17 H (Ref Range: 9-16 mg/dL) Creatinine 1.19 (Ref Range: 0.5-1.4 mg/dL) 1.08 (Ref Range: 0.5-1.4 mg/dL) 1.24 (Ref Range: 0.5-1.4 mg/dL) Estimated Glomerular Filt Rate 58 > 60 56 Glucose Fasting 98 (Ref Range: 60-99 mg/dL) 98 (Ref Range: 60-99 mg/dL) 85 (Ref Range: 60-99 mg/dL) Calcium 9.3 (Ref Range: 8.4-10.2 mg/dL) 8.8 (Ref Range: 8.4-10.2 mg/dL) 9.7 (Ref Range: 8.4-10.2 mg/dL) * Lab:Lipid Panel * Collection Date 06/04/2024 02/02/2024 11/08/2023 Collection Time 06:28 AM 06:52 AM 06:32 AM Order Date 06/04/2024 02/02/2024 11/08/2023 Triglycerides 49 (Ref Range: <150 mg/dL) 45 (Ref Range: <150 mg/dL) 62 (Ref Range: <150 mg/dL) Cholesterol 129 (Ref Range: <200 mg/dL) 128 (Ref Range: <200 mg/dL) 141 (Ref Range: <200 mg/dL) LDL Cholesterol Calculated 66 (Ref Range: <100 mg/dL) 71 (Ref Range: <100 mg/dL) 78 (Ref Range: <100 mg/dL) HDL Cholesterol 54 (Ref Range: >40 mg/dL) 48 (Ref Range: >40 mg/dL) 51 (Ref Range: >40 mg/dL) * Lab:Prostate Specific Antige n * Collection Date 06/04/2024 02/14/2023 11/02/2022 Collection Time 06:28 AM 06:27 AM 06:34 AM Order Date 06/04/2024 02/14/2023 11/02/2022 Prostate Specific Antigen 3.88 (Ref Range: <0.05-4.0 ng/mL) 3.89 (Ref Range: <0.05-4.0 ng/mL) 3.45 (Ref Range: <0.05-4.0 ng/mL) * Examination: G eneral Examination: GENERAL APPEARANCE: p leasant, well nourished, well developed, in no acute distress, calm and relaxed, obese, man. HEAD: a traumatic, normocephalic. EYES: e sumaya, perrla, anicteric, conjugate. EARS: n ormal. NOSE: s eptum intact. ORAL CAVITY: n ormal, unremarkable. NECK/THYROID: n o jugular venous distention, no carotid bruit, thyroid normal. LYMPH NODES: n o enlarged lymph nodes,spleen normal. SKIN: n o suspicious lesions, anicteric. HEART: n o clicks, gallops, murmurs, or rubs, regular rhythm, S1, S2 normal, no s3, or vascular bruits. LUNGS: c lear to auscultation . BREASTS: no masses palpable bilaterally. ABDOMEN: b owel sounds normal, no ascites, no organomegaly, no mass, centripital obesity, no rebound tenderness. RECTAL EXAM: n ot examined. MUSCULOSKELETAL: e [...] (Primary) N otes :His heart rate was regular today and well controlled. No change in his regimen was necessary. He remains anticoagulated. 2 . E ssential hypertension - I10 N otes :His blood pressure is stable today at 134/78 and no change in his regimen was necessary. We reviewed the wisdom of progressive sodium restriction and weight loss. 3 . T hrombocytopenia - D69.6 N otes :This platelet count is currently stable and improved at 155,000. No change in his regimen was made. 4 . G nasreen-esophageal reflux disease without esophagitis - K21.9 ?Notes :The reflux is well-controlled with saaf-xjx-seaazvl medications. 5 . M acrocytosis - D75.89 N otes :His mean cell volume is now 102.4. It has improved substantially from 102.6. The cause is unclear but may be dietary.Evaluation with folic acid and vitamin B12 and reticulocytes is indicated. 6 . C entral sleep apnea - G47.31 N otes :He is using his CPAP every night and feels much better. 7 . O steoarthritis - M19.90 N otes :The pain is primarily in his knees and he feels quite well. 8 . H istory of pulmonary embolism - Z86.711 N otes :He is had no further pulmonary symptoms and is anticoagulated. The fat was in 2004 and he has been anticoagulated. 9 . B PH (benign prostatic hyperplasia) - N40.0 N otes :He arises from sleep once or twice a night to urinate. It depends upon fluid intake. We discussed lifestyle modification as a way to relieve nocturia. 1 0. F ormer smoker - Z87.891 N otes :He is highly motivated not to smoke. We discussed a plan for prevention of relapse in times of stress. 1 1. C hronic anticoagulation - Z79.01 N otes :He has had no bleeding or clotting. Since his last visit. He will continue on current therapy. Because of the atrial fibrillation. 1 2. O besity (BMI 30-39.9) - E66.9 N otes :His body mass index is 37.5.He has lost 6 pounds. W e discussed his diet and nutrition. We discussed lifestyle modifications he could make to lose weight. We made a plan to lose weight at a rate of one half of a pound per week. Plan: * Treatment: 2. T hrombocytopenia L AB: PROFILE, FASTING (COMPREHENSIVE METABOLIC) L AB: CBC w DIFF L AB: Lipid Panel L AB: Vitamin D 25-OH Total 3. O thers Continue Protonix Tablet Delayed Release, [...] tobacco use and urged to quit. 0 06/11/2024 * Follow Up: 4 Months (Reason: ov review labs) * Images: * Sign off status: Completed true * Provider: Autumn Painting MD Date: 0 06/11/2024 Generated for Vu cole/Vaughn/Brandoitting on: 1 03/03/2024 04:00 PM EST History and Physical Notes * HPI (History of Present Illness) Category Sub-Category Detail Notes COVID-19 Screening Questions Have you had any new onset fever, chills, cough, congestion, sore throat, shortness of breath, muscle aches?: No Examination Category Sub-Category Detail Notes General Examination GENERAL APPEARANCE: pleasant , well nourished, well developed, in no acute distress, calm and relaxed, obese, man HEAD: atraumatic, normocep halic EYES: eomi, perrla, anicte ho, conjugate EARS: normal NOSE: septum intact NECK/THYROID: no jugular venous di stention, no carotid bruit, thyroid normal HEART: no clicks, gallops, murmurs, or rubs, regular rhythm, S1, S2 normal, no s3, or vascular bruits LUNGS: clear to auscultatio n ABDOMEN: bowel sounds normal, no ascites, no organomegaly, no mass, centripital obesity, no rebound tenderness NEUROLOGIC: alert and oriented, cranial nerves 2-12 [...]
--- OUTSIDE RECORDS SUMMARY | 2024-10-01 04:30 | XMS_ITS ---
Author Organization Inocente Painting III, MD Address [address] [place] [address] Care Team Providers Care Tableau Lead Name Role Phone Dr. Inocente Painting III [...] Provider Diagnosis Inocente Painting III, MD [address] [place] [address] [address] [place], [place] [address] 10/01/2024 Inocente Painting Essential hypertensi on I10 [...] - K21.9) The reflux is well-controlled with ngpt-ppz-lkbaxva medications. 10/01/2024 Strabismus (ICD-10 - H50.9) This abnormality was still present and is long-standing. He was encouraged to see the bingo floater regularly. 10/01/2024 Chronic anticoagulation (ICD-10 - Z79.01) [...] Provider Name:Inocente Painting , 03/18/2025 09:00:00 AM, [address] [place] [address] [address], [place], [address], Provider Name:Inocente Painting , 11/18/2025 09:00:00 AM, [address] [place] [address] [address], [place], [address], Progress Notes * Behzad MENDOZADOB:[birth year] (83 yo M)Acc No.[id number]:10/01/2024 Progress Notes Patient: Behzad OQUENDO Provider: Autumn Painting MD :1940 A ge:83 Y S ex:Male Date:10/01/2024 Address: [address], [facility] [place], [id number] Subjective: * Chief Complaints: * H ypertensionParoxysmal [...] x-cigarette smoker 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 5 . S trabismus - H50.9 N otes :This abnormality was still present and is long-standing. He was encouraged to see the bingo floater regularly. 6 . C hronic anticoagulation - [...] 0 10/01/2024 Generated for Vu cole/Vaughn/Brandoitting on: 03/03/2024 04:00 PM EST History and Physical [...]
--- OUTSIDE RECORDS SUMMARY | 2024-11-14 05:00 | XMS_ITS ---
Author Organization Inocente Painting III, MD Address [address] [place] [address] Care Team Providers Care Gas Welder Apprentice Name Role Phone Dr. Inocente Painting III [...] Date Provider Diagnosis Inocente Painting III, MD [address] [place] [address] [place] [address] 11/14/2024 Inocente Painting Essential hypertensi on I10 [...] - K21.9) The reflux is well-controlled with hsqu-czz-fczalvt medications. 11/14/2024 Thrombocytopenia (ICD-10 - D69.6) This [...] Name:Inocente Painting , 03/18/2025 09:00:00 AM, [address] [facility] [address], [place], [address], Provider Name:Inocente Painting , 11/18/2025 09:00:00 AM, [address] [place] [address] [address], [place], [address], Progress Notes * Behzad MENDOZADOB:[birth year] (83 yo M)Acc No.[id number]:11/14/2024 Progress Notes Patient: Behzad OQUENDO Provider: Autumn Painting MD :1940 A ge:83 Y S ex:Male Date:11/14/2024 Address: [address] [id number] Subjective: * Chief Complaints: * A nnual [...] N egative 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 He has been to [facility] for 43 [...] 3.89 (Ref Range: <0.05-4.0 ng/mL) * Lab:Comprehensive [place]. Pane l Fast * Collection Date 11/06/2024 [...] K21.9 Notes :The reflux is well-controlled with qpbk-hqf-lndncvo medications. 7 . T hrombocytopenia - D69.6 [...] Autumn Painting MD Date: Generated for Vu cole/Vaughn/eTransmitting on: 03/03/2024 04:02 PM EST History and Physical Notes * [...] RECTAL EXAM: not examined PSYCH: alert, oriented: production cook perative with exam: cognitive function intact: judgement and insight good: speech clear: thought process logical, goal directed ORAL CAVITY: normal, unremarkable
[2025-01-01 08:40] VITALS: BP 126/70; PULSE 65; BMI 38.5
--- NOTE | 2025-01-01 08:40 | A.OFFVIS_ITS ---
Vital Signs 01/01/25 08:40 Height 5 ft 9 in Weight 261 lb 0.437 oz BMI 38.5 BP 126/70 Blood Pressure Location Lt brachial Position Sitting Pulse 65 Pulse Source Monitor Intake Visit Reasons: 6m follow up Intake Note: 6m follow up Sports Medicine [place] Required: No Accompanied by: Self / Same As Patient Allergies morphine (MORPHINE) Allergy (Intermediate, Verified 01/01/25 08:43) RASH Medication List - Last Reconciled 01/01/25 by Durga Clayton MD amlodipine 2.5 mg PO DAILY apixaban (Eliquis) 5 mg PO BID cholecalciferol (vitamin D3) 25 mcg PO DAILY empagliflozin (Jardiance) 10 mg PO DAILY furosemide 40 mg PO DAILY metoprolol succinate ER 50 mg PO DAILY pantoprazole 40 mg PO DAILY tamsulosin 0.4 mg PO DAILY HPI Comments Details: Joshua comes for follow-up. Overall he has been doing well from cardiac perspective. He denies any worsening heart failure symptoms. Denies any orthopnea or PND, worsening leg edema. He does not measure his weight on a daily basis. He denies any palpitations, lightheadedness, syncope. Takes all his medications. No bleeding issues or neurologic events. Recent labs are stable. [facility]LY [facility] Medical History Atrial flutter Persistent atrial fibrillation RUMA on CPAP Obesity (BMI 30-39.9) Diastolic dysfunction Pulmonary hypertension Enlarged RV (right ventricle) Morbid obesity (HFpEF) heart failure with preserved ejection fraction Paroxysmal atrial fibrillation History of cardioversion Surgical History H/O colonoscopy Hx of cataract extraction History of excision of pilonidal cyst Hx of knee surgery Family History Father Afib COPD (chronic obstructive pulmonary disease) Diabetes Mother Cancer Afib Social History Patient Tobacco Use Status: Former Tobacco user Tobacco use type: Cigarette Years Smoked: 12 Review of Systems Const Denies daytime sleepiness, Denies difficulty sleeping, Denies snoring, Denies stops breathing during sleep and Denies weakness Card Denies chest pain, Denies rapid heart rate, Denies irregular heart rhythm, Denies claudication, Denies leg edema, Denies lightheadedness, Denies palpitations, Denies dyspnea, Reports dyspnea on exertion, Denies orthopnea, Denies paroxysmal nocturnal dyspnea and Denies slow heart rate Resp Denies cough, Denies dyspnea, Reports dyspnea on exertion and Denies snoring GI Reports no additional complaints, Denies hematochezia, Denies change in stool character and Denies dyspepsia Musc Denies abnormal gait, Denies muscle weakness and Denies numbness Neuro Denies abnormal gait, Denies numbness and Denies weakness Endo Denies palpitations Physical Exam Vital Signs: Last Vital Signs Pulse 65 01/01/25 08:40 BP 126/70 01/01/25 08:40 BMI result Body Mass Index 38.5 Const General: cooperative, comfortable, no acute distress, alert and awake Nutritional Appearance: obese Orientation/consciousness: patient oriented x3 Limitations: no limitations HEENT Head: Yes normal to inspection, Yes normocephalic and Yes atraumatic Eyes General: appearance normal, both eyes and all related structures Neck Neck: Yes trachea midline, Yes supple and Yes no JVD Chest Chest palpation & inspection: normal inspection of the chest Resp Effort & Inspection: normal respiratory effort Auscultation: clear to auscultation bilaterally Cardio Jugular venous distension: no JVD Palpation: normal PMI Rate: bradycardic Rhythm: abnormal rhythm irregularly irregular Heart sounds: S1 normal heart sound present and S2 normal heart sound present GI Inspection: Yes obesity Auscultation: normal bowel sounds Skin General skin exam: no rashes or lesions noted and ecchymosis Neuro General: patient oriented x3 and no focal motor deficits Extrem General: Yes edema (Plus one edema bilaterally) and Yes venous stasis dermatitis Psych Appearance: grossly normal Office Procedures EKG Details: EKG shows atrial fibrillation with incomplete right bundle-branch block with nonspecific T-wave changes [id number], Complete Assessment & Plan Assessment & Plan (1) (HFpEF) heart failure with preserved ejection fraction: Code(s): I50.30 - Unspecified diastolic (congestive) heart failure Category: Medical Plan: Heart failure preserved ejection fraction, clinically euvolemic and well compensated on current diuretic dose as well as SGLT2 inhibitor therapy. Importance of medical therapy was discussed. Heart failure management discussed. Daily weight monitoring avoidance salt loading was discussed. Additional diuretics as need be. Rolls of diuretics were discussed. Goals of therapy were discussed. Recommended to increase activity level to overall improved functionality as well as avoid worsening symptoms (2) Persistent atrial fibrillation: Code(s): I48.19 - Other persistent atrial fibrillation Category: Medical Plan: Chronic persistent atrial fibrillation, currently rate controlled on current metoprolol therapy. Has failed rhythm control approach. Continue pursue rate control approach. Continue full oral anticoagulation, currently on Eliquis 5 mg b.i.d.. Semi annual renal function test should be pursued. Will follow up in the clinic after echocardiogram. Thank you for allowing me to partake in his care Coding Level of Care Code Est Pt Level 4 (74100) Complex EM visit Add On G2211 Diagnoses (HFpEF) heart failure with preserved ejection fraction I50.30 Persistent atrial fibrillation I48.19 CPT Codes EKG - CPT: 72014-[id number], Complete ([id number])
--- OUTSIDE RECORDS SUMMARY | 2025-01-01 16:01 | XMS_ITS | Clinical Summary ---
Author Organization [facility] Address [address] [place] [address] Phone Care Team Providers Care Formation Testing Operator Name Role Phone Inocente Painting MD Primary Care Provider [phone]- [phone] Allergies Active Allergy Reactions Criticality Noted Date [...] patient's age to complete this topic IPV VACCINES Aged Out No longer eligi ble [...] Date/Time Associated Diagnosis Comments BASIC METABOLIC PANEL (BMP) Routine 12/03/2014 8:12 AM EDT from Last 3 Months or Most Recently Relevant to Health Maintenance Results * (ABNORMAL) Basic metabolic panel (12/03/2014 8:12 AM EDT) Plasma Sodium 141 135 - 145 mmol/L [facility] Plasma Potassium 4.7 3.4 - 5.0 mmol/L [facility] Plasma Chloride 102 98 - 108 mmol/L [facility] Plasma Carbon Dioxide 28 23 - 32 mmol/L [facility] Plasma Urea Nitrogen 14 8 - 25 mg/dL [facility] Plasma Creatinine 1.18 0.60 - 1.50 mg/dL [facility] Plasma Glucose 112(Abnor thomas H) 70 - 110 mg/dL [facility] Calcium 9.5 8.5 - 10.5 mg/dL [facility] eGFR >60 mL/min/1. 73m2 [facility] Comment: Abnormal if <60 mL/min/1.73m2. If patient is -Baham[place], multiply the result by 1.21. Plasma Anion GAP 11 3 - 17 mmol/L [facility] 12/03/2014 8:12 AM EDT 12/03/2014 8:14 AM EDT Comment:BLOOD us Jennyfer Fitzgerald MD LAB BLOOD BKR ORDERABLES Ed ited Result - Final [address] [address] from Last 3 Months or Most Recently Relevant to Health Maintenance Insurance [facility] MEDICARE REPLACEMENT [place] [id number] MEDICARE REPLACEMENT Care Teams Formation Testing Operator Relationship Specialty Start Date End Date Inocente Painting MD [address] [place] [address] [place] [address] PCP - General Medical Oncology 05/20/21 Additional Source Comments The information contained in this document represents components of the legal health record. It is not the complete legal health record.[facility]
--- OUTSIDE RECORDS SUMMARY | 2025-01-01 16:01 | XMS_ITS | Encounter Summary ---
Author Organization [facility] Address [address] [place] [address] Phone Care Team Providers Care Optical Laboratory Manager Name Role Phone Inocente Painting MD Primary Care Provider [phone]- [phone] Encounter Details Date Type Department Care Team (Late st Contact Info) Description 05/20/2021 Procedure Pass [facility], Ct Scan - [address] [address] Social History Tobacco Use Types Packs/Day Years [...] 4:45 PM EDT Josie Martínez RN * [place] Suicide Severity Rating Scale (Screener/Recent Self-Report) Question [...] on filedocumented in this encounter Care Teams Optical Laboratory Manager Relationship Specialty Start Date End Date Inocente Painting MD [address] [place] [address] [place] [address] PCP - General Medical Oncology 05/20/21 documented as of this encounter Additional Source Comments The information contained in this document represents components of the legal health record. It is not the complete legal health record.[facility]
--- OUTSIDE RECORDS SUMMARY | 2025-01-01 16:01 | XMS_ITS | Encounter Summary ---
Author Organization [facility] Address [address] [place] [address] Phone Care Team Providers Care Appellate Law Clerk Name Role Phone Inocente Painting MD Primary Care Provider [phone]- [phone] Encounter Details Date Type Department Care Team (Late st Contact Info) Description 05/20/2021 Procedure Pass [facility], Ct Scan - [address] [address] Social History Tobacco Use Types Packs/Day Years [...] 4:45 PM EDT Josie Martínez RN * [place] Suicide Severity Rating Scale (Screener/Recent Self-Report) Question [...] on filedocumented in this encounter Care Teams Appellate Law Clerk Relationship Specialty Start Date End Date Inocente Painting MD [address] [place] [address] [place] [address] PCP - General Medical Oncology 05/20/21 documented as of this encounter Additional Source Comments The information contained in this document represents components of the legal health record. It is not the complete legal health record.[facility]
--- OUTSIDE RECORDS SUMMARY | 2025-01-01 16:01 | XMS_ITS | Clinical Summary ---
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
--- OUTSIDE RECORDS SUMMARY | 2025-01-01 16:01 | XMS_ITS | Patient Health Record ---
Author Organization Inocente Painting III, MD Address [address] [place] [address] Care Team Providers Care Compressor Operator Portable Name Role Phone Dr. Inocente Painting III Primary Care Provider [phone] Allergies Allergen (clinical drug ingredient) Drug/Non Drug Allergy documented on EMR Reaction Allergy Type Onset Date Status No Known Food Allergy Unknown Drug Allergy Active morphine Morphine Sulfate Rash Drug Allergy Active Results Component Value Reference Range Notes Complete Blood Count Auto Di ff Reviewed date:02/04/2024 08:33:16 PM Interpretation: Performing Lab:[facility], [address] [place] [phone] Notes/Report: White Blood Count 5.4 4.8-10.8 X10*3/uL [...] NRBC Abs Auto 0.000 0.0-0.012 X10*3/uL Comprehensive [place]. Panel Fa st Reviewed date:02/04/2024 08:33:16 PM Interpretation: Performing Lab:[address] [phone] Notes/Report: Sodium 142 135-145 mmol/L Potassium 3.8 [...] Panel Reviewed date:02/04/2024 08:33:16 PM Interpretation: Performing Lab:[facility], [address] [place] [phone] Notes/Report: Triglycerides 45 <150 mg/dL Desirable Triglyceride: [...] Total Reviewed date:02/04/2024 08:33:16 PM Interpretation: Performing Lab:[address] [address] Notes/Report: Vitamin D 25-OH Total 29.8 >30 [...] ff Reviewed date:06/05/2024 05:13:41 AM Interpretation: Performing Lab:[facility], [address] [place] [phone] Notes/Report: White Blood Count 7.3 4.8-10.8 X10*3/uL [...] NRBC Abs Auto 0.000 0.0-0.012 X10*3/uL Comprehensive [place]. Panel Fa st Reviewed date:06/05/2024 05:13:41 AM Interpretation: Performing Lab:[facility], [address] [place] [phone] Notes/Report: Sodium 143 135-145 mmol/L Potassium 5.1 [...] Panel Reviewed date:06/05/2024 05:13:41 AM Interpretation: Performing Lab:[address] [address] Notes/Report: Triglycerides 49 <150 mg/dL Desirable Triglyceride: [...] Antigen Reviewed date:06/05/2024 05:13:41 AM Interpretation: Performing Lab:[address] [address] Notes/Report: Prostate Specific Antigen 3.88 <0.05-4.0 ng/mL PSA methodology: Paz Alinity i Chemiluminescent Microparticle Immunoassay (CMIA) Complete Blood Count Auto Di ff Reviewed date:10/01/2024 09:40:10 AM Interpretation: Performing Lab:[address] [address] Notes/Report: White Blood Count 6.0 4.8-10.8 X10*3/uL [...] NRBC Abs Auto 0.000 0.0-0.012 X10*3/uL Comprehensive [place]. Panel Fa st Reviewed date:10/01/2024 09:40:10 AM Interpretation: Performing Lab:[facility], [address] [place] [phone] Notes/Report: Sodium 141 135-145 mmol/L Potassium 3.9 [...] Panel Reviewed date:10/01/2024 09:40:10 AM Interpretation: Performing Lab:[facility], [address] [place] [phone] Notes/Report: Triglycerides 55 <150 mg/dL Desirable Triglyceride: [...] Total Reviewed date:10/01/2024 09:40:10 AM Interpretation: Performing Lab:[facility], [address] [place] [phone] Notes/Report: Vitamin D 25-OH Total 37.6 >30 [...] Complete Blood Count Auto Di ff Reviewed date:11/09/2024 08:32:29 PM Interpretation: Performing Lab:[facility], [address] [place] [phone] Notes/Report: White Blood Count 5.0 4.8-10.8 X10*3/uL Red Blood Count 4.87 4.60-5.80 X10*6/uL Hemoglobin 16.0 14.0-18.0 g/dl Hematocrit 49.4 42.0-52.0 % Mean Corpuscular Volume 101.4 80.0-98.0 fL Mean Corpuscular Hemoglobin 32.9 27.0-33.0 pg Mean Corpuscular HGB Conc 32.4 31.0-36.0 g/dl Red Cell Distribution Width 14.8 11.0-16.0 % Platelet Count 122 160-400 X10*3/uL Mean Platelet Volume 12.2 9.4-12.4 fL Neutrophils Percent Auto 65.8 45-73 % Imm Gran Pct Auto 0.4 0.0-0.4 % Lymphocytes Percent Auto 21.9 20-40 % Monocytes Percent Auto 9.9 2-11 % Eosinophils Percent Auto 1.4 0-4 % Basophils Percent Auto 0.6 0-2 % NRBC Pct Auto 0.0 0.0-0.2 /100WBC Neutrophils Absolute Auto 3.3 2.0-8.3 x10*3/u L Imm Gran Abs Auto 0.02 0.00-0.03 X10*3/uL Lymphocytes Absolute Auto 1.1 1.2-4.9 X10*3/u L Monocytes Absolute Auto 0.5 0.1-1.2 X10*3/uL Eosinophils Absolute Auto 0.1 0.0-0.4 X10*3/u L Basophils Absolute Auto 0.0 0.0-0.2 X10*3/uL NRBC Abs Auto 0.000 0.0-0.012 X10*3/uL Comprehensive [place]. Panel Fa st Reviewed date:11/09/2024 08:32:29 PM Interpretation: Performing Lab:[facility], [address] [place] [phone] Notes/Report: Sodium 141 135-145 mmol/L Potassium 3.9 3.3-5.1 mmol/L Chloride 108 96-108 mmol/L Carbon Dioxide 26 22-29 mmol/L Anion Gap 11 12-20 Blood Urea Nitrogen 17 9-16 mg/dL Creatinine 1.17 0.5-1.4 mg/dL Estimated Glomerular Filt Rate 59 Chronic Kidney Disease: Estimated GFR < 60 mL/min/1.73m2 Severe Kidney Disease: Estimated GFR < 15 mL/min/1.73m2 Glucose Fasting 91 60-99 mg/dL Calcium 8.8 8.4-10.2 mg/dL Bilirubin Total 1.1 0.0-1.0 mg/dL Aspartate Amino Transferase 20 5-37 U/L Alanine Aminotransferase 15 0-40 U/L Total Protein 6.5 6.5-8.0 g/dL Albumin Level 3.6 3.5-5.0 g/dL Alkaline Phosphatase 59 39-117 U/L Lipid Panel Reviewed date:11/09/2024 08:32:29 PM Interpretation: Performing Lab:[facility], [address] [place] [phone] Notes/Report: Triglycerides 53 <150 mg/dL Desirable Triglyceride: less than 150 mg/dL Borderline High Triglyceride 150-199 mg/dL High Triglyceride: 200-499 mg/dL Very High Triglyceride: greater than or equal to 5OO mg/dL Cholesterol 137 <200 mg/dL Desirable Cholesterol: less than 200 mg/dL Borderline High Cholesterol: 200-239 mg/dL High Cholesterol: greater than 239 mg/dL LDL Cholesterol Calculated 79 <100 mg/dL Desirable LDL: less than 100 mg/dL Near Optimal/Above Optimal LDL: 110-129 mg/dL Borderline High LDL: 130-159 mg/dL High LDL: 160-189 mg/dL Very High LDL: greater than or equal to 190 mg/dL HDL Cholesterol 48 >40 mg/dL Desirable HDL: greater than 40 mg/dL Note: This HDL assay may give artificially low results in patients with liver disease. Prostate Specific Antigen Reviewed date:11/09/2024 08:32:29 PM Interpretation: Performing Lab:[facility], [address] [place] [phone] Notes/Report: Prostate Specific Antigen 3.59 <0.05-4.0 ng/mL PSA methodology: Paz Alinity i Chemiluminescent Microparticle Immunoassay (CMIA) Vitamin D 25-OH Total Reviewed date:11/09/2024 08:32:29 PM Interpretation: Performing Lab:[facility], [address] [place] [phone] Notes/Report: Vitamin D 25-OH Total 32.4 >30 ng/mL Health Based Reference Values* < [...] Duration) Notes Start Date End Date Status Vitamin D 25 MCG (1000 UT) 1 tablet Orally Once a day Active Protonix 40 MG 1 tablet Orally ever y other day Active Metoprolol Succinate ER 50 MG 1 tablet Orally Once a day A ctive Flomax 0.4 MG 1 capsule 30 minutes after the same meal each day Orally Once a day 02/16/2023 Active Lasix 40 MG 1 tablet Orally Once a day Active Jardiance 10 MG Oral Acti ve Eliquis 5 MG as directed Orally t [...] Administered COVID- 19 Vaccine Unknown 04/02/2020 Administered COVID PFIZER Unknown 06/28/2021 Administered RSV vaccine, bivalent, protein subunit RSV prefusion F Unknown 12/14/2022 Administered Fluzone High-Dose (HD-IIV3) Unknown 01/05/2024 Administered Influenza-iiv4 p-free high dose Unknown 12/18/2019 Administered Influenza-iiv4 p-free high dose Unknown 11/02/2021 Administered Fluzone High-Dose (HD-IIV3) Unknown 11/25/2014 Administered SHINGRIX Unknown 12/18/2019 Administered Comirnaty Pfizer COVID-19 12+ Unknown 11/20/2022 Administered SHINGRIX Unknown 02/16/2020 Administered COVID Pfizer Bivalent Unknown 11/02/2021 Administered COVID PFIZER Unknown 04/14/2020 Administered Comirnaty Pfizer COVID-19 12+ Unknown 01/05/2024 Administered Tdap Unknown 01/20/2024 Administered COVID PFIZER Unknown 03/14/2020 Administered Comirnaty Pfizer COVID-19 12+ Unknown 08/21/2023 Administered COVID PFIZER Unknown 11/07/2020 Administered Social History Tobacco Use: Social History [...] Never (0 point) Points 3 Interpretation Negative Problems Problem Type SNOMED Code ICD Code Onset Dates Problem Status W/U Status Risk Notes Problem 7725498 Former smoker (Z87.891) Active confirmed He is highly motivated not to smoke. We discussed a plan for prevention of relapse in times of stress. Problem 094886431 Thrombocytopenia (D69.6) Active confirmed This platelet count is currently stable and improved at 155,000. No change in his regimen was made. Problem Vitamin D deficiency (97840035) Vitamin D deficiency, unspecified (E55.9) Active confirmed He has been continued on his vitamin D supplement. Problem 212323103 Gastro-esophagea l reflux disease without esophagitis (K21.9) Active confirmed The reflux is well-controlled with [id number]-cvzixnp medications. Problem 203268160 BPH (benign prostatic hyperplasia) (N40.0) Active confirmed He has been rising from sleep twice a night to urinate. We reviewed lifestyle modifications he could make to reduce this. Problem 512612340 Obesity (BMI 30-39.9) (E66.9) Active confirmed His body ma ss index is 37.1.He has lost 6 pounds. We discussed his diet and nutrition. We discussed lifestyle modifications he could make to lose weight. We made a plan to lose weight at a rate of one half of a pound per week. Problem 569388170 Chronic anticoagulation (Z79.01) Active confirmed He has had no bleeding or clotting. Since his last visit. He will continue on current therapy. Because of the atrial fibrillation. Problem 75133161 Essential hypertension (I10) Active confirmed His blood pressure is stable today and no change in his regimen was necessary. We reviewed the wisdom of progressive sodium restriction and weight loss. Problem 61522486 Colonic polyp (K63.5) Active confirmed He will undergo colonoscopies periodically. He is currently up-to-date. Problem 551727447 Osteoarthritis (M19.90) Active confirmed The pain is primarily in his knees and he feels quite well. Problem 445292734 History of pulmonary embolism (Z86.711) Active confirmed He is had no further pulmonary symptoms and is anticoagulated. The fat was in 2004 and he has been anticoagulated. Problem 762953902 AF (paroxysmal atrial fibrillation) (I48.0) Active confirmed His heart rate was regular today and well controlled. No change in his regimen was necessary. He remains anticoagulated. Problem 25812960 Strabismus (H50.9) Active confirmed This abnormality was still present and is long-standing. He was encouraged to see the wall covering installer regularly. Problem 993986871 Macrocytosis (D75.89) Active confirmed His mean cell volume is stable at 101.4. This value does not appear to be due to vitamin deficiency but maybe early myelodysplasia. The value is being observed without treatment. Problem 10944042 Central sleep apnea (G47.31) Active confirmed He is using h is CPAP every night and feels much better. Vital Signs Heart Rate 54 /min 11/14/2024 Temperature 97.2 degrees Fahrenheit 11/14/2024 Blood pressure diastolic 72 mm Hg 11/14/2024 Height 69.5 in 11/14/2024 Blood pressure systolic 130 mm Hg 11/14/2024 Weight 261 lbs 11/14/2024 BMI 37.99 kg/m2 11/14/2024 Encounters Encounter Location Date Provider Diagnosis Inocente Painting III, MD [address] [place] [address] [place] [address] 02/09/2024 Inocente Painting Essential hypertensi on I10 ; AF (paroxysmal atrial fibrillation) I48.0 ; Obesity (BMI 30-39.9) E66.9 ; Former smoker Z87.891 ; Gastro-esophageal reflux disease without esophagitis K21.9 ; Central sleep apnea G47.31 ; Thrombocytopenia D69.6 ; Macrocytosis D75.89 ; History of pulmonary embolism Z86.711 and BPH (benign prostatic hyperplasia) N40.0 Inocente Painting III, MD [address] [place] [address] [place] [address] 06/11/2024 Inocente Painting Essential hypertensi on I10 ; AF (paroxysmal atrial fibrillation) I48.0 ; Thrombocytopenia D69.6 ; Gastro-esophageal reflux disease without esophagitis K21.9 ; Macrocytosis D75.89 ; Central sleep apnea G47.31 ; Osteoarthritis M19.90 ; History of pulmonary embolism Z86.711 ; BPH (benign prostatic hyperplasia) N40.0 ; Former smoker Z87.891 ; Chronic anticoagulation Z79.01 and Obesity (BMI 30-39.9) E66.9 Inocente Painting III, MD [address] [place] [address] [place] [phone] 10/01/2024 Inocente Painting Essential hypertensi on I10 ; Former smoker Z87.891 ; Obesity (BMI 30-39.9) E66.9 ; Gastro-esophageal reflux disease without esophagitis K21.9 ; Strabismus H50.9 ; Chronic anticoagulation Z79.01 ; BPH (benign prostatic hyperplasia) N40.0 ; History of pulmonary embolism Z86.711 and Vitamin D deficiency, unspecified E55.9 Inocente Painting III, MD [address] [place] [address] [place] [address] 11/14/2024 Inocente Painting Essential hypertensi on I10 [...] progressive sodium restriction and weight loss. 11/14/2024 Essential hypertensi on (ICD-10 - I10) [...] The value is being observed without treatment. 02/09/2024 Obesity (BMI 30-39.9 ) (ICD-10 - [...] one half of a pound per week. 11/14/2024 BPH (benign prostati c hyperplasia) (ICD-10 - N40.0) He has been rising from sleep twice a night to urinate. We reviewed lifestyle modifications he could make to reduce this. 02/09/2024 Former smoker (ICD-1 0 - Z87.891) He is highly motivated not to smoke. We discussed a plan for prevention of relapse in times of stress. 06/11/2024 Gastro-esophageal reflux disease without esophagitis (ICD-10 - K21.9) The reflux is well-controlled with mqlg-yvt-clmhslm medications. 10/01/2024 Gastro-esophageal reflux disease without esophagitis (ICD-10 - K21.9) The reflux is well-controlled with plrv-nsc-bdlnjwm medications. 11/14/2024 Vitamin D deficiency , unspecified (ICD-10 - E55.9) He has been continued on his vitamin D supplement. 02/09/2024 Gastro-esophageal reflux disease without esophagitis (ICD-10 - K21.9) The reflux is well-controlled with hmdy-sjq-hanjjmn medications. 06/11/2024 Macrocytosis (ICD-10 - D75.89) His mean cell volume is now 102.4. It has improved substantially from 102.6. The cause is unclear but may be dietary.Evaluation with folic acid and vitamin B12 and reticulocytes is indicated. 10/01/2024 Strabismus (ICD-10 - H50.9) This abnormality was still present and is long-standing. He was encouraged to see the wall covering installer regularly. 11/14/2024 AF (paroxysmal atria l fibrillation) (ICD-10 - I48.0) His heart rate was regular today and well controlled. No change in his regimen was necessary. He remains anticoagulated. 02/09/2024 Central sleep apnea (ICD-10 - G47.31) [...] current therapy. Because of the atrial fibrillation. 11/14/2024 Gastro-esophageal reflux disease without esophagitis (ICD-10 - K21.9) The reflux is well-controlled with cehh-xhw-yfcmnzj medications. 02/09/2024 Thrombocytopenia (ICD-10 - D69.6) His platelet [...] modification as a way to relieve nocturia. 11/14/2024 Thrombocytopenia (ICD-10 - D69.6) This platelet count is currently stable and improved at 155,000. No change in his regimen was made. 02/09/2024 Macrocytosis (ICD-10 - D75.89) His mean [...] 2004 and he has been anticoagulated. 11/14/2024 Former smoker (ICD-1 0 - Z87.891) He is highly motivated not to smoke. We discussed a plan for prevention of relapse in times of stress. 02/09/2024 History of pulmonary embolism (ICD-10 - [...] was continued on his vitamin D supplements 11/14/2024 History of pulmonary embolism (ICD-10 - [...] of relapse in times of stress. 11/14/2024 Chronic anticoagulation (ICD-10 - Z79.01) He has had no bleeding or clotting. Since his last visit. He will continue on current therapy. Because of the atrial fibrillation. 06/11/2024 Chronic anticoagulation (ICD-10 - Z79.01) He [...] a pound per week. Plan Of Treatment Pending Test Test Name Order Date PROFILE, FASTING (COMPREHENSIVE METABOLI C) 01/02/2020 PROFILE, FASTING (COMPREHENSIVE METABOLI C) 05/06/2021 PROFILE, FASTING (COMPREHENSIVE METABOLI C) 11/09/2022 PROFILE, FASTING (COMPREHENSIVE METABOLI C) 11/13/2023 PROFILE, FASTING (COMPREHENSIVE METABOLI C) 06/30/2022 PROFILE, FASTING (COMPREHENSIVE METABOLI C) 02/16/2023 PROFILE, FASTING (COMPREHENSIVE METABOLI C) 09/27/2019 PROFILE, FASTING (COMPREHENSIVE METABOLI C) 11/14/2024 PROFILE, FASTING (COMPREHENSIVE METABOLI C) 08/31/2023 PROFILE, FASTING (COMPREHENSIVE METABOLI C) 10/01/2024 PROFILE, FASTING (COMPREHENSIVE METABOLI C) 04/07/2022 PROFILE, FASTING (COMPREHENSIVE METABOLI C) 07/15/2020 PROFILE, FASTING (COMPREHENSIVE METABOLI C) 08/11/2021 PROFILE, FASTING (COMPREHENSIVE METABOLI C) 04/02/2020 PROFILE, FASTING (COMPREHENSIVE METABOLI C) 06/11/2024 PROFILE, FASTING (COMPREHENSIVE METABOLI C) 01/03/2022 PROFILE, FASTING (COMPREHENSIVE METABOLI C) 02/09/2024 PROFILE, RANDOM (COMPREHENSIVE METABOLIC ) 02/03/2021 PROFILE, RANDOM (COMPREHENSIVE METABOLIC ) 05/18/2023 HEMOGLOBIN A1C (GLYCOHEMOGLOBIN) 024 HEMOGLOBIN A1C (GLYCOHEMOGLOBIN) 023 HEMOGLOBIN A1C (GLYCOHEMOGLOBIN) 021 LIPID PANEL 01/02/2020 LIPID PANEL 05/06/2021 LIPID PANEL 06/30/2022 LIPID PANEL 09/27/2019 LIPID PANEL 02/03/2021 LIPID PANEL 11/09/2022 LIPID PANEL 04/07/2022 LIPID PANEL 01/03/2022 LIPID PANEL 04/02/2020 PSA, TOTAL 02/09/2024 PSA, TOTAL 11/14/2024 PSA, TOTAL 10/01/2024 PSA, TOTAL 06/30/2022 PSA, TOTAL 09/27/2019 PSA, TOTAL 02/03/2021 PSA, TOTAL 11/09/2022 PSA, TOTAL 07/15/2020 PSA, TOTAL 08/11/2021 MICROALBUMIN, RANDOM 11/09/2022 CBC w DIFF 01/03/2022 CBC w DIFF 11/09/2022 CBC w DIFF 04/02/2020 CBC w DIFF 05/18/2023 CBC w DIFF 05/06/2021 CBC w DIFF 01/02/2020 CBC w DIFF 11/14/2024 CBC w DIFF 10/01/2024 CBC w DIFF 06/30/2022 CBC w DIFF 04/07/2022 CBC w DIFF 09/27/2019 CBC w DIFF 06/11/2024 CBC w DIFF 02/03/2021 CBC w DIFF 07/15/2020 CBC w DIFF 08/11/2021 XR CHEST 2 VIEW PA & LAT 08/08/2022 XR LUMBAR SPINE 4+ VIEWS 11/08/2021 VITAMIN D 25-OH TOTAL 04/07/2022 VITAMIN D 25-OH TOTAL 08/11/2021 VITAMIN D 25-OH TOTAL 01/03/2022 VITAMIN D 25-OH TOTAL 04/02/2020 VITAMIN D 25-OH TOTAL 06/30/2022 CBC WITH AUTO DIFF 02/09/2024 CBC WITH AUTO DIFF 11/13/2023 CBC WITH AUTO DIFF 02/16/2023 CBC WITH AUTO DIFF 08/31/2023 Lipid Panel 06/11/2024 Lipid Panel 07/15/2020 Lipid Panel 08/11/2021 Lipid Panel 02/09/2024 Lipid Panel 11/13/2023 Lipid Panel 02/16/2023 Lipid Panel 08/31/2023 Lipid Panel 11/14/2024 Lipid Panel 10/01/2024 Vitamin B12 and Folate 11/14/2024 Vitamin D 25-OH Total 10/01/2024 Vitamin D 25-OH Total 06/11/2024 Vitamin D 25-OH Total 11/13/2023 Hemoglobin A1c 08/31/2023 Next Appt Details Provider Name:Inocente Painting , 03/18/2025 09:00:00 AM, [address] [facility] [address], [place], [address], Provider Name:Inocente Painting , 11/18/2025 09:00:00 AM, [address] [place] [address] [address], [place], [address], Insurance Providers Payer Name Payer Address Payer Phone Subscriber Number Group Number Insured Name Patient Relationship to Insured Coverage Start Date Coverage End Date [employer] Medicare Advantage [address] [address] [place] [address] [id number] Behzad Mendoza Self - patient is the insured MEDICARE NGS [address] [place] [phone] [id number] Behzad Mendoza Self - patient is the insured Medical (General) History Medical History History ICD Code sleep apnea with cpap at10 cm 2004 pulmonary embolism atrial fibrillation obesity bph hypertension thrombocytopenia gerd right strabismus tubular adenomas on colonoscopy macrocytosis osteoarthritis obesity former smoker intermittent low back pain left TKR 07/2015 [facility] Anticoagulation Surgical History Surgery Date(Month/Year) Melanoma removed from upper left chest- Negative result 10/2023 cardio verted colonoscopy 2014 colonoscopy, tubular adenoma September 2009 colonoscopy, tubular adenoma May 2006 right breast mass, benign September 2003 basal cell ca excisions lipoma excisions breast biopsy right pilonidal cyxt 1059 T&A 1944 right knee rplacement [facility] 2012 Hospitalization History Reason Date(Month/Year) Intermittent chest pain 06/2020 Epigastric pain 06/2020
== END 2025-01-01 09:00 | disposition home or self-care (01) ==
LOC: HO.HCS 08:21
PROVIDERS: PCP Internal Medicine Medical Oncology; Visit Provider Internal Medicine Cardiovascular Disease
DX: I50.30 Unspecified diastolic (congestive) heart failure (principal); I48.19 Other persistent atrial fibrillation
CPT/HCPCS: 93010; 99214; G2211

== ENCOUNTER → 2025-01-01 08:20 | Outpatient (BNVA) | payer MEDICARE, SELFPAY | PROVIDERS: PCP Internal Medicine Medical Oncology; Visit Provider Internal Medicine Cardiovascular Disease | DX: I48.19 Other persistent atrial fibrillation (principal); R06.02 Shortness of breath; I50.30 Unspecified diastolic (congestive) heart failure; I11.0 Hypertensive heart disease with heart failure; Z87.891 Personal history of nicotine dependence; Z79.01 Long term (current) use of anticoagulants; E66.01 Morbid (severe) obesity due to excess calories; Z68.38 Body mass index [BMI] 38.0-38.9, adult | CPT/HCPCS: 93005; 99212 ==

== ENCOUNTER 2025-01-27 13:34 | Outpatient (AMB) | payer MEDICARE, SELFPAY ==
--- OUTSIDE RECORDS SUMMARY | 2023-08-31 04:15 | XMS_ITS ---
Author Organization [facility], MD Address [address] [place] [address] Care Team Providers Care Dental Front Office Assistant Name Role Phone Dr. [facility] III [...] Date Provider Diagnosis [facility], MD [address] [place] [address] [place] [address] 08/31/2023 [facility] Essential hypertensi on I10 [...] - K21.9) The reflux is well-controlled with epiu-uxa-anqefxl medications. 08/31/2023 AF (paroxysmal atria l fibrillation) [...] Provider Name:[facility] , 03/18/2025 09:00:00 AM, [address] [place] [address] [address], [place], [address], Provider Name:[facility]ente Amadorrne , 11/18/2025 09:00:00 AM, [address] [place] [address] [address], [place], [address], Progress Notes * Behzad MENDOZADOB:[birth year] (82 yo M)Acc No.[id number]:08/31/2023 Progress Notes Patient: Behzad Agrawal Provider: [facility] MD :1940 A ge:82 Y S ex:Male Date:08/31/2023 [facility] [place] [id number] Subjective: * Chief Complaints: * H ypertensionParoxysmal [...] x-cigarette smoker 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 He has been to [place] for 43 [...] - K21.9, The reflux is well-controlled with ivdd-ywd-ztyvcbt medications. 5 . A F (paroxysmal atrial [...] 0 08/31/2023 Generated for Vu cole/Vaughn/eTcarylsmitting on: 03/30/2024 07:45 PM EST History and Physical Notes * HPI (History of Present Illness) Category Sub-Category Detail Notes COVID-19 Screening Questions Have you had any new onset fever, chills, cough, congestion, sore throat, shortness of breath, muscle aches?: No Have you been exposed to the virus withi n the last 10 days?: No Have you travelled internationally in [facility] last 10 days?: No Have [...]
--- OUTSIDE RECORDS SUMMARY | 2023-11-13 05:00 | XMS_ITS ---
Author Organization [facility] III, MD Address [address] [place] [place] [address] Care Team Providers Care Key Operator Name Role Phone Dr. Inocente Painting III Primary Care Provider [phone] Allergies Allergen (clinical drug ingredient) Drug/Non Drug [...] Date Provider Diagnosis Inocente Painting III, MD [address] [place] [address] [place] [address] 11/13/2023 [facility] Essential hypertensi on I10 [...] - K21.9) The reflux is well-controlled with nxdn-wky-gptmsgp medications. 11/13/2023 Strabismus (ICD-10 - H50.9) This abnormality was still present and is long-standing. He was encouraged to see the side framer regularly. 11/13/2023 Colonic polyp (ICD-1 0 - [...] Provider Name:Inocente Painting , 03/18/2025 09:00:00 AM, [address] [place] [address] [address], [place], [address], Provider Name:Inocente Painting , 11/18/2025 09:00:00 AM, [address] [place] [address] [address], [place], [address], Progress Notes * Behzad MENDOZADOB:[birth year] (82 yo M)Acc No.[id number]:11/13/2023 Progress Notes Patient: Behzad OQUENDO Provider: Autumn Painting MD :1940 A ge:82 Y S ex:Male Date:11/13/2023 [facility] [place] Subjective: * Chief Complaints: * A [...] 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 Pane l Fast * Collection Date 11/08/2023 [...] K21.9 ?Notes :The reflux is well-controlled with znfk-bsp-rgczfez medications. 6 . S trabismus - H50.9 N otes :This abnormality was still present and is long-standing. He was encouraged to see the side framer regularly. 7 . C olonic polyp - [...] Procedure Codes: 9 4760 MEASURE BLOOD OXYGEN [id number] URINE-NO MICRO * Preventive Medicine: Counseling: C [...] 0 11/13/2023 Generated for Vu cole/Vaughn/Brandoitting on: 03/30/2024 07:46 PM EST History and Physical Notes * [...]
--- OUTSIDE RECORDS SUMMARY | 2024-02-09 04:00 | XMS_ITS ---
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 Inocente Painting III Primary Care Provider Allergies Allergen (clinical drug ingredient) Drug/Non Drug Allergy documented on EMR Reaction Allergy Type Onset Date Status morphine Morphine Sulfate Rash Drug Allergy Active REASON FOR VISIT Hypertension, Laceration anterior left lower leg, treated in wound clinic, Paroxysmal atrial fibrillation, Sleep apnea, GERD, Macrocytosis, History of pulmonary embolism, Chronic anticoagulation, Obesity Medications Medication SIG (Take, Route, Frequency, Duration) Notes Start Date End Date Status Jardiance 10 MG Oral Acti ve Flomax 0.4 MG 1 capsule 30 minutes after the same meal each day Orally Once a day 02/16/2023 Active Lasix 40 MG 1 tablet Orally Once a day Active Metoprolol Succinate ER 50 MG 1 tablet Orally Once a day A ctive amLODIPine Besylate 2.5 MG 1 tablet Orally Once a day Active Protonix 40 MG 1 tablet Orally ever y other day Active Vitamin D 25 MCG (1000 [...] Additional Findings: Tobacco non-user Ex-cigaret te smoker Vital Signs Temperature 98.2 degrees Fahrenheit 02/09/20 24 Blood pressure systolic 130 mm Hg 02/09/20 24 Blood pressure diastolic 70 mm Hg 024 Heart Rate 73 /min 02/09/2024 Height 69.5 in 02/09/2024 Weight 264 lbs 02/09/2024 BMI 38.42 kg/m2 02/09/2024 Encounters Encounter Location Date Provider Diagnosis Inocente Painting III, MD [address] [place] [address] [place] [address] 02/09/2024 Inocente Painting Essential hypertensi on I10 ; AF (paroxysmal atrial fibrillation) I48.0 ; Obesity (BMI 30-39.9) E66.9 ; Former smoker Z87.891 ; Gastro-esophageal reflux disease without esophagitis K21.9 ; Central sleep apnea G47.31 ; Thrombocytopenia D69.6 ; Macrocytosis D75.89 ; History of pulmonary embolism Z86.711 and BPH (benign prostatic hyperplasia) N40.0 Assessments Encounter Date Diagnosis (ICD Code) Assessment Notes T reatment Notes Treatment Clinical Notes 02/09/2024 Essential hypertensi on (ICD-10 - I10) His blood pressure is stable today at 130/70 and no change in his regimen was necessary. We reviewed the wisdom of progressive sodium restriction and weight loss. 02/09/2024 AF (paroxysmal atria l fibrillation) (ICD-10 - I48.0) His heart rate was irregular today and well controlled. No change in his regimen was necessary. He remains anticoagulated. 02/09/2024 Obesity (BMI 30-39.9 ) (ICD-10 - E66.9) His body mass index is 38.4. He weighs 264 pounds. We discussed his diet and nutrition. We discussed lifestyle modifications he could make to lose weight. We made a plan to lose weight at a rate of one half of a pound per week. 02/09/2024 Former smoker (ICD-1 0 - Z87.891) He is highly motivated not to smoke. We discussed a plan for prevention of relapse in times of stress. 02/09/2024 Gastro-esophageal reflux disease without esophagitis (ICD-10 - K21.9) The reflux is well-controlled with brix-uys-aphykpf medications. 02/09/2024 Central sleep apnea (ICD-10 - G47.31) He is using his CPAP every night and feels much better. 02/09/2024 Thrombocytopenia (ICD-10 - D69.6) His platelet count has increased from 131,000-148,000. He is anticoagulated and has had no bleeding. No change in his therapy is indicated. He is avoiding aspirin. 02/09/2024 Macrocytosis (ICD-10 - D75.89) His mean cell volume is now 99.8. It has improved substantially from 102.6. The cause is unclear but may be dietary.Evaluation with folic acid and vitamin B12 and reticulocytes is indicated. 02/09/2024 History of pulmonary embolism (ICD-10 - Z86.711) He is had no further pulmonary symptoms and is anticoagulated. The fat was in 2004 and he has been anticoagulated. 02/09/2024 BPH (benign prostati c hyperplasia) (ICD-10 - N40.0) He arises from sleep once or twice a night to urinate. It depends upon fluid intake. We discussed lifestyle modification as a way to relieve nocturia. Plan Of Treatment Medication Medication Name Sig Start Date Stop Date Notes Jardiance 10 MG Oral Flomax 0.4 MG 1 capsule 30 minutes after the same meal each day Orally Once a day 02/16/2023 Lasix 40 MG 1 tablet Orally Once a day Metoprolol Succinate ER 50 MG 1 tablet Orally Once a day amLODIPine Besylate 2.5 MG 1 tablet Orally Once a day Protonix 40 MG 1 tablet Orally ever y other day Vitamin D 25 MCG (1000 UT) 1 tablet Orally Once a day Eliquis 5 MG as directed Orally t wice a day Pending Test Test Name Order Date PROFILE, FASTING (COMPREHENSIVE METABOLI C) 02/09/2024 PSA, TOTAL 02/09/2024 CBC WITH AUTO DIFF 02/09/2024 Lipid Panel 02/09/2024 Next Appt Details Follow Up: 4 Months, Reason: OV Provider Name:Inocente Painting , 03/18/2025 09:00:00 AM, [address] [place] [address], [place] [address], [place], [address], Provider Name:Inocente Painting , 11/18/2025 09:00:00 AM, [address] [place] [address] [address], [place], [address], Progress Notes * Behzad MENDOZADOB:[birth year] (83 yo M)Acc No.[id number]:02/09/2024 Progress Notes Patient: Behzad OQUENDO Provider: Autumn Painting MD :1940 A ge:83 Y S ex:Male Date:02/09/2024 Address: [address] [id number] Subjective: * Chief Complaints: * H ypertensionLaceration anterior left lower leg, treated in wound clinicParoxysmal atrial fibrillationSleep apneaGERDMacrocytosisHistory of pulmonary embolismChronic anticoagulationObesity * HPI: C -19 Screening: Questions H ave you had any new onset fever, chills, cough, congestion, sore throat, shortness of breath, muscle aches? N o * : The patient, an 83-year-old male, reported a recent incident where he tripped on a steel object at his thldzi-co-gdh's place a couple of weeks ago, resulting in a significant gouge in his left leg. The wound has not completely healed, and the patient has been attending a wound clinic for treatment. The patient has not reported any other new symptoms or problems. Inspection of the left leg shows the wound is almost healed. On examination today he was a slow irregular rhythm. He is anticoagulated without any bleeding. He has had no difficulty breathing. His appetite is good. His vital signs were stable. * ROS: G eneral/Constitutional: pain l eft leg wound, otherwise only normal aches and pains. C hills d enies. F atigue a dmits. F ever d enies. E NT: Decreased hearing i n both ears. R espiratory: Cough d enies. 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 He has been to [place] for 43 [...] Once a day Jardiance 10 MG Tablet Oral Medication List reviewed and reconciled with the patientTaking Protonix 40 MG Tablet Delayed Release 1 [...] a day Taking Jardiance 10 MG Tablet Oral Medication List reviewed and reconciled with the patient * Allergies: M orphine Sulfate: Rashno[Allergies Verified] Objective: * Vitals: H t: 69.5, Wt:264, BMI:38.42, BP:130/70, HR:73, Temp:98.2, Wt-k.75. * P ast Orders: Lab:Complete Blood Count Aut o Diff * Collection Date 02/02/2024 11/08/2023 08/24/2023 Collection Time 06:52 AM 06:32 AM 06:28 AM Order Date 02/02/2024 11/08/2023 08/24/2023 White Blood Count 5.4 (Ref Range: 4.8-10.8 X10*3/uL) 6.7 (Ref Range: 4.8-10.8 X10*3/uL) 4.9 (Ref Range: 4.8-10.8 X10*3/uL) Red Blood Count 4.81 (Ref Range: 4.60-5.80 X10*6/uL) 5.34 (Ref Range: 4.60-5.80 X10*6/uL) 4.97 (Ref Range: 4.60-5.80 X10*6/uL) Hemoglobin 15.9 (Ref Range: 14.0-18.0 g/dl) 17.8 (Ref Range: 14.0-18.0 g/dl) 16.1 (Ref Range: 14.0-18.0 g/dl) Hematocrit 48.0 (Ref Range: 42.0-52.0 %) 54.8 H (Ref Range: 42.0-52.0 %) 49.9 (Ref Range: 42.0-52.0 %) Mean Corpuscular Volume 99.8 H (Ref Range: 80.0-98.0 fL) 102.6 H (Ref Range: 80.0-98.0 fL) 100.4 H (Ref Range: 80.0-98.0 fL) Mean Corpuscular Hemoglobin 33.1 H (Ref Range: 27.0-33.0 pg) 33.3 H (Ref Range: 27.0-33.0 pg) 32.4 (Ref Range: 27.0-33.0 pg) Mean Corpuscular HGB Conc 33.1 (Ref Range: 31.0-36.0 g/dl) 32.5 (Ref Range: 31.0-36.0 g/dl) 32.3 (Ref Range: 31.0-36.0 g/dl) Red Cell Distribution Width 14.4 (Ref Range: 11.0-16.0 %) 14.6 (Ref Range: 11.0-16.0 %) 14.2 (Ref Range: 11.0-16.0 %) Platelet Count 148 L (Ref Range: 160-400 X10*3/uL) 131 L (Ref Range: 160-400 X10*3/uL) 140 L (Ref Range: 160-400 X10*3/uL) Mean Platelet Volume 12.5 H (Ref Range: 9.4-12.4 fL) 11.9 (Ref Range: 9.4-12.4 fL) 12.9 H (Ref Range: 9.4-12.4 fL) Neutrophils Percent Auto 63.9 (Ref Range: 45-73 %) 73.2 H (Ref Range: 45-73 %) 60.2 (Ref Range: 45-73 %) Imm Gran Pct Auto 0.4 (Ref Range: 0.0-0.4 %) 0.5 H (Ref Range: 0.0-0.4 %) 0.2 (Ref Range: 0.0-0.4 %) Lymphocytes Percent Auto 22.5 (Ref Range: 20-40 %) 16.1 L (Ref Range: 20-40 %) 25.8 (Ref Range: 20-40 %) Monocytes Percent Auto 10.7 (Ref Range: 2-11 %) 8.3 (Ref Range: 2-11 %) 10.8 (Ref Range: 2-11 %) Eosinophils Percent Auto 1.8 (Ref Range: 0-4 %) 1.4 (Ref Range: 0-4 %) 2.2 (Ref Range: 0-4 %) Basophils Percent Auto 0.7 (Ref Range: 0-2 %) 0.5 (Ref Range: 0-2 %) 0.8 (Ref Range: 0-2 %) NRBC Pct Auto 0.0 (Ref Range: 0.0-0.2 /100WBC) 0.0 (Ref Range: 0.0-0.2 /100WBC) 0.0 (Ref Range: 0.0-0.2 /100WBC) Neutrophils Absolute Auto 3.5 (Ref Range: 2.0-8.3 x10*3/uL) 4.9 (Ref Range: 2.0-8.3 x10*3/uL) 2.9 (Ref Range: 2.0-8.3 x10*3/uL) Imm Gran Abs Auto 0.02 (Ref Range: 0.00-0.03 X10*3/uL) 0.03 (Ref Range: 0.00-0.03 X10*3/uL) 0.01 (Ref Range: 0.00-0.03 X10*3/uL) Lymphocytes Absolute Auto 1.2 (Ref Range: 1.2-4.9 X10*3/uL) 1.1 L (Ref Range: 1.2-4.9 X10*3/uL) 1.3 (Ref Range: 1.2-4.9 X10*3/uL) Monocytes Absolute Auto 0.6 (Ref Range: 0.1-1.2 X10*3/uL) 0.6 (Ref Range: 0.1-1.2 X10*3/uL) 0.5 (Ref [...] X10*3/uL) 0.000 (Ref Range: 0.0-0.012 X10*3/uL) * Lab:[facility] Fast * Collection Date 02/02/2024 11/08/2023 05/11/2023 Collection Time 06:52 AM 06:32 AM 06:17 AM Order Date 02/02/2024 11/08/2023 05/11/2023 Sodium 142 (Ref Range: 135-145 mmol/L) 142 (Ref Range: 135-145 mmol/L) 141 (Ref Range: 135-145 mmol/L) Bilirubin Total 0.8 (Ref Range: 0.0-1.0 mg/dL) 1.7 H (Ref Range: 0.0-1.0 mg/dL) 1.1 H (Ref Range: 0.0-1.0 mg/dL) Aspartate Amino Transferase 19 (Ref Range: 5-37 U/L) 13 (Ref Range: 5-37 U/L) 18 (Ref Range: 5-37 U/L) Alanine Aminotransferase 13 (Ref Range: 0-40 U/L) 13 (Ref Range: 0-40 U/L) 13 (Ref Range: 0-40 U/L) Total Protein 6.6 (Ref Range: 6.5-8.0 g/dL) 7.2 (Ref Range: 6.5-8.0 g/dL) 6.6 (Ref Range: 6.5-8.0 g/dL) Albumin Level 3.4 L (Ref Range: 3.5-5.0 g/dL) 3.7 (Ref Range: 3.5-5.0 g/dL) 3.6 (Ref Range: 3.5-5.0 g/dL) Alkaline Phosphatase 58 (Ref Range: 39-117 U/L) 56 (Ref Range: 39-117 U/L) 58 (Ref Range: 39-117 U/L) Potassium 3.8 (Ref Range: 3.3-5.1 mmol/L) 5.0 (Ref Range: 3.3-5.1 mmol/L) 3.3 (Ref Range: 3.3-5.1 mmol/L) Chloride 105 (Ref Range: 96-108 mmol/L) 104 (Ref Range: 96-108 mmol/L) 105 (Ref Range: 96-108 mmol/L) Carbon Dioxide 28 (Ref Range: 22-29 mmol/L) 29 (Ref Range: 22-29 mmol/L) 28 (Ref Range: 22-29 mmol/L) Anion Gap 13 (Ref Range: 12-20) 14 (Ref Range: 12-20) 11 L (Ref Range: 12-20) Blood Urea Nitrogen 22 H (Ref Range: 9-16 mg/dL) 17 H (Ref Range: 9-16 mg/dL) 16 (Ref Range: 9-16 mg/dL) Creatinine 1.08 (Ref Range: 0.5-1.4 mg/dL) 1.24 (Ref Range: 0.5-1.4 mg/dL) 1.11 (Ref Range: 0.5-1.4 mg/dL) Estimated Glomerular Filt Rate > 60 56 > 60 Glucose Fasting 98 (Ref Range: 60-99 mg/dL) 85 (Ref Range: 60-99 mg/dL) 95 (Ref Range: 60-99 mg/dL) Calcium 8.8 (Ref Range: 8.4-10.2 mg/dL) 9.7 (Ref Range: 8.4-10.2 mg/dL) 9.1 (Ref Range: 8.4-10.2 mg/dL) * Lab:Lipid Panel * Collection Date 02/02/2024 11/08/2023 05/11/2023 Collection Time 06:52 AM 06:32 AM 06:17 AM Order Date 02/02/2024 11/08/2023 05/11/2023 Triglycerides 45 (Ref Range: <150 mg/dL) 62 (Ref Range: <150 mg/dL) 69 (Ref Range: <150 mg/dL) Cholesterol 128 (Ref Range: <200 mg/dL) 141 (Ref Range: <200 mg/dL) 148 (Ref Range: <200 mg/dL) LDL Cholesterol Calculated 71 (Ref Range: <100 mg/dL) 78 (Ref Range: <100 mg/dL) 83 (Ref Range: <100 mg/dL) HDL Cholesterol 48 (Ref Range: >40 mg/dL) 51 (Ref Range: >40 mg/dL) 52 (Ref Range: >40 mg/dL) * Lab:Vitamin D 25-OH Total * Collection Date 02/02/2024 11/02/2022 06/21/2022 Collection Time 06:52 AM 06:28 AM 06:21 AM Order Date 02/02/2024 11/02/2022 06/21/2022 Vitamin D 25-OH Total 29.8 L (Ref Range: >30 ng/mL) 33.0 (Ref Range: >30 ng/mL) 30.0 (Ref Range: >30 ng/mL) * Lab:URINE DIP STICK * Collection Date 11/13/2023 11/09/2022 Order Date 11/13/2023 11/09/2022 SG 1.010 (Ref Range: 1.005 - 1.025) 1.010 (Ref Range: 1.005 - 1.025) pH 6.5 (Ref Range: 5.0 - 9.0) 7.0 (Ref Range: 5.0 - 9.0) CASTILLO Negative (Ref Range: Negative -) Negative (Ref Range: Negative -) NIT Negative (Ref Range: Negative -) Negative (Ref Range: Negative -) PRO 15 (Ref Range: Negative - Trace) 15 (Ref Range: Negative - Trace) GLU 500 (Ref Range: Negative -) 500 (Ref Range: Negative -) KET 5 (Ref Range: Negative -) Negative (Ref Range: Negative -) UBG 0.2 (Ref Range: 0.1 - 1.8) 0.2 (Ref Range: 0.1 - 1.8) EVERETT Negative (Ref Range: 0.2 - 1.3) Negative (Ref Range: 0.2 - 1.3) BLD Negative (Ref Range: Negative -) Negative (Ref Range: Negative -) Menstrating NR N/A * Examination: G eneral Examination: GENERAL APPEARANCE: p leasant, well nourished, well developed, in no acute distress, calm and relaxed, obese, elderly man, obese, elderly man. HEAD: a traumatic, normocephalic. EYES: [...] e xtremities unremarkable, no clubbing, cyanosis or edema, Healing laceration just above left ankle anteriorly. PERIPHERAL PULSES: n ormal. NEUROLOGIC: a lert and oriented, cranial nerves 2-12 grossly intact, deep tendon reflexes 2+ symmetrical, motor strength normal upper and lower extremities, sensory exam intact. PSYCH: a lert, oriented, cognitive function intact, thought process logical, goal directed. Assessment: * Assessment: 1. A F (paroxysmal atrial fibrillation) - I48.0 (Primary) N otes :His heart rate was irregular today and well controlled. No change in his regimen was necessary. He remains anticoagulated. 2 . E ssential hypertension - I10 N otes :His blood pressure is stable today at 130/70 and no change in his regimen was necessary. We reviewed the wisdom of progressive sodium restriction and weight loss. 3 . O kelsy (BMI 30-39.9) - E66.9 N otes :His body mass index is 38.4. He weighs 264 pounds. We discussed his diet and nutrition.? We discussed lifestyle modifications he could make to lose weight. We made a plan to lose weight at a rate of one half of a pound per week. 4 . F ormer smoker - Z87.891 N otes :He is highly motivated not to smoke. We discussed a plan for prevention of relapse in times of stress. 5 . G nasreen-esophageal reflux disease without esophagitis - K21.9 ?Notes :The reflux is well-controlled with qxrm-xgx-yjqckib medications. 6 . C entral sleep apnea - G47.31 N otes :He is using his CPAP every night and feels much better. 7 . T hrombocytopenia - D69.6 N otes :His platelet count has increased from 131,000-148,000. He is anticoagulated and has had no bleeding. No change in his therapy is indicated. He is avoiding aspirin. 8 . M acrocytosis - D75.89 N otes :His mean cell volume is now 99.8. It has improved substantially from 102.6. The cause is unclear but may be dietary.Evaluation with folic acid and vitamin B12 and reticulocytes is indicated. 9 . H istory of pulmonary embolism - Z86.711 N otes :He is had no further pulmonary symptoms and is anticoagulated. The fat was in 2004 and he has been anticoagulated. 1 0. B PH (benign prostatic hyperplasia) - N40.0 N otes :He arises from sleep once or twice a night to urinate. It depends upon fluid intake. We discussed lifestyle modification as a way to relieve nocturia. Plan: * Treatment: 2. O kelsy (BMI 30-39.9) L AB: PROFILE, FASTING (COMPREHENSIVE METABOLIC) L AB: PSA, TOTAL L AB: CBC WITH AUTO DIFF L AB: Lipid Panel 3. B PH (benign prostatic hyperplasia) L AB: PROFILE, FASTING (COMPREHENSIVE METABOLIC) L AB: PSA, TOTAL L AB: CBC WITH AUTO DIFF L AB: Lipid Panel 4. O thers Continue Protonix Tablet Delayed [...] of tobacco use and urged to quit. 04/11/2023 * Follow Up: 4 Months (Reason: OV) * Images: * Sign off status: Completed true * Provider: Autumn Painting MD Date: 04/11/2023 Generated for Vu cole/Vaughn/Brandoitting on: 03/30/2024 07:45 PM EST History and Physical Notes * HPI (History of Present Illness) Category Sub-Category Detail Notes COVID-19 Screening Questions Have you had any new onset fever, chills, cough, congestion, sore throat, shortness of breath, muscle aches?: No Examination Category Sub-Category Detail Notes General Examination GENERAL APPEARANCE: pleasant , well nourished, well developed, in no acute distress, calm and relaxed, obese, elderly man, obese, elderly man HEAD: atraumatic, normocep halic EYES: [...] extremities unremark able, no clubbing, cyanosis or edema, Healing laceration just above left ankle anteriorly LYMPH NODES: no enlarged lymph no aye,spleen normal RECTAL EXAM: not examined PSYCH: alert, oriented, cog nitive function intact, thought process logical, goal directed ORAL CAVITY: normal, unremarkable
--- OUTSIDE RECORDS SUMMARY | 2024-06-11 04:00 | XMS_ITS ---
Author Organization Inocente Painting III, MD Address [address] [place] [address] Care Team Providers Care Chief Technical Officer Name Role Phone Dr. Inocente Painting III [...] Date Provider Diagnosis Inocente Painting III, MD [address] [place] [address] [place], [place] [id number] 06/11/2024 Inocente Painting Essential hypertensi on I10 [...] - K21.9) The reflux is well-controlled with tpmj-lnr-ovfhyzr medications. 06/11/2024 Macrocytosis (ICD-10 - D75.89) His [...] Provider Name:Inocente Painting , 03/18/2025 09:00:00 AM, [address] [place] [address] , [address], [place], [address], Provider Name:Inocente Painting , 11/18/2025 09:00:00 AM, [address] [place] [address] [place], [place], [address], Progress Notes * Behzad MENDOZADOB:[birth year] (83 yo M)Acc No.[id number]:06/11/2024 Progress Notes Patient: Behzad OQUENDO Provider: Autumn Painting MD :1940 A ge:83 Y S ex:Male Date:06/11/2024 [facility] [id number] Subjective: * Chief Complaints: * H ypertensionParoxysmal [...] 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 5 . M acrocytosis - D75.89 [...] 06/11/2024 Generated for Vu cole/Vaughn/Brandoitting on: 1 03/30/2024 07:44 PM EST History and Physical Notes * [...]
--- OUTSIDE RECORDS SUMMARY | 2024-10-01 04:30 | XMS_ITS ---
Author Organization Inocente Painting III, MD Address [address] [place] [address] Care Team Providers Care Loader Demolder Name Role Phone Dr. Inocente Painting III Primary Care Provider Allergies Allergen (clinical drug ingredient) Drug/Non Drug Allergy documented on EMR Reaction Allergy Type Onset Date Status morphine Morphine Sulfate Rash Drug Allergy Active REASON FOR VISIT Hypertension, Paroxysmal atrial fibrillation, GERD, Macrocytosis, Sleep apnea, History of pulmonaryembolism, Thrombocytopenia, Chronic anticoagulation, Obesity Medications Medication SIG (Take, [...] tablet Orally Once a day A ctive Protonix 40 MG 1 tablet Orally ever [...] non-user Ex-cigaret te smoker Vital Signs Temperature 97.2 degrees Fahrenheit 10/02/19 25 Blood pressure systolic 133 mm Hg 10/02/19 25 Blood pressure diastolic 78 mm Hg 025 Heart Rate 69 /min 10/01/2024 Height 69.5 in 10/01/2024 Weight 255 lbs 10/01/2024 BMI 37.11 kg/m2 10/01/2024 Encounters Encounter Location Date Provider Diagnosis Inocente Painting III, MD [address] [place] [address] [address] [place], [place] [address] 10/01/2024 Inocente Painting Essential hypertensi on I10 ; Former smoker Z87.891 ; Obesity (BMI 30-39.9) E66.9 ; Gastro-esophageal reflux disease without esophagitis K21.9 ; Strabismus H50.9 ; Chronic anticoagulation Z79.01 ; BPH (benign prostatic hyperplasia) N40.0 ; History of pulmonary embolism Z86.711 and Vitamin D deficiency, unspecified E55.9 Assessments Encounter Date Diagnosis (ICD Code) Assessment Notes T reatment Notes Treatment Clinical Notes 10/01/2024 Essential hypertension (ICD-10 - I10) His blood pressure is stable today at 133/78 and no change in his regimen was necessary. We reviewed the wisdom of progressive sodium restriction and weight loss. 10/01/2024 Former smoker (ICD-1 0 - Z87.891) He is highly motivated not to smoke. We discussed a plan for prevention of relapse in times of stress. 10/01/2024 Obesity (BMI 30-39.9 ) (ICD-10 - E66.9) His body mass index is 37.1.He has lost 6 pounds. We discussed his diet and nutrition. We discussed lifestyle modifications he could make to lose weight. We made a plan to lose weight at a rate of one half of a pound per week. 10/01/2024 Gastro-esophageal reflux disease without esophagitis (ICD-10 - K21.9) The reflux is well-controlled with xdzd-atm-bfdxryv medications. 10/01/2024 Strabismus (ICD-10 - H50.9) This abnormality was still present and is long-standing. He was encouraged to see the pipe finishing supervisor regularly. 10/01/2024 Chronic anticoagulation (ICD-10 - Z79.01) He has had no bleeding or clotting. Since his last visit. He will continue on current therapy. Because of the atrial fibrillation. 10/01/2024 BPH (benign prostati c hyperplasia) (ICD-10 - N40.0) He arises from sleep once or twice a night to urinate. It depends upon fluid intake. We discussed lifestyle modification as a way to relieve nocturia. 10/01/2024 History of pulmonary embolism (ICD-10 - Z86.711) He is had no further pulmonary symptoms and is anticoagulated. The fat was in 2004 and he has been anticoagulated. 10/01/2024 Vitamin D deficiency , unspecified (ICD-10 - E55.9) He was continued on his vitamin D supplements Plan Of Treatment Medication Medication Name Sig [...] Order Date PROFILE, FASTING (COMPREHENSIVE METABOLI C) 10/01/2024 PSA, TOTAL 10/01/2024 CBC w DIFF 10/01/2024 Lipid Panel 10/01/2024 Vitamin D 25-OH Total 10/01/2024 Next Appt Details Follow Up: As Scheduled, Kim son: Annual Exam Provider Name:Inocente Painting , 03/18/2025 09:00:00 AM, [address] [place] [address] [address], [place], [address], Provider Name:Inocente Painting , 11/18/2025 09:00:00 AM, [address] [place] [address] [address], [place], [address], Progress Notes * Behzad MENDOZADOB:[birth year] (83 yo M)Acc No.[id number]:10/01/2024 Progress Notes Patient: Behzad OQUENDO Provider: Autumn Painting MD :1940 A ge:83 Y S ex:Male Date:10/01/2024 Address: [address], [facility] [place], [id number] Subjective: * Chief Complaints: * H ypertensionParoxysmal atrial fibrillationGERDMacrocytosisSleep apneaHistory of pulmonary embolismThrombocytopeniaChronic anticoagulationObesity * HPI: C OVID-19 Screening: He returns to the office for routine medical management of multiple problems. Since his last visit he has been healthy and well. He denies any new problems. He is anticoagulated but has had no bleeding. His vital signs have been stable.? He has had no hospitalizations. He denies shortness of breath or chest pain. He has been compliant with all of his medications. 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 * P ast Orders: Lab:Complete Blood Count Aut o Diff * Collection Date 09/25/2024 06/04/2024 02/02/2024 Collection Time 06:23 AM 06:28 AM 06:52 AM Order Date 09/25/2024 06/04/2024 02/02/2024 White Blood Count 6.0 (Ref Range: 4.8-10.8 X10*3/uL) 7.3 (Ref Range: 4.8-10.8 X10*3/uL) 5.4 (Ref Range: 4.8-10.8 X10*3/uL) Red Blood Count 5.08 (Ref Range: 4.60-5.80 X10*6/uL) 5.00 (Ref Range: 4.60-5.80 X10*6/uL) 4.81 (Ref Range: 4.60-5.80 X10*6/uL) Hemoglobin 16.8 (Ref Range: 14.0-18.0 g/dl) 16.4 (Ref Range: 14.0-18.0 g/dl) 15.9 (Ref Range: 14.0-18.0 g/dl) Hematocrit 51.3 (Ref Range: 42.0-52.0 %) 51.2 (Ref Range: 42.0-52.0 %) 48.0 (Ref Range: 42.0-52.0 %) Mean Corpuscular Volume 101.0 H (Ref Range: 80.0-98.0 fL) 102.4 H (Ref Range: 80.0-98.0 fL) 99.8 H (Ref Range: 80.0-98.0 fL) Mean Corpuscular Hemoglobin 33.1 H (Ref Range: 27.0-33.0 pg) 32.8 (Ref Range: 27.0-33.0 pg) 33.1 H (Ref Range: 27.0-33.0 pg) Mean Corpuscular HGB Conc 32.7 (Ref Range: 31.0-36.0 g/dl) 32.0 (Ref Range: 31.0-36.0 g/dl) 33.1 (Ref Range: 31.0-36.0 g/dl) Red Cell Distribution Width 14.2 (Ref Range: 11.0-16.0 %) 14.7 (Ref Range: 11.0-16.0 %) 14.4 (Ref Range: 11.0-16.0 %) Platelet Count 126 L (Ref Range: 160-400 X10*3/uL) 155 L (Ref Range: 160-400 X10*3/uL) 148 L (Ref Range: 160-400 X10*3/uL) Mean Platelet Volume 11.7 (Ref Range: 9.4-12.4 fL) 12.6 H (Ref Range: 9.4-12.4 fL) 12.5 H (Ref Range: 9.4-12.4 fL) Neutrophils Percent Auto 71.0 (Ref Range: 45-73 %) 72.9 (Ref Range: 45-73 %) 63.9 (Ref Range: 45-73 %) Imm Gran Pct Auto 0.5 H (Ref Range: 0.0-0.4 %) 0.4 (Ref Range: 0.0-0.4 %) 0.4 (Ref Range: 0.0-0.4 %) Lymphocytes Percent Auto 20.0 (Ref Range: 20-40 %) 17.8 L (Ref Range: 20-40 %) 22.5 (Ref Range: 20-40 %) Monocytes Percent Auto 6.5 (Ref Range: 2-11 %) 7.7 (Ref Range: 2-11 %) 10.7 (Ref Range: 2-11 %) Eosinophils Percent Auto 1.7 (Ref Range: 0-4 %) 0.8 (Ref Range: 0-4 %) 1.8 (Ref Range: 0-4 %) Basophils Percent Auto 0.3 (Ref Range: 0-2 %) 0.4 (Ref Range: 0-2 %) 0.7 (Ref Range: 0-2 %) NRBC Pct Auto 0.0 (Ref Range: 0.0-0.2 /100WBC) 0.0 (Ref Range: 0.0-0.2 /100WBC) 0.0 (Ref Range: 0.0-0.2 /100WBC) Neutrophils Absolute Auto 4.3 (Ref Range: 2.0-8.3 x10*3/uL) 5.3 (Ref Range: 2.0-8.3 x10*3/uL) 3.5 (Ref Range: 2.0-8.3 x10*3/uL) Imm Gran Abs Auto 0.03 (Ref Range: 0.00-0.03 X10*3/uL) 0.03 (Ref Range: 0.00-0.03 X10*3/uL) 0.02 (Ref Range: 0.00-0.03 X10*3/uL) Lymphocytes Absolute Auto 1.2 (Ref Range: 1.2-4.9 X10*3/uL) 1.3 (Ref Range: 1.2-4.9 X10*3/uL) 1.2 (Ref Range: 1.2-4.9 X10*3/uL) Monocytes Absolute Auto 0.4 (Ref Range: 0.1-1.2 X10*3/uL) 0.6 (Ref Range: [...] (Ref Range: 0.0-0.012 X10*3/uL) * Lab:Jesusita Chery. Stanleye l Fast * Collection Date 09/25/2024 06/04/2024 02/02/2024 Collection Time 06:25 AM 06:28 AM 06:52 AM Order Date 09/25/2024 06/04/2024 02/02/2024 Sodium 141 (Ref Range: 135-145 mmol/L) 143 (Ref Range: 135-145 mmol/L) 142 (Ref Range: 135-145 mmol/L) Bilirubin Total 1.5 H (Ref Range: 0.0-1.0 mg/dL) 1.0 (Ref Range: 0.0-1.0 mg/dL) 0.8 (Ref Range: 0.0-1.0 mg/dL) Aspartate Amino Transferase 23 (Ref Range: 5-37 U/L) 22 (Ref Range: 5-37 U/L) 19 (Ref Range: 5-37 U/L) Alanine Aminotransferase 15 (Ref Range: 0-40 U/L) 16 (Ref Range: 0-40 U/L) 13 (Ref Range: 0-40 U/L) Total Protein 6.4 L (Ref Range: 6.5-8.0 g/dL) 6.5 (Ref Range: 6.5-8.0 g/dL) 6.6 (Ref Range: 6.5-8.0 g/dL) Albumin Level 3.6 (Ref Range: 3.5-5.0 g/dL) 3.7 (Ref Range: 3.5-5.0 g/dL) 3.4 L (Ref Range: 3.5-5.0 g/dL) Alkaline Phosphatase 49 (Ref Range: 39-117 U/L) 57 (Ref Range: 39-117 U/L) 58 (Ref Range: 39-117 U/L) Potassium 3.9 (Ref Range: 3.3-5.1 mmol/L) 5.1 (Ref Range: 3.3-5.1 mmol/L) 3.8 (Ref Range: 3.3-5.1 mmol/L) Chloride 107 (Ref Range: 96-108 mmol/L) 106 (Ref Range: 96-108 mmol/L) 105 (Ref Range: 96-108 mmol/L) Carbon Dioxide 25 (Ref Range: 22-29 mmol/L) 32 H (Ref Range: 22-29 mmol/L) 28 (Ref Range: 22-29 mmol/L) Anion Gap 13 (Ref Range: 12-20) 10 L (Ref Range: 12-20) 13 (Ref Range: 12-20) Blood Urea Nitrogen 21 H (Ref Range: 9-16 mg/dL) 25 H (Ref Range: 9-16 mg/dL) 22 H (Ref Range: 9-16 mg/dL) Creatinine 1.12 (Ref Range: 0.5-1.4 mg/dL) 1.19 (Ref Range: 0.5-1.4 mg/dL) 1.08 (Ref Range: 0.5-1.4 mg/dL) Estimated Glomerular Filt Rate > 60 58 > 60 Glucose Fasting 77 (Ref Range: 60-99 mg/dL) 98 (Ref Range: 60-99 mg/dL) 98 (Ref Range: 60-99 mg/dL) Calcium 8.5 (Ref Range: 8.4-10.2 mg/dL) 9.3 (Ref Range: 8.4-10.2 mg/dL) 8.8 (Ref Range: 8.4-10.2 mg/dL) * Lab:Lipid Panel * Collection Date 09/25/2024 06/04/2024 02/02/2024 Collection Time 06:25 AM 06:28 AM 06:52 AM Order Date 09/25/2024 06/04/2024 02/02/2024 Triglycerides 55 (Ref Range: <150 mg/dL) 49 (Ref Range: <150 mg/dL) 45 (Ref Range: <150 mg/dL) Cholesterol 142 (Ref Range: <200 mg/dL) 129 (Ref Range: <200 mg/dL) 128 (Ref Range: <200 mg/dL) LDL Cholesterol Calculated 81 (Ref Range: <100 mg/dL) 66 (Ref Range: <100 mg/dL) 71 (Ref Range: <100 mg/dL) HDL Cholesterol 50 (Ref Range: >40 mg/dL) 54 (Ref Range: >40 mg/dL) 48 (Ref Range: >40 mg/dL) * Lab:Vitamin D 25-OH Total * Collection Date 09/25/2024 02/02/2024 11/02/2022 Collection Time 06:25 AM 06:52 AM 06:28 AM Order Date 09/25/2024 02/02/2024 11/02/2022 Vitamin D 25-OH Total 37.6 (Ref Range: >30 ng/mL) 29.8 L (Ref Range: >30 ng/mL) 33.0 (Ref Range: >30 ng/mL) * Examination: G eneral Examination: GENERAL APPEARANCE: p leasant, well nourished, well developed, in no acute distress, calm and relaxed: obese: man. HEAD: a traumatic, normocephalic. EYES: e [...] normal, no s3, or vascular bruits. LUNGS: : diminished breath sounds throughout: good air movement: no wheezes, rales, rhonchi. BREASTS: no masses palpable bilaterally. ABDOMEN: b owel sounds normal, no ascites, no organomegaly, no mass: centripital obesity. RECTAL EXAM: n ot examined. MUSCULOSKELETAL: e xtremities unremarkable, no clubbing, cyanosis or edema, Mild arthritic changes fingers. PERIPHERAL PULSES: n ormal. NEUROLOGIC: a lert and oriented, cranial nerves 2-12 grossly intact, deep tendon reflexes 2+ symmetrical, motor strength normal upper and lower extremities, sensory exam intact. PSYCH: a lert, oriented. Assessment: * Assessment: 1. E ssential hypertension - I10 (Primary) N otes :His blood pressure is stable today at 133/78 and no change in his regimen was necessary. We reviewed the wisdom of progressive sodium restriction and weight loss. 2 . F ormer smoker - Z87.891 N otes :He is highly motivated not to smoke. We discussed a plan for prevention of relapse in times of stress. 3 . O kelsy (BMI 30-39.9) - E66.9 N otes :His body mass index is 37.1.He has lost 6 pounds. We discussed his diet and nutrition. We discussed lifestyle modifications he could make to lose weight. We made a plan to lose weight at a rate of one half of a pound per week. 4 . G nasreen-esophageal reflux disease without esophagitis - K21.9 ?Notes :The reflux is well-controlled with lbon-ydf-gtsxexy medications. 5 . S trabismus - H50.9 N otes :This abnormality was still present and is long-standing. He was encouraged to see the pipe finishing supervisor regularly. 6 . C hronic anticoagulation - Z79.01 N otes :He has had no bleeding or clotting. Since his last visit. He will continue on current therapy. Because of the atrial fibrillation. 7 . B PH (benign prostatic hyperplasia) - N40.0 N otes :He arises from sleep once or twice a night to urinate. It depends upon fluid intake. We discussed lifestyle modification as a way to relieve nocturia. 8 . H istory of pulmonary embolism - Z86.711 N otes :He is had no further pulmonary symptoms and is anticoagulated. The fat was in 2004 and he has been anticoagulated. 9 . V itamin D deficiency, unspecified - E55.9 N otes :He was continued on his vitamin D supplements Plan: * Treatment: 2. O kelsy (BMI 30-39.9) L AB: PROFILE, FASTING (COMPREHENSIVE METABOLIC) L AB: PSA, TOTAL L AB: CBC w DIFF L AB: Lipid Panel L AB: Vitamin D 25-OH Total 3. B PH (benign prostatic hyperplasia) L AB: PROFILE, FASTING (COMPREHENSIVE METABOLIC) L AB: PSA, TOTAL L AB: CBC w DIFF L AB: Lipid Panel L AB: Vitamin D 25-OH Total 4. V itamin D deficiency, unspecified L AB: PROFILE, FASTING (COMPREHENSIVE METABOLIC) L AB: PSA, TOTAL L AB: CBC w DIFF L AB: Lipid Panel L AB: Vitamin D 25-OH Total 5. O thers Continue Protonix Tablet Delayed Release, [...] tobacco use and urged to quit. 0 10/01/2024 * Follow Up: A s Scheduled (Reason: Annual Exam) * Images: * Sign off status: Completed true * Provider: Autumn Painting MD Date: 0 10/01/2024 Generated for Vu cole/Vaughn/Zoya on: 03/30/2024 07:45 PM EST History and Physical Notes * HPI (History of Present Illness) Category Sub-Category Detail Notes COVID-19 Screening Questions Have you had any new onset fever, chills, cough, congestion, sore throat, shortness of breath, muscle aches?: No Examination Category Sub-Category Detail Notes General Examination GENERAL APPEARANCE: pleasant , well nourished, well developed, in no acute distress, calm and relaxed: obese: man HEAD: atraumatic, normocep halic EYES: eomi, perrla, anicte ho, conjugate EARS: normal NOSE: septum intact NECK/THYROID: no jugular venous di stention, no carotid bruit, thyroid normal HEART: no clicks, gallops, murmurs, or rubs, regular rhythm, S1, S2 normal, no s3, or vascular bruits LUNGS: : diminished breath sounds throughout: good air movement: no wheezes, rales, rhonchi ABDOMEN: bowel sounds normal, no ascites, no organomegaly, no mass: centripital obesity NEUROLOGIC: alert and oriented, cranial nerves 2-12 grossly intact, deep tendon reflexes 2+ symmetrical, motor strength normal upper and lower extremities, sensory exam intact SKIN: no suspicious lesion s, anicteric PERIPHERAL PULSES: normal BREASTS: no masses palpable b ilaterally MUSCULOSKELETAL: extremities unremark able, no clubbing, cyanosis or edema, Mild arthritic changes fingers LYMPH NODES: no enlarged lymph no aye,spleen normal RECTAL EXAM: not examined PSYCH: alert, oriented ORAL CAVITY: normal, unremarkable
--- OUTSIDE RECORDS SUMMARY | 2024-11-14 05:00 | XMS_ITS ---
Author Organization Inocente Painting III, MD Address [address] [place] [address] Care Team Providers Care Legal Financial Specialist Name Role Phone Dr. Inocente Painting III [...] Date Provider Diagnosis Inocente Painting III, MD [address] [place] [address] [place] [address] 11/14/2024 Inocente Painting Essential hypertensi on I10 [...] - K21.9) The reflux is well-controlled with gqdo-zim-ooaidtz medications. 11/14/2024 Thrombocytopenia (ICD-10 - D69.6) This [...] Name:Inocente Painting , 03/18/2025 09:00:00 AM, [address] [facility] [address], [place], [address], Provider Name:Inocente Painting , 11/18/2025 09:00:00 AM, [address] [place] [address] [address], [place], [address], Progress Notes * Behzad MENDOZADOB:[birth year] (83 yo M)Acc No.[id number]:11/14/2024 Progress Notes Patient: Behzad OQUENDO Provider: Autumn Painting MD :1940 A ge:83 Y S ex:Male Date:11/14/2024 Address: [address] [id number] Subjective: * Chief Complaints: * A nnual [...] N egative 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 Pane l Fast * Collection Date 11/06/2024 [...] K21.9 Notes :The reflux is well-controlled with dnfu-vfy-tltdmnx medications. 7 . T hrombocytopenia - D69.6 [...] MD Date: Generated for Vu cole/Vaughn/eTransmitting on: 03/30/2024 07:46 PM EST History and [...] RECTAL EXAM: not examined PSYCH: alert, oriented: ppap coordinator perative with exam: cognitive function intact: judgement and insight good: speech clear: thought process logical, goal directed ORAL CAVITY: normal, unremarkable
--- OUTSIDE RECORDS SUMMARY | 2025-01-27 19:45 | XMS_ITS | Clinical Summary ---
Author Organization [facility] Address [address] [place] [address] Care Team Providers Care Technical Support Agent Name Role Phone Shaniqua Munson Primary Care Provider [phone] Surgical History Surgery Date Site/Laterality Comments KNEE [...] on file Sexual Orientation Not on file Plan of Treatment Health Maintenance Due Date [...] Documents on File Type Date Recorded Patient Press Tender Short Goods Expl anation Health Care Decision (hx) 02/27/2019 [...] (hx) 02/27/2019 AD JACKSON DIRECTIVE Care Teams Technical Support Agent Relationship Specialty Start Date End Date Shaniqua Munson [address] [place] [address] Dr Alex MA PCP - General Internal Medicine 03/06/19
--- OUTSIDE RECORDS SUMMARY | 2025-01-27 19:46 | XMS_ITS | Clinical Summary ---
Author Organization [facility] Address [address] [facility] [address] [place] [phone] Phone Care Team Providers Care President And Chief Commercial Officer Name Role Phone Inocente Painting MD Primary Care Provider [phone] Allergies Active Allergy Reactions Criticality Noted Date [...] Plasma Sodium 141 135 - 145 mmol/L [facility] Plasma Potassium 4.7 3.4 - 5.0 mmol/L [facility] Plasma Chloride 102 98 - 108 mmol/L [facility] Plasma Carbon Dioxide 28 23 - 32 mmol/L [facility] Plasma Urea Nitrogen 14 8 - 25 mg/dL [facility] Plasma Creatinine 1.18 0.60 - 1.50 mg/dL [facility] Plasma Glucose 112(Abnor thomas H) 70 - 110 mg/dL [facility] Calcium 9.5 8.5 - 10.5 mg/dL [facility] eGFR >60 mL/min/1. 73m2 [facility] Comment: Abnormal if <60 mL/min/1.73m2. If patient is -[place], multiply the result by 1.21. Plasma Anion GAP 11 3 - 17 mmol/L [facility] 12/03/2014 8:12 AM EDT 12/03/2014 8:14 AM EDT Comment:BLOOD us Jennyfer Fitzgerald MD LAB BLOOD BKR ORDERABLES Ed ited Result - Final [address] [address] from Last 3 Months or Most Recently Relevant to Health Maintenance Insurance MEDICARE [place] [address] [address] [place] [id number] [place] [address] [place] [address] [place] [address] [place] [address] MEDICARE REPLACEMENT [facility] MEDICARE REPLACEMENT [facility] MEDICARE REPLACEMENT [facility] MEDICARE REPLACEMENT Care Teams President And Chief Commercial Officer Relationship Specialty Start Date End Date Inocente Painting MD [address] [place] [address] [place] [address] PCP - General Medical Oncology 05/20/21 Additional Source Comments The information contained in this document represents components of the legal health record. It is not the complete legal health record.[facility]
--- OUTSIDE RECORDS SUMMARY | 2025-01-27 19:46 | XMS_ITS | Encounter Summary ---
Author Organization [facility] Address [address] [place] [address] Phone Care Team Providers Care River Transportation Worker Name Role Phone Inocente Painting MD Primary Care Provider [phone]- [phone] Encounter Details Date Type Department Care Team (Late st Contact Info) Description 05/20/2021 Procedure Pass [facility], Ct Scan - [address] [address] Social History Tobacco Use Types Packs/Day Years [...] PM EDT Josie Martínez RN * [place] Suicide Severity Rating Scale (Screener/Recent Self-Report) Question [...] on filedocumented in this encounter Care Teams River Transportation Worker Relationship Specialty Start Date End Date Inocente Painting MD [address] [place] [address] [place] [address] PCP - General Medical Oncology 05/20/21 documented as of this encounter Additional Source Comments The information contained in this document represents components of the legal health record. It is not the complete legal health record.[facility]
--- OUTSIDE RECORDS SUMMARY | 2025-01-27 19:46 | XMS_ITS | Encounter Summary ---
Author Organization [facility] Address [address] [place] [address] Phone Care Team Providers Care Social Media Community Manager Name Role Phone Inocente Paniting MD Primary Care Provider [phone]- [phone] Encounter Details Date Type Department Care Team (Late st Contact Info) Description 05/20/2021 Procedure Pass [facility], Ct Scan - [address] [address] Social History Tobacco Use Types Packs/Day Years [...] 4:45 PM EDT Josie Martínez RN * [place] Suicide Severity Rating Scale (Screener/Recent Self-Report) Question [...] on filedocumented in this encounter Care Teams Social Media Community Manager Relationship Specialty Start Date End Date Inocente Painting MD [address] [place] [address] [place] [address] PCP - General Medical Oncology 05/20/21 documented as of this encounter Additional Source Comments The information contained in this document represents components of the legal health record. It is not the complete legal health record.[facility]
--- OUTSIDE RECORDS SUMMARY | 2025-01-27 19:46 | XMS_ITS | Patient Health Record ---
Author Organization Inocente Painting III, MD Address [address] [place] [address] Care Team Providers Care Sap Plant Maintenance Consultant Name Role Phone Dr. Inocente Painting III Primary Care Provider Allergies Allergen (clinical drug ingredient) Drug/Non Drug Allergy documented on EMR Reaction Allergy Type Onset Date Status No Known Food Allergy Unknown Drug Allergy Active morphine Morphine Sulfate Rash Drug Allergy Active Results Component Value Reference Range Notes Complete Blood Count Auto Di ff Reviewed date:02/04/2024 08:33:16 PM Interpretation: Performing Lab:[facility], [address] [place] [phone] Notes/Report: White Blood Count 5.4 4.8-10.8 X10*3/uL [...] NRBC Abs Auto 0.000 0.0-0.012 X10*3/uL Comprehensive [place]. Panel Fa st Reviewed date:02/04/2024 08:33:16 PM Interpretation: Performing Lab:[address] [address] Notes/Report: Sodium 142 135-145 mmol/L Potassium 3.8 [...] Panel Reviewed date:02/04/2024 08:33:16 PM Interpretation: Performing Lab:[facility], [address] [place] [phone] Notes/Report: Triglycerides 45 <150 mg/dL Desirable Triglyceride: [...] Total Reviewed date:02/04/2024 08:33:16 PM Interpretation: Performing Lab:[address] [phone] Notes/Report: Vitamin D 25-OH Total 29.8 >30 [...] ff Reviewed date:06/05/2024 05:13:41 AM Interpretation: Performing Lab:[facility], [address] [place] [phone] Notes/Report: White Blood Count 7.3 4.8-10.8 X10*3/uL [...] NRBC Abs Auto 0.000 0.0-0.012 X10*3/uL Comprehensive [place]. Panel Fa st Reviewed date:06/05/2024 05:13:41 AM Interpretation: Performing Lab:[facility], [address] [place] [phone] Notes/Report: Sodium 143 135-145 mmol/L Potassium 5.1 [...] Panel Reviewed date:06/05/2024 05:13:41 AM Interpretation: Performing Lab:[address] [phone] Notes/Report: Triglycerides 49 <150 mg/dL Desirable Triglyceride: [...] Antigen Reviewed date:06/05/2024 05:13:41 AM Interpretation: Performing Lab:[address] [address] Notes/Report: Prostate Specific Antigen 3.88 <0.05-4.0 ng/mL PSA methodology: Paz Alinity i Chemiluminescent Microparticle Immunoassay (CMIA) Complete Blood Count Auto Di ff Reviewed date:10/01/2024 09:40:10 AM Interpretation: Performing Lab:[address] [phone] Notes/Report: White Blood Count 6.0 4.8-10.8 X10*3/uL [...] NRBC Abs Auto 0.000 0.0-0.012 X10*3/uL Comprehensive [place]. Panel Fa st Reviewed date:10/01/2024 09:40:10 AM Interpretation: Performing Lab:[facility], [address] [place] [phone] Notes/Report: Sodium 141 135-145 mmol/L Potassium 3.9 [...] Panel Reviewed date:10/01/2024 09:40:10 AM Interpretation: Performing Lab:[facility], [address] [place] [phone] Notes/Report: Triglycerides 55 <150 mg/dL Desirable Triglyceride: [...] Total Reviewed date:10/01/2024 09:40:10 AM Interpretation: Performing Lab:[facility], [address] [place] [phone] Notes/Report: Vitamin D 25-OH Total 37.6 >30 [...] ff Reviewed date:11/09/2024 08:32:29 PM Interpretation: Performing Lab:[facility], [address] [place] [phone] Notes/Report: White Blood Count 5.0 4.8-10.8 X10*3/uL [...] NRBC Abs Auto 0.000 0.0-0.012 X10*3/uL Comprehensive [place]. Panel Fa st Reviewed date:11/09/2024 08:32:29 PM Interpretation: Performing Lab:[facility], [address] [place] [phone] Notes/Report: Sodium 141 135-145 mmol/L Potassium 3.9 [...] Panel Reviewed date:11/09/2024 08:32:29 PM Interpretation: Performing Lab:[facility], [address] [place] [phone] Notes/Report: Triglycerides 53 <150 mg/dL Desirable Triglyceride: [...] Antigen Reviewed date:11/09/2024 08:32:29 PM Interpretation: Performing Lab:[facility], [address] [place] [phone] Notes/Report: Prostate Specific Antigen 3.59 <0.05-4.0 ng/mL PSA methodology: Paz Alinity i Chemiluminescent Microparticle Immunoassay (CMIA) Vitamin D 25-OH Total Reviewed date:11/09/2024 08:32:29 PM Interpretation: Performing Lab:[facility], [address] [place] [phone] Notes/Report: Vitamin D 25-OH Total 32.4 >30 [...] Problem Status W/U Status Risk Notes Problem 7499537 Former smoker (Z87.891) Active confirmed He is highly motivated not to smoke. We discussed a plan for prevention of relapse in times of stress. Problem 718810714 Thrombocytopenia (D69.6) Active confirmed This platelet count is currently stable and improved at 155,000. No change in his regimen was made. Problem Vitamin D deficiency (72033968) Vitamin D deficiency, unspecified (E55.9) Active confirmed He has been continued on his vitamin D supplement. Problem 105045429 Gastro-esophagea l reflux disease without esophagitis (K21.9) Active confirmed The reflux is well-controlled with bvnr-nzk-jzukedh medications. Problem 784746490 BPH (benign prostatic hyperplasia) (N40.0) Active confirmed He has been rising from sleep twice a night to urinate. We reviewed lifestyle modifications he could make to reduce this. Problem 610090778 Obesity (BMI 30-39.9) (E66.9) Active confirmed His body ma ss index is 37.1.He has lost 6 pounds. We discussed his diet and nutrition. We discussed lifestyle modifications he could make to lose weight. We made a plan to lose weight at a rate of one half of a pound per week. Problem 388364703 Chronic anticoagulation (Z79.01) Active confirmed He has had no bleeding or clotting. Since his last visit. He will continue on current therapy. Because of the atrial fibrillation. Problem 57268993 Essential hypertension (I10) Active confirmed His blood pressure is stable today and no change in his regimen was necessary. We reviewed the wisdom of progressive sodium restriction and weight loss. Problem 05939829 Colonic polyp (K63.5) Active confirmed He will undergo colonoscopies periodically. He is currently up-to-date. Problem 772986253 Osteoarthritis (M19.90) Active confirmed The pain is primarily in his knees and he feels quite well. Problem 223012176 History of pulmonary embolism (Z86.711) Active confirmed He is had no further pulmonary symptoms and is anticoagulated. The fat was in 2004 and he has been anticoagulated. Problem 346920225 AF (paroxysmal atrial fibrillation) (I48.0) Active confirmed His heart rate was regular today and well controlled. No change in his regimen was necessary. He remains anticoagulated. Problem 89714880 Strabismus (H50.9) Active confirmed This abnormality was still present and is long-standing. He was encouraged to see the staff training and development manager regularly. Problem 175139782 Macrocytosis (D75.89) Active confirmed His mean cell volume is stable at 101.4. This value does not appear to be due to vitamin deficiency but maybe early myelodysplasia. The value is being observed without treatment. Problem 88710822 Central sleep apnea (G47.31) Active confirmed He [...] Provider Diagnosis Inocente Painting III, MD [address] [place] [address] [place] [address] 02/09/2024 Inocente Painting Essential hypertensi on I10 ; AF (paroxysmal atrial fibrillation) I48.0 ; Obesity (BMI 30-39.9) E66.9 ; Former smoker Z87.891 ; Gastro-esophageal reflux disease without esophagitis K21.9 ; Central sleep apnea G47.31 ; Thrombocytopenia D69.6 ; Macrocytosis D75.89 ; History of pulmonary embolism Z86.711 and BPH (benign prostatic hyperplasia) N40.0 Inocente Painting III, MD [address] [place] [address] [place] [address] 06/11/2024 Inocente Painting Essential hypertensi on I10 ; AF (paroxysmal atrial fibrillation) I48.0 ; Thrombocytopenia D69.6 ; Gastro-esophageal reflux disease without esophagitis K21.9 ; Macrocytosis D75.89 ; Central sleep apnea G47.31 ; Osteoarthritis M19.90 ; History of pulmonary embolism Z86.711 ; BPH (benign prostatic hyperplasia) N40.0 ; Former smoker Z87.891 ; Chronic anticoagulation Z79.01 and Obesity (BMI 30-39.9) E66.9 Inocente Painting III, MD [address] [place] [address] [place] [phone] 10/01/2024 Inocente Painting Essential hypertensi on I10 ; Former smoker Z87.891 ; Obesity (BMI 30-39.9) E66.9 ; Gastro-esophageal reflux disease without esophagitis K21.9 ; Strabismus H50.9 ; Chronic anticoagulation Z79.01 ; BPH (benign prostatic hyperplasia) N40.0 ; History of pulmonary embolism Z86.711 and Vitamin D deficiency, unspecified E55.9 Inocente Painting III, MD [address] [place] [address] [place] [address] 11/14/2024 Inocente Painting Essential hypertensi on I10 [...] - K21.9) The reflux is well-controlled with wjgh-sll-hucvkjl medications. 10/01/2024 Gastro-esophageal reflux disease without esophagitis (ICD-10 - K21.9) The reflux is well-controlled with dcrp-dud-fhmhyyz medications. 11/14/2024 Vitamin D deficiency , unspecified (ICD-10 - E55.9) He has been continued on his vitamin D supplement. 02/09/2024 Gastro-esophageal reflux disease without esophagitis (ICD-10 - K21.9) The reflux is well-controlled with bmkd-wmn-skrnflv medications. 06/11/2024 Macrocytosis (ICD-10 - D75.89) His mean cell volume is now 102.4. It has improved substantially from 102.6. The cause is unclear but may be dietary.Evaluation with folic acid and vitamin B12 and reticulocytes is indicated. 10/01/2024 Strabismus (ICD-10 - H50.9) This abnormality was still present and is long-standing. He was encouraged to see the staff training and development manager regularly. 11/14/2024 AF (paroxysmal atria l fibrillation) [...] - K21.9) The reflux is well-controlled with mxjs-ryk-koxapas medications. 02/09/2024 Thrombocytopenia (ICD-10 - D69.6) His [...] TOTAL 02/09/2024 PSA, TOTAL 11/14/2024 PSA, TOTAL 06/30/2022 PSA, TOTAL 10/01/2024 PSA, TOTAL 09/27/2019 PSA, TOTAL 02/03/2021 PSA, TOTAL 11/09/2022 PSA, TOTAL 07/15/2020 PSA, TOTAL 08/11/2021 MICROALBUMIN, RANDOM 11/09/2022 CBC w DIFF 01/03/2022 CBC w DIFF 11/09/2022 CBC w DIFF 04/02/2020 CBC w DIFF 05/18/2023 CBC w DIFF 01/02/2020 CBC w DIFF 05/06/2021 CBC w DIFF 11/14/2024 CBC w DIFF 06/30/2022 CBC w DIFF [...] 08/31/2023 Lipid Panel 11/14/2024 Lipid Panel 10/01/2024 Lipid Panel 06/11/2024 Vitamin B12 and Folate 11/14/2024 Vitamin D 25-OH Total 10/01/2024 Vitamin D 25-OH Total 06/11/2024 Vitamin D 25-OH Total 11/13/2023 Hemoglobin A1c 08/31/2023 Next Appt Details Provider Name:Inocente Painting , 03/18/2025 09:00:00 AM, [address], [place], [address], Provider Name:Inocente Painting , 11/18/2025 09:00:00 AM, [address] [place] [address] [address], [place], [address], Insurance Providers Payer Name Payer Address Payer Phone Subscriber Number Group Number Insured Name Patient Relationship to Insured Coverage Start Date Coverage End Date [employer]vantage [address] [address] [place] [address] [id number] Behzad Mendoza Self - patient is the insured MEDICARE NGS [address] [place] [phone] [id number] Behzad Mendoza Self - patient is [...]
== END 2025-01-27 13:35 | disposition home or self-care (01) ==
LOC: HO.HMGAL 13:34
PROVIDERS: PCP Internal Medicine Medical Oncology; Visit Provider Registered Nurse Emergency
DX: J30.89 Other allergic rhinitis (principal)
CPT/HCPCS: 95117; 95165

== ENCOUNTER 2025-01-30 12:05 | Inpatient (IN) | payer MEDICARE, SELFPAY ==
--- OUTSIDE RECORDS SUMMARY | 2023-08-31 04:15 | XMS_ITS ---
Author Organization Inocente Painting III, MD Address [address] [place] [address] Care Team Providers Care Bowling Or Skating Front Desk Clerk Name Role Phone Dr. Inocente Painting III Primary Care Provider Allergies Allergen (clinical drug ingredient) Drug/Non Drug Allergy documented on EMR Reaction Allergy Type Onset Date Status morphine Morphine Sulfate Rash Drug Allergy Active REASON FOR VISIT Hypertension, Paroxysmal atrial fibrillation, Anticoagulation, Occurred, Macrocytosis, Thrombocytopenia, Sleep apnea, History of pulmonary embolism, Benign prostatic hypertrophy, Obesity Medications Medication SIG (Take, Route, Frequency, Duration) Notes Start Date End Date Status Jardiance 10 MG Oral Acti ve Lasix 40 MG 1 tablet Orally Once a day Active Flomax 0.4 MG 1 capsule 30 minutes after the same meal each day Orally Once a day 02/16/2023 Active Metoprolol Succinate ER 50 MG 1 tablet Orally Once a day A ctive Vitamin D 25 MCG (1000 UT) 1 tablet Orally Once a day Active Protonix 40 MG 1 tablet Orally ever y other day Active amLODIPine Besylate 2.5 MG 1 tablet Orally Once a day Active Eliquis 5 MG as directed Orally t wice a day Active Social History Tobacco Use: Social History Observation Description Date Details (start date - stop date) Former Smoker NA - NA Sex Assigned At : Social History Observation Description Sex Assigned At Male Tobacco Use/Smoking Question Answer Notes Patient is a former smoker How long has it been since you last smoked? > 10 years Additional Findings: Tobacco Non-User Ex-cigaret te smoker Vital Signs Temperature 97.6 degrees Fahrenheit 08/31/19 24 Blood pressure systolic 140 mm Hg 07/18/20 24 Blood pressure diastolic 87 mm Hg 024 Heart Rate 68 /min 08/31/2023 Height 69.5 in 08/31/2023 Weight 262 lbs 08/31/2023 BMI 38.13 kg/m2 08/31/2023 Encounters Encounter Location Date Provider Diagnosis Inocente Painting III, MD [address] [place] [address] [place] [address] 08/31/2023 Inocente Painting Essential hypertensi on I10 ; Thrombocytopenia D69.6 ; Obesity (BMI 30-39.9) E66.9 ; Gastro-esophageal reflux disease without esophagitis K21.9 ; AF (paroxysmal atrial fibrillation) I48.0 ; Macrocytosis D75.89 ; Central sleep apnea G47.31 ; History of pulmonary embolism Z86.711 ; Former smoker Z87.891 ; BPH (benign prostatic hyperplasia) N40.0 ; Chronic anticoagulation Z79.01 and Vitamin D deficiency, unspecified E55.9 Assessments Encounter Date Diagnosis (ICD Code) Assessment Notes T reatment Notes Treatment Clinical Notes 08/31/2023 Essential hypertensi on (ICD-10 - I10) His blood pressure is stable today and no change in his regimen was necessary. We reviewed the wisdom of progressive sodium restriction and weight loss. 08/31/2023 Thrombocytopenia (ICD-10 - D69.6) His platelet count has increased from 129,000-140,000. He is anticoagulated and has had no bleeding. No change in his therapy is indicated. He is avoiding aspirin. 08/31/2023 Obesity (BMI 30-39.9 ) (ICD-10 - E66.9) He has lost 1 pound and weighs 262. His body mass index is 38. We reviewed his weight loss strategy today. We made a plan to lose weight at a rate of one half of a pound per week through a diet restricted in fat calories and sodium. 08/31/2023 Gastro-esophageal reflux disease without esophagitis (ICD-10 - K21.9) The reflux is well-controlled with xpoo-vdn-hidphnq medications. 08/31/2023 AF (paroxysmal atria l fibrillation) (ICD-10 - I48.0) His heart rate was regular today and well controlled. No change in his regimen was necessary. He remains anticoagulated. 08/31/2023 Macrocytosis (ICD-10 - D75.89) His mean cell volume has improved now being 100.4. The cause is unclear but may be dietary. 08/31/2023 Central sleep apnea (ICD-10 - G47.31) He is using his CPAP every night and feels much better. 08/31/2023 History of pulmonary embolism (ICD-10 - Z86.711) He is had no further pulmonary symptoms and is anticoagulated. The fat was in 2004 and he has been anticoagulated. 08/31/2023 Former smoker (ICD-1 0 - Z87.891) He is highly motivated not to smoke. We discussed a plan for prevention of relapse in times of stress. 08/31/2023 BPH (benign prostati c hyperplasia) (ICD-10 - N40.0) He arises from sleep once or twice a night to urinate. It depends upon fluid intake. We discussed lifestyle modification as a way to relieve nocturia. 08/31/2023 Chronic anticoagulation (ICD-10 - Z79.01) He has had no bleeding or clotting. Since his last visit. He will continue on current therapy. Because of the atrial fibrillation. 08/31/2023 Vitamin D deficiency , unspecified (ICD-10 - E55.9) He has been compliant with his vitamin D supplementation. Plan Of Treatment Medication Medication Name Sig Start Date Stop Date Notes Jardiance 10 MG Oral Lasix 40 MG 1 tablet Orally Once a day Flomax 0.4 MG 1 capsule 30 minutes after the same meal each day Orally Once a day 02/16/2023 Metoprolol Succinate ER 50 MG 1 tablet Orally Once a day Vitamin D 25 MCG (1000 UT) 1 tablet Orally Once a day Protonix 40 MG 1 tablet Orally ever y other day amLODIPine Besylate 2.5 MG 1 tablet Orally Once a day Eliquis 5 MG as directed Orally t wice a day Pending Test Test Name Order Date PROFILE, FASTING (COMPREHENSIVE METABOLI C) 08/31/2023 CBC WITH AUTO DIFF 08/31/2023 Lipid Panel 08/31/2023 Hemoglobin A1c 08/31/2023 Next Appt Details Follow Up: As Scheduled, Kim son: OV Provider Name:Inocente Painting , 03/18/2025 09:00:00 AM, [address] [place] [address] [address], [address], [place], [address], Provider Name:Inocente Amadorrne , 11/18/2025 09:00:00 AM, [address] [place] [address] [address], [place], [address], Progress Notes * Behzad MENDOZADOB:[birth year] (82 yo M)Acc No.[id number]:08/31/2023 Progress Notes Patient: Behzad Agrawal Provider: Autumn Painting MD :1940 A ge:82 Y S ex:Male Date:08/31/2023 Address[facility] [place], [id number] Subjective: * Chief Complaints: * H ypertensionParoxysmal atrial fibrillationAnticoagulationOccurredMacrocytosisThrombocytopeniaSleep apneaHistory of pulmonary embolismBenign prostatic hypertrophyObesity * HPI: C OVID-19 Screening: He returns to the office for a scheduled visit to manage his numerous medical issues. He is anticoagulated but has had no bleeding. His blood work is available and was reviewed with him. He was in a regular sinus rhythm today. He has had no chest pain. He is using his CPAP. His arthritis is mild and stable. He is not smoking cigarettes. He arises from sleep once or twice a night to urinate. He has been compliant with all of his medications. His heartburn is controlled. Questions H ave you experienced fever, chills, cough, sore throat, shortness of breath, difficulty breathing, muscle aches, loss of taste or smell? N o H ave you been exposed to the virus within the last 10 days? N o H ave you travelled internationally in the last 10 days? N o H ave you been exposed to COVID-19 in the past? Y es * ROS: G eneral/Constitutional: pain o nly normal aches and pains. C hills d enies.?Fatigue a dmits. F ever d enies. E NT: Decreased hearing m ild. R espiratory: Cough d enies. C ardiovascular: Chest pain with exertion d enies. D yspnea on exertion?denies. S hortness of breath d enies. G astrointestinal: Constipation o ccasional. D ecreased appetite d enies. D iarrhea d enies. H eartburn c ontrolled with medications. N ausea d enies. R ectal bleeding d enies. V omiting d enies. H ematology: bruising d enies. p etechiae d enies. S wollen glands n one have been noted. G enitourinary: Frequent urination o nce a night. M usculoskeletal: Muscle aches d enies. P ainful joints d enies. S ciatica d enies. W eakness d enies. S kin: Itching d enies. R fran d enies. S kin lesion(s)?denies. N eurologic: Difficulty speaking d enies. D izziness d enies.?Headache d enies. L ow back pain d enies. P sychiatric: Depressed mood d enies. * Medical History: * Surgical History: r ight knee rplacement [facility] 2012T&A 1944 pilonidal cyxt 1059 breast biopsy right lipoma excisions basal cell ca excisions right breast mass, benign September 2003colonoscopy, tubular adenoma May 2006colonoscopy, tubular adenoma September 2009colonoscopy 2014cardio verted * Hospitalization/Major Diagno stic Procedure: E pigastric pain 06/2020Intermittent chest pain 06/2020 * Family History: F ather: 91 yrs, diabetes mellitus, hypertension, artial fibrillation, dementia, diagnosed with DM, HTN. M other: 91 yrs, Macular, renal cell cancer, diagnosed with Cancer, HTN. S pouse: alive. 1 brother(s) , 3 sister(s) . 2 daughter(s) - healthy. . His youngest sister had breast cancer twice and leukemia. Brother had cancer. One of his brothers had cancer. His oldest sister is hypertensive. * Social History: T obacco Use: T obacco Use/Smoking P atient is a f ormer smoker H ow long has it been since you last smoked??> 10 years A dditional Findings: Tobacco Non-User E x-cigarette smoker Diana georeg is a retired [employer] who worked for the [employer]. He has been to Donna for 43 years. They have 2 healthy daughters and 4 grandchildren. He no longer smokes cigarettes. He says he has several drinks per day. * Medications: T akingProtonix 40 MG Tablet Delayed Release 1 tablet Orally every other dayVitamin D 25 MCG (1000 UT) Tablet 1 tablet Orally Once a dayEliquis 5 MG Tablet as directed Orally twice a dayamLODIPine Besylate 2.5 MG Tablet 1 tablet Orally Once a dayMetoprolol Succinate ER 50 MG Tablet Extended Release 24 Hour 1 tablet Orally Once a dayFlomax 0.4 MG Capsule Extended Release 24 Hour 1 capsule 30 minutes after the same meal each day Orally Once a dayLasix 40 MG Tablet 1 tablet Orally Once a dayJardiance 10 MG Tablet Oral Taking Protonix 40 MG Tablet Delayed Release 1 tablet Orally every other dayTaking Vitamin D 25 MCG (1000 UT) Tablet 1 tablet Orally Once a dayTaking Eliquis 5 MG Tablet as directed Orally twice a dayTaking amLODIPine Besylate 2.5 MG Tablet 1 tablet Orally Once a dayTaking Metoprolol Succinate ER 50 MG Tablet Extended Release 24 Hour 1 tablet Orally Once a dayTaking Flomax 0.4 MG Capsule Extended Release 24 Hour 1 capsule 30 minutes after the same meal each day Orally Once a dayTaking Lasix 40 MG Tablet 1 tablet Orally Once a dayTaking Jardiance 10 MG Tablet Oral DiscontinuedPantoprazole Sodium 40 mg Tablet Delayed Release TAKE 1 TABLET EVERY OTHER DAY Medication List reviewed and reconciled with the patientDiscontinued Pantoprazole Sodium 40 mg Tablet Delayed Release TAKE 1 TABLET EVERY OTHER DAY Medication List reviewed and reconciled with the patient * Allergies: M orphine Sulfate: Leno[Allergies Verified] Objective: * Vitals: H t: 69.5, Wt:262, BMI:38.13, BP:140/87, HR:68, Temp:97.6, Wt-k.84. * P ast Orders: Lab:Hemoglobin A1c * Order Date 08/24/2023 02/14/2023 06/24/2020 Hemoglobin A1c % 5.2 (Ref Range: <6.0 %) 5.1 (Ref Range: <6.0 %) 5.0 (Ref Range: %) Estimated Average Glucose 103 (Ref Range: mg/dL) 100 (Ref Range: mg/dL) 97 (Ref Range: mg/dL) * Lab:Comprehensive Met. Panel * Order Date 08/24/2023 02/14/2023 04/30/2021 Sodium 140 (Ref Range: 135-145 mmol/L) 145 (Ref Range: 135-145 mmol/L) 140 (Ref Range: 135-145 mmol/L) Bilirubin Total 0.8 (Ref Range: 0.0-1.0 mg/dL) 1.2 H (Ref Range: 0.0-1.0 mg/dL) 1.6 H (Ref Range: 0.0-1.0 mg/dL) Aspartate Amino Transferase 14 (Ref Range: 5-37 U/L) 24 (Ref Range: 5-37 U/L) 12 (Ref Range: 5-37 U/L) Alanine Aminotransferase 10 (Ref Range: 0-40 U/L) 29 (Ref Range: 0-40 U/L) 19 (Ref Range: 0-40 U/L) Total Protein 6.7 (Ref Range: 6.5-8.0 g/dL) 7.1 (Ref Range: 6.5-8.0 g/dL) 6.6 (Ref Range: 6.5-8.0 g/dL) Albumin Level 3.4 L (Ref Range: 3.5-5.0 g/dL) 3.8 (Ref Range: 3.5-5.0 g/dL) 3.7 (Ref Range: 3.5-5.0 g/dL) Alkaline Phosphatase 54 (Ref Range: 39-117 U/L) 69 (Ref Range: 39-117 U/L) 56 (Ref Range: 39-117 U/L) Potassium 3.7 (Ref Range: 3.3-5.1 mmol/L) 4.0 (Ref Range: 3.3-5.1 mmol/L) 4.2 (Ref Range: 3.3-5.1 mmol/L) Chloride 104 (Ref Range: 96-108 mmol/L) 107 (Ref Range: 96-108 mmol/L) 102 (Ref Range: 96-108 mmol/L) Carbon Dioxide 27 (Ref Range: 22-29 mmol/L) 30 H (Ref Range: 22-29 mmol/L) 26 (Ref Range: 22-29 mmol/L) Anion Gap 13 (Ref Range: 12-20) 12 (Ref Range: 12-20) 16 (Ref Range: 12-20) Blood Urea Nitrogen 20 H (Ref Range: 9-16 mg/dL) 17 H (Ref Range: 9-16 mg/dL) 18 H (Ref Range: 9-16 mg/dL) Creatinine 1.23 (Ref Range: 0.5-1.4 mg/dL) 1.18 (Ref Range: 0.5-1.4 mg/dL) 1.24 (Ref Range: 0.5-1.4 mg/dL) Estimated Glomerular Filt Rate 56 59 56 Glucose Random 94 (Ref Range: 60-115 mg/dL) 104 (Ref Range: 60-115 mg/dL) 95 (Ref Range: 60-115 mg/dL) Calcium 9.5 (Ref Range: 8.4-10.2 mg/dL) 9.4 (Ref Range: 8.4-10.2 mg/dL) 9.5 (Ref Range: 8.4-10.2 mg/dL) * Lab:Complete Blood Count Aut o Diff * Order Date 08/24/2023 05/11/2023 02/14/2023 White Blood Count 4.9 (Ref Range: 4.8-10.8 X10*3/uL) 5.4 (Ref Range: 4.8-10.8 X10*3/uL) 6.2 (Ref Range: 4.8-10.8 X10*3/uL) Red Blood Count 4.97 (Ref Range: 4.60-5.80 X10*6/uL) 5.18 (Ref Range: 4.60-5.80 X10*6/uL) 5.19 (Ref Range: 4.60-5.80 X10*6/uL) Hemoglobin 16.1 (Ref Range: 14.0-18.0 g/dl) 17.0 (Ref Range: 14.0-18.0 g/dl) 17.2 (Ref Range: 14.0-18.0 g/dl) Hematocrit 49.9 (Ref Range: 42.0-52.0 %) 52.0 (Ref Range: 42.0-52.0 %) 53.3 H (Ref Range: 42.0-52.0 %) Mean Corpuscular Volume 100.4 H (Ref Range: 80.0-98.0 fL) 100.4 H (Ref Range: 80.0-98.0 fL) 102.7 H (Ref Range: 80.0-98.0 fL) Mean Corpuscular Hemoglobin 32.4 (Ref Range: 27.0-33.0 pg) 32.8 (Ref Range: 27.0-33.0 pg) 33.1 H (Ref Range: 27.0-33.0 pg) Mean Corpuscular HGB Conc 32.3 (Ref Range: 31.0-36.0 g/dl) 32.7 (Ref Range: 31.0-36.0 g/dl) 32.3 (Ref Range: 31.0-36.0 g/dl) Red Cell Distribution Width 14.2 (Ref Range: 11.0-16.0 %) 14.5 (Ref Range: 11.0-16.0 %) 15.0 (Ref Range: 11.0-16.0 %) Platelet Count 140 L (Ref Range: 160-400 X10*3/uL) 129 L (Ref Range: 160-400 X10*3/uL) 136 L (Ref Range: 160-400 X10*3/uL) Mean Platelet Volume 12.9 H (Ref Range: 9.4-12.4 fL) 12.3 (Ref Range: 9.4-12.4 fL) 12.3 (Ref Range: 9.4-12.4 fL) Neutrophils Percent Auto 60.2 (Ref Range: 45-73 %) 62.3 (Ref Range: 45-73 %) 67.7 (Ref Range: 45-73 %) Imm Gran Pct Auto 0.2 (Ref Range: 0.0-0.4 %) 0.4 (Ref Range: 0.0-0.4 %) 0.5 H (Ref Range: 0.0-0.4 %) Lymphocytes Percent Auto 25.8 (Ref Range: 20-40 %) 25.2 (Ref Range: 20-40 %) 21.8 (Ref Range: 20-40 %) Monocytes Percent Auto 10.8 (Ref Range: 2-11 %) 9.8 (Ref Range: 2-11 %) 8.1 (Ref Range: 2-11 %) Eosinophils Percent Auto 2.2 (Ref Range: 0-4 %) 1.7 (Ref Range: 0-4 %) 1.6 (Ref Range: 0-4 %) Basophils Percent Auto 0.8 (Ref Range: 0-2 %) 0.6 (Ref Range: 0-2 %) 0.3 (Ref Range: 0-2 %) NRBC Pct Auto 0.0 (Ref Range: 0.0-0.2 /100WBC) 0.0 (Ref Range: 0.0-0.2 /100WBC) 0.0 (Ref Range: 0.0-0.2 /100WBC) Neutrophils Absolute Auto 2.9 (Ref Range: 2.0-8.3 x10*3/uL) 3.4 (Ref Range: 2.0-8.3 x10*3/uL) 4.2 (Ref Range: 2.0-8.3 x10*3/uL) Imm Gran Abs Auto 0.01 (Ref Range: 0.00-0.03 X10*3/uL) 0.02 (Ref Range: 0.00-0.03 X10*3/uL) 0.03 (Ref Range: 0.00-0.03 X10*3/uL) Lymphocytes Absolute Auto 1.3 (Ref Range: 1.2-4.9 X10*3/uL) 1.4 (Ref Range: 1.2-4.9 X10*3/uL) 1.3 (Ref Range: 1.2-4.9 X10*3/uL) Monocytes Absolute Auto 0.5 (Ref Range: 0.1-1.2 X10*3/uL) 0.5 (Ref Range: 0.1-1.2 X10*3/uL) 0.5 (Ref Range: 0.1-1.2 X10*3/uL) Eosinophils Absolute Auto 0.1 (Ref Range: 0.0-0.4 X10*3/uL) 0.1 (Ref Range: 0.0-0.4 X10*3/uL) 0.1 (Ref Range: 0.0-0.4 X10*3/uL) Basophils Absolute Auto 0.0 (Ref Range: 0.0-0.2 X10*3/uL) 0.0 (Ref Range: 0.0-0.2 X10*3/uL) 0.0 (Ref Range: 0.0-0.2 X10*3/uL) NRBC Abs Auto 0.000 (Ref Range: 0.0-0.012 X10*3/uL) 0.000 (Ref Range: 0.0-0.012 X10*3/uL) 0.000 (Ref Range: 0.0-0.012 X10*3/uL) * Examination: G eneral Examination: GENERAL APPEARANCE: p leasant, well nourished, well developed, in no acute distress, calm and relaxed , obese , man. HEAD: a traumatic, normocephalic. EYES: e sumaya, perrla, anicteric, conjugate. EARS: n ormal. NOSE: s eptum intact. ORAL CAVITY: n ormal, unremarkable. NECK/THYROID: n o jugular venous distention, no carotid bruit, thyroid normal. LYMPH NODES: n o enlarged lymph nodes,spleen normal. SKIN: n o suspicious lesions, anicteric. HEART: n o clicks, gallops, murmurs, or rubs, irregular rhythm, S1, S2 normal, no s3, or vascular bruits. LUNGS: c lear to auscultation . BREASTS: no masses palpable bilaterally. ABDOMEN: b owel sounds normal, no ascites, no organomegaly, no mass , centripital obesity. RECTAL EXAM: n ot examined. MUSCULOSKELETAL: e xtremities unremarkable, no clubbing, cyanosis or edema. PERIPHERAL PULSES: n ormal. NEUROLOGIC: a lert and oriented, cranial nerves 2-12 grossly intact, deep tendon reflexes 2+ symmetrical, motor strength normal upper and lower extremities, sensory exam intact. PSYCH: a lert, oriented , cognitive function intact , cooperative with exam , good eye contact , speech clear. Assessment: * Assessment: 1. E ssential hypertension - I10 (Primary), His blood pressure is stable today and no change in his regimen was necessary. We reviewed the wisdom of progressive sodium restriction and weight loss. 2 . T hrombocytopenia - D69.6, His platelet count has increased from 129,000-140,000. He is anticoagulated and has had no bleeding. No change in his therapy is indicated. He is avoiding aspirin. 3 . O besity (BMI 30-39.9) - E66.9, He has lost 1 pound and weighs 262. His body mass index is 38. We reviewed his weight loss strategy today. We made a plan to lose weight at a rate of one half of a pound per week through a diet restricted in fat calories and sodium. 4 . G nasreen-esophageal reflux disease without esophagitis - K21.9, The reflux is well-controlled with cogq-lwx-wpirbnk medications. 5 . A F (paroxysmal atrial fibrillation) - I48.0, His heart rate was regular today and well controlled. No change in his regimen was necessary. He remains anticoagulated. 6. M acrocytosis - D75.89, His mean cell volume has improved now being 100.4. The cause is unclear but may be dietary. 7 . C entral sleep apnea - G47.31, He is using his CPAP every night and feels much better. 8 . H istory of pulmonary embolism - Z86.711, He is had no further pulmonary symptoms and is anticoagulated. The fat was in 2004 and he has been anticoagulated. 9. F ormer smoker - Z87.891, He is highly motivated not to smoke. We discussed a plan for prevention of relapse in times of stress. 1 0. B PH (benign prostatic hyperplasia) - N40.0, He arises from sleep once or twice a night to urinate. It depends upon fluid intake. We discussed lifestyle modification as a way to relieve nocturia. 1 1. C hronic anticoagulation - Z79.01, He has had no bleeding or clotting. Since his last visit. He will continue on current therapy. Because of the atrial fibrillation. 1 2. V itamin D deficiency, unspecified - E55.9, He has been compliant with his vitamin D supplementation. Plan: * Treatment: 2. T hrombocytopenia L AB: PROFILE, FASTING (COMPREHENSIVE METABOLIC) L AB: CBC WITH AUTO DIFF L AB: Lipid Panel L AB: Hemoglobin A1c 3. O besity (BMI 30-39.9) L AB: PROFILE, FASTING (COMPREHENSIVE METABOLIC) L AB: CBC WITH AUTO DIFF L AB: Lipid Panel L AB: Hemoglobin A1c 4. O thers Continue Protonix Tablet Delayed Release, 40 MG, 1 tablet, Orally, every other day; C ontinue Vitamin D Tablet, 25 MCG (1000 UT), 1 tablet, Orally, Once a day; C ontinue Flomax Capsule Extended Release 24 Hour, 0.4 MG, 1 capsule 30 minutes after the same meal each day, Orally, Once a day;?Continue Jardiance Tablet, 10 MG, Oral. * Procedure Codes: * Preventive Medicine: Counseling: C are goal follow-up plan: Counseling for abnormal BMI given Y es Above Normal BMI Follow-up D ietary management education, guidance, and counseling, Dietary needs education, Exercise promotion: strength training, Exercise promotion: stretching, Feeding regime, Giving encouragement to exercise, Lifestyle education regarding diet, Nutrition / feeding management, Nutrition therapy, Prescribed activity/exercise education, Prescribed diet education, Prescribed dietary intake, Special diet education, Weight monitoring , Intervention, Order not done: Medical or Other reason not done S moking/Tobacco Use Patient counseled on the dangers of tobacco use and urged to quit. 0 08/31/2023 DM Care Plan: P atient Lifestyle Goals P atient wants to be able to manage diabetes without too much effort. T reatment Goals B lood Sugars less than < 115, HbA1C < 7.0. B arriers n o barriers. S elf-Managment Goals W ork on weight loss, with a goal of losing 1 lb per week, Increase exercise to 3 times a week for 30 mins, Stop drinking juice and/or soda, replace with more water. * Follow Up: A s Scheduled (Reason: OV) * Images: * Sign off status: Completed true * Provider: Autumn Painting MD Date: 0 08/31/2023 Generated for Vu cole/Vaughn/eTcarylsmitting on: 04/02/2024 04:41 PM EST History and Physical Notes * HPI (History of Present Illness) Category Sub-Category Detail Notes COVID-19 Screening Questions Have you had any new onset fever, chills, cough, congestion, sore throat, shortness of breath, muscle aches?: No Have you been exposed to the virus withi n the last 10 days?: No Have you travelled internationally in city hospital last 10 days?: No Have you been exposed to COVID-19 in the past?: Yes Examination Category Sub-Category Detail Notes General Examination GENERAL APPEARANCE: pleasant , well nourished, well developed, in no acute distress, calm and relaxed , obese , man HEAD: atraumatic, normocep halic EYES: eomi, perrla, anicte ho, conjugate EARS: normal NOSE: septum intact NECK/THYROID: no jugular venous di stention, no carotid bruit, thyroid normal HEART: no clicks, gallops, murmurs, or rubs, irregular rhythm, S1, S2 normal, no s3, or vascular bruits LUNGS: clear to auscultatio n ABDOMEN: bowel sounds normal, no ascites, no organomegaly, no mass , centripital obesity NEUROLOGIC: alert and oriented, cranial nerves 2-12 grossly intact, deep tendon reflexes 2+ symmetrical, motor strength normal upper and lower extremities, sensory exam intact SKIN: no suspicious lesion s, anicteric PERIPHERAL PULSES: normal BREASTS: no masses palpable b ilaterally MUSCULOSKELETAL: extremities unremark able, no clubbing, cyanosis or edema LYMPH NODES: no enlarged lymph no aye,spleen normal RECTAL EXAM: not examined PSYCH: alert, oriented , co gnitive function intact , cooperative with exam , good eye contact , speech clear ORAL CAVITY: normal, unremarkable
--- OUTSIDE RECORDS SUMMARY | 2023-11-13 05:00 | XMS_ITS ---
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 Inocente Painting III Primary Care Provider Allergies Allergen (clinical drug ingredient) Drug/Non Drug Allergy documented on EMR Reaction Allergy Type Onset Date Status morphine Morphine Sulfate Rash Drug Allergy Active Results Component Value Reference Range Notes URINE DIP STICK Reviewed date:11/13/2023 01:56:21 PM Interpretation: Performing Lab: Notes/Report: SG 1.010 1.005 - 1.025 pH 6.5 5.0 - 9.0 CASTILLO Negative Negative - NIT Negative Negative - PRO 15 Negative - Trace GLU 500 Negative - KET 5 Negative - UBG 0.2 0.1 - 1.8 EVERETT Negative 0.2 - 1.3 BLD Negative Negative - REASON FOR VISIT Annual Exam Medications Medication SIG (Take, Route, Frequency, Duration) Notes Start Date End Date Status Jardiance 10 MG Oral Acti ve Flomax 0.4 MG 1 capsule 30 minutes after the same meal each day Orally Once a day 02/16/2023 Active Lasix 40 MG 1 tablet Orally Once a day Active Vitamin D 25 MCG (1000 UT) 1 tablet Orally Once a day Active Eliquis 5 MG as directed Orally t wice a day Active Protonix 40 MG 1 tablet Orally ever y other day Active amLODIPine Besylate 2.5 MG 1 tablet Orally Once a day Active Metoprolol Succinate ER 50 MG 1 tablet Orally Once a day A ctive Social History Tobacco Use: Social History Observation Description Date Details (start date - stop date) Former Smoker NA - NA Sex Assigned At : Social History Observation Description Sex Assigned At Male Tobacco Use/Smoking Question Answer Notes Patient is a former smoker How long has it been since you last smoked? > 10 years Additional Findings: Tobacco Non-User Ex-cigaret te smoker Tobacco Control (Standard) Question Answer Notes Tobacco use: Former smoker How long has it been since you last smoked? Grea ter than 10 years Additional Findings: Tobacco non-user Ex-cigaret te smoker AUDIT-C (Standard) Question Answer Notes Did you have a drink containing alcohol in the p ast year? No Points 0 Interpretation Negative Vital Signs Temperature 97.2 degrees Fahrenheit 11/13/19 24 Blood pressure systolic 143 mm Hg 11/13/19 24 Blood pressure diastolic 75 mm Hg 024 Heart Rate 72 /min 11/13/2023 Height 69.5 in 11/13/2023 Weight 262 lbs 11/13/2023 BMI 38.13 kg/m2 11/13/2023 Oximetry 100 % 11/13/2023 Encounters Encounter Location Date Provider Diagnosis Inocente Painting III, MD [address] [place] [address] [place] [address] 11/13/2023 [facility] Essential hypertensi on I10 ; AF (paroxysmal atrial fibrillation) I48.0 ; Vitamin D deficiency, unspecified E55.9 ; Obesity E66.9 ; Gastro-esophageal reflux disease without esophagitis K21.9 ; Strabismus H50.9 ; Colonic polyp K63.5 ; Macrocytosis D75.89 ; Thrombocytopenia D69.6 ; Central sleep apnea G47.31 ; Osteoarthritis M19.90 ; Former smoker Z87.891 ; BPH (benign prostatic hyperplasia) N40.0 and Chronic anticoagulation Z79.01 Assessments Encounter Date Diagnosis (ICD Code) Assessment Notes T reatment Notes Treatment Clinical Notes 11/13/2023 Essential hypertensi on (ICD-10 - I10) His blood pressure is stable today at 143/75 and no change in his regimen was necessary. We reviewed the wisdom of progressive sodium restriction and weight loss. 11/13/2023 AF (paroxysmal atria l fibrillation) (ICD-10 - I48.0) His heart rate was irregular today and well controlled. No change in his regimen was necessary. He remains anticoagulated. 11/13/2023 Vitamin D deficiency , unspecified (ICD-10 - E55.9) He was continued on his vitamin D supplements 11/13/2023 Obesity (ICD-10 - E66.9) His body mass index is stable at 38. I strongly recommended aggressive weight loss and sodium restriction. We made a plan to lose weight at a rate of one half of a pound per week. 11/13/2023 Gastro-esophageal reflux disease without esophagitis (ICD-10 - K21.9) The reflux is well-controlled with kagn-cba-rdmndil medications. 11/13/2023 Strabismus (ICD-10 - H50.9) This abnormality was still present and is long-standing. He was encouraged to see the wireworker regularly. 11/13/2023 Colonic polyp (ICD-1 0 - K63.5) He will undergo colonoscopies periodically. He is currently up-to-date. 11/13/2023 Macrocytosis (ICD-10 - D75.89) His mean cell volume is now 102. The cause is unclear but may be dietary.Evaluation with folic acid and vitamin B12 and reticulocytes is indicated. 11/13/2023 Thrombocytopenia (ICD-10 - D69.6) His platelet count has increased from 129,000-140,000. He is anticoagulated and has had no bleeding. No change in his therapy is indicated. He is avoiding aspirin. 11/13/2023 Central sleep apnea (ICD-10 - G47.31) He is using his CPAP every night and feels much better. 11/13/2023 Osteoarthritis (ICD- 10 - M19.90) The pain is primarily in his knees and he feels quite well. 11/13/2023 Former smoker (ICD-1 0 - Z87.891) He is highly motivated not to smoke. We discussed a plan for prevention of relapse in times of stress. 11/13/2023 BPH (benign prostati c hyperplasia) (ICD-10 - N40.0) He arises from sleep once or twice a night to urinate. It depends upon fluid intake. We discussed lifestyle modification as a way to relieve nocturia. 11/13/2023 Chronic anticoagulation (ICD-10 - Z79.01) He has had no bleeding or clotting. Since his last visit. He will continue on current therapy. Because of the atrial fibrillation. Plan Of Treatment Medication Medication Name Sig Start Date Stop Date Notes Jardiance 10 MG Oral Flomax 0.4 MG 1 capsule 30 minutes after the same meal each day Orally Once a day 02/16/2023 Lasix 40 MG 1 tablet Orally Once a day Vitamin D 25 MCG (1000 UT) 1 tablet Orally Once a day Eliquis 5 MG as directed Orally t wice a day Protonix 40 MG 1 tablet Orally ever y other day amLODIPine Besylate 2.5 MG 1 tablet Orally Once a day Metoprolol Succinate ER 50 MG 1 tablet Orally Once a day Pending Test Test Name Order Date PROFILE, FASTING (COMPREHENSIVE METABOLI C) 11/13/2023 CBC WITH AUTO DIFF 11/13/2023 Lipid Panel 11/13/2023 Vitamin D 25-OH Total 11/13/2023 Next Appt Details Follow Up: 3 Months, Reason: OV Provider Name:Inocente Painting , 03/18/2025 09:00:00 AM, [address] [place] [address] [address], [place], [address], Provider Name:Inocente Painting , 11/18/2025 09:00:00 AM, [address] [place] [address] [address], [place], [address], Progress Notes * Behzad MENDOZADOB:[birth year] (82 yo M)Acc No.[id number]:11/13/2023 Progress Notes Patient: Behzad OQUENDO Provider: Autumn Painting MD :[id number] A ge:82 Y S ex:Male Date:11/13/2023 [facility] [id number] Subjective: * Chief Complaints: * A nnual Exam * HPI: D epression Screening: Diana george returns to the office at the age of 82 for his annual physical examination. Since his last visit he has been well. He has been compliant with all of his medications. He rises from sleep about once a night to urinate. We have discussed lifestyle modifications that would reduce nocturia. His platelet count was slightly low at 131,000 but improved. He was has slow atrial fibrillation today with normal vital signs. A biopsy of a skin lesion on his left breast recently showed early stage melanoma. A wide excision was recently done. We have requested the records from dermatology. The wound is healing well with no sign of infection. PHQ-9 L ittle interest or pleasure in doing things?Not at all F eeling down, depressed, or hopeless N ot at all T rouble falling or staying asleep, or sleeping too much N ot at all F eeling tired or having little energy N ot at all P oor appetite or overeating N ot at all F eeling bad about yourself or that you are a failure, or have let yourself or your family down N ot at all T rouble concentrating on things, such as reading the newspaper or watching television N ot at all M oving or speaking so slowly that other people could have noticed; or the opposite, being so fidgety or restless that you have been moving around a lot more than usual N ot at all T houghts that you would be better off or of hurting yourself in some way N ot at all T otal Score 0 C OVID-19 Screening: old, skin left upper chest melanoma excised,. Questions H ave you experienced fever, chills, cough, sore throat, shortness of breath, difficulty breathing, muscle aches, loss of taste or smell? N o H ave you been exposed to the virus within the last 10 days? N o H ave you travelled internationally in the last 10 days? N o H ave you been exposed to COVID-19 in the past? Y es F all Risk Screening: Fall History H ave you had any falls with injury in the past year? N o H ave you had two or more falls in the past year? N o F all Risk Assessment: N o falls in the past year * ROS: G eneral/Constitutional: pain I ncision left breast. C hills d enies. F atigue a dmits. F ever d enies. E NT: Decreased hearing m ild. R espiratory: Cough d enies. C ardiovascular: Chest pain with exertion d enies. D yspnea on exertion?denies. S hortness of breath d enies. G astrointestinal: Constipation o ccasional. D ecreased appetite d enies. D iarrhea d enies. H eartburn d enies. N ausea d enies. R ectal bleeding [...] enies. R fran d enies. S kin lesion(s)?Recent lesion removed left breast. N eurologic: Difficulty speaking d enies. D [...] 2006colonoscopy, tubular adenoma September 2009colonoscopy 2014cardio verted Melanoma removed from upper left chest- Negative result 10/2023 * Hospitalization/Major Diagno stic Procedure: E pigastric pain 06/2020Intermittent chest pain 06/2020 * Family History: F ather: 91 yrs, diabetes mellitus, hypertension, artial fibrillation, dementia, diagnosed with DM, HTN. M other: 91 yrs, Macular, renal cell cancer, diagnosed with HTN, Cancer. S pouse: alive. 1 brother(s) , 3 [...] dditional Findings: Tobacco Non-User E x-cigarette smoker Tobacco Control (Standard) T obacco use: F ormer smoker H ow long has it been since you last smoked??Greater than 10 years A dditional Findings: Tobacco non-user E x-cigarette smoker D rugs/Alcohol: D bebeto H ave you used drugs other than those for medical reasons in the past 12 months? N o D rug/Alcohol: A RUSH-C (Standard) D id you have a drink containing alcohol in the past year? 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 He has been to Donna for 43 years. They have 2 healthy daughters and 4 grandchildren. He no longer smokes cigarettes. He says he has several drinks per day. * Medications: T akingProtonix 40 MG Tablet Delayed Release 1 tablet Orally every other day Vitamin D 25 MCG (1000 UT) Tablet 1 tablet Orally Once a day Eliquis 5 MG Tablet as directed Orally twice a day amLODIPine Besylate 2.5 MG Tablet 1 tablet Orally Once a day Metoprolol Succinate ER 50 MG Tablet Extended Release 24 Hour 1 tablet Orally Once a day Flomax 0.4 MG Capsule Extended Release 24 Hour 1 capsule 30 minutes after the same meal each day Orally Once a day Lasix 40 MG Tablet 1 tablet Orally Once a day Jardiance 10 MG Tablet 1 tablet Orally Once a day Taking Protonix 40 MG Tablet Delayed Release 1 tablet Orally every other day Taking Vitamin D 25 MCG (1000 UT) Tablet 1 tablet Orally Once a day Taking Eliquis 5 MG Tablet as directed Orally twice a day Taking amLODIPine Besylate 2.5 MG Tablet 1 tablet Orally Once a day Taking Metoprolol Succinate ER 50 MG Tablet Extended Release 24 Hour 1 tablet Orally Once a day Taking Flomax 0.4 MG Capsule Extended Release 24 Hour 1 capsule 30 minutes after the same meal each day Orally Once a day Taking Lasix 40 MG Tablet 1 tablet Orally Once a day Taking Jardiance 10 MG Tablet 1 tablet Orally Once a day DiscontinuedVitamin D3 25 MCG (1000 UT) Tablet TAKE 1 TABLET DAILY Tamsulosin HCl 0.4 mg Capsule TAKE 1 CAPSULE DAILY Medication List reviewed and reconciled with the patientDiscontinued Vitamin D3 25 MCG (1000 UT) Tablet TAKE 1 TABLET DAILY Discontinued Tamsulosin HCl 0.4 mg Capsule TAKE 1 CAPSULE DAILY Medication List reviewed and reconciled with the patient * Allergies: M orphine Sulfate: Leno[Allergies Verified] Objective: * Vitals: H t: 69.5, Wt:262, BMI:38.13, BP:143/75, HR:72, Temp:97.2, Oxygen sat %:100, Wt- k.84. * P ast Orders: Lab:Hemoglobin A1c * Collection Date 11/08/2023 08/24/2023 02/14/2023 Collection Time 06:32 AM 06:28 AM 06:27 AM Order Date 11/08/2023 08/24/2023 02/14/2023 Hemoglobin A1c % 5.0 (Ref Range: <6.0 %) 5.2 (Ref Range: <6.0 %) 5.1 (Ref Range: <6.0 %) Estimated Average Glucose 97 (Ref Range: mg/dL) 103 (Ref Range: mg/dL) 100 (Ref Range: mg/dL) * Lab:Lipid Panel * Collection Date 11/08/2023 05/11/2023 02/14/2023 Collection Time 06:32 AM 06:17 AM 06:27 AM Order Date 11/08/2023 05/11/2023 02/14/2023 Triglycerides 62 (Ref Range: <150 mg/dL) 69 (Ref Range: <150 mg/dL) 62 (Ref Range: <150 mg/dL) Cholesterol 141 (Ref Range: <200 mg/dL) 148 (Ref Range: <200 mg/dL) 152 (Ref Range: <200 mg/dL) LDL Cholesterol Calculated 78 (Ref Range: <100 mg/dL) 83 (Ref Range: <100 mg/dL) 81 (Ref Range: <100 mg/dL) HDL Cholesterol 51 (Ref Range: >40 mg/dL) 52 (Ref Range: >40 mg/dL) 59 (Ref Range: >40 mg/dL) * Lab:Comprehensive [place]. Pane l Fast * Collection Date 11/08/2023 05/11/2023 11/02/2022 Collection Time 06:32 AM 06:17 AM 06:28 AM Order Date 11/08/2023 05/11/2023 11/02/2022 Sodium 142 (Ref Range: 135-145 mmol/L) 141 (Ref Range: 135-145 mmol/L) 145 (Ref Range: 135-145 mmol/L) Bilirubin Total 1.7 H (Ref Range: 0.0-1.0 mg/dL) 1.1 H (Ref Range: 0.0-1.0 mg/dL) 1.1 H (Ref Range: 0.0-1.0 mg/dL) Aspartate Amino Transferase 13 (Ref Range: 5-37 U/L) 18 (Ref Range: 5-37 U/L) 18 (Ref Range: 5-37 U/L) Alanine Aminotransferase 13 (Ref Range: 0-40 U/L) 13 (Ref Range: 0-40 U/L) 14 (Ref Range: 0-40 U/L) Total Protein 7.2 (Ref Range: 6.5-8.0 g/dL) 6.6 (Ref Range: 6.5-8.0 g/dL) 6.8 (Ref Range: 6.5-8.0 g/dL) Albumin Level 3.7 (Ref Range: 3.5-5.0 g/dL) 3.6 (Ref Range: 3.5-5.0 g/dL) 3.7 (Ref Range: 3.5-5.0 g/dL) Alkaline Phosphatase 56 (Ref Range: 39-117 U/L) 58 (Ref Range: 39-117 U/L) 56 (Ref Range: 39-117 U/L) Potassium 5.0 (Ref Range: 3.3-5.1 mmol/L) 3.3 (Ref Range: 3.3-5.1 mmol/L) 4.1 (Ref Range: 3.3-5.1 mmol/L) Chloride 104 (Ref Range: 96-108 mmol/L) 105 (Ref Range: 96-108 mmol/L) 107 (Ref Range: 96-108 mmol/L) Carbon Dioxide 29 (Ref Range: 22-29 mmol/L) 28 (Ref Range: 22-29 mmol/L) 29 (Ref Range: 22-29 mmol/L) Anion Gap 14 (Ref Range: 12-20) 11 L (Ref Range: 12-20) 13 (Ref Range: 12-20) Blood Urea Nitrogen 17 H (Ref Range: 9-16 mg/dL) 16 (Ref Range: 9-16 mg/dL) 18 H (Ref Range: 9-16 mg/dL) Creatinine 1.24 (Ref Range: 0.5-1.4 mg/dL) 1.11 (Ref Range: 0.5-1.4 mg/dL) 1.24 (Ref Range: 0.5-1.4 mg/dL) Estimated Glomerular Filt Rate 56 > 60 56 Glucose Fasting 85 (Ref Range: 60-99 mg/dL) 95 (Ref Range: 60-99 mg/dL) 104 H (Ref Range: 60-99 mg/dL) Calcium 9.7 (Ref Range: 8.4-10.2 mg/dL) 9.1 (Ref Range: 8.4-10.2 mg/dL) 9.6 (Ref Range: 8.4-10.2 mg/dL) * Lab:Complete Blood Count Aut o Diff * Collection Date 11/08/2023 08/24/2023 05/11/2023 Collection Time 06:32 AM 06:28 AM 06:17 AM Order Date 11/08/2023 08/24/2023 05/11/2023 White Blood Count 6.7 (Ref Range: 4.8-10.8 X10*3/uL) 4.9 (Ref Range: 4.8-10.8 X10*3/uL) 5.4 (Ref Range: 4.8-10.8 X10*3/uL) Red Blood Count 5.34 (Ref Range: 4.60-5.80 X10*6/uL) 4.97 (Ref Range: 4.60-5.80 X10*6/uL) 5.18 (Ref Range: 4.60-5.80 X10*6/uL) Hemoglobin 17.8 (Ref Range: 14.0-18.0 g/dl) 16.1 (Ref Range: 14.0-18.0 g/dl) 17.0 (Ref Range: 14.0-18.0 g/dl) Hematocrit 54.8 H (Ref Range: 42.0-52.0 %) 49.9 (Ref Range: 42.0-52.0 %) 52.0 (Ref Range: 42.0-52.0 %) Mean Corpuscular Volume 102.6 H (Ref Range: 80.0-98.0 fL) 100.4 H (Ref Range: 80.0-98.0 fL) 100.4 H (Ref Range: 80.0-98.0 fL) Mean Corpuscular Hemoglobin 33.3 H (Ref Range: 27.0-33.0 pg) 32.4 (Ref Range: 27.0-33.0 pg) 32.8 (Ref Range: 27.0-33.0 pg) Mean Corpuscular HGB Conc 32.5 (Ref Range: 31.0-36.0 g/dl) 32.3 (Ref Range: 31.0-36.0 g/dl) 32.7 (Ref Range: 31.0-36.0 g/dl) Red Cell Distribution Width 14.6 (Ref Range: 11.0-16.0 %) 14.2 (Ref Range: 11.0-16.0 %) 14.5 (Ref Range: 11.0-16.0 %) Platelet Count 131 L (Ref Range: 160-400 X10*3/uL) 140 L (Ref Range: 160-400 X10*3/uL) 129 L (Ref Range: 160-400 X10*3/uL) Mean Platelet Volume 11.9 (Ref Range: 9.4-12.4 fL) 12.9 H (Ref Range: 9.4-12.4 fL) 12.3 (Ref Range: 9.4-12.4 fL) Neutrophils Percent Auto 73.2 H (Ref Range: 45-73 %) 60.2 (Ref Range: 45-73 %) 62.3 (Ref Range: 45-73 %) Imm Gran Pct Auto 0.5 H (Ref Range: 0.0-0.4 %) 0.2 (Ref Range: 0.0-0.4 %) 0.4 (Ref Range: 0.0-0.4 %) Lymphocytes Percent Auto 16.1 L (Ref Range: 20-40 %) 25.8 (Ref Range: 20-40 %) 25.2 (Ref Range: 20-40 %) Monocytes Percent Auto 8.3 (Ref Range: 2-11 %) 10.8 (Ref Range: 2-11 %) 9.8 (Ref Range: 2-11 %) Eosinophils Percent Auto 1.4 (Ref Range: 0-4 %) 2.2 (Ref Range: 0-4 %) 1.7 (Ref Range: 0-4 %) Basophils Percent Auto 0.5 (Ref Range: 0-2 %) 0.8 (Ref Range: 0-2 %) 0.6 (Ref Range: 0-2 %) NRBC Pct Auto 0.0 (Ref Range: 0.0-0.2 /100WBC) 0.0 (Ref Range: 0.0-0.2 /100WBC) 0.0 (Ref Range: 0.0-0.2 /100WBC) Neutrophils Absolute Auto 4.9 (Ref Range: 2.0-8.3 x10*3/uL) 2.9 (Ref Range: 2.0-8.3 x10*3/uL) 3.4 (Ref Range: 2.0-8.3 x10*3/uL) Imm Gran Abs Auto 0.03 (Ref Range: 0.00-0.03 X10*3/uL) 0.01 (Ref Range: 0.00-0.03 X10*3/uL) 0.02 (Ref Range: 0.00-0.03 X10*3/uL) Lymphocytes Absolute Auto 1.1 L (Ref Range: 1.2-4.9 X10*3/uL) 1.3 (Ref Range: 1.2-4.9 X10*3/uL) 1.4 (Ref Range: 1.2-4.9 X10*3/uL) Monocytes Absolute Auto 0.6 (Ref Range: 0.1-1.2 X10*3/uL) 0.5 (Ref Range: [...] X10*3/uL) 0.000 (Ref Range: 0.0-0.012 X10*3/uL) * Lab:Comprehensive Met. Panel * Collection Date 08/24/2023 02/14/2023 04/30/2021 Collection Time 06:28 AM 06:27 AM 07:03 AM Order Date 08/24/2023 02/14/2023 04/30/2021 Sodium 140 [...] mg/dL) 9.5 (Ref Range: 8.4-10.2 mg/dL) * Lab:URINE DIP STICK * Collection Date 11/13/2023 11/09/2022 11/08/2021 Order Date 11/13/2023 11/09/2022 11/08/2021 Result: Normal SG 1.010 (Ref Range: 1.005 - 1.025) 1.010 (Ref Range: 1.005 - 1.025) 1.010 pH 6.5 (Ref Range: 5.0 - 9.0) 7.0 (Ref Range: 5.0 - 9.0) 7 CASTILLO Negative (Ref Range: Negative -) Negative (Ref Range: Negative -) neg NIT Negative (Ref Range: Negative -) Negative (Ref Range: Negative -) neg PRO 15 (Ref Range: Negative - Trace) 15 (Ref Range: Negative - Trace) trace GLU 500 (Ref Range: Negative -) 500 (Ref Range: Negative -) normal KET 5 (Ref Range: Negative -) Negative (Ref Range: Negative -) neg UBG 0.2 (Ref Range: 0.1 - 1.8) 0.2 (Ref Range: 0.1 - 1.8) normal EVERETT Negative (Ref Range: 0.2 - 1.3) Negative (Ref Range: 0.2 - 1.3) neg BLD Negative (Ref Range: Negative -) Negative (Ref Range: Negative -) neg Menstrating NR N/A no * Examination: G eneral Examination: GENERAL APPEARANCE: p krystina, well nourished, well developed, in no acute distress, calm and relaxed, overweight, elderly man. HEAD: a traumatic, normocephalic. EYES: e sumaya, perrla, anicteric, Strabismus. EARS: n ormal. NOSE: s eptum intact. [...] sounds normal, no ascites, no organomegaly, no mass, centripital obesity. RECTAL EXAM: n ot examined. MUSCULOSKELETAL: e xtremities unremarkable, no clubbing, cyanosis or edema. PERIPHERAL PULSES: n ormal. NEUROLOGIC: a lert and oriented, cranial nerves 2-12 grossly intact, deep tendon reflexes 2+ symmetrical, motor strength normal upper and lower extremities, sensory exam intact. PSYCH: a lert, oriented. Assessment: * Assessment: 1. A F (paroxysmal atrial fibrillation) - I48.0 (Primary) N otes :His heart rate was irregular today and well controlled. No change in his regimen was necessary. He remains anticoagulated. 2 . E ssential hypertension - I10 N otes :His blood pressure is stable today at 143/75 and no change in his regimen was necessary. We reviewed the wisdom of progressive sodium restriction and weight loss. 3 . V itamin D deficiency, unspecified - E55.9 N otes :He was continued on his vitamin D supplements 4 . O besity - E66.9 N otes :His body mass index is stable at 38. I strongly recommended aggressive weight loss and sodium restriction. We made a plan to lose weight at a rate of one half of a pound per week. 5 . G nasreen-esophageal reflux disease without esophagitis - K21.9 ?Notes :The reflux is well-controlled with dviq-ldp-bpatxbv medications. 6 . S trabismus - H50.9 N otes :This abnormality was still present and is long-standing. He was encouraged to see the wireworker regularly. 7 . C olonic polyp - K63.5 N otes :He will undergo colonoscopies periodically. He is currently up-to-date. 8 . M acrocytosis - D75.89 N otes :His mean cell volume is now 102. The cause is unclear but may be dietary.Evaluation with folic acid and vitamin B12 and reticulocytes is indicated. 9 . T hrombocytopenia - D69.6 N otes :His platelet count has increased from 129,000-140,000. He is anticoagulated and has had no bleeding. No change in his therapy is indicated. He is avoiding aspirin. 1 0. C entral sleep apnea - G47.31 N otes :He is using his CPAP every night and feels much better. 1 1. O steoarthritis - M19.90 N otes :The pain is primarily in his knees and he feels quite well. 1 2. F ormer smoker - Z87.891 N otes :He is highly motivated not to smoke. We discussed a plan for prevention of relapse in times of stress. 1 3. B PH (benign prostatic hyperplasia) - N40.0 N otes :He arises from sleep once or twice a night to urinate. It depends upon fluid intake. We discussed lifestyle modification as a way to relieve nocturia. 1 4. C hronic anticoagulation - Z79.01 N otes :He has had no bleeding or clotting. Since his last visit. He will continue on current therapy. Because of the atrial fibrillation. Plan: * Treatment: 2. V itamin D deficiency, unspecified L AB: PROFILE, FASTING (COMPREHENSIVE METABOLIC) L AB: CBC WITH AUTO DIFF L AB: Lipid Panel L AB: Vitamin D 25-OH Total 3. O besity L AB: PROFILE, FASTING (COMPREHENSIVE METABOLIC) L AB: CBC WITH AUTO DIFF L AB: Lipid Panel L AB: Vitamin D 25-OH Total 4. O thers Continue Protonix Tablet Delayed Release, 40 MG, 1 tablet, Orally, every other day; C ontinue Vitamin D Tablet, 25 MCG (1000 UT), 1 tablet, Orally, Once a day; C ontinue Flomax Capsule Extended Release 24 Hour, 0.4 MG, 1 capsule 30 minutes after the same meal each day, Orally, Once a day;?Continue Jardiance Tablet, 10 MG, Oral. * Labs: * L ab: URINE DIP STICK (Collection Date & Time - 11/13/2023) Value Reference Range S G 1.010 1.005 - 1.025 * p H 6.5 5.0 - 9.0 * L EU Negative Negative - * N IT Negative Negative - * P RO 15 Negative - Trace * G RUTH 500 Negative - * K ET 5 Negative - * U BG 0.2 0.1 - 1.8 * B IL Negative 0.2 - 1.3 * B LD Negative Negative - * Procedure Codes: 9 4760 MEASURE BLOOD OXYGEN [id number] URINE-NO MICRO * Preventive Medicine: Counseling: C are goal [...] tobacco use and urged to quit. 0 11/13/2023 * Follow Up: 3 Months (Reason: OV) * Images: * Sign off status: Completed true * Provider: Autumn Painting MD Date: 0 11/13/2023 Generated for Vu cole/Vaughn/Brandoitting on: 04/02/2024 04:42 PM EST History and Physical Notes * HPI (History of Present Illness) Category Sub-Category Detail Notes Depression Screening PHQ-9 Little inte rest or pleasure in doing things: Not at all Feeling down, depressed, or hopeless: No t at all Trouble falling or staying asleep, or sl eeping too much: Not at all Feeling tired or having little energy: N ot at all Poor appetite or overeating: Not at all Feeling bad about yourself o r that you are a failure, or have let yourself or your family down: Not at all Trouble concentrating on thi ngs, such as reading the newspaper or watching television: Not at all Moving or speaking so slowly that other people could have noticed; or the opposite, being so fidgety or restless that you have been moving around a lot more than usual: Not at all Thoughts that you would be b jatin off or of hurting yourself in some way: Not at all Total Score: 0 Fall Risk Screening Fall History Have you had any falls with injury in the past year?: No Have you had two or more falls in the ?: No Fall Risk Assessment:: No falls in the year COVID-19 Screening Questions Have you had any [...] developed, in no acute distress, calm and relaxed, overweight, elderly man HEAD: atraumatic, normocep halic EYES: eomi, perrla, anicte ho, Strabismus EARS: normal NOSE: septum intact NECK/THYROID: no jugular venous di stention, no carotid bruit, thyroid normal HEART: no clicks, gallops, murmurs, or rubs, irregular rhythm, S1, S2 normal, no s3, or vascular bruits LUNGS: clear to auscultatio n ABDOMEN: bowel sounds normal, no ascites, no organomegaly, no mass, centripital obesity NEUROLOGIC: alert and oriented, cranial [...] RECTAL EXAM: not examined PSYCH: alert, oriented ORAL CAVITY: normal, unremarkable
--- OUTSIDE RECORDS SUMMARY | 2024-02-09 04:00 | XMS_ITS ---
Author Organization Inocente Painting III, MD Address [address] [place] [address] Care Team Providers Care Still Tender Name Role Phone Dr. Inocente Painting III [...] Date Provider Diagnosis Inocente Painting III, MD [address] [place] [address] [place] [address] 02/09/2024 Inocente Painting Essential hypertensi on I10 [...] - K21.9) The reflux is well-controlled with hfsc-wov-unzvwhg medications. 02/09/2024 Central sleep apnea (ICD-10 - [...] Provider Name:Inocente Painting , 03/18/2025 09:00:00 AM, [address] [place] [address], [place] [address], [place], [address], Provider Name:Inocente Painting , 11/18/2025 09:00:00 AM, [address] [place] [address] [address], [place], [address], Progress Notes * Behzad MENDOZADOB:[birth year] (83 yo M)Acc No.[id number]:02/09/2024 Progress Notes Patient: Behzad OQUENDO Provider: Autumn Painting MD :1940 A ge:83 Y S ex:Male Date:02/09/2024 Address: [address] [place], [id number] Subjective: * Chief Complaints: * H ypertensionLaceration [...] tripped on a steel object at his ieaiau-fs-ydc's place a couple of weeks ago, resulting [...] x-cigarette smoker 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 He has been to [place] for 43 [...] K21.9 ?Notes :The reflux is well-controlled with qdcn-fuw-kfsdgoz medications. 6 . C entral sleep apnea [...] of tobacco use and urged to quit. 1 04/11/2023 * Follow Up: 4 Months (Reason: OV) * Images: * Sign off status: Completed true * Provider: Autumn Painting MD Date: 04/11/2023 Generated for Vu cole/Vaughn/Brandoitting on: 04/02/2024 04:41 PM EST History and [...]
--- OUTSIDE RECORDS SUMMARY | 2024-06-11 04:00 | XMS_ITS ---
Author Organization Inocente Painting III, MD Address [address] [place] [address] Care Team Providers Care Mechanical Tech Name Role Phone Dr. Inocente Painting III [...] Provider Diagnosis Inocente Painting III, MD [address] [place] [address] [place], [place] [id number] 06/11/2024 Inocente Painting Essential hypertensi on I10 [...] - K21.9) The reflux is well-controlled with kyvk-ccr-tiayhyc medications. 06/11/2024 Macrocytosis (ICD-10 - D75.89) His [...] Provider Name:Inocente Painting , 03/18/2025 09:00:00 AM, [address] [place] [address] , [address], [place], [address], Provider Name:Inocente Painting , 11/18/2025 09:00:00 AM, [address] [place] [address] [place] [place], [place], [address], Progress Notes * Behzad MENDOZADOB:[birth year] (83 yo M)Acc No.[id number]:06/11/2024 Progress Notes Patient: Behzad OQUENDO Provider: Autumn Painting MD :1940 A ge:83 Y S ex:Male Date:06/11/2024 [facility] [id number] Subjective: * Chief Complaints: * H ypertensionParoxysmal [...] 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 5 . M acrocytosis - D75.89 [...] 06/11/2024 Generated for Vu cole/Vaughn/Brandoitting on: 1 04/02/2024 04:40 PM EST History and Physical Notes * [...]
--- OUTSIDE RECORDS SUMMARY | 2024-10-01 04:30 | XMS_ITS ---
Author Organization Inocente Painting III, MD Address [address] [place] [address] Care Team Providers Care Television News Reporter Name Role Phone Dr. Inocente Painting III Primary Care Provider [phone] Allergies Allergen (clinical drug ingredient) Drug/Non Drug [...] Provider Diagnosis Inocente Painting III, MD [address] [place] [address] [address] [place], [place] [address] 10/01/2024 Inocente Painting Essential hypertensi on I10 [...] - K21.9) The reflux is well-controlled with iulh-vak-lagxrxv medications. 10/01/2024 Strabismus (ICD-10 - H50.9) This abnormality was still present and is long-standing. He was encouraged to see the driver recruiter regularly. 10/01/2024 Chronic anticoagulation (ICD-10 - Z79.01) [...] Provider Name:Inocente Painting , 03/18/2025 09:00:00 AM, [address] [place] [address] [address], [place], [address], Provider Name:Inocente Painting , 11/18/2025 09:00:00 AM, [address] [place] [address] [address], [place], [address], Progress Notes * Behzad MENDOZADOB:[birth year] (83 yo M)Acc No.[id number]:10/01/2024 Progress Notes Patient: Behzad OQUENDO Provider: Autumn Painting MD :1940 A ge:83 Y S ex:Male Date:10/01/2024 Address: [address], 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 5 . S trabismus - H50.9 N otes :This abnormality was still present and is long-standing. He was encouraged to see the driver recruiter regularly. 6 . C hronic anticoagulation - [...] D supplements Plan: * Treatment: 2. O klesy (BMI 30-39.9) L AB: PROFILE, FASTING (COMPREHENSIVE [...] MD Date: 0 10/01/2024 Generated for Vu cole/Vaughn/Brandoitting on: 04/02/2024 04:41 [...]
--- OUTSIDE RECORDS SUMMARY | 2024-11-14 05:00 | XMS_ITS ---
Author Organization Inocente Painting III, MD Address [address] [place] [address] Care Team Providers Care Director Orange Name Role Phone Dr. Inocente Painting III Primary Care Provider [phone] Allergies Allergen (clinical drug ingredient) Drug/Non Drug Allergy documented on EMR Reaction Allergy Type Onset Date Status No Known Food Allergy Unknown Drug Allergy Active morphine Morphine Sulfate Rash Drug Allergy Active REASON FOR VISIT Annual Exam Medications Medication SIG (Take, Route, Frequency, Duration) Notes Start Date End Date Status Metoprolol Succinate ER 50 MG 1 tablet Orally Once a day A ctive Flomax 0.4 MG 1 capsule 30 minutes after the same meal each day Orally Once a day 02/16/2023 Active Lasix 40 MG 1 tablet Orally Once a day Active Jardiance 10 MG Oral Acti ve amLODIPine Besylate 2.5 MG 1 tablet Orally Once a day Active Vitamin D 25 MCG (1000 UT) 1 tablet Orally Once a day Active Protonix 40 MG 1 tablet Orally ever y other day Active Eliquis 5 MG as directed [...] Answer Notes Did you have a drink contain ing alcohol in the past year? Yes How often did you have six o r more drinks on one occasion in the past year? 2 to 3 times per week (3 points) How many drinks did you have on a typical day when you were drinking in the past year? 1 or 2 drinks (0 point) How often did you have a dri nk containing alcohol in the past year? Never (0 point) Points 3 Interpretation Negative Vital Signs Temperature 97.2 degrees Fahrenheit 11/15/19 25 Blood pressure systolic 130 mm Hg 11/15/19 25 Blood pressure diastolic 72 mm Hg 025 Heart Rate 54 /min 11/14/2024 Height 69.5 in 11/14/2024 Weight 261 lbs 11/14/2024 BMI 37.99 kg/m2 11/14/2024 Encounters Encounter Location Date Provider Diagnosis Inocente Painting III, MD [address] [place] [address] [place] [address] 11/14/2024 Inocente Painting Essential hypertensi on I10 ; Macrocytosis D75.89 ; BPH (benign prostatic hyperplasia) N40.0 ; Vitamin D deficiency, unspecified E55.9 ; AF (paroxysmal atrial fibrillation) I48.0 ; Gastro-esophageal reflux disease without esophagitis K21.9 ; Thrombocytopenia D69.6 ; Former smoker Z87.891 ; History of pulmonary embolism Z86.711 and Chronic anticoagulation Z79.01 Assessments Encounter Date Diagnosis (ICD Code) Assessment Notes Treat ment Notes Treatment Clinical Notes 11/14/2024 Essential hypertensi on (ICD-10 - I10) His blood pressure is stable today and no change in his regimen was necessary. We reviewed the wisdom of progressive sodium restriction and weight loss. 11/14/2024 Macrocytosis (ICD-10 - D75.89) His mean cell volume is stable at 101.4. This value does not appear to be due to vitamin deficiency but maybe early myelodysplasia. The value is being observed without treatment. 11/14/2024 BPH (benign prostati c hyperplasia) (ICD-10 - N40.0) He has been rising from sleep twice a night to urinate. We reviewed lifestyle modifications he could make to reduce this. 11/14/2024 Vitamin D deficiency , unspecified (ICD-10 - E55.9) He has been continued on his vitamin D supplement. 11/14/2024 AF (paroxysmal atria l fibrillation) (ICD-10 - I48.0) His heart rate was regular today and well controlled. No change in his regimen was necessary. He remains anticoagulated. 11/14/2024 Gastro-esophageal reflux disease without esophagitis (ICD-10 - K21.9) The reflux is well-controlled with kofc-zjb-wjwginp medications. 11/14/2024 Thrombocytopenia (ICD-10 - D69.6) This platelet count is currently stable and improved at 155,000. No change in his regimen was made. 11/14/2024 Former smoker (ICD-1 0 - Z87.891) He is highly motivated not to smoke. We discussed a plan for prevention of relapse in times of stress. 11/14/2024 History of pulmonary embolism (ICD-10 - Z86.711) He is had no further pulmonary symptoms and is anticoagulated. The fat was in 2004 and he has been anticoagulated. 11/14/2024 Chronic anticoagulation (ICD-10 - Z79.01) He has had no bleeding or clotting. Since his last visit. He will continue on current therapy. Because of the atrial fibrillation. Plan Of Treatment Medication Medication Name Sig Start Date Stop Date Notes Metoprolol Succinate ER 50 MG 1 tablet Orally Once a day Flomax 0.4 MG 1 capsule 30 minutes after the same meal each day Orally Once a day 02/16/2023 Lasix 40 MG 1 tablet Orally Once a day Jardiance 10 MG Oral amLODIPine Besylate 2.5 MG 1 tablet Orally Once a day Vitamin D 25 MCG (1000 UT) 1 tablet Orally Once a day Protonix 40 MG 1 tablet Orally ever y other day Eliquis 5 MG as directed Orally t wice a day Pending Test Test Name Order Date PROFILE, FASTING (COMPREHENSIVE METABOLI C) 11/14/2024 PSA, TOTAL 11/14/2024 CBC w DIFF 11/14/2024 Lipid Panel 11/14/2024 Vitamin B12 and Folate 11/14/2024 Next Appt Details Follow Up: 4 Months, Reason: OV Provider Name:Inocente Painting , 03/18/2025 09:00:00 AM, [address] [facility] [address], [place], [address], Provider Name:Inocente Painting , 11/18/2025 09:00:00 AM, [address] [place] [address] [address], [place], [address], Progress Notes * Behzad MENDOZADOB:[birth year] (83 yo M)Acc No.[id number]:11/14/2024 Progress Notes Patient: Behzad OQUENDO Provider: Autumn Painting MD :1940 A ge:83 Y S ex:Male Date:11/14/2024 Address: [address] [id number] Subjective: * Chief Complaints: * A nnual Exam * HPI: D epression Screening: Diana george returns to the office at the age of 83 for his annual visit. His only complaint today was a lump on the dorsal surface of his left hand which was a small lipoma. He is feeling generally healthy and well and denies any chest pain shortness of breath or bleeding. He has been compliant with all his medications. He is living independently at home and doing well. No new issues were identified today. Surveillance and health maintenance will continue.Comprehensive blood work was available and was reviewed with him in detail. PHQ-9 L ittle interest or pleasure in [...] T otal Score 0 C OVID-19 Screening: Questions H ave you had any new onset fever, chills, cough, congestion, sore throat, shortness of breath, muscle aches? N o S MICA Questions: SDOH Questions I n the past year have you or any family members you live with been unable to get any of the following when it was really needed? Check all that apply: D ecline to answer F all Risk Screening: Fall History H ave you had any falls with injury in the past year? N o H ave you had two or more falls in the past year? N o F all Risk Assessment: N o falls in the past year * ROS: G eneral/Constitutional: pain A rthritis shoulders hips and knees. C hills d enies. F atigue a [...] have been noted. G enitourinary: Frequent urination t wice a night. M usculoskeletal: Muscle aches d [...] drink containing alcohol in the past year? Y es H ow often did you have six or more drinks on one occasion in the past year? 2 to 3 times per week (3 points) H ow many drinks did you have on a typical day when you were drinking in the past year? 1 or 2 drinks (0 point) H ow often did you have a drink containing alcohol in the past year? 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 He has been to [place] for 43 [...] the patient * Allergies: M orphine Sulfate: RashNo Known Food Allergyno[Allergies Verified] Objective: * Vitals: H t: 69.5, Wt:261, BMI:37.99, BP:130/72, HR:54, Temp:97.2, Wt-k.39. * P ast Orders: Lab:Complete Blood Count Aut o Diff * Collection Date 11/06/2024 09/25/2024 06/04/2024 Collection Time 06:32 AM 06:23 AM 06:28 AM Order Date 11/06/2024 09/25/2024 06/04/2024 White Blood Count 5.0 (Ref Range: 4.8-10.8 X10*3/uL) 6.0 (Ref Range: 4.8-10.8 X10*3/uL) 7.3 (Ref Range: 4.8-10.8 X10*3/uL) Red Blood Count 4.87 (Ref Range: 4.60-5.80 X10*6/uL) 5.08 (Ref Range: 4.60-5.80 X10*6/uL) 5.00 (Ref Range: 4.60-5.80 X10*6/uL) Hemoglobin 16.0 (Ref Range: 14.0-18.0 g/dl) 16.8 (Ref Range: 14.0-18.0 g/dl) 16.4 (Ref Range: 14.0-18.0 g/dl) Hematocrit 49.4 (Ref Range: 42.0-52.0 %) 51.3 (Ref Range: 42.0-52.0 %) 51.2 (Ref Range: 42.0-52.0 %) Mean Corpuscular Volume 101.4 H (Ref Range: 80.0-98.0 fL) 101.0 H (Ref Range: 80.0-98.0 fL) 102.4 H (Ref Range: 80.0-98.0 fL) Mean Corpuscular Hemoglobin 32.9 (Ref Range: 27.0-33.0 pg) 33.1 H (Ref Range: 27.0-33.0 pg) 32.8 (Ref Range: 27.0-33.0 pg) Mean Corpuscular HGB Conc 32.4 (Ref Range: 31.0-36.0 g/dl) 32.7 (Ref Range: 31.0-36.0 g/dl) 32.0 (Ref Range: 31.0-36.0 g/dl) Red Cell Distribution Width 14.8 (Ref Range: 11.0-16.0 %) 14.2 (Ref Range: 11.0-16.0 %) 14.7 (Ref Range: 11.0-16.0 %) Platelet Count 122 L (Ref Range: 160-400 X10*3/uL) 126 L (Ref Range: 160-400 X10*3/uL) 155 L (Ref Range: 160-400 X10*3/uL) Mean Platelet Volume 12.2 (Ref Range: 9.4-12.4 fL) 11.7 (Ref Range: 9.4-12.4 fL) 12.6 H (Ref Range: 9.4-12.4 fL) Neutrophils Percent Auto 65.8 (Ref Range: 45-73 %) 71.0 (Ref Range: 45-73 %) 72.9 (Ref Range: 45-73 %) Imm Gran Pct Auto 0.4 (Ref Range: 0.0-0.4 %) 0.5 H (Ref Range: 0.0-0.4 %) 0.4 (Ref Range: 0.0-0.4 %) Lymphocytes Percent Auto 21.9 (Ref Range: 20-40 %) 20.0 (Ref Range: 20-40 %) 17.8 L (Ref Range: 20-40 %) Monocytes Percent Auto 9.9 (Ref Range: 2-11 %) 6.5 (Ref Range: 2-11 %) 7.7 (Ref Range: 2-11 %) Eosinophils Percent Auto 1.4 (Ref Range: 0-4 %) 1.7 (Ref Range: 0-4 %) 0.8 (Ref Range: 0-4 %) Basophils Percent Auto 0.6 (Ref Range: 0-2 %) 0.3 (Ref Range: 0-2 %) 0.4 (Ref Range: 0-2 %) NRBC Pct Auto 0.0 (Ref Range: 0.0-0.2 /100WBC) 0.0 (Ref Range: 0.0-0.2 /100WBC) 0.0 (Ref Range: 0.0-0.2 /100WBC) Neutrophils Absolute Auto 3.3 (Ref Range: 2.0-8.3 x10*3/uL) 4.3 (Ref Range: 2.0-8.3 x10*3/uL) 5.3 (Ref Range: 2.0-8.3 x10*3/uL) Imm Gran Abs Auto 0.02 (Ref Range: 0.00-0.03 X10*3/uL) 0.03 (Ref Range: 0.00-0.03 X10*3/uL) 0.03 (Ref Range: 0.00-0.03 X10*3/uL) Lymphocytes Absolute Auto 1.1 L (Ref Range: 1.2-4.9 X10*3/uL) 1.2 (Ref Range: 1.2-4.9 X10*3/uL) 1.3 (Ref Range: 1.2-4.9 X10*3/uL) Monocytes Absolute Auto 0.5 (Ref Range: 0.1-1.2 X10*3/uL) 0.4 (Ref Range: 0.1-1.2 X10*3/uL) 0.6 (Ref [...] X10*3/uL) 0.000 (Ref Range: 0.0-0.012 X10*3/uL) * Lab:Vitamin D 25-OH Total * Collection Date 11/06/2024 09/25/2024 02/02/2024 Collection Time 06:32 AM 06:25 AM 06:52 AM Order Date 11/06/2024 09/25/2024 02/02/2024 Vitamin D 25-OH Total 32.4 (Ref Range: >30 ng/mL) 37.6 (Ref Range: >30 ng/mL) 29.8 L (Ref Range: >30 ng/mL) * Lab:Prostate Specific Antige n * Collection Date 11/06/2024 06/04/2024 02/14/2023 Collection Time 06:32 AM 06:28 AM 06:27 AM Order Date 11/06/2024 06/04/2024 02/14/2023 Prostate Specific Antigen 3.59 (Ref Range: <0.05-4.0 ng/mL) 3.88 (Ref Range: <0.05-4.0 ng/mL) 3.89 (Ref Range: <0.05-4.0 ng/mL) * Lab:Comprehensive [place]. Pane l Fast * Collection Date 11/06/2024 09/25/2024 06/04/2024 Collection Time 06:32 AM 06:25 AM 06:28 AM Order Date 11/06/2024 09/25/2024 06/04/2024 Sodium 141 (Ref Range: 135-145 mmol/L) 141 (Ref Range: 135-145 mmol/L) 143 (Ref Range: 135-145 mmol/L) Bilirubin Total 1.1 H (Ref Range: 0.0-1.0 mg/dL) 1.5 H (Ref Range: 0.0-1.0 mg/dL) 1.0 (Ref Range: 0.0-1.0 mg/dL) Aspartate Amino Transferase 20 (Ref Range: 5-37 U/L) 23 (Ref Range: 5-37 U/L) 22 (Ref Range: 5-37 U/L) Alanine Aminotransferase 15 (Ref Range: 0-40 U/L) 15 (Ref Range: 0-40 U/L) 16 (Ref Range: 0-40 U/L) Total Protein 6.5 (Ref Range: 6.5-8.0 g/dL) 6.4 L (Ref Range: 6.5-8.0 g/dL) 6.5 (Ref Range: 6.5-8.0 g/dL) Albumin Level 3.6 (Ref Range: 3.5-5.0 g/dL) 3.6 (Ref Range: 3.5-5.0 g/dL) 3.7 (Ref Range: 3.5-5.0 g/dL) Alkaline Phosphatase 59 (Ref Range: 39-117 U/L) 49 (Ref Range: 39-117 U/L) 57 (Ref Range: 39-117 U/L) Potassium 3.9 (Ref Range: 3.3-5.1 mmol/L) 3.9 (Ref Range: 3.3-5.1 mmol/L) 5.1 (Ref Range: 3.3-5.1 mmol/L) Chloride 108 (Ref Range: 96-108 mmol/L) 107 (Ref Range: 96-108 mmol/L) 106 (Ref Range: 96-108 mmol/L) Carbon Dioxide 26 (Ref Range: 22-29 mmol/L) 25 (Ref Range: 22-29 mmol/L) 32 H (Ref Range: 22-29 mmol/L) Anion Gap 11 L (Ref Range: 12-20) 13 (Ref Range: 12-20) 10 L (Ref Range: 12-20) Blood Urea Nitrogen 17 H (Ref Range: 9-16 mg/dL) 21 H (Ref Range: 9-16 mg/dL) 25 H (Ref Range: 9-16 mg/dL) Creatinine 1.17 (Ref Range: 0.5-1.4 mg/dL) 1.12 (Ref Range: 0.5-1.4 mg/dL) 1.19 (Ref Range: 0.5-1.4 mg/dL) Estimated Glomerular Filt Rate 59 > 60 58 Glucose Fasting 91 (Ref Range: 60-99 mg/dL) 77 (Ref Range: 60-99 mg/dL) 98 (Ref Range: 60-99 mg/dL) Calcium 8.8 (Ref Range: 8.4-10.2 mg/dL) 8.5 (Ref Range: 8.4-10.2 mg/dL) 9.3 (Ref Range: 8.4-10.2 mg/dL) * Lab:Lipid Panel * Collection Date 11/06/2024 09/25/2024 06/04/2024 Collection Time 06:32 AM 06:25 AM 06:28 AM Order Date 11/06/2024 09/25/2024 06/04/2024 Triglycerides 53 (Ref Range: <150 mg/dL) 55 (Ref Range: <150 mg/dL) 49 (Ref Range: <150 mg/dL) Cholesterol 137 (Ref Range: <200 mg/dL) 142 (Ref Range: <200 mg/dL) 129 (Ref Range: <200 mg/dL) LDL Cholesterol Calculated 79 (Ref Range: <100 mg/dL) 81 (Ref Range: <100 mg/dL) 66 (Ref Range: <100 mg/dL) HDL Cholesterol 48 (Ref Range: >40 mg/dL) 50 (Ref Range: >40 mg/dL) 54 (Ref Range: >40 mg/dL) * Examination: G eneral Examination: GENERAL APPEARANCE: p leasant, well nourished, well developed, in no acute distress, calm and relaxed: obese: elderly man. HEAD: a traumatic, normocephalic. EYES: [...] cyanosis or edema, Mild arthritic changes fingers shoulder symptoms. PERIPHERAL PULSES: n ormal. NEUROLOGIC: a lert and oriented, cranial nerves 2-12 grossly intact, deep tendon reflexes 2+ symmetrical, motor strength normal upper and lower extremities, sensory exam intact. PSYCH: a lert, oriented: cooperative with exam: cognitive function intact: judgement and insight good: speech clear: thought process logical, goal directed.? Assessment: * Assessment: 1. E ssential hypertension - I10 (Primary) N otes :His blood pressure is stable today and no change in his regimen was necessary. We reviewed the wisdom of progressive sodium restriction and weight loss. 2 . M acrocytosis - D75.89 N otes :His mean cell volume is stable at 101.4. This value does not appear to be due to vitamin deficiency but maybe early myelodysplasia. The value is being observed without treatment. 3 . B PH (benign prostatic hyperplasia) - N40.0 N otes :He has been rising from sleep twice a night to urinate. We reviewed lifestyle modifications he could make to reduce this. 4 . V itamin D deficiency, unspecified - E55.9 N otes :He has been continued on his vitamin D supplement. 5 . A F (paroxysmal atrial fibrillation) - I48.0 N otes :His heart rate was regular today and well controlled. No change in his regimen was necessary. He remains anticoagulated. 6 . G nasreen-esophageal reflux disease without esophagitis - K21.9 Notes :The reflux is well-controlled with fzpg-lxh-hnjzntr medications. 7 . T hrombocytopenia - D69.6 N otes :This platelet count is currently stable and improved at 155,000. No change in his regimen was made. 8 . F ormer smoker - Z87.891 N otes :He is highly motivated not to smoke. We discussed a plan for prevention of relapse in times of stress. 9 . H istory of pulmonary embolism - Z86.711 N otes :He is had no further pulmonary symptoms and is anticoagulated. The fat was in 2004 and he has been anticoagulated. 1 0. C hronic anticoagulation - Z79.01 N otes :He has had no bleeding or clotting. Since his last visit. He will continue on current therapy. Because of the atrial fibrillation. Plan: * Treatment: 2. M acrocytosis L AB: PROFILE, FASTING (COMPREHENSIVE METABOLIC) L AB: PSA, TOTAL L AB: CBC w DIFF L AB: Lipid Panel L AB: Vitamin B12 and Folate 3. B PH (benign prostatic hyperplasia) L AB: PROFILE, FASTING (COMPREHENSIVE METABOLIC) L AB: PSA, TOTAL L AB: CBC w DIFF L AB: Lipid Panel L AB: Vitamin B12 and Folate 4. V itamin D deficiency, unspecified L AB: PROFILE, FASTING (COMPREHENSIVE METABOLIC) L AB: PSA, TOTAL L AB: CBC w DIFF L AB: Lipid Panel L AB: Vitamin B12 and Folate 5. O thers Continue Protonix Tablet Delayed [...] tobacco use and urged to quit. 1 * Follow Up: 4 Months (Reason: OV) * Images: * Sign off status: Completed true * Provider: Autumn Painting MD Date: Generated for Vu cole/Vaughn/eTcarylsmitting on: 04/02/2024 04:42 PM EST History and [...] throat, shortness of breath, muscle aches?: No SDOH Questions SDOH Questions In the past year have you or any family members you live with been unable to get any of the following when it was really needed? Check all that apply:: Decline to answer Examination Category Sub-Category Detail Notes General Examination GENERAL APPEARANCE: pleasant , well nourished, well developed, in no acute distress, calm and relaxed: obese: elderly man HEAD: atraumatic, normocep halic EYES: [...] cyanosis or edema, Mild arthritic changes fingers shoulder symptoms LYMPH NODES: no enlarged lymph no aye,spleen normal RECTAL EXAM: not examined PSYCH: alert, oriented: borough coordinator perative with exam: cognitive function intact: judgement and insight good: speech clear: thought process logical, goal directed ORAL CAVITY: normal, unremarkable
--- NOTE | ~2025-01-30 | CT_ITS ---
EXAMINATION: CT ABDOMEN AND PELVIS WITHOUT CONTRAST CLINICAL INFORMATION: mid abd pain, r/o AAA COMPARISON: Limited abdominal ultrasound on January 30, 2025. Abdominal ultrasound on July 04, 2017. TECHNIQUE: Multidetector volumetric imaging was performed from the superior aspect of the liver through the pubic symphysis. Sagittal and coronal reformatted images were obtained on the technologist's workstation. This CT examination was performed using dose optimization techniques as appropriate, variously including the following: *Automated exposure control *Adjustment of mA and/or kV according to patient size (this includes techniques or standardized protocols for targeted exams where dose is matched to indication/reason for exam; i.e. extremities or head) *Use of iterative reconstruction technique FINDINGS: LOWER CHEST: Small hiatal hernia. No focal consolidation. No pleural effusion. Mild cardiomegaly. Trace pericardial fluid. LIVER: No hepatomegaly. Approximately 1.6 cm focal hypodensity in the right hepatic lobe (3:15/102). GALLBLADDER AND BILIARY TREE: Mildly distended gallbladder, containing multiple small gallstones, without obvious wall thickening, but surrounded by mildly fatty stranding. No biliary ductal dilatation. PANCREAS: Unremarkable. SPLEEN: No splenomegaly. ADRENAL GLANDS: No nodules KIDNEYS AND URETERS: Multiple bilateral cortical and exophytic hypodense renal lesions. The larger ones measuring fluid density represent cysts. Small renal lesions are too small to characterize. No hydronephrosis or renal stones on either side. GASTROINTESTINAL TRACT: Small duodenal diverticulum. No bowel distention. Sigmoid colonic diverticulosis. PERITONEUM/RETROPERITONEUM: No free fluid or free air. LYMPH NODES: No lymphadenopathy. VASCULAR: No abdominal aortic aneurysm. Mild vascular calcifications. PELVIC VISCERA: Partially distended urinary bladder, without intravesical stones. Prostatomegaly. OSSEOUS STRUCTURES/SOFT TISSUES: Sclerotic lesion in the right sacrum likely represents a bone island. No acute bony abnormality. Multilevel degenerative changes throughout the spine. Fat-containing bilateral inguinal hernias. CT/CT abdomen pelvis wo IV con IMPRESSION: 1. No abdominal aortic aneurysm. 2. Mildly distended gallbladder containing multiple gallstones and surrounded by mild inflammatory changes. As described on the ultrasound study, these findings are suggestive of acute cholecystitis. 3. Sigmoid colonic diverticulosis. Electronically signed by: Jovany Tinoco MD 01/30/2025 03:35 PM EST
--- NOTE | ~2025-01-30 | US_ITS ---
EXAMINATION: US ABDOMEN LIMITED CLINICAL INFORMATION: Right upper quadrant pain.. COMPARISON: July 02, 2017 TECHNIQUE: Real-time ultrasound of the right upper quadrant abdomen using grayscale technique. FINDINGS: Multiple intraluminal hyperechoic structures with posterior shadowing in the gallbladder. No pericholecystic fluid collection. Gallbladder wall measures 5 mm maximal thickness. Common bile duct measures 4 mm. Sonographic Hernandez's sign elicited by the technologist. Right kidney measures 13 cm. Normal echotexture. No hydronephrosis. Multiple anechoic lesions, the largest measures 5.1 cm with thin septations and no flow on color Doppler interrogation centered in the midportion. No ascites. US/US abdomen limited IMPRESSION: Consider acute calculus cholecystitis in the correct clinical settings. No choledocholithiasis. 5.1 cm septated exophytic cyst, right kidney. Electronically signed by: Tahir Sorenson MD 01/30/2025 01:22 PM [facility]
--- OUTSIDE RECORDS SUMMARY | 2025-01-30 05:13 | XMS_ITS ---
Author Organization Inocente Painting III, MD Address [address] [place] [address] [place] [address] Care Team Providers Care Nursing Informatics Specialist Name Role Phone Dr. Inocente Painting III Primary Care Provider REASON FOR VISIT Needs call back from Social History Sex Assigned At : Social History Observation Description Sex Assigned At Male Encounters Encounter Location Date Provider Diagnosis Inocente Painting III, MD [address] [place] [address] [place] [address] 01/30/2025 Inocente Painting Plan Of Treatment Next Appt Details Provider Name:Inocente Painting , 03/18/2025 09:00:00 AM, [address] [place] [address] [place], [address], Provider Name:Inocente Painting , 11/18/2025 09:00:00 AM, [address] [place] [address] [place], [address], Progress Notes * MIRABehzadDOB:[birth year] (84 yo M)Acc No.[id number]:01/30/2025 Patient: Behzad OQUENDO :1940 A ge:84 Y S ex:Male Address:[address] [place], [address] * true * Date: Generated for Printi ng/Faxing/eTransmitting on: 04/02/2024 04:41 PM EST
[2025-01-30 12:18] VITALS: BP 134/63; PULSE 83; RESP 20; TEMP 36.8; BMI 35.8
--- NOTE | 2025-01-30 12:22 | ED.ABDPAIN ---
HPI - Abdominal Pain General Chief Complaint: Abdominal Pain Stated Complaint: abd pain Time Seen by Provider: 01/30/25 13:56 Source: patient and family (Spouse) Mode of arrival: ambulatory Limitations: no limitations History of Present Illness ED Provider: DR. Crawford HPI narrative: 84-year-old pleasant male PMHx AFib on Eliquis, HFpEF, pulmonary hypertension, and morbid obesity presented for evaluation of abdominal pain that is mostly in the mid abdomen and right upper quadrant area, pain is accompanied by dry heaving without vomiting, no diarrhea, no constipation, no fever, no chills, no clear aggravating factor, no clear relieving factors. Had similar episode twice in the last month but lasted shorter than today, no history of intra-abdominal surgery, last bowel movement was last night, +passing flatus. Related Data Home Medications ?Medication ?Instructions ?Recorded ?Confirmed tamsulosin 0.4 mg capsule 0.4 mg PO DAILY 01/27/20 01/01/25 pantoprazole 40 mg tablet,delayed 40 mg PO DAILY 08/26/20 01/01/25 release cholecalciferol (vitamin D3) 25 25 mcg PO DAILY 01/18/21 01/01/25 mcg (1,000 unit) tablet Previous Rx's ?Medication ?Instructions ?Recorded apixaban 5 mg tablet (Eliquis) 5 mg PO BID #180 tabs 06/04/24 furosemide 40 mg tablet 40 mg PO DAILY #90 tabs 06/04/24 amlodipine 2.5 mg tablet 2.5 mg PO DAILY #90 tabs 08/29/24 empagliflozin 10 mg tablet 10 mg PO DAILY #90 tabs 08/30/24 (Jardiance) metoprolol succinate 50 mg 50 mg PO DAILY #90 tabs 11/21/24 tablet,extended release 24 hr Allergies Allergy/AdvReac Type Severity Reaction Status Date / Time morphine (MORPHINE) Allergy Intermediate RASH Verified 01/30/25 12:22 Review of Systems Review of Systems All other systems are reviewed and are negative Constitutional: Reports as per HPI and Reports no additional constitutional complaints Eyes: Reports as per HPI and Reports no additional eye complaints Reports system reviewed and no additional complaints, except as documented Cardiovascular: Reports as per HPI and Reports no additional cardiovascular complaints Respiratory: Reports as per HPI and Reports no additional respiratory complaints Gastrointestinal: Reports as per HPI and Reports no additional gastrointestinal complaints Genitourinary: Reports no additional female genitourinary complaints Musculoskeletal: Reports no additional musculoskeletal complaints Skin/Breast: Reports system reviewed and no additional complaints, except as docu Psychiatric: Reports no additional psychiatric complaints Endocrine: Reports no additional endocrine complaints Hematologic/Lymphatic: Reports no additional hematologic/lymphatic complaints Allergic/Immunologic: Reports no additional allergic/immunologic complaints Reports system reviewed and no additional complaints, except as documented and Reports Abnormal speech present [facility] Past Medical History Medical History Atrial flutter Persistent atrial fibrillation RUMA on CPAP Obesity (BMI 30-39.9) Diastolic dysfunction Pulmonary hypertension Enlarged RV (right ventricle) Morbid obesity (HFpEF) heart failure with preserved ejection fraction Paroxysmal atrial fibrillation History of cardioversion Surgical History H/O colonoscopy Hx of cataract extraction History of excision of pilonidal cyst Hx of knee surgery Family History Family History Father Afib COPD (chronic obstructive pulmonary disease) Diabetes Mother Cancer Afib Social History Social History Patient Tobacco Use Status: Former Tobacco user Tobacco use type: Cigarette Years Smoked: 12 Advance Directives: No Advance Directives Information Provided: Yes Physical Exam ED Vital Signs: Vital Signs - 24 hr 01/30/25 12:18 01/30/25 14:07 Temperature 98.3 F 98 F Pulse Rate 83 83 Respiratory Rate 20 15 Blood Pressure 134/63 145/77 H Pulse Oximetry 97 Oxygen Delivery Method Room Air BMI result Body Mass Index 35.8 Vital signs have been reviewed and appear to be correct. Blood pressure elevated. Heart rate normal. Respiratory rate normal. Temperature normal. Oxygen saturation normal. Appearance: Alert. Oriented X3. No acute distress. Head: Normal external exam. Normocephalic. Atraumatic. No Joe signs noted. No raccoon eyes noted Eyes: PERRLA. EOMI. Conjunctiva and sclera normal. Eyelids normal. ENT: TM's Normal. Pharynx normal. Uvula midline. Moist mucous membranes. No trismus noted. No drooling noted. No muffled voice noted. Neck: Normal inspection. Neck supple. FROM. No adenopathy. Thyroid Normal. No meningeal signs. No neck mass noted. CVS: Normal heart rate and rhythm. Heart sound normal. No murmurs noted. Pulses normal throughout. Respiratory: No respiratory distress. Painless inspiration. Breath sounds normal. No wheezes/rales/rhonchi noted. Chest nontender. No accessory muscle usage noted or decreased air movement noted. Abdomen: Obese, soft, right upper quadrant abdominal tenderness, no guarding, no rebound tenderness. No distention noted. No organomegaly noted. No visible injury noted. Back: No CVA tenderness. Full range of motion noted. Skin: Skin warm and dry. Normal skin color. Normal skin turgor. No rashes/lesions/lacerations noted. Extremities: No lower extremity edema. Extremities exhibit normal range of motion. Extremities nontender. Neuro: Oriented X 3. Cranial nerve exam: II-XII are grossly intact No motor deficit. No sensory deficit. Reflexes normal. Course Course Course Narrative: This is an RME: Additional HPI, ROS, PE not included below will be deferred to primary provider. RME assessment and note performed by: Nellie Crawley PA-C This is a 89-nhlw-fbz-male, with a hx of RUMA on CPAP, pulmonary HTN, afib on eliquis, CHF who presents to the ER with a complaint of epigastric pain, ruq pain. Pain is intermittent with associated nausea,vomiting, diarrhea. Poor intake, no abd surgeries. Pt with TTP overlying the right upper quadrant. abd is otherwise soft Plan: labs, us, ekg, further ER eval needed Reevaluation(s) Reevaluation #1: Abdominal pain secondary to acute cholecystitis, no sepsis. Surgical consult input is appreciated by Dr. Olivarez, surgical admission, medical consult as an inpatient. Ken. Time: 15:58 Medical Decision Making Differential Diagnosis Differential Diagnoses: The differential diagnosis associated with the presentation includes (Acute cholecystitis, acute pancreatitis, acute gastritis, small-bowel obstruction, acute appendicitis, colitis, diverticulitis, electrolyte derangement, severe anemia.) Admission/Observation Consideration of admission/observation: Escalation of care including admission/observation considered Consult Healthcare Provider Management of the patient was discussed with: Fish Peddler (Dr. Olivarez) Lab Data MDM Lab Attestation statement: I reviewed the patient's lab results. 01/30/25 13:36 01/30/25 13:36 Labs: Lab Results 01/30/25 01/30/25 Range/Units 13:36 15:30 WBC 20.9 H (4.8-10.8) X10*3/uL RBC 5.43 (4.60-5.80) X10*6/uL Hgb 17.9 (14.0-18.0) g/dl Hct 53.8 H (42.0-52.0) % MCV 99.1 H (80.0-98.0) fL MCH 33.0 (27.0-33.0) pg MCHC 33.3 (31.0-36.0) g/dl RDW 14.1 (11.0-16.0) % Plt Count 200 D (160-400) X10*3/uL MPV 12.7 H (9.4-12.4) fL Immature Gran % (Auto) 1.0 H (0.0-0.4) % Neut % (Auto) 89.8 H (45-73) % Lymph % (Auto) 2.4 L (20-40) % Carlton % (Auto) 6.5 (2-11) % Eos % (Auto) 0.0 (0-4) % Baso % (Auto) 0.3 (0-2) % Lymph # (Auto) 0.5 L (1.2-4.9) X10*3/uL Carlton # (Auto) 1.4 H (0.1-1.2) X10*3/uL Eos # (Auto) 0.0 (0.0-0.4) X10*3/uL Baso # (Auto) 0.1 (0.0-0.2) X10*3/uL Abs Immat Gran (auto) 0.20 H (0.00-0.03) X10*3/uL Absolute Neuts (auto) 18.8 H (2.0-8.3) x10*3/uL Absolute Nucleated RBC 0.000 (0.0-0.012) X10*3/uL Nucleated RBC % (auto) 0.0 (0.0-0.2) /100WBC Lactic Acid 2.2 H* (0.5-2.0) mmol/L Urine Color Yellow Urine Appearance Clear Urine pH 6.5 (5.0-9.0) Ur Specific Fitzpatrick 1.015 (1.005-1.025) Urine Protein Negative (Neg-Trace) mg/dL Urine Glucose (UA) >=1000 H (Negative) mg/dL Urine Ketones Negative (Negative) mg/dL Urine Blood Negative (Negative) Urine Nitrite Negative (Negative) Ur Leukocyte Esterase Negative (Negative) Urine RBC 0-2 (0-2) /HPF Urine WBC 0-5 (0-5) /HPF Ur Squamous Epith Cells 0-2 (0-2) /HPF Urine Bacteria None Seen (None Seen) Hyaline Casts 0-2 (0-2) /LPF Independent Interpretation I performed an independent interpretation of an: Ultrasound (Gallbladder: Acute cholecystitis.) and CT Scan (Abdomen pelvis: Acute cholecystitis.) Radiology Impression Discussion of test interpretation with radiology: I have reviewed the radiologist's reading. Medications Administered Discontinued Medications Generic Name Dose Route Start Last Admin Trade Name Freq PRN Reason Stop Dose Admin Lactated Ringer's 1,000 mls @ 999 mls/hr 01/30/25 14:15 01/30/25 14:47 Lr IV 01/30/25 15:15 999 mls/hr .Q1H1M ROSIO Administration Piperacillin Sod/Tazobactam 50 mls @ 100 mls/hr 01/30/25 14:07 01/30/25 15:20 Sod 3.375 gm/ Sodium Chloride IV 01/30/25 14:36 Infused ONCE ONE Infusion Discharge Plan Discharge Clinical Impression: Acute cholecystitis Patient Disposition: Admitted As Inpatient Print Language: Telugu
--- NOTE | 2025-01-30 12:24 | ECG_ITS ---
Test Reason : epigastic pain hx afib Blood Pressure : */* mmHG Vent. Rate : 90 BPM Atrial Rate : * BPM P-R Int : * ms QRS Dur : 106 ms QT Int : 376 ms P-R-T Axes : * 6 -47 degrees QTcB Int : 459 ms Atrial fibrillation Incomplete right bundle branch block ST & T wave abnormality, consider inferior ischemia ST & T wave abnormality, consider anterior ischemia Abnormal ECG When compared with ECG of 09-Jun-2021 13:41, Atrial fibrillation has replaced Sinus rhythm Vent. rate has increased by 38 bpm Incomplete right bundle branch block is now Present Referred By: Nellie Crawley Electronically Signed By: Saurabh Diaz
[2025-01-30 13:51] LABS: MANUAL DIFF FLAG NO
[2025-01-30 13:53] LABS: Appearance Urine Clear; Glucose Urine UA >=1000 mg/dL (Negative); Hematocrit 53.8 % (42.0-52.0); Hemoglobin 17.9 g/dl (14.0-18.0); Imm Gran Abs Auto 0.20 X10*3/uL (0.00-0.03); Imm Gran Pct Auto 1.0 % (0.0-0.4); Lymphocytes Absolute Auto 0.5 X10*3/uL (1.2-4.9); Mean Corpuscular HGB Conc 33.3 g/dl (31.0-36.0); Mean Corpuscular Hemoglobin 33.0 pg (27.0-33.0); Mean Corpuscular Volume 99.1 fL (80.0-98.0); NRBC Abs Auto 0.000 X10*3/uL (0.0-0.012); NRBC Pct Auto 0.0 /100WBC (0.0-0.2); PH 6.5 (5.0-9.0); Platelet Count 200 X10*3/uL (160-400); Red Blood Count 5.43 X10*6/uL (4.60-5.80); Specific Gravity - Urine 1.015 (1.005-1.025); UMIC TRIGGER UACC YES; White Blood Count 20.9 X10*3/uL (4.8-10.8)
[2025-01-30 14:07] VITALS: BP 145/77; PULSE 83; RESP 15; TEMP 36.6; O2SAT 97
--- NOTE | 2025-01-30 14:15 | PC.NURSE ---
pt to ED with reports of RUQ and epigastric pain on and off for a about 3 weeks. He states that when he has the pain it is severe and sometimes accompanied with dry heaves/nausea of vomiting. The pain went away but yesterday it came back and he decided to come in. Reports diarrhea as well. abd large, round, soft non-tender. skin pwd. lung sounds clear. no SOB. no chest pain. 22g IV in right AC. ABX ordered, blood cultures pending.
[2025-01-30] MEDS: Lactated Ringers 1,000 ML 999 ML IV (14:47)
[2025-01-30 15:59] LABS: Troponin-I High Sensitivity 9.4 ng/L (<3.5-35.0)
[2025-01-30 16:02] LABS: INTERNATIONAL NORM RATIO 1.6 (0.9-1.1); Prothrombin Time 19.4 SEC (11.2-13.5)
--- NOTE | 2025-01-30 16:18 | PM.HPGS ---
History of Present Illness History of Present Illness Date of Service: 01/30/25 Chief complaint: acute cholecystitis, cholelithiasis Narrative: Behzad Mendoza is a 84 year old male presenting with complaints of epigastric and right upper quadrant abdominal pain intermittently for the past 2 weeks. The pain would last between 12 in 36 hours and subsequently subside however the current pain became quite severe and he subsequently saw attention in the emergency department. He reports nausea and vomiting but denies fever or chills. He denies any sick contacts or eating any unusual foods. He presented to the emergency department and was noted to be tender in the epigastrium and right upper quadrant with a positive Hernandez sign. Laboratories revealed an elevated WBC of 20,000. Ultrasound revealed multiple gallstones within the gallbladder with a thickened gallbladder wall. This was confirmed on CT abdomen and pelvis with evidence of inflammatory changes around the gallbladder suggestive of acute cholecystitis due to cholelithiasis. His past medical history is significant for atrial fibrillation on Eliquis, bradycardia, heart failure with preserved ejection fraction, diastolic dysfunction, pulmonary hypertension, sleep apnea, and morbid obesity. He is admitted to the surgical service for management of his acute cholecystitis. Review of Systems Review of Systems: Yes all other systems are reviewed and are negative Constitutional: Constitutional: Denies chills, Denies fever(s) and Reports poor appetite Cardiovascular: Cardiovascular: Reports irregular heart rhythm Gastrointestinal: Gastrointestinal: Reports abdominal pain, Denies nausea and Denies vomiting PMFSH Past Medical History Medical History Atrial flutter Persistent atrial fibrillation RUMA on CPAP Obesity (BMI 30-39.9) Diastolic dysfunction Pulmonary hypertension Enlarged RV (right ventricle) Morbid obesity (HFpEF) heart failure with preserved ejection fraction Paroxysmal atrial fibrillation History of cardioversion Family History Family History Father Afib COPD (chronic obstructive pulmonary disease) Diabetes Mother Cancer Afib Surgical History Surgical History H/O colonoscopy Hx of cataract extraction History of excision of pilonidal cyst Hx of knee surgery Social History Social History Alcohol intake: current Alcohol intake frequency: a few times a week Patient Tobacco Use Status: Former Tobacco user Tobacco use type: Cigarette Years Smoked: 12 Smoked in Last 30 Days: No Use of substances other than those prescribed or required for medical reasons: No Advance Directives: No Advance Directives Information Provided: Yes Meds Allergies Allergy/AdvReac Type Severity Reaction Status Date / Time morphine (MORPHINE) Allergy Intermediate RASH Verified 01/30/25 12:22 Active Medications: Current Medications Calcium Carbonate (Calcium Carbonate 750 Mg Tab.Chew) 750 mg PO Q4H PRN PRN Reason: Heartburn Hydromorphone HCl (Hydromorphone Hcl 0.5 Mg/0.5 Ml Syringe) 0.5 mg IVPUSH Q3H PRN; Protocol PRN Reason: Pain, Severe (Pain Scale 7-10) Dextrose/Lactated Ringer's (D5lr) 1,000 mls @ 80 mls/hr IVCONT .[id number] ROSIO Piperacillin Sod/Tazobactam (Sod 3.375 gm/ Sodium Chloride) 50 mls @ 100 mls/hr IV Q6H ROSIO Magnesium Hydroxide (Milk Of Magnesia 30 Ml Oral.Susp) 30 ml PO DAILY PRN PRN Reason: Constipation Melatonin (Melatonin 3 Mg Tablet) 6 mg PO BEDTIME PRN PRN Reason: Insomnia Ondansetron HCl (Ondansetron Hcl 4 Mg/2 Ml Vial) 4 mg IVPUSH QID PRN PRN Reason: Nausea Oxycodone HCl (Oxycodone Hcl Immed Release 5 Mg Tablet) 5 mg PO Q6H PRN PRN Reason: Pain, Moderate(Pain Scale 4-6) Sodium Chloride (0.9 % Sodium Chloride Flush 3 Ml Syringe) 3 ml IVFLUSH QSHIFT [facility] Home Medications ?Medication ?Instructions ?Recorded ?Confirmed ?Last Taken ?Type tamsulosin 0.4 mg capsule 0.4 mg PO DAILY 01/27/20 01/01/25 Unknown History pantoprazole 40 mg tablet,delayed 40 mg PO DAILY@0630 08/26/20 01/01/25 06/09/21 05:30 History release cholecalciferol (vitamin D3) 25 25 mcg PO DAILY 01/18/21 01/01/25 Unknown History mcg (1,000 unit) tablet Physical Exam Vital Signs: Vital Signs: Last Vital Signs Temp 98 F 01/30/25 14:07 Pulse 83 01/30/25 14:07 Resp 15 01/30/25 14:07 BP 145/77 H 01/30/25 14:07 Pulse Ox 97 01/30/25 14:07 O2 Del Method Room Air 01/30/25 14:07 BMI result Body Mass Index 35.8 Const: General: cooperative and no acute distress Nutritional Appearance: well nourished Orientation/consciousness: patient oriented x3 Limitations: no limitations HEENT: Head: Yes normocephalic and Yes atraumatic Ears: hearing grossly normal bilaterally Resp: Effort & Inspection: normal respiratory effort, no audible wheezes, no cough and no respiratory distress Cardio: Jugular venous distension: no JVD GI: Other: Soft, tender right upper quadrant, positive Hernandez sign, mildly distended, no tympany to percussion. No rebound, guarding or rigidity Inspection: Yes normal to inspection Skin: Other: Warm, dry, no rash, no jaundice Neuro: General: patient oriented x3 Extrem: General: Yes no clubbing, cyanosis or edema Results Results Labs: Short CBC 01/30/25 Range/Units 13:36 WBC 20.9 H (4.8-10.8) X10*3/uL Hgb 17.9 (14.0-18.0) g/dl Hct 53.8 H (42.0-52.0) % Plt Count 200 D (160-400) X10*3/uL Urine 01/30/25 Range/Units 13:36 Urine Color Yellow Urine Appearance Clear Urine pH 6.5 (5.0-9.0) Ur Specific [place] 1.015 (1.005-1.025) Urine Protein Negative (Neg-Trace) mg/dL Urine Glucose (UA) >=1000 H (Negative) mg/dL Abdomen CT scan report/results: image reviewed CT scan - pelvis: image reviewed Abdominal ultrasound report/results: image reviewed Assessment and Plan (1) Acute cholecystitis: Status: Acute Plan 84-year-old male patient with multiple medical problems presenting with complaints of epigastric and right upper quadrant abdominal pain found to have multiple gallstones within the gallbladder and a thickened gallbladder wall. Findings are suggestive of acute cholecystitis due to cholelithiasis. The patient is admitted to the surgical service for further management. Hospitalist consultation for assistance with the patient's multiple medical issues. Patient is on Eliquis for atrial fibrillation. Eliquis is being held pending potential surgery. Quality Stroke Does the patient have a stroke diagnosis?: No VTE Prior VTE?: No VTE Risk Level:: Surgical - moderate VTE Device Contraindication: N/A - Device Ordered VTE Drug Contraindication: N/A - Med Ordered Procedures Date of Service Date of Service: 01/30/25
--- NOTE | 2025-01-30 16:22 | HO.PM.IMCN ---
History of Present Illness Data of Consult Service Date: 01/30/25 Primary Care Provider: Inocente Painting MD HPI HTN, AFIB on eliquis, pulm HTN, chronic HFpEF admitted to surgery with acute cholecystitis after presenting with abdominal pain, n/v/d, No fever, both US and CT point to acute cholecystitis, WBC is 20K, LA 2.2 Review of Systems Review of Systems: Gen: no fever Resp: no sob, no cough CV: no chest, no WILKES, no leg edema GI: No n/v, no abd pain Neuro: No confusion PMFSH Medical History Atrial flutter Persistent atrial fibrillation RUMA on CPAP Obesity (BMI 30-39.9) Diastolic dysfunction Pulmonary hypertension Enlarged RV (right ventricle) Morbid obesity (HFpEF) heart failure with preserved ejection fraction Paroxysmal atrial fibrillation History of cardioversion Family History Father Afib COPD (chronic obstructive pulmonary disease) Diabetes Mother Cancer Afib Surgical History H/O colonoscopy Hx of cataract extraction History of excision of pilonidal cyst Hx of knee surgery Social History Household Members: None Housing: House Alcohol intake: current Alcohol intake frequency: a few times a week Patient Tobacco Use Status: Former Tobacco user Tobacco use type: Cigarette Years Smoked: 12 Meds Allergies Allergy/AdvReac Type Severity Reaction Status Date / Time morphine (MORPHINE) Allergy Intermediate RASH Verified 01/30/25 12:22 Active Medications: Current Medications Calcium Carbonate (Calcium Carbonate 750 Mg Tab.Chew) 750 mg PO Q4H PRN PRN Reason: Heartburn Hydromorphone HCl (Hydromorphone Hcl 0.5 Mg/0.5 Ml Syringe) 0.5 mg IVPUSH Q3H PRN; Protocol PRN Reason: Pain, Severe (Pain Scale 7-10) Dextrose/Lactated Ringer's (D5lr) 1,000 mls @ 80 mls/hr IVCONT .[id number] ROSIO Piperacillin Sod/Tazobactam (Sod 3.375 gm/ Sodium Chloride) 50 mls @ 100 mls/hr IV Q6H [facility] Magnesium Hydroxide (Milk Of Magnesia 30 Ml Oral.Susp) 30 ml PO DAILY PRN PRN Reason: Constipation Melatonin (Melatonin 3 Mg Tablet) 6 mg PO BEDTIME PRN PRN Reason: Insomnia Ondansetron HCl (Ondansetron Hcl 4 Mg/2 Ml Vial) 4 mg IVPUSH QID PRN PRN Reason: Nausea Oxycodone HCl (Oxycodone Hcl Immed Release 5 Mg Tablet) 5 mg PO Q6H PRN PRN Reason: Pain, Moderate(Pain Scale 4-6) Sodium Chloride (0.9 % Sodium Chloride Flush 3 Ml Syringe) 3 ml IVFLUSH QSHIFT [facility] Home Medications ?Medication ?Instructions ?Recorded ?Confirmed ?Last Taken ?Type tamsulosin 0.4 mg capsule 0.4 mg PO DAILY 01/27/20 01/30/25 01/30/25 History pantoprazole 40 mg tablet,delayed 40 mg PO DAILY@0630 08/26/20 01/30/25 01/30/25 History release cholecalciferol (vitamin D3) 25 25 mcg PO DAILY 01/18/21 01/30/25 01/30/25 History mcg (1,000 unit) tablet ascorbic acid (vitamin C) 500 mg 500 mg PO DAILY 01/30/25 01/30/25 01/30/25 History tablet (Vitamin C) Physical Exam Vital Signs and Narrative: Vital Signs: Last Vital Signs Temp 98 F 01/30/25 14:07 Pulse 83 01/30/25 14:07 Resp 15 01/30/25 14:07 BP 145/77 H 01/30/25 14:07 Pulse Ox 97 01/30/25 14:07 O2 Del Method Room Air 01/30/25 14:07 BMI result Body Mass Index 35.8 Const: Other: General: AO X 3, no acute distress Resp: CTA bilateral CVS: S1,S2,RRR GI: +BS, NT, no distention Skin: No rash Neuro: motor grossly intact Psych: appropriate affect Results Labs 01/31/25 06:39 01/31/25 06:40 Labs: Laboratory Results - last 24 hr 01/30/25 01/30/25 13:36 15:30 MCV 99.1 H MCH 33.0 MCHC 33.3 RDW 14.1 Plt Count 200 D MPV 12.7 H Immature Gran % (Auto) 1.0 H Neut % (Auto) 89.8 H Lymph % (Auto) 2.4 L [place] % (Auto) 6.5 Eos % (Auto) 0.0 Baso % (Auto) 0.3 Lymph # (Auto) 0.5 L [place] # (Auto) 1.4 H Eos # (Auto) 0.0 Baso # (Auto) 0.1 Abs Immat Gran (auto) 0.20 H Absolute Neuts (auto) 18.8 H Absolute Nucleated RBC 0.000 Nucleated RBC % (auto) 0.0 PT 19.4 H INR 1.6 H Lactic Acid 2.2 H* Troponin I High Sens 9.4 Urine Color Yellow Urine Appearance Clear Urine pH 6.5 Ur Specific [place] 1.015 Urine Protein Negative Urine Glucose (UA) >=1000 H Urine Ketones Negative Urine Blood Negative Urine Nitrite Negative Ur Leukocyte Esterase Negative Urine RBC 0-2 Urine WBC 0-5 Ur Squamous Epith Cells 0-2 Urine Bacteria None Seen Hyaline Casts 0-2 Imaging Radiologist's Impressions: Impressions Abdomen Ultrasound 01/30/25 12:43 IMPRESSION: Consider acute calculus cholecystitis in the correct clinical settings. No choledocholithiasis. 5.1 cm septated exophytic cyst, right kidney. Electronically signed by: Tahir Sorenson MD 01/30/2025 01:22 PM [employer] [place] RP Abdomen/Pelvis CT 01/30/25 15:01 IMPRESSION: 1. No abdominal aortic aneurysm. 2. Mildly distended gallbladder containing multiple gallstones and surrounded by mild inflammatory changes. As described on the ultrasound study, these findings are suggestive of acute cholecystitis. 3. Sigmoid colonic diverticulosis. Electronically signed by: Jovany Tinoco MD 01/30/2025 03:35 PM [employer] [place] RP Assessment and Plan (1) Acute cholecystitis: Status: Acute (2) (HFpEF) heart failure with preserved ejection fraction: Status: Acute (3) Persistent atrial fibrillation: Status: Acute (4) Pulmonary hypertension: Status: Acute Plan HTN, AFIB on eliquis, pulm HTN, chronic HFpEF admitted to surgery with acute cholecystitis after presenting with abdominal pain, n/v/d, No fever, both US and CT point to acute cholecystitis Acute cholecystitis management per surgery Zosyn is adequate choice for Abx coverage The perioperative risk for this 84-year-old with AF, CHF, pulmonary hypertension, and HTN undergoing surgery for acute cholecystitis is?high? Using the RCRI, the estimated risk of major adverse cardiac events is?10?15%? and the ACS NSQIP calculator estimates 30-day mortality at 3?5% and serious complications at 15?25%. Early laparoscopic cholecystectomy within 72 hours is preferred if feasible persistent afib continue metoprolol for rate contro hold Apixiban in the event he needs surgery HTN continue norvasc and metoprolol chronic HFpEF compensated hold Lasix for now BPH Flomax DVT prophylaxis: suggest compression device, until able to take eliquis Will follow
[2025-01-30 16:27] VITALS: BP 141/79; PULSE 80; RESP 14; TEMP 36.7; O2SAT 96
[2025-01-30] MEDS: Dextrose 5 % and Lactated Ring 1,000 ML 80 ML IVCONT (16:40)
--- OUTSIDE RECORDS SUMMARY | 2025-01-30 16:41 | XMS_ITS | Clinical Summary ---
Author Organization [facility] Address [address] [place] [address] Care Team Providers Care Concrete Stone Finishing Supervisor Name Role Phone Shaniqua Munson Primary Care Provider [phone] Surgical History Surgery Date Site/Laterality Comments KNEE [...] Documents on File Type Date Recorded Patient Water Service Supervisor Expl anation Health Care Decision (hx) [...] (hx) 02/27/2019 AD JACKSON DIRECTIVE Care Teams Concrete Stone Finishing Supervisor Relationship Specialty Start Date End Date Shaniqua Munson [address] [place] [address] Dr Alex MA PCP - General Internal Medicine 03/06/19
--- OUTSIDE RECORDS SUMMARY | 2025-01-30 16:42 | XMS_ITS | Encounter Summary ---
Author Organization [facility] Address [address] [place] [address] Phone Care Team Providers Care Motor Overhauler Name Role Phone Inocente Painting MD Primary Care Provider [phone] Encounter Details Date Type Department Care Team (Late st Contact Info) Description 05/20/2021 Procedure Pass [facility], Ct Scan - [address] [address] Social History Tobacco Use Types Packs/Day Years [...] 4:45 PM EDT Josie Martínez RN * [place] Suicide Severity Rating Scale (Screener/Recent Self-Report) Question [...] on filedocumented in this encounter Care Teams Motor Overhauler Relationship Specialty Start Date End Date Inocente Painting MD [address] [place] [address] [place] [address] PCP - General Medical Oncology 05/20/21 documented as of this encounter Additional Source Comments The information contained in this document represents components of the legal health record. It is not the complete legal health record.[facility]
--- OUTSIDE RECORDS SUMMARY | 2025-01-30 16:42 | XMS_ITS | Encounter Summary ---
Author Organization [facility] Address [address] [place] [address] Phone Care Team Providers Care Electrical Software Engineer Name Role Phone Inocente Painting MD Primary Care Provider [phone] Encounter Details Date Type Department Care Team (Late st Contact Info) Description 05/20/2021 Procedure Pass [facility], Ct Scan - [address] [address] Social History Tobacco Use Types Packs/Day Years [...] 4:45 PM EDT Josie Martínez RN * [place] Suicide Severity Rating Scale (Screener/Recent Self-Report) Question [...] on filedocumented in this encounter Care Teams Electrical Software Engineer Relationship Specialty Start Date End Date Inocente Painting MD [address] [place] [address] [place] [address] PCP - General Medical Oncology 05/20/21 documented as of this encounter Additional Source Comments The information contained in this document represents components of the legal health record. It is not the complete legal health record.[facility]
--- OUTSIDE RECORDS SUMMARY | 2025-01-30 16:42 | XMS_ITS | Patient Health Record ---
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 Inocente Painting III Primary Care Provider Allergies Allergen (clinical drug ingredient) Drug/Non Drug Allergy documented on EMR Reaction Allergy Type Onset Date Status No Known Food Allergy Unknown Drug Allergy Active morphine Morphine Sulfate Rash Drug Allergy Active Results Component Value Reference Range Notes Complete Blood Count Auto Di ff Reviewed date:02/04/2024 08:33:16 PM Interpretation: Performing Lab:[facility], [address] [place] [phone] Notes/Report: White Blood Count 5.4 4.8-10.8 X10*3/uL [...] 0.0-0.2 /100WBC Neutrophils Absolute Auto 3.5 2.0-8.3 x10*3/uL Imm Gran Abs Auto 0.02 0.00-0.03 X10*3/uL Lymphocytes Absolute Auto 1.2 1.2-4.9 X10*3/uL Monocytes Absolute Auto 0.6 0.1-1.2 X10*3/uL Eosinophils Absolute Auto 0.1 0.0-0.4 X10*3/uL Basophils Absolute Auto 0.0 0.0-0.2 X10*3/uL NRBC Abs Auto 0.000 0.0-0.012 X10*3/uL Comprehensive [place]. Panel Fa st Reviewed date:02/04/2024 08:33:16 PM Interpretation: Performing Lab:[address] [phone] Notes/Report: Sodium 142 135-145 mmol/L Potassium 3.8 [...] Panel Reviewed date:02/04/2024 08:33:16 PM Interpretation: Performing Lab:[address] [phone] Notes/Report: Triglycerides 45 <150 mg/dL Desirable Triglyceride: [...] Reviewed date:02/04/2024 08:33:16 PM Interpretation: Performing Lab:[address] [phone] Notes/Report: Vitamin D 25-OH Total 29.8 >30 [...] ff Reviewed date:06/05/2024 05:13:41 AM Interpretation: Performing Lab:[facility], [address] [place] [phone] Notes/Report: White Blood Count 7.3 4.8-10.8 X10*3/uL [...] 0.0-0.2 /100WBC Neutrophils Absolute Auto 5.3 2.0-8.3 x10*3/uL Imm Gran Abs Auto 0.03 0.00-0.03 X10*3/uL Lymphocytes Absolute Auto 1.3 1.2-4.9 X10*3/uL Monocytes Absolute Auto 0.6 0.1-1.2 X10*3/uL Eosinophils Absolute Auto 0.1 0.0-0.4 X10*3/uL Basophils Absolute Auto 0.0 0.0-0.2 X10*3/uL NRBC Abs Auto 0.000 0.0-0.012 X10*3/uL Comprehensive [place]. Panel Fa st Reviewed date:06/05/2024 05:13:41 AM Interpretation: Performing Lab:[facility], [address] [place] [phone] Notes/Report: Sodium 143 135-145 mmol/L Potassium 5.1 [...] Reviewed date:06/05/2024 05:13:41 AM Interpretation: Performing Lab:[address] [address] Notes/Report: Triglycerides 49 <150 mg/dL Desirable Triglyceride: [...] Reviewed date:06/05/2024 05:13:41 AM Interpretation: Performing Lab:[address] [phone] Notes/Report: Prostate Specific Antigen 3.88 <0.05-4.0 ng/mL PSA methodology: Paz Alinity i Chemiluminescent Microparticle Immunoassay (CMIA) Complete Blood Count Auto Di ff Reviewed date:10/01/2024 09:40:10 AM Interpretation: Performing Lab:[address] [phone] Notes/Report: White Blood Count 6.0 4.8-10.8 X10*3/uL [...] 0.0-0.2 /100WBC Neutrophils Absolute Auto 4.3 2.0-8.3 x10*3/uL Imm Gran Abs Auto 0.03 0.00-0.03 X10*3/uL Lymphocytes Absolute Auto 1.2 1.2-4.9 X10*3/uL Monocytes Absolute Auto 0.4 0.1-1.2 X10*3/uL Eosinophils Absolute Auto 0.1 0.0-0.4 X10*3/uL Basophils Absolute Auto 0.0 0.0-0.2 X10*3/uL NRBC Abs Auto 0.000 0.0-0.012 X10*3/uL Comprehensive [place]. Panel Fa st Reviewed date:10/01/2024 09:40:10 AM Interpretation: Performing Lab:[facility], [address] [place] [phone] Notes/Report: Sodium 141 135-145 mmol/L Potassium 3.9 [...] Panel Reviewed date:10/01/2024 09:40:10 AM Interpretation: Performing Lab:[facility], [address] [place] [phone] Notes/Report: Triglycerides 55 <150 mg/dL Desirable Triglyceride: [...] Total Reviewed date:10/01/2024 09:40:10 AM Interpretation: Performing Lab:[facility], [address] [place] [phone] Notes/Report: Vitamin D 25-OH Total 37.6 >30 [...] ff Reviewed date:11/09/2024 08:32:29 PM Interpretation: Performing Lab:[address] [address] Notes/Report: White Blood Count 5.0 4.8-10.8 X10*3/uL [...] 0.0-0.2 /100WBC Neutrophils Absolute Auto 3.3 2.0-8.3 x10*3/uL Imm Gran Abs Auto 0.02 0.00-0.03 X10*3/uL Lymphocytes Absolute Auto 1.1 1.2-4.9 X10*3/uL Monocytes Absolute Auto 0.5 0.1-1.2 X10*3/uL Eosinophils Absolute Auto 0.1 0.0-0.4 X10*3/uL Basophils Absolute Auto 0.0 0.0-0.2 X10*3/uL NRBC Abs Auto 0.000 0.0-0.012 X10*3/uL Comprehensive [place]. Panel Fa st Reviewed date:11/09/2024 08:32:29 PM Interpretation: Performing Lab:[facility], [address] [place] [phone] Notes/Report: Sodium 141 135-145 mmol/L Potassium 3.9 [...] Panel Reviewed date:11/09/2024 08:32:29 PM Interpretation: Performing Lab:[facility], [address] [place] [phone] Notes/Report: Triglycerides 53 <150 mg/dL Desirable Triglyceride: [...] Antigen Reviewed date:11/09/2024 08:32:29 PM Interpretation: Performing Lab:[facility], [address] [place] [phone] Notes/Report: Prostate Specific Antigen 3.59 <0.05-4.0 ng/mL PSA methodology: Paz Alinity i Chemiluminescent Microparticle Immunoassay (CMIA) Vitamin D 25-OH Total Reviewed date:11/09/2024 08:32:29 PM Interpretation: Performing Lab:[facility], [address] [place] [phone] Notes/Report: Vitamin D 25-OH Total 32.4 >30 [...] confirmed with another method such as LC-MS/MS. Prothrombin Time INR (Not ye t reviewed by provider) Interpretation: Performing Lab:[facility], [address] [place] [phone] Notes/Report: Prothrombin Time 19.4 11.2-13.5 SEC INTERNATIONAL NORM RATIO 1.6 0.9-1.1 INTERNATIONAL NORMALIZED RATIO (INR) REFERENCE RANGES Reference Range For patients not on anticoagulant therapy: 0.9 - 1.1 INR ranges for oral anticoagulant therapy: For prevention and treatment of venous thrombosis and pulmonary embolism: 2.0 - 3.0 For acute myocardial infarction with aspirin therapy: 2.0 - 3.0 For acute myocardial infarction without aspirin therapy: 3.0 - 4.0 For patients with mechanical prosthetic heart valves: 2.5 - 3.5 Lactic Acid (Not yet reviewe d by provider) Interpretation: Performing Lab:[facility], [address] [place] [phone] Notes/Report: Lactic Acid 2.2 0.5-2.0 mmol/L Critical value for test(s): LACTA Results called to and read back by: MANUELA Person calling: MICHELL Date: 01.30.25 Time: 1556 Troponin-I High Sensitivity (Not yet reviewed by provider) Interpretation: Performing Lab:[facility], [address] [place] [phone] Notes/Report: Troponin-I High Sensitivity 9.4 <3.5-35.0 ng/L The Paz high sensitivity Troponin-I results should be used in conjunction with other diagnostic information such as ECG, clinical observations and information, and patient symptoms to aid in the diagnosis of MO. Complete Blood Count Auto Di ff Reviewed date:01/30/2025 02:29:39 PM Interpretation: Performing Lab:[facility], [address] [place] [phone] Notes/Report: White Blood Count 20.9 4.8-10.8 X10*3/uL Red Blood Count 5.43 4.60-5.80 X10*6/uL Hemoglobin 17.9 14.0-18.0 g/dl Hematocrit 53.8 42.0-52.0 % Mean Corpuscular Volume 99.1 80.0-98.0 fL Mean Corpuscular Hemoglobin 33.0 27.0-33.0 pg Mean Corpuscular HGB Conc 33.3 31.0-36.0 g/dl Red Cell Distribution Width 14.1 11.0-16.0 % Platelet Count 200 160-400 X10*3/uL Mean Platelet Volume 12.7 9.4-12.4 fL Neutrophils Percent Auto 89.8 45-73 % Imm Gran Pct Auto 1.0 0.0-0.4 % Lymphocytes Percent Auto 2.4 20-40 % Monocytes Percent Auto 6.5 2-11 % Eosinophils Percent Auto 0.0 0-4 % Basophils Percent Auto 0.3 0-2 % NRBC Pct Auto 0.0 0.0-0.2 /100WBC Neutrophils Absolute Auto 18.8 2.0-8.3 x10*3/uL Imm Gran Abs Auto 0.20 0.00-0.03 X10*3/uL Lymphocytes Absolute Auto 0.5 1.2-4.9 X10*3/uL Monocytes Absolute Auto 1.4 0.1-1.2 X10*3/uL Eosinophils Absolute Auto 0.0 0.0-0.4 X10*3/uL Basophils Absolute Auto 0.1 0.0-0.2 X10*3/uL NRBC Abs Auto 0.000 0.0-0.012 X10*3/uL UA ClnCatch+Micro w/rflx Cul t Reviewed date:01/30/2025 02:29:39 PM Interpretation: Performing Lab:[facility], [address] [place] [phone] Notes/Report: [id number] Urine, Clean Catch Color Urine Yellow Appearance Urine Clear PH 6.5 5.0-9.0 Glucose Urine UA >=1000 Negative mg/dL Urine Blood Negative Negative Specific Lucas - Urine 1.015 1.005-1.025 Urine Protein Negative Neg-Trace mg/dL Urine Ketones Negative Negative mg/dL Nitrite Urine Negative Negative Leukocyte Esterase Urine Negative Negative RBC Urine 0-2 0-2 /HPF WBC Urine 0-5 0-5 /HPF Squamous Epithelial Cell Urine 0-2 0-2 /HPF Bacteria Urine None Seen None Seen Hyaline Casts Urine 0-2 0-2 /LPF CT abdomen pelvis wo con (No t yet reviewed by provider) Interpretation: Performing Lab: Notes/Report: [address] [address] [address] Scan Report Signed Patient: Behzad Mendoza MR#: [id number] : 1940 Acct:[id number] Age/Sex: 84 / M ADM Date: 01/30/25 Loc: HO.ED Attending Dr: Ordering Physician: Eva Crawford MD Date of Service: 01/30/25 Procedure(s): CT abdomen pelvis wo IV con Accession Number(s): [id number] cc: Inocente Painting MD; Eva Crawford MD Report Number: [id number]: Total DLP = 994.00 mGy-cm Reason for Exam: mid abd pain, r/o AAA EXAMINATION: CT ABDOMEN AND PELVIS WITHOUT CONTRAST CLINICAL INFORMATION: mid abd pain, r/o AAA COMPARISON: Limited abdominal ultrasound on January 30, 2025. Abdominal ultrasound on July 04, 2017. TECHNIQUE: Multidetector volumetric imaging was performed from the superior aspect of the liver through the pubic symphysis. Sagittal and coronal reformatted images were obtained on the technologist's workstation. This CT examination was performed using dose optimization techniques as appropriate, variously including the following: *Automated exposure control *Adjustment of mA and/or kV according to patient size (this includes techniques or standardized protocols for targeted exams where dose is matched to indication/reason for exam; i.e. extremities or head) *Use of iterative reconstruction technique FINDINGS: LOWER CHEST: Small hiatal hernia. No focal consolidation. No pleural effusion. Mild cardiomegaly. Trace pericardial fluid. LIVER: No hepatomegaly. Approximately 1.6 cm focal hypodensity in the right hepatic lobe (3:15/102). GALLBLADDER AND BILIARY TREE: Mildly distended gallbladder, containing multiple small gallstones, without obvious wall thickening, but surrounded by mildly fatty stranding. No biliary ductal dilatation. PANCREAS: Unremarkable. SPLEEN: No splenomegaly. ADRENAL GLANDS: No nodules KIDNEYS AND URETERS: Multiple bilateral cortical and exophytic hypodense renal lesions. The larger ones measuring fluid density represent cysts. Small renal lesions are too small to characterize. No hydronephrosis or renal stones on either side. GASTROINTESTINAL TRACT: Small duodenal diverticulum. No bowel distention. Sigmoid colonic diverticulosis. PERITONEUM/RETROPERITONEUM: No free fluid or free air. LYMPH NODES: No lymphadenopathy. VASCULAR: No abdominal aortic aneurysm. Mild vascular calcifications. PELVIC VISCERA: Partially distended urinary bladder, without intravesical stones. Prostatomegaly. OSSEOUS STRUCTURES/SOFT TISSUES: Sclerotic lesion in the right sacrum likely represents a bone island. No acute bony abnormality. Multilevel degenerative changes throughout the spine. Fat-containing bilateral inguinal hernias. CT/CT abdomen pelvis wo IV con IMPRESSION: 1. No abdominal aortic aneurysm. 2. Mildly distended gallbladder containing multiple gallstones and surrounded by mild inflammatory changes. As described on the ultrasound study, these findings are suggestive of acute cholecystitis. 3. Sigmoid colonic diverticulosis. Electronically signed by: Jovany Tinoco MD 01/30/2025 03:35 PM [facility] Dictated By: Jovany Tinoco MD Signed By: <Electronically signed by Jovany Tinoco MD in OV> 01/30/25 1535 DD/ 1501 TD/TT: 01/30/25 1510 Diabetes Physician: [address] [address] [address] Scan Report Signed Patient: Kvng Mendoza MR#: [id number] : 1940 Acct:[id number] Age/Sex: 84 / M ADM Date: 01/30/25 Loc: HO.ED Attending Dr: Ordering Physician: Eva Crawford MD Date of Service: 01/30/25 Procedure(s): CT abd omen pelvis wo IV con Accession Number(s): [id number] cc: Inocente Painting MD; Eva Crawford MD Report Number: [id number]: Total DLP = 994.00 mGy-cm Reason for Exam: mid abd pain, r/o AAA EXAMINATION: CT ABDOMEN AND PELVI S WITHOUT CONTRAST CLINICAL INFORMATION: mid abd pain, r/o AAA COMPARISON: Limited abdominal ultrasound on January 30, 2025. Abdominal ultrasound on July 04, 2017. TECHNIQUE: Multidetector volume tric imaging was performed from the superior aspect of the liver through the pubic symphysis. Sagittal and coronal reformatted images w ere obtained on the technologist's workstation. This CT examination was performed using dose optimization techniques as appropriate, various ly including the following: *Automated exposure control *Adjustment of mA an d/or kV according to patient size (this includes techniques or standardized protocols for targeted exams where dose is matched to indication/reason for exam; i.e. extremities or head) *Use of iterative reconstruction technique FINDINGS: LOWER CHEST: Small hiatal hernia. No focal consolidation. No pleural effusion. Mild cardiomegaly. Trace pericardial fluid. LIVER: No hepatomega ly. Approximately 1.6 cm focal hypodensity in the right hepatic lobe (3:15/102). GALLBLADDER AND BILI MARYANNE TREE: Mildly distended gallbladder, containing multiple small gallstones, without obvious wall thickening, but surrounded by mildly fatty stranding. No biliary ductal dilatation. PANCREAS: Unremarkable. SPLEEN: No splenomegaly. ADRENAL GLANDS: No nodules KIDNEYS AND URETERS: Multiple bilateral cortical and exophytic hypodense renal lesi ons. The larger ones measuring fluid density represent cysts. Sma ll renal lesions are too small to characterize. No hydronephrosis or re nal stones on either side. GASTROINTESTINAL TRA CT: Small duodenal diverticulum. No bowel distention. Sigmoid colonic diverticulosis. PERITONEUM/RETROPERI TONE UM: No free fluid or free air. LYMPH NODES: No lymphadenopathy. VASCULAR: No abdomin al aortic aneurysm. Mild vascular calcifications. PELVIC VISCERA: Partially distended urinary bladder, without intravesical stones. Prostatomegaly. OSSEOUS STRUCTURES/S OFT TISSUES: Sclerotic lesion in the right sacrum likely represents a bone island. No acute bony abnormality. Multilevel degenerative changes throughout the spine. Fat-containing bilateral inguinal hernias. C T/CT abdomen pelvis wo IV con IMPRESSION: 1. No abdominal aort ic aneurysm. 2. Mildly distended gallbladder containing multiple gallstones and surrounded by mild inflammatory changes. As described on the ultrasound study, these finding s are suggestive of acute cholecystitis. 3. Sigmoid colonic diverticulosis. Electronically tyler d by: Jovany Tinoco MD 01/30/2025 03:35 PM EST Dictated By: Jovany Tinoco MD Signed By: <Electronically signed by Jovany Tinoco MD in OV> 01/30/25 1535 DD/ 1501 TD/TT: 01/30/25 1510 Diabetes Physician: US abdomen limited Reviewed date:01/30/2025 02:29:39 PM Interpretation: Performing Lab: Notes/Report: [address] [address] Ultrasound Report Signed Patient: Behzad Mendoza MR#: [id number] : 1940 Acct:[id number] Age/Sex: 84 / M ADM Date: 01/30/25 Loc: HO.ED Attending Dr: Ordering Physician: Nellie Crawley Date of Service: 01/30/25 Procedure(s): US abdomen limited Accession Number(s): [id number] cc: Inocente Painting MD; Nellie Crawley Reason for Exam: RUQ pain EXAMINATION: US ABDOMEN LIMITED CLINICAL INFORMATION: Right upper quadrant pain.. COMPARISON: July 02, 2017 TECHNIQUE: Real-time ultrasound of the right upper quadrant abdomen using grayscale technique. FINDINGS: Multiple intraluminal hyperechoic structures with posterior shadowing in the gallbladder. No pericholecystic fluid collection. Gallbladder wall measures 5 mm maximal thickness. Common bile duct measures 4 mm. Sonographic Hernandez's sign elicited by the technologist. Right kidney measures 13 cm. Normal echotexture. No hydronephrosis. Multiple anechoic lesions, the largest measures 5.1 cm with thin septations and no flow on color Doppler interrogation centered in the midportion. No ascites. US/US abdomen limited IMPRESSION: Consider acute calculus cholecystitis in the correct clinical settings. No choledocholithiasis. 5.1 cm septated exophytic cyst, right kidney. Electronically signed by: Tahir Sorenson MD 01/30/2025 01:22 PM [facility] Dictated By: Tahir Dela Cruz MD Signed By: <Electronically signed by Tahir Hernadez MD in OV> 01/30/25 1322 DD/ 1243 TD/TT: 01/30/25 1258 Diabetes Physician: [place] [address] Ultrasound Report Signed Patient: Kvng Mendoza MR#: [id number] : 1940 Acct:[id number] Age/Sex: 84 / M ADM Date: 01/30/25 Loc: .ED Attending Dr: Ordering Physician: Nellie Crawley Date of Service: 01/30/25 Procedure(s): US abd omen limited Accession Number(s): [id number] cc: Inocente Painting MD; Nellie Crawley Reason for Exam: RUQ pain EXAMINATION: US ABDOMEN LIMITED CLINICAL INFORMATION: Right upper quadrant pain.. COMPARISON: July 02, 2017 TECHNIQUE: Real-time ultrasound of the right upper quadrant abdomen using grayscale technique. FINDINGS: Multiple intralumina l hyperechoic structures with posterior shadowing in the gallbladder. No pericholecystic fluid collection. Gallbladder wall measures 5 mm maximal thickness. Common bile duct measures 4 mm. Sonographic Hernandez's sign elicited by the technologist. Right kidney measure s 13 cm. Normal echotexture. No hydronephrosis. Multiple anechoic lesions, the largest measures 5.1 cm with thin septations and no fl ow on color Doppler interrogation centered in the midportion. No ascites. U S/US abdomen limited IMPRESSION: Consider acute calcu sussy cholecystitis in the correct clinical settings. No choledocholithiasis. 5.1 cm septated exophytic cyst, right kidney. Electronically tyler d by: Tahir Sorenson MD 01/30/2025 01:22 PM EST Dictated By: Tahir House MD Signed By: <Electronically signed by Tahir [place]ade[place] MD in OV> 01/30/25 1322 DD/ 1243 TD/TT: 01/30/25 1258 Diabetes Physician: Reason For Referral No Information Medications Medication [...] Problem Status W/U Status Risk Notes Problem 5303839 Former smoker (Z87.891) Active confirmed He is highly motivated not to smoke. We discussed a plan for prevention of relapse in times of stress. Problem 482532989 Thrombocytopenia (D69.6) Active confirmed This platelet count is currently stable and improved at 155,000. No change in his regimen was made. Problem Vitamin D deficiency (38011037) Vitamin D deficiency, unspecified (E55.9) Active confirmed He has been continued on his vitamin D supplement. Problem 704709976 Gastro-esophagea l reflux disease without esophagitis (K21.9) Active confirmed The reflux is well-controlled with ofhk-vtr-nuovwfm medications. Problem 240304628 BPH (benign prostatic hyperplasia) (N40.0) Active confirmed He has been rising from sleep twice a night to urinate. We reviewed lifestyle modifications he could make to reduce this. Problem 790354812 Obesity (BMI 30-39.9) (E66.9) Active confirmed His body ma ss index is 37.1.He has lost 6 pounds. We discussed his diet and nutrition. We discussed lifestyle modifications he could make to lose weight. We made a plan to lose weight at a rate of one half of a pound per week. Problem 154909197 Chronic anticoagulation (Z79.01) Active confirmed He has had no bleeding or clotting. Since his last visit. He will continue on current therapy. Because of the atrial fibrillation. Problem 91346090 Essential hypertension (I10) Active confirmed His blood pressure is stable today and no change in his regimen was necessary. We reviewed the wisdom of progressive sodium restriction and weight loss. Problem 58294370 Colonic polyp (K63.5) Active confirmed He will undergo colonoscopies periodically. He is currently up-to-date. Problem 224172685 Osteoarthritis (M19.90) Active confirmed The pain is primarily in his knees and he feels quite well. Problem 510379025 History of pulmonary embolism (Z86.711) Active confirmed He is had no further pulmonary symptoms and is anticoagulated. The fat was in 2004 and he has been anticoagulated. Problem 480059221 AF (paroxysmal atrial fibrillation) (I48.0) Active confirmed His heart rate was regular today and well controlled. No change in his regimen was necessary. He remains anticoagulated. Problem 73538876 Strabismus (H50.9) Active confirmed This abnormality was still present and is long-standing. He was encouraged to see the extract operator regularly. Problem 502035196 Macrocytosis (D75.89) Active confirmed His mean cell volume is stable at 101.4. This value does not appear to be due to vitamin deficiency but maybe early myelodysplasia. The value is being observed without treatment. Problem 91127703 Central sleep apnea (G47.31) Active confirmed He [...] Provider Diagnosis Inocente Painting III, MD [address] [place] [address] [place] [phone] 02/09/2024 Inocente Painting Essential hypertensi on I10 ; AF (paroxysmal atrial fibrillation) I48.0 ; Obesity (BMI 30-39.9) E66.9 ; Former smoker Z87.891 ; Gastro-esophageal reflux disease without esophagitis K21.9 ; Central sleep apnea G47.31 ; Thrombocytopenia D69.6 ; Macrocytosis D75.89 ; History of pulmonary embolism Z86.711 and BPH (benign prostatic hyperplasia) N40.0 Inocente Painting III, MD [address] [place] [address] [place] [phone] 06/11/2024 Inocente Painting Essential hypertensi on I10 ; AF (paroxysmal atrial fibrillation) I48.0 ; Thrombocytopenia D69.6 ; Gastro-esophageal reflux disease without esophagitis K21.9 ; Macrocytosis D75.89 ; Central sleep apnea G47.31 ; Osteoarthritis M19.90 ; History of pulmonary embolism Z86.711 ; BPH (benign prostatic hyperplasia) N40.0 ; Former smoker Z87.891 ; Chronic anticoagulation Z79.01 and Obesity (BMI 30-39.9) E66.9 Inocente Painting III, MD [address] [place] [address] [place] [phone] 10/01/2024 Inocente Painting Essential hypertensi on I10 ; Former smoker Z87.891 ; Obesity (BMI 30-39.9) E66.9 ; Gastro-esophageal reflux disease without esophagitis K21.9 ; Strabismus H50.9 ; Chronic anticoagulation Z79.01 ; BPH (benign prostatic hyperplasia) N40.0 ; History of pulmonary embolism Z86.711 and Vitamin D deficiency, unspecified E55.9 Inocente Painting III, MD [address] [place] [address] [place] [phone] 11/14/2024 Inocente Painting Essential hypertensi on I10 ; Macrocytosis D75.89 ; BPH (benign prostatic hyperplasia) N40.0 ; Vitamin D deficiency, unspecified E55.9 ; AF (paroxysmal atrial fibrillation) I48.0 ; Gastro-esophageal reflux disease without esophagitis K21.9 ; Thrombocytopenia D69.6 ; Former smoker Z87.891 ; History of pulmonary embolism Z86.711 and Chronic anticoagulation Z79.01 Inocente Painting III, MD [address] [place] [address] [place] [phone] 01/30/2025 Inocente Painting Assessments Encounter Date Diagnosis (ICD Code) Assessment [...] - K21.9) The reflux is well-controlled with ggwr-vno-xjhxdnj medications. 10/01/2024 Gastro-esophageal reflux disease without esophagitis (ICD-10 - K21.9) The reflux is well-controlled with bdat-mji-tuzbvmt medications. 11/14/2024 Vitamin D deficiency , unspecified (ICD-10 - E55.9) He has been continued on his vitamin D supplement. 02/09/2024 Gastro-esophageal reflux disease without esophagitis (ICD-10 - K21.9) The reflux is well-controlled with vqkb-pvu-mijiyrp medications. 06/11/2024 Macrocytosis (ICD-10 - D75.89) His mean cell volume is now 102.4. It has improved substantially from 102.6. The cause is unclear but may be dietary.Evaluation with folic acid and vitamin B12 and reticulocytes is indicated. 10/01/2024 Strabismus (ICD-10 - H50.9) This abnormality was still present and is long-standing. He was encouraged to see the extract operator regularly. 11/14/2024 AF (paroxysmal atria l fibrillation) [...] - K21.9) The reflux is well-controlled with [id number] medications. 02/09/2024 Thrombocytopenia (ICD-10 - D69.6) His [...] DIFF 02/16/2023 CBC WITH AUTO DIFF 08/31/2023 Prothrombin Time INR 01/30/2025 Lactic Acid 01/30/2025 Troponin-I High Sensitivity 01/30/2025 Lipid Panel 07/15/2020 Lipid Panel 08/11/2021 Lipid Panel 02/09/2024 Lipid Panel 11/13/2023 Lipid Panel 02/16/2023 Lipid Panel 08/31/2023 Lipid Panel 11/14/2024 Lipid Panel 10/01/2024 Lipid Panel 06/11/2024 Vitamin B12 and Folate 11/14/2024 Vitamin D 25-OH Total 10/01/2024 Vitamin D 25-OH Total 06/11/2024 Vitamin D 25-OH Total 11/13/2023 CT abdomen pelvis wo con 01/30/2025 Hemoglobin A1c 08/31/2023 Next Appt Details Provider Name:Inocente Painting , 03/18/2025 09:00:00 AM, [address] [place] [address] ISAIAS WHITLEY, [place], [address], Provider Name:Inocente Painting , 11/18/2025 09:00:00 AM, [address] [place] [address] [address], [place], [address], Insurance Providers Payer Name Payer Address Payer Phone Subscriber Number Group Number Insured Name Patient Relationship to Insured Coverage Start Date Coverage End Date [employer] Advantage [address] [address] [place] [address] [id number] Kelly Behzad Self - patient is the insured MEDICARE NGS [address] [place] [phone] [id number] Behzad Mendoza Self - patient is [...] cyxt 1059 T&A 1944 right knee rplacement [facility] 2012 Hospitalization History Reason Date(Month/Year) Intermittent chest pain 06/2020 Epigastric pain 06/2020
--- OUTSIDE RECORDS SUMMARY | 2025-01-30 16:42 | XMS_ITS | Clinical Summary ---
Author Organization 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5 mg/dL [facility] eGFR >60 mL/min/1. 73m2 [facility] Comment: Abnormal if <60 mL/min/1.73m2. If patient is -[place]or[place], multiply the result by 1.21. Plasma Anion GAP 11 3 - 17 mmol/L [facility] 12/03/2014 8:12 AM EDT 12/03/2014 8:14 AM EDT Comment:BLOOD us Jennyfer Fitzgerald MD LAB BLOOD BKR ORDERABLES Ed ited Result - Final [address] [id number] from Last 3 Months or Most Recently Relevant to Health Maintenance Insurance MEDICARE [place]AC[place] [address] [address] [place] [address] [address] [address] [address] [place] [address] MEDICARE RE[facility]EMENT [facility] Care Teams Seafood Farmer Relationship Specialty Start Date End Date Inocente Painting MD [address] [place] [address] [place] [address] PCP - General Medical Oncology 05/20/21 Additional Source Comments The information contained in this document represents components of the legal health record. It is not the complete legal health record.[facility]
--- NOTE | 2025-01-30 17:22 | PHA.MEDREC ---
Addendum entered by Amalia Goznalez RPh 01/30/25 17:28: reviewed by [facility]. Original Note: Pharmacy Consult ? Medication Reconciliation Pharmacy has completed the medication reconciliation. Spoke with pt and he confirmed his medications.
[2025-01-30 17:35] LABS: Reflex Lactate? Lactic Acid Added
[2025-01-30 17:52] LABS: Alanine Aminotransferase 28 U/L (0-40); Albumin Level 3.4 g/dL (3.5-5.0); Alkaline Phosphatase 79 U/L (39-117); Anion Gap 17 (12-20); Aspartate Amino Transferase 30 U/L (5-37); Blood Urea Nitrogen 16 mg/dL (9-16); Calcium 9.1 mg/dL (8.4-10.2); Carbon Dioxide 28 mmol/L (22-29); Chloride 101 mmol/L (96-108); Creatinine Clr Calc Pharmacy 49.3; Estimated Glomerular Filt Rate 49; Lipase 12 U/L (8-78); Magnesium 1.7 mg/dL (1.6-2.6); Potassium 3.9 mmol/L (3.3-5.1); Sodium 142 mmol/L (135-145); Total Protein 6.9 g/dL (6.5-8.0)
[2025-01-30 18:04] LABS: ~Lactic Acid-LAB USE ONLY 2.8 mmol/L (0.5-2.0)
--- NOTE | 2025-01-30 18:10 | PC.RT ---
pt states he wears cpap 10 at home. no oxygen. placed order for tonight. pt goes on about 9:30pm per his home regime.
[2025-01-30 19:22] LABS: Cancel Lactic Acid Canceled
[2025-01-30 20:00] VITALS: BP 128/93; PULSE 88; RESP 18; TEMP 36.9; O2SAT 96
[2025-01-30] MEDS: 0.9 % Sodium Chloride Flush 3 ML SYRINGE IVFLUSH (22:33)
[2025-01-30 22:54] VITALS: PULSE 75; RESP 20
[2025-01-30 23:33] VITALS: BP 117/63; PULSE 90; RESP 16; TEMP 36.2; O2SAT 97
[2025-01-31] VITALS (8 sets, daily range): BP systolic 124–133; BP diastolic 60–73; PULSE 78–93; RESP 14–24; TEMP 36.1–37.6; O2SAT 90–96
[2025-01-31] MEDS: Dextrose 5 % and Lactated Ring 1,000 ML 80 ML IVCONT ×2 (05:59→18:00)
[2025-01-31 06:48] LABS: MANUAL DIFF FLAG NO
[2025-01-31 06:49] LABS: Hematocrit 49.2 % (42.0-52.0); Hemoglobin 16.2 g/dl (14.0-18.0); Imm Gran Abs Auto 0.18 X10*3/uL (0.00-0.03); Imm Gran Pct Auto 0.9 % (0.0-0.4); Lymphocytes Absolute Auto 0.8 X10*3/uL (1.2-4.9); Mean Corpuscular HGB Conc 32.9 g/dl (31.0-36.0); Mean Corpuscular Hemoglobin 32.7 pg (27.0-33.0); Mean Corpuscular Volume 99.2 fL (80.0-98.0); NRBC Abs Auto 0.000 X10*3/uL (0.0-0.012); NRBC Pct Auto 0.0 /100WBC (0.0-0.2); Platelet Count 179 X10*3/uL (160-400); Red Blood Count 4.96 X10*6/uL (4.60-5.80); White Blood Count 19.6 X10*3/uL (4.8-10.8)
[2025-01-31 07:14] LABS: Blood Urea Nitrogen 14 mg/dL (9-16); Calcium 8.8 mg/dL (8.4-10.2); Creatinine Clr Calc Pharmacy 53.6; Estimated Glomerular Filt Rate 54
[2025-01-31 07:24] LABS: Anion Gap 15 (12-20); Carbon Dioxide 28 mmol/L (22-29); Chloride 101 mmol/L (96-108); Potassium 3.1 mmol/L (3.3-5.1); Sodium 141 mmol/L (135-145)
--- NOTE | 2025-01-31 08:12 | P.PNGS_ITS ---
Subjective Subjective Date of Service: 01/31/25 Interval history: Has continued RUQ pain but somewhat improved. Mild nausea. Last dose eliquis yesterday morning. Physical Exam 2 Vital Signs: Vital Signs: Last Vital Signs Temp 98 F 01/31/25 07:14 Pulse 93 01/31/25 07:14 Resp 16 01/31/25 07:14 BP 126/72 01/31/25 07:14 Pulse Ox 96 01/31/25 07:14 O2 Del Method Room Air 01/31/25 07:14 BMI result Body Mass Index 35.8 Const: General: comfortable, no acute distress and alert O rientation/consciousness: patient oriented x3 Resp: Effort & Inspection: normal respiratory effort GI: Other: corpulent abdomen moderate RUQ tenderness with positive guaman sign Palpation (GI): no guarding and not rigid Percussion: Yes normal to percussion Skin: General skin exam: no rashes or lesions noted and no jaundice Neuro: General: patient oriented x3 and moves all extremities Objective Data Active Medications Calcium Carbonate (Calcium Carbonate 750 Mg Tab.Chew) 750 mg PO Q4H PRN PRN Reason: Heartburn Hydromorphone HCl (Hydromorphone Hcl 0.5 Mg/0.5 Ml Syringe) 0.5 mg IVPUSH Q3H PRN; Protocol PRN Reason: Pain, Severe (Pain Scale 7-10) Dextrose/Lactated Ringer's (D5lr) 1,000 mls @ 80 mls/hr IVCONT .[id number] [facility] Last Admin: 01/31/25 05:59 Dose: 80 mls/hr Documented By: ALEXANDER Piperacillin Sod/Tazobactam (Sod 3.375 gm/ Sodium Chloride) 50 mls @ 100 mls/hr IV Q6H [facility] Last Admin: 01/31/25 07:59 Dose: 50 mls/hr Documented By: MARIZOL Magnesium Hydroxide (Milk Of Magnesia 30 Ml Oral.Susp) 30 ml PO DAILY PRN PRN Reason: Constipation Melatonin (Melatonin 3 Mg Tablet) 6 mg PO BEDTIME PRN PRN Reason: Insomnia Ondansetron HCl (Ondansetron Hcl 4 Mg/2 Ml Vial) 4 mg IVPUSH QID PRN PRN Reason: Nausea Oxycodone HCl (Oxycodone Hcl Immed Release 5 Mg Tablet) 5 mg PO Q6H PRN PRN Reason: Pain, Moderate(Pain Scale 4-6) Sodium Chloride (0.9 % Sodium Chloride Flush 3 Ml Syringe) 3 ml IVFLUSH QSHIFT [facility] Last Admin: 01/31/25 06:24 Dose: Not Given Documented By: MARIZOL Non-Admin Reason: IV Running Labs 01/31/25 06:39 01/31/25 06:40 Labs: Laboratory Results - last 24 hr 01/30/25 01/30/25 01/30/25 13:36 15:30 17:37 MCV 99.1 H MCH 33.0 MCHC 33.3 RDW 14.1 Plt Count 200 D MPV 12.7 H Immature Gran % (Auto) 1.0 H Neut % (Auto) 89.8 H Lymph % (Auto) 2.4 L [place] % (Auto) 6.5 Eos % (Auto) 0.0 Baso % (Auto) 0.3 Lymph # (Auto) 0.5 L [place] # (Auto) 1.4 H Eos # (Auto) 0.0 Baso # (Auto) 0.1 Abs Immat Gran (auto) 0.20 H Absolute Neuts (auto) 18.8 H Absolute Nucleated RBC 0.000 Nucleated RBC % (auto) 0.0 PT 19.4 H INR 1.6 H Anion Gap 17 Estim Creat Clear Calc 49.3 Estimated GFR 49 Random Glucose 105 Lactic Acid 2.2 H* Lactic Acid F/U @ 2Hr 2.8 H* Calcium 9.1 Magnesium 1.7 Total Bilirubin 2.6 H Direct Bilirubin 1.1 H AST 30 ALT 28 Alkaline Phosphatase 79 Troponin I High Sens 9.4 Total Protein 6.9 Albumin 3.4 L Lipase 12 Urine Color Yellow Urine Appearance Clear Urine pH 6.5 Ur Specific [place] 1.015 Urine Protein Negative Urine Glucose (UA) >=1000 H Urine Ketones Negative Urine Blood Negative Urine Nitrite Negative Ur Leukocyte Esterase Negative Urine RBC 0-2 Urine WBC 0-5 Ur Squamous Epith Cells 0-2 Urine Bacteria None Seen Hyaline Casts 0-2 01/31/25 01/31/25 06:39 06:40 MCV 99.2 H MCH 32.7 MCHC 32.9 RDW 14.2 Plt Count 179 MPV 12.4 Immature Gran % (Auto) 0.9 H Neut % (Auto) 88.5 H Lymph % (Auto) 4.0 L [place] % (Auto) 6.3 Eos % (Auto) 0.0 Baso % (Auto) 0.3 Lymph # (Auto) 0.8 L [place] # (Auto) 1.2 Eos # (Auto) 0.0 Baso # (Auto) 0.1 Abs Immat Gran (auto) 0.18 H Absolute Neuts (auto) 17.4 H Absolute Nucleated RBC 0.000 Nucleated RBC % (auto) 0.0 PT INR Anion Gap 15 Estim Creat Clear Calc 53.6 Estimated GFR 54 Random Glucose 111 Lactic Acid Lactic Acid F/U @ 2Hr Calcium 8.8 Magnesium Total Bilirubin Direct Bilirubin AST ALT Alkaline Phosphatase Troponin I High Sens Total Protein Albumin Lipase Urine Color Urine Appearance Urine pH Ur Specific [place] Urine Protein Urine Glucose (UA) Urine Ketones Urine Blood Urine Nitrite Ur Leukocyte Esterase Urine RBC Urine WBC Ur Squamous Epith Cells Urine Bacteria Hyaline Casts Procedures Date of Service Date of Service: 01/31/25 Progress Note: A&P Assessment and plan (1) Acute cholecystitis: Status: Acute (2) Persistent atrial fibrillation: Status: Acute Plan Admitted for acute cholecystitis. On eliquis for a fib, with last dose yesterday morning. Will plan for lap cholecystectomy, possible open on Saturday 02/03. Cont IV abx, gentle IVF. Clear liquids as tolerated. Encouraged OOB/ambulation. Cont to hold eliquis. WBC count virtually unchanged. Time Spent With Patient Time: Total time managing care of this patient today ____ minutes. Quality Stroke Does the patient have a stroke diagnosis?: No VTE Prior VTE?: No VTE Risk Level:: Surgical - moderate VTE Device Contraindication: N/A - Device Ordered VTE Drug Contraindication: N/A - Med Ordered
--- NOTE | 2025-01-31 08:32 | HO.ANESPROP2 ---
Documented by User: Cari Flores NP 01/31/25 14:10 HPI - Anesthesia Eval Consult details Narrative: 84 yr old male for Cholecystectomy Laparoscopic,possible open, scheduled for 02/03/25. Here with RUQ abdominal pain, mildly K+ low on 01/31/25 at 3.1. Pt seen in room 01/31/25, reports inactivity, sits most of the day, no SOB or CP. No recent illness. [place] [facility] [place] for the following: last visit 01/01/25, echo was ordered but not yet done (last echo in chart from 2021) Afib: denies palpitations; on eliquis CHF: not volume overloaded on exam [place] [facility] [place] for the following: Pulmonary hypertension RUMA on CPAP GERD: well controlled on PPI Anesthesia Pre-Procedure Meds Is the patient on any of the following meds?: SGLT2 Inhib PMFSH Active Problems Active Problems: All Active Problems Acute cholecystitis (Acute) Bradycardia (Acute) Chest pain (Acute) Persistent atrial fibrillation (Acute) RUMA on CPAP (Acute) Obesity (BMI 30-39.9) (Acute) (HFpEF) heart failure with preserved ejection fraction (Acute) Diastolic dysfunction (Acute) Pulmonary hypertension (Acute) Enlarged RV (right ventricle) (Acute) Sleep apnea (Acute) Morbid obesity (Acute) Past Medical History Medical History Atrial flutter Persistent atrial fibrillation RUMA on CPAP Obesity (BMI 30-39.9) Diastolic dysfunction Pulmonary hypertension Enlarged RV (right ventricle) Morbid obesity (HFpEF) heart failure with preserved ejection fraction Paroxysmal atrial fibrillation History of cardioversion Family History Family History Father Afib COPD (chronic obstructive pulmonary disease) Diabetes Mother Cancer Afib Family history of problems with anesthesia: No Surgical History Surgical History H/O colonoscopy Hx of cataract extraction History of excision of pilonidal cyst Hx of knee surgery History of Problems with Anesthesia: No Social History Social History Household Members: None Housing: House Alcohol intake: current Alcohol intake frequency: a few times a week Patient Tobacco Use Status: Former Tobacco user Tobacco use type: Cigarette Years Smoked: 12 service: No Meds Allergies Allergy/AdvReac Type Severity Reaction Status Date / Time morphine (MORPHINE) Allergy Intermediate RASH Verified 01/30/25 12:22 Active Medications: Current Medications Calcium Carbonate (Calcium Carbonate 750 Mg Tab.Chew) 750 mg PO Q4H PRN PRN Reason: Heartburn Hydromorphone HCl (Hydromorphone Hcl 0.5 Mg/0.5 Ml Syringe) 0.5 mg IVPUSH Q3H PRN; Protocol PRN Reason: Pain, Severe (Pain Scale 7-10) Dextrose/Lactated Ringer's (D5lr) 1,000 mls @ 80 mls/hr IVCONT .[id number] [facility] Last Admin: 01/31/25 05:59 Dose: 80 mls/hr Piperacillin Sod/Tazobactam (Sod 3.375 gm/ Sodium Chloride) 50 mls @ 100 mls/hr IV Q6H [facility] Last Admin: 01/31/25 07:59 Dose: 50 mls/hr Magnesium Hydroxide (Milk Of Magnesia 30 Ml Oral.Susp) 30 ml PO DAILY PRN PRN Reason: Constipation Melatonin (Melatonin 3 Mg Tablet) 6 mg PO BEDTIME PRN PRN Reason: Insomnia Ondansetron HCl (Ondansetron Hcl 4 Mg/2 Ml Vial) 4 mg IVPUSH QID PRN PRN Reason: Nausea Oxycodone HCl (Oxycodone Hcl Immed Release 5 Mg Tablet) 5 mg PO Q6H PRN PRN Reason: Pain, Moderate(Pain Scale 4-6) Sodium Chloride (0.9 % Sodium Chloride Flush 3 Ml Syringe) 3 ml IVFLUSH QSHIFT [facility] Last Admin: 01/31/25 06:24 Dose: Not Given Home Medications ?Medication ?Instructions ?Recorded ?Confirmed ?Last Taken ?Type tamsulosin 0.4 mg capsule 0.4 mg PO DAILY 01/27/20 01/30/25 01/30/25 History pantoprazole 40 mg tablet,delayed 40 mg PO DAILY@0630 08/26/20 01/30/25 01/30/25 History release cholecalciferol (vitamin D3) 25 25 mcg PO DAILY 01/18/21 01/30/25 01/30/25 History mcg (1,000 unit) tablet ascorbic acid (vitamin C) 500 mg 500 mg PO DAILY 01/30/25 01/30/25 01/30/25 History tablet (Vitamin C) Exam Height,Weight and Vital Signs: Height 5 ft 10 in Weight 113.3 kg Last Vital Signs Temp 98 F 01/31/25 07:14 Pulse 93 01/31/25 07:14 Resp 16 01/31/25 07:14 BP 126/72 01/31/25 07:14 Pulse Ox 96 01/31/25 07:14 O2 Del Method Room Air 01/31/25 07:14 Pertinent Lab Results Pertinent Lab Results: Laboratory Tests 01/30/25 01/30/25 01/30/25 13:36 15:30 17:37 WBC 20.9 H RBC 5.43 Hgb 17.9 Hct 53.8 H MCV 99.1 H MCH 33.0 MCHC 33.3 RDW 14.1 Plt Count 200 D MPV 12.7 H Immature Gran % (Auto) 1.0 H Neut % (Auto) 89.8 H Lymph % (Auto) 2.4 L [place] % (Auto) 6.5 Eos % (Auto) 0.0 Baso % (Auto) 0.3 Lymph # (Auto) 0.5 L [place] # (Auto) 1.4 H Eos # (Auto) 0.0 Baso # (Auto) 0.1 Abs Immat Gran (auto) 0.20 H Absolute Neuts (auto) 18.8 H Absolute Nucleated RBC 0.000 Nucleated RBC % (auto) 0.0 PT 19.4 H INR 1.6 H Sodium 142 Potassium 3.9 Chloride 101 Carbon Dioxide 28 Anion Gap 17 BUN 16 Creatinine 1.38 Estim Creat Clear Calc 49.3 Estimated GFR 49 Random Glucose 105 Lactic Acid 2.2 H* Lactic Acid F/U @ 2Hr 2.8 H* Calcium 9.1 Magnesium 1.7 Total Bilirubin 2.6 H Direct Bilirubin 1.1 H AST 30 ALT 28 Alkaline Phosphatase 79 Troponin I High Sens 9.4 Total Protein 6.9 Albumin 3.4 L Lipase 12 Urine Color Yellow Urine Appearance Clear Urine pH 6.5 Ur Specific [place] 1.015 Urine Protein Negative Urine Glucose (UA) >=1000 H Urine Ketones Negative Urine Blood Negative Urine Nitrite Negative Ur Leukocyte Esterase Negative Urine RBC 0-2 Urine WBC 0-5 Ur Squamous Epith Cells 0-2 Urine Bacteria None Seen Hyaline Casts 0-2 01/31/25 01/31/25 06:39 06:40 WBC 19.6 H RBC 4.96 Hgb 16.2 Hct 49.2 MCV 99.2 H MCH 32.7 MCHC 32.9 RDW 14.2 Plt Count 179 MPV 12.4 Immature Gran % (Auto) 0.9 H Neut % (Auto) 88.5 H Lymph % (Auto) 4.0 L [place] % (Auto) 6.3 Eos % (Auto) 0.0 Baso % (Auto) 0.3 Lymph # (Auto) 0.8 L [place] # (Auto) 1.2 Eos # (Auto) 0.0 Baso # (Auto) 0.1 Abs Immat Gran (auto) 0.18 H Absolute Neuts (auto) 17.4 H Absolute Nucleated RBC 0.000 Nucleated RBC % (auto) 0.0 PT INR Sodium 141 Potassium 3.1 L D Chloride 101 Carbon Dioxide 28 Anion Gap 15 BUN 14 Creatinine 1.27 Estim Creat Clear Calc 53.6 Estimated GFR 54 Random Glucose 111 Lactic Acid Lactic Acid F/U @ 2Hr Calcium 8.8 Magnesium Total Bilirubin Direct Bilirubin AST ALT Alkaline Phosphatase Troponin I High Sens Total Protein Albumin Lipase Urine Color Urine Appearance Urine pH Ur Specific [place] Urine Protein Urine Glucose (UA) Urine Ketones Urine Blood Urine Nitrite Ur Leukocyte Esterase Urine RBC Urine WBC Ur Squamous Epith Cells Urine Bacteria Hyaline Casts Narrative Narrative: EKG 01/30/25 Vent. Rate : 90 BPM Atrial Rate : * BPM P-R Int : * ms QRS Dur : 106 ms QT Int : 376 ms P-R-T Axes : * 6 -47 degrees QTcB Int : 459 ms Atrial fibrillation Incomplete right bundle branch block ST & T wave abnormality, consider inferior ischemia ST & T wave abnormality, consider anterior ischemia Abnormal ECG When compared with ECG of 09-Jun-2021 13:41, Atrial fibrillation has replaced Sinus rhythm Vent. rate has increased by 38 bpm Incomplete right bundle branch block is now Present ECHO 09/2021 Conclusions: - 1. Technically limited study 2. Normal LV systolic function with LVEF of 55-60% 3. Severe biatrial enlargement 4. Mildly dilated ascending aorta at 3.9 cm 5. Normal RV systolic pressure Airway Mallampati Class: II TM Dist: >3cm Neck ROM: Limited Loose/Missing/Broken Teeth: No Heart: irregular Lungs: CTAB Assessment and Plan Final Anesthetic Review Family History of Problems with Anesthesia: No History of Problems with Anesthesia: No Documented by User: Torie Storey MD 02/03/25 08:45 [facility] Past Medical History Medical History Atrial flutter Persistent atrial fibrillation RUMA on CPAP Obesity (BMI 30-39.9) Diastolic dysfunction Pulmonary hypertension Enlarged RV (right ventricle) Morbid obesity (HFpEF) heart failure with preserved ejection fraction Paroxysmal atrial fibrillation History of cardioversion Family History Family History Father Afib COPD (chronic obstructive pulmonary disease) Diabetes Mother Cancer Afib Surgical History Surgical History H/O colonoscopy Hx of cataract extraction History of excision of pilonidal cyst Hx of knee surgery Social History Social History Household Members: None Housing: House Alcohol intake: current Alcohol intake frequency: a few times a week Patient Tobacco Use Status: Former Tobacco user Tobacco use type: Cigarette Years Smoked: 12 service: No Meds Allergies Allergy/AdvReac Type Severity Reaction Status Date / Time morphine (MORPHINE) Allergy Intermediate RASH Verified 01/30/25 12:22 Home Medications ?Medication ?Instructions ?Recorded ?Confirmed ?Last Taken ?Type tamsulosin 0.4 mg capsule 0.4 mg PO DAILY 01/27/20 01/30/25 01/30/25 History pantoprazole 40 mg tablet,delayed 40 mg PO DAILY@0630 08/26/20 01/30/25 01/30/25 History release cholecalciferol (vitamin D3) 25 25 mcg PO DAILY 01/18/21 01/30/25 01/30/25 History mcg (1,000 unit) tablet ascorbic acid (vitamin C) 500 mg 500 mg PO DAILY 01/30/25 01/30/25 01/30/25 History tablet (Vitamin C) Assessment and Plan Assessment Anesthesia Assessment: Anesthesia Plan Discussed and Chart Reviewed Final Anesthetic Review NPO: Yes ASA Class: III Final Preanesthetic Review: No Changes in Pt Med Stat, Meds/Allgs Chart Reviewed, Consent Obtained/Reviewed and Anes Risks/Benef Reviewed Patient Risk: Intermediate Procedure Risk: Intermediate Anesthetic Plan Anesthetic Plan: GA and Agree w/ Assess. and Plan Disposition: Standard PACU
[2025-01-31] MEDS: Potassium Chloride Packet 20 MEQ PACKET 40 MEQ PO (10:19)
[2025-01-31] MEDS: Metoprolol Succinate ER 50 MG TAB.ER.24H PO (10:19)
--- NOTE | 2025-01-31 11:26 | P.PNIM_ITS ---
Subjective Subjective Date of Service: 01/31/25 Interval History: f/u on med consult for pt with acute cholecystitis on apixiban for afib, still with ruq pain and meet sepsis critier Physical Exam 2 Vital Signs: Vital Signs: Last Vital Signs Temp 98 F 01/31/25 07:14 Pulse 93 01/31/25 07:14 Resp 16 01/31/25 07:14 BP 126/72 01/31/25 07:14 Pulse Ox 96 01/31/25 07:14 O2 Del Method Room Air 01/31/25 07:14 BMI result Body Mass Index 35.8 Const: Other: General: AO X 3, no acute distress Resp: CTA bilateral CVS: S1,S2,RRR GI: +BS, ruq tenderness Skin: No rash Neuro: motor grossly intact Psych: appropriate affect Objective Data Active Medications Calcium Carbonate (Calcium Carbonate 750 Mg Tab.Chew) 750 mg PO Q4H PRN PRN Reason: Heartburn Hydromorphone HCl (Hydromorphone Hcl 0.5 Mg/0.5 Ml Syringe) 0.5 mg IVPUSH Q3H PRN; Protocol PRN Reason: Pain, Severe (Pain Scale 7-10) Dextrose/Lactated Ringer's (D5lr) 1,000 mls @ 80 mls/hr IVCONT .[id number] [facility] Last Admin: 01/31/25 05:59 Dose: 80 mls/hr Documented By: ALEXANDER Piperacillin Sod/Tazobactam (Sod 3.375 gm/ Sodium Chloride) 50 mls @ 100 mls/hr IV Q6H [facility] Last Infusion: 01/31/25 09:09 Dose: Infused Documented By: MARIZOL Magnesium Hydroxide (Milk Of Magnesia 30 Ml Oral.Susp) 30 ml PO DAILY PRN PRN Reason: Constipation Melatonin (Melatonin 3 Mg Tablet) 6 mg PO BEDTIME PRN PRN Reason: Insomnia Metoprolol Succinate (Metoprolol Succinate Er 50 Mg Tab.Er.24h) 50 mg PO DAILY [facility]; Protocol Last Admin: 01/31/25 10:19 Dose: 50 mg Documented By: MARIZOL Omeprazole (Omeprazole 20 Mg Capsule.Dr) 20 mg PO DAILY@0630 [facility] Ondansetron HCl (Ondansetron Hcl 4 Mg/2 Ml Vial) 4 mg IVPUSH QID PRN PRN Reason: Nausea Oxycodone HCl (Oxycodone Hcl Immed Release 5 Mg Tablet) 5 mg PO Q6H PRN PRN Reason: Pain, Moderate(Pain Scale 4-6) Sodium Chloride (0.9 % Sodium Chloride Flush 3 Ml Syringe) 3 ml IVFLUSH QSHIFT [facility] Last Admin: 01/31/25 06:24 Dose: Not Given Documented By: MARIZOL Non-Admin Reason: IV Running Tamsulosin HCl (Tamsulosin Hcl 0.4 Mg Capsule) 0.4 mg PO DAILY [facility] Last Admin: 01/31/25 10:20 Dose: 0.4 mg Documented By: MARIZOL Labs 01/31/25 06:39 01/31/25 06:40 Labs: Laboratory Results - last 24 hr 01/30/25 01/30/25 01/30/25 13:36 15:30 17:37 MCV 99.1 H MCH 33.0 MCHC 33.3 RDW 14.1 Plt Count 200 D MPV 12.7 H Immature Gran % (Auto) 1.0 H Neut % (Auto) 89.8 H Lymph % (Auto) 2.4 L [place] % (Auto) 6.5 Eos % (Auto) 0.0 Baso % (Auto) 0.3 Lymph # (Auto) 0.5 L [place] # (Auto) 1.4 H Eos # (Auto) 0.0 Baso # (Auto) 0.1 Abs Immat Gran (auto) 0.20 H Absolute Neuts (auto) 18.8 H Absolute Nucleated RBC 0.000 Nucleated RBC % (auto) 0.0 PT 19.4 H INR 1.6 H Anion Gap 17 Estim Creat Clear Calc 49.3 Estimated GFR 49 Random Glucose 105 Lactic Acid 2.2 H* Lactic Acid F/U @ 2Hr 2.8 H* Calcium 9.1 Magnesium 1.7 Total Bilirubin 2.6 H Direct Bilirubin 1.1 H AST 30 ALT 28 Alkaline Phosphatase 79 Troponin I High Sens 9.4 Total Protein 6.9 Albumin 3.4 L Lipase 12 Urine Color Yellow Urine Appearance Clear Urine pH 6.5 Ur Specific [place] 1.015 Urine Protein Negative Urine Glucose (UA) >=1000 H Urine Ketones Negative Urine Blood Negative Urine Nitrite Negative Ur Leukocyte Esterase Negative Urine RBC 0-2 Urine WBC 0-5 Ur Squamous Epith Cells 0-2 Urine Bacteria None Seen Hyaline Casts 0-2 01/31/25 01/31/25 06:39 06:40 MCV 99.2 H MCH 32.7 MCHC 32.9 RDW 14.2 Plt Count 179 MPV 12.4 Immature Gran % (Auto) 0.9 H Neut % (Auto) 88.5 H Lymph % (Auto) 4.0 L [place] % (Auto) 6.3 Eos % (Auto) 0.0 Baso % (Auto) 0.3 Lymph # (Auto) 0.8 L [place] # (Auto) 1.2 Eos # (Auto) 0.0 Baso # (Auto) 0.1 Abs Immat Gran (auto) 0.18 H Absolute Neuts (auto) 17.4 H Absolute Nucleated RBC 0.000 Nucleated RBC % (auto) 0.0 PT INR Anion Gap 15 Estim Creat Clear Calc 53.6 Estimated GFR 54 Random Glucose 111 Lactic Acid Lactic Acid F/U @ 2Hr Calcium 8.8 Magnesium Total Bilirubin Direct Bilirubin AST ALT Alkaline Phosphatase Troponin I High Sens Total Protein Albumin Lipase Urine Color Urine Appearance Urine pH Ur Specific [place] Urine Protein Urine Glucose (UA) Urine Ketones Urine Blood Urine Nitrite Ur Leukocyte Esterase Urine RBC Urine WBC Ur Squamous Epith Cells Urine Bacteria Hyaline Casts Assessment and Plan (1) Acute cholecystitis: Status: Acute (2) Persistent atrial fibrillation: Status: Acute (3) Pulmonary hypertension: Status: Acute (4) (HFpEF) heart failure with preserved ejection fraction: Status: Acute Plan 85 HTN, AFIB on eliquis, pulm HTN, chronic HFpEF admitted to surgery with acute cholecystitis after presenting with abdominal pain, n/v/d, No fever, both US and CT point to acute cholecystitis Acute cholecystitis management per surgery Continue Zosyn, follow culture IVF The perioperative risk for this pt with AF, CHF, pulmonary hypertension, and HTN undergoing surgery for acute cholecystitis is?high? Using the RCRI, the estimated risk of major adverse cardiac events is?10?15%? and the ACS NSQIP calculator estimates 30-day mortality at 3?5% and serious complications at 15?25%. Early laparoscopic cholecystectomy within 72 hours is preferred if feasible, there is no further testting indicated at this time, aft er holding eliquis persistent afib continue metoprolol for rate contro hold Apixiban in the event he needs surgery HTN continue norvasc and metoprolol chronic HFpEF compensated hold Lasix for now BPH Flomax DVT prophylaxis: suggest compression device, until able to take eliquis Will follow Quality Stroke Does the patient have a stroke diagnosis?: No VTE Prior VTE?: No VTE Risk Level:: Surgical - moderate VTE Device Contraindication: N/A - Device Ordered VTE Drug Contraindication: N/A - Med Ordered
[2025-02-01 03:06] VITALS: BP 132/63; PULSE 78; RESP 16; TEMP 36.6; O2SAT 94
[2025-02-01] MEDS: Dextrose 5 % and Lactated Ring 1,000 ML 80 ML IVCONT (06:37)
[2025-02-01 06:58] LABS: MANUAL DIFF FLAG NO
[2025-02-01 07:03] VITALS: BP 121/57; PULSE 84; RESP 17; TEMP 36.8; O2SAT 92
[2025-02-01 07:03] LABS: Hematocrit 47.8 % (42.0-52.0); Hemoglobin 15.9 g/dl (14.0-18.0); Imm Gran Abs Auto 0.14 X10*3/uL (0.00-0.03); Imm Gran Pct Auto 0.8 % (0.0-0.4); Lymphocytes Absolute Auto 0.8 X10*3/uL (1.2-4.9); Mean Corpuscular HGB Conc 33.3 g/dl (31.0-36.0); Mean Corpuscular Hemoglobin 32.8 pg (27.0-33.0); Mean Corpuscular Volume 98.6 fL (80.0-98.0); NRBC Abs Auto 0.000 X10*3/uL (0.0-0.012); NRBC Pct Auto 0.0 /100WBC (0.0-0.2); Platelet Count 170 X10*3/uL (160-400); Red Blood Count 4.85 X10*6/uL (4.60-5.80); White Blood Count 17.7 X10*3/uL (4.8-10.8)
[2025-02-01 07:34] LABS: Alanine Aminotransferase 14 U/L (0-40); Albumin Level 2.8 g/dL (3.5-5.0); Alkaline Phosphatase 67 U/L (39-117); Anion Gap 13 (12-20); Aspartate Amino Transferase 19 U/L (5-37); Blood Urea Nitrogen 13 mg/dL (9-16); Calcium 8.6 mg/dL (8.4-10.2); Carbon Dioxide 26 mmol/L (22-29); Chloride 106 mmol/L (96-108); Creatinine Clr Calc Pharmacy 52.7; Estimated Glomerular Filt Rate 53; Potassium 3.1 mmol/L (3.3-5.1); Sodium 142 mmol/L (135-145); Total Protein 5.8 g/dL (6.5-8.0)
[2025-02-01] MEDS: Metoprolol Succinate ER 50 MG TAB.ER.24H PO (07:59)
--- NOTE | 2025-02-01 09:26 | PM.PNGS ---
Subjective Subjective Date of Service: 02/02/25 Interval history: Says he has minimal pain Feels better this morning Admitted to some nausea earlier No fever Physical Exam Vital Signs: Vital Signs: Last Vital Signs Temp 98.2 F 02/01/25 07:03 Pulse 84 02/01/25 07:03 Resp 17 02/01/25 07:03 BP 121/57 L 02/01/25 07:03 Pulse Ox 92 02/01/25 07:03 O2 Del Method Room Air 02/01/25 07:03 BMI result Body Mass Index 35.8 Const: General: comfortable and no acute distress Nutritional Appearance: not cachectic Resp: Effort & Inspection: normal respiratory effort Cardio: Rate: regular rate GI: Other: Minimal tenderness in the right upper quadrant, no Hernandez's sign Palpation (GI): Soft to palpation, not firm and no guarding Objective Data Active Medications Calcium Carbonate (Calcium Carbonate 750 Mg Tab.Chew) 750 mg PO Q4H PRN PRN Reason: Heartburn Hydromorphone HCl (Hydromorphone Hcl 0.5 Mg/0.5 Ml Syringe) 0.5 mg IVPUSH Q3H PRN; Protocol PRN Reason: Pain, Severe (Pain Scale 7-10) Dextrose/Lactated Ringer's (D5lr) 1,000 mls @ 80 mls/hr IVCONT .[id number] [facility] Last Admin: 02/01/25 06:37 Dose: 80 mls/hr Documented By: DANIEL Piperacillin Sod/Tazobactam (Sod 3.375 gm/ Sodium Chloride) 50 mls @ 100 mls/hr IV Q6H [facility] Last Infusion: 02/01/25 08:32 Dose: Infused Documented By: CARLOS ENRIQUE Magnesium Hydroxide (Milk Of Magnesia 30 Ml Oral.Susp) 30 ml PO DAILY PRN PRN Reason: Constipation Melatonin (Melatonin 3 Mg Tablet) 6 mg PO BEDTIME PRN PRN Reason: Insomnia Metoprolol Succinate (Metoprolol Succinate Er 50 Mg Tab.Er.24h) 50 mg PO DAILY [facility]; Protocol Last Admin: 02/01/25 07:59 Dose: 50 mg Documented By: CARLOS ENRIQUE Omeprazole (Omeprazole 20 Mg Capsule.Dr) 20 mg PO DAILY@0630 [facility] Last Admin: 02/01/25 06:37 Dose: 20 mg Documented By: DANIEL Ondansetron HCl (Ondansetron Hcl 4 Mg/2 Ml Vial) 4 mg IVPUSH QID PRN PRN Reason: Nausea Last Admin: 01/31/25 15:17 Dose: 4 mg Documented By: RAUL Oxycodone HCl (Oxycodone Hcl Immed Release 5 Mg Tablet) 5 mg PO Q6H PRN PRN Reason: Pain, Moderate(Pain Scale 4-6) Sodium Chloride (0.9 % Sodium Chloride Flush 3 Ml Syringe) 3 ml IVFLUSH QSHIFT [facility] Last Admin: 02/01/25 07:22 Dose: Not Given Documented By: CARLOS ENRIQUE Non-Admin Reason: IV Running Tamsulosin HCl (Tamsulosin Hcl 0.4 Mg Capsule) 0.4 mg PO DAILY [facility] Last Admin: 02/01/25 07:59 Dose: 0.4 mg Documented By: CARLOS ENRIQUE Labs 02/02/25 07:51 02/02/25 07:51 Labs: Laboratory Results - last 24 hr 02/01/25 06:35 MCV 98.6 H MCH 32.8 MCHC 33.3 RDW 14.3 Plt Count 170 MPV 12.5 H Immature Gran % (Auto) 0.8 H Neut % (Auto) 89.2 H Lymph % (Auto) 4.3 L [place] % (Auto) 5.4 Eos % (Auto) 0.1 Baso % (Auto) 0.2 Lymph # (Auto) 0.8 L [place] # (Auto) 1.0 Eos # (Auto) 0.0 Baso # (Auto) 0.0 Abs Immat Gran (auto) 0.14 H Absolute Neuts (auto) 15.8 H Absolute Nucleated RBC 0.000 Nucleated RBC % (auto) 0.0 Anion Gap 13 Estim Creat Clear Calc 52.7 Estimated GFR 53 Random Glucose 112 Calcium 8.6 Total Bilirubin 1.8 H AST 19 ALT 14 Alkaline Phosphatase 67 Total Protein 5.8 L Albumin 2.8 L Microbiology Microbiology Results: Microbiology 01/30/25 14:49 Blood Culture - Preliminary Blood - Venous No growth after 24 hours. 01/30/25 14:49 Blood Culture - Preliminary Blood - Venous No growth after 24 hours. Procedures Date of Service Date of Service: 02/02/25 Progress Note: A&P Assessment and plan (1) Acute cholecystitis: Status: Acute Assessment and Plan: Was on Eliquis for atrial fibrillation Eliquis held WBC trending down Pain much improved Exam very benign Minimal tenderness Lap jairo planned for Monday with Dr. Olivarez Time Spent With Patient Time: Total time managing care of this patient today ____ minutes. Quality Stroke Does the patient have a stroke diagnosis?: No VTE Prior VTE?: No VTE Risk Level:: Surgical - moderate VTE Device Contraindication: N/A - Device Ordered VTE Drug Contraindication: N/A - Med Ordered
[2025-02-01 11:18] VITALS: BP 143/76; PULSE 82; RESP 17; TEMP 36.6; O2SAT 94
--- NOTE | 2025-02-01 11:48 | HO.PM.IMPN ---
Subjective Subjective Date of Service: 02/01/25 Interval History: f/u on med consult for pt with acute cholecystitis on apixiban for afib, pain is better, no sepsis Physical Exam Vital Signs: Vital Signs: Last Vital Signs Temp 98 F 02/01/25 11:18 Pulse 82 02/01/25 11:18 Resp 17 02/01/25 11:18 BP 143/76 H 02/01/25 11:18 Pulse Ox 94 02/01/25 11:18 O2 Del Method Room Air 02/01/25 11:18 BMI result Body Mass Index 35.8 Const: Other: General: AO X 3, no acute distress Resp: CTA bilateral CVS: S1,S2,RRR GI: +BS, ruq tenderness Skin: No rash Neuro: motor grossly intact Psych: appropriate affect Objective Data Active Medications Calcium Carbonate (Calcium Carbonate 750 Mg Tab.Chew) 750 mg PO Q4H PRN PRN Reason: Heartburn Hydromorphone HCl (Hydromorphone Hcl 0.5 Mg/0.5 Ml Syringe) 0.5 mg IVPUSH Q3H PRN; Protocol PRN Reason: Pain, Severe (Pain Scale 7-10) Dextrose/Lactated Ringer's (D5lr) 1,000 mls @ 80 mls/hr IVCONT .[id number] [facility] Last Admin: 02/01/25 06:37 Dose: 80 mls/hr Documented By: DANIEL Piperacillin Sod/Tazobactam (Sod 3.375 gm/ Sodium Chloride) 50 mls @ 100 mls/hr IV Q6H [facility] Last Infusion: 02/01/25 08:32 Dose: Infused Documented By: CARLOS ENRIQUE Magnesium Hydroxide (Milk Of Magnesia 30 Ml Oral.Susp) 30 ml PO DAILY PRN PRN Reason: Constipation Melatonin (Melatonin 3 Mg Tablet) 6 mg PO BEDTIME PRN PRN Reason: Insomnia Metoprolol Succinate (Metoprolol Succinate Er 50 Mg Tab.Er.24h) 50 mg PO DAILY [facility]; Protocol Last Admin: 02/01/25 07:59 Dose: 50 mg Documented By: CARLOS ENRIQUE Omeprazole (Omeprazole 20 Mg Capsule.Dr) 20 mg PO DAILY@0630 [facility] Last Admin: 02/01/25 06:37 Dose: 20 mg Documented By: DANIEL Ondansetron HCl (Ondansetron Hcl 4 Mg/2 Ml Vial) 4 mg IVPUSH QID PRN PRN Reason: Nausea Last Admin: 01/31/25 15:17 Dose: 4 mg Documented By: RAUL Oxycodone HCl (Oxycodone Hcl Immed Release 5 Mg Tablet) 5 mg PO Q6H PRN PRN Reason: Pain, Moderate(Pain Scale 4-6) Sodium Chloride (0.9 % Sodium Chloride Flush 3 Ml Syringe) 3 ml IVFLUSH QSHIFT [facility] Last Admin: 02/01/25 07:22 Dose: Not Given Documented By: CARLOS ENRIQUE Non-Admin Reason: IV Running Tamsulosin HCl (Tamsulosin Hcl 0.4 Mg Capsule) 0.4 mg PO DAILY [facility] Last Admin: 02/01/25 07:59 Dose: 0.4 mg Documented By: CARLOS ENRIQUE Labs 02/01/25 06:35 02/01/25 06:35 Labs: Laboratory Results - last 24 hr 02/01/25 06:35 MCV 98.6 H MCH 32.8 MCHC 33.3 RDW 14.3 Plt Count 170 MPV 12.5 H Immature Gran % (Auto) 0.8 H Neut % (Auto) 89.2 H Lymph % (Auto) 4.3 L [place] % (Auto) 5.4 Eos % (Auto) 0.1 Baso % (Auto) 0.2 Lymph # (Auto) 0.8 L [place] # (Auto) 1.0 Eos # (Auto) 0.0 Baso # (Auto) 0.0 Abs Immat Gran (auto) 0.14 H Absolute Neuts (auto) 15.8 H Absolute Nucleated RBC 0.000 Nucleated RBC % (auto) 0.0 Anion Gap 13 Estim Creat Clear Calc 52.7 Estimated GFR 53 Random Glucose 112 Calcium 8.6 Total Bilirubin 1.8 H AST 19 ALT 14 Alkaline Phosphatase 67 Total Protein 5.8 L Albumin 2.8 L Microbiology Microbiology Results: Microbiology 01/30/25 14:49 Blood Culture - Preliminary Blood - Venous No growth after 24 hours. 01/30/25 14:49 Blood Culture - Preliminary Blood - Venous No growth after 24 hours. Assessment and Plan (1) Acute cholecystitis: Status: Acute (2) Persistent atrial fibrillation: Status: Acute (3) Pulmonary hypertension: Status: Acute (4) (HFpEF) heart failure with preserved ejection fraction: Status: Acute Plan 85 HTN, AFIB on eliquis, pulm HTN, chronic HFpEF admitted to surgery with acute cholecystitis after presenting with abdominal pain, n/v/d, No fever, both US and CT point to acute cholecystitis Acute cholecystitis management per surgery Continue Zosyn, follow culture IVF, diet per surgery The perioperative risk for this pt with AF, CHF, pulmonary hypertension, and HTN undergoing surgery for acute cholecystitis is?high? Using the RCRI, the estimated risk of major adverse cardiac events is?10?15%? and the ACS NSQIP calculator estimates 30-day mortality at 3?5% and serious complications at 15?25%. Early laparoscopic cholecystectomy within 72 hours is preferred if feasible, there is no further testting indicated at this time, aft er holding eliquis Persistent afib Continue metoprolol for rate contro hold Apixiban in the event he needs surgery HTN continue norvasc and metoprolol chronic HFpEF compensated hold Lasix for now BPH Flomax DVT prophylaxis: suggest compression device, until able to take eliquis Will follow Quality Stroke Does the patient have a stroke diagnosis?: No VTE Prior VTE?: No VTE Risk Level:: Surgical - moderate VTE Device Contraindication: N/A - Device Ordered VTE Drug Contraindication: N/A - Med Ordered
[2025-02-01 15:23] VITALS: BP 114/68; PULSE 80; RESP 14; TEMP 37.2; O2SAT 92
--- NOTE | 2025-02-01 16:33 | MHC.CM.PN ---
PT LIVES WITH HIS AND IS INDEPENDENT WITH CARE HE USES A CPAP FOR DME COPY OF HCP REQUESTED PCP: MARYA ROJAS IMM DELIVERED DCP: HOME VIA PRIVATE TRANSPORT
--- NOTE | 2025-02-01 17:58 | PC.NURSE ---
Offered that patient a walk, he refused at this time.
[2025-02-01 19:14] VITALS: BP 112/56; PULSE 73; RESP 14; TEMP 37.2; O2SAT 9
[2025-02-02] VITALS (7 sets, daily range): BP systolic 109–133; BP diastolic 55–71; PULSE 73–96; RESP 16–19; TEMP 36.6–37.6; O2SAT 93–97
[2025-02-02] MEDS: 0.9 % Sodium Chloride Flush 3 ML SYRINGE IVFLUSH ×4 (00:30→20:28)
[2025-02-02] MEDS: Metoprolol Succinate ER 50 MG TAB.ER.24H PO (07:59)
[2025-02-02 08:37] LABS: Hematocrit 47.7 % (42.0-52.0); Hemoglobin 15.4 g/dl (14.0-18.0); Mean Corpuscular HGB Conc 32.3 g/dl (31.0-36.0); Mean Corpuscular Hemoglobin 32.8 pg (27.0-33.0); Mean Corpuscular Volume 101.7 fL (80.0-98.0); NRBC Abs Auto 0.000 X10*3/uL (0.0-0.012); NRBC Pct Auto 0.0 /100WBC (0.0-0.2); Platelet Count 162 X10*3/uL (160-400); Red Blood Count 4.69 X10*6/uL (4.60-5.80); White Blood Count 14.5 X10*3/uL (4.8-10.8)
[2025-02-02 09:04] LABS: Anion Gap 13 (12-20); Blood Urea Nitrogen 14 mg/dL (9-16); Calcium 8.7 mg/dL (8.4-10.2); Carbon Dioxide 28 mmol/L (22-29); Chloride 105 mmol/L (96-108); Creatinine Clr Calc Pharmacy 46.9; Estimated Glomerular Filt Rate 46; Potassium 3.3 mmol/L (3.3-5.1); Sodium 143 mmol/L (135-145)
--- NOTE | 2025-02-02 09:07 | P.PNIM_ITS ---
Subjective Subjective Date of Service: 02/02/25 Interval History: f/u on med consult for pt with acute cholecystitis on apixiban for afib, has little pain Physical Exam 2 Vital Signs: Vital Signs: Last Vital Signs Temp 98.1 F 02/02/25 08:00 Pulse 85 02/02/25 08:00 Resp 16 02/02/25 08:00 BP 115/64 02/02/25 08:00 Pulse Ox 95 02/02/25 08:00 O2 Del Method Room Air 02/02/25 08:00 BMI result Body Mass Index 35.8 Const: Other: General: AO X 3, no acute distress GI: +BS, mild ruq tenderness Skin: No rash Neuro: motor grossly intact Psych: appropriate affect Objective Data Active Medications Calcium Carbonate (Calcium Carbonate 750 Mg Tab.Chew) 750 mg PO Q4H PRN PRN Reason: Heartburn Hydromorphone HCl (Hydromorphone Hcl 0.5 Mg/0.5 Ml Syringe) 0.5 mg IVPUSH Q3H PRN; Protocol PRN Reason: Pain, Severe (Pain Scale 7-10) Piperacillin Sod/Tazobactam (Sod 3.375 gm/ Sodium Chloride) 50 mls @ 100 mls/hr IV Q6H [facility] Last Infusion: 02/02/25 08:38 Dose: Infused Documented By: CARLOS ENRIQUE Magnesium Hydroxide (Milk Of Magnesia 30 Ml Oral.Susp) 30 ml PO DAILY PRN PRN Reason: Constipation Melatonin (Melatonin 3 Mg Tablet) 6 mg PO BEDTIME PRN PRN Reason: Insomnia Metoprolol Succinate (Metoprolol Succinate Er 50 Mg Tab.Er.24h) 50 mg PO DAILY [facility]; Protocol Last Admin: 02/02/25 07:59 Dose: 50 mg Documented By: CARLOS ENRIQUE Omeprazole (Omeprazole 20 Mg Capsule.Dr) 20 mg PO DAILY@0630 [facility] Last Admin: 02/02/25 06:09 Dose: 20 mg Documented By: DANIEL Ondansetron HCl (Ondansetron Hcl 4 Mg/2 Ml Vial) 4 mg IVPUSH QID PRN PRN Reason: Nausea Last Admin: 01/31/25 15:17 Dose: 4 mg Documented By: RAUL Oxycodone HCl (Oxycodone Hcl Immed Release 5 Mg Tablet) 5 mg PO Q6H PRN PRN Reason: Pain, Moderate(Pain Scale 4-6) Sodium Chloride (0.9 % Sodium Chloride Flush 3 Ml Syringe) 3 ml IVFLUSH QSHIFT [facility] Last Admin: 02/02/25 07:55 Dose: 3 ml Documented By: CARLOS ENRIQUE Tamsulosin HCl (Tamsulosin Hcl 0.4 Mg Capsule) 0.4 mg PO DAILY [facility] Last Admin: 02/02/25 07:59 Dose: 0.4 mg Documented By: CARLOS ENRIQUE Labs 02/02/25 07:51 02/02/25 07:51 Labs: Laboratory Results - last 24 hr 02/02/25 07:51 MCV 101.7 H MCH 32.8 MCHC 32.3 RDW 14.2 Plt Count 162 MPV 12.8 H Absolute Nucleated RBC 0.000 Nucleated RBC % (auto) 0.0 Anion Gap 13 Estim Creat Clear Calc 46.9 Estimated GFR 46 Random Glucose 94 Calcium 8.7 Microbiology Microbiology Results: Microbiology 01/30/25 14:49 Blood Culture - Preliminary Blood - Venous No growth after 48 hours. 01/30/25 14:49 Blood Culture - Preliminary Blood - Venous No growth after 48 hours. Assessment and Plan (1) Acute cholecystitis: Status: Acute (2) Persistent atrial fibrillation: Status: Acute (3) Pulmonary hypertension: Status: Acute (4) (HFpEF) heart failure with preserved ejection fraction: Status: Acute Plan 85 HTN, AFIB on eliquis, pulm HTN, chronic HFpEF admitted to surgery with acute cholecystitis after presenting with abdominal pain, n/v/d, No fever, both US and CT point to acute cholecystitis Acute cholecystitis management per surgery Continue Zosyn, follow culture IVF, diet per surgery The perioperative risk for this pt with AF, CHF, pulmonary hypertension, and HTN undergoing surgery for acute cholecystitis is?high? Using the RCRI, the estimated risk of major adverse cardiac events is?10?15%? and the ACS NSQIP calculator estimates 30-day mortality at 3?5% and serious complications at 15?25%. Early laparoscopic cholecystectomy within 72 hours is preferred if feasible, there is no further testting indicated at this time, aft er holding eliquis. Surgery planned for 02/03 Persistent afib Continue metoprolol for rate contro hold Apixiban in the event he needs surgery HTN continue norvasc and metoprolol chronic HFpEF compensated hold Lasix for now BPH Flomax DVT prophylaxis: compression device, heparin, hold before surgery Will follow Quality Stroke Does the patient have a stroke diagnosis?: No VTE Prior VTE?: No VTE Risk Level:: Surgical - moderate VTE Device Contraindication: N/A - Device Ordered VTE Drug Contraindication: N/A - Med Ordered
--- NOTE | 2025-02-02 09:52 | P.PNGS_ITS ---
Subjective Subjective Date of Service: 02/04/25 Interval history: Says he had a good night Denies significant abdominal pain No nausea or vomiting Physical Exam 2 Vital Signs: Vital Signs: Last Vital Signs Temp 98.1 F 02/02/25 08:00 Pulse 85 02/02/25 08:00 Resp 16 02/02/25 08:00 BP 115/64 02/02/25 08:00 Pulse Ox 95 02/02/25 08:00 O2 Del Method Room Air 02/02/25 08:00 BMI result Body Mass Index 35.8 Const: Other: Mild periodic shortness of breath with speaking General: comfortable and no acute distress Resp: Other: Mild periodic shortness of breath while speaking Cardio: Other: Known AFib Rate: regular rate GI: Other: No Hernandez's sign Palpation (GI): Soft to palpation, not firm, nontender and no guarding Objective Data Active Medications Calcium Carbonate (Calcium Carbonate 750 Mg Tab.Chew) 750 mg PO Q4H PRN PRN Reason: Heartburn Heparin Sodium (Porcine) (Heparin Sodium,Porcine 5,000 Unit/Ml Vial) 5,000 unit SUBCUT Q12H [facility] Last Admin: 02/02/25 09:23 Dose: 5,000 unit Documented By: CARLOS ENRIQUE Hydromorphone HCl (Hydromorphone Hcl 0.5 Mg/0.5 Ml Syringe) 0.5 mg IVPUSH Q3H PRN; Protocol PRN Reason: Pain, Severe (Pain Scale 7-10) Piperacillin Sod/Tazobactam (Sod 3.375 gm/ Sodium Chloride) 50 mls @ 100 mls/hr IV Q6H [facility] Last Infusion: 02/02/25 08:38 Dose: Infused Documented By: CARLOS ENRIQUE Magnesium Hydroxide (Milk Of Magnesia 30 Ml Oral.Susp) 30 ml PO DAILY PRN PRN Reason: Constipation Melatonin (Melatonin 3 Mg Tablet) 6 mg PO BEDTIME PRN PRN Reason: Insomnia Metoprolol Succinate (Metoprolol Succinate Er 50 Mg Tab.Er.24h) 50 mg PO DAILY [facility]; Protocol Last Admin: 02/02/25 07:59 Dose: 50 mg Documented By: CARLOS ENRIQUE Omeprazole (Omeprazole 20 Mg Capsule.Dr) 20 mg PO DAILY@0630 [facility] Last Admin: 02/02/25 06:09 Dose: 20 mg Documented By: DANIEL Ondansetron HCl (Ondansetron Hcl 4 Mg/2 Ml Vial) 4 mg IVPUSH QID PRN PRN Reason: Nausea Last Admin: 01/31/25 15:17 Dose: 4 mg Documented By: RAUL Oxycodone HCl (Oxycodone Hcl Immed Release 5 Mg Tablet) 5 mg PO Q6H PRN PRN Reason: Pain, Moderate(Pain Scale 4-6) Sodium Chloride (0.9 % Sodium Chloride Flush 3 Ml Syringe) 3 ml IVFLUSH QSHIFT [facility] Last Admin: 02/02/25 07:55 Dose: 3 ml Documented By: CARLOS ENRIQUE Tamsulosin HCl (Tamsulosin Hcl 0.4 Mg Capsule) 0.4 mg PO DAILY [facility] Last Admin: 02/02/25 07:59 Dose: 0.4 mg Documented By: CARLOS ENRIQUE Labs 02/04/25 05:35 02/04/25 05:35 Labs: Laboratory Results - last 24 hr 02/02/25 07:51 MCV 101.7 H MCH 32.8 MCHC 32.3 RDW 14.2 Plt Count 162 MPV 12.8 H Absolute Nucleated RBC 0.000 Nucleated RBC % (auto) 0.0 Anion Gap 13 Estim Creat Clear Calc 46.9 Estimated GFR 46 Random Glucose 94 Calcium 8.7 Microbiology Microbiology Results: Microbiology 01/30/25 14:49 Blood Culture - Preliminary Blood - Venous No growth after 48 hours. 01/30/25 14:49 Blood Culture - Preliminary Blood - Venous No growth after 48 hours. Procedures Date of Service Date of Service: 02/04/25 Progress Note: A&P Assessment and plan (1) Acute cholecystitis: Status: Acute Assessment and Plan: Clinically much improved For laparoscopic cholecystectomy tomorrow Off of apixaban since admission Abdomen is soft and benign NPO post midnight Hospitalist following at bedside - plan reviewed with the her Time Spent With Patient Time: Total time managing care of this patient today ____ minutes. Quality Stroke Does the patient have a stroke diagnosis?: No VTE Prior VTE?: No VTE Risk Level:: Surgical - moderate VTE Device Contraindication: N/A - Device Ordered VTE Drug Contraindication: N/A - Med Ordered
[2025-02-03] VITALS (16 sets, daily range): BP systolic 98–145; BP diastolic 56–78; PULSE 76–101; RESP 10–25; TEMP 36.1–37.1; O2SAT 92–97
[2025-02-03] MEDS: Metoprolol Succinate ER 50 MG TAB.ER.24H PO (07:09)
[2025-02-03] MEDS: 0.9 % Sodium Chloride Flush 3 ML SYRINGE IVFLUSH ×3 (07:12→20:38)
--- NOTE | 2025-02-03 08:01 | P.PNGS_ITS ---
Subjective Subjective Date of Service: 02/03/25 <Carri Saunders PA-C - Last Filed: 02/03/25 08:04> 02/03/25 <Michael Olivarez MD - Last Filed: 02/03/25 12:28> Interval history: Feels ok this morning, denies abd pain. NPO for surgery. <Carri Saunders PA-C - Last Filed: 02/03/25 08:04> Physical Exam 2 Vital Signs: Vital Signs: Last Vital Signs Temp 97.5 F 02/03/25 07:13 Pulse 101 H 02/03/25 07:13 Resp 18 02/03/25 07:13 BP 145/74 H 02/03/25 07:13 Pulse Ox 96 02/03/25 07:13 O2 Del Method Room Air 02/03/25 07:13 BMI result Body Mass Index 35.8 <Carri Saunders PA-C - Last Filed: 02/03/25 08:04> Const: General: comfortable, no acute distress and alert <Carri Saunders PA-C - Last Filed: 02/03/25 08:04> Orientation/consciousness: patient oriented x3 <Carri Saunders PA-C - Last Filed: 02/03/25 08:04> Resp: Effort & Inspection: normal respiratory effort and not tachypneic < Carri Saunders PA-C - Last Filed: 02/03/25 08:04> GI: Other: protuberant abdomen persistent RUQ tenderness to light palpation <Carri Saunders PA-C - Last Filed: 02/03/25 08:04> Palpation (GI): Soft to palpation and not rigid <Carri Saunders PA-C - Last Filed: 02/03/25 08:04> Skin: General skin exam: no rashes or lesions noted <GERALDINE Santos Last Filed: 02/03/25 08:04> Neuro: General: patient oriented x3 and moves all extremities <GERALDINE Santos Last Filed: 02/03/25 08:04> Objective Data Active Medications Calcium Carbonate (Calcium Carbonate 750 Mg Tab.Chew) 750 mg PO Q4H PRN PRN Reason: Heartburn Heparin Sodium (Porcine) (Heparin Sodium,Porcine 5,000 Unit/Ml Vial) 5,000 unit SUBCUT Q12H [facility] Last Admin: 02/03/25 07:45 Dose: Not Given Documented By: MAYNOR Non-Admin Reason: Physician Held Med Hydromorphone HCl (Hydromorphone Hcl 0.5 Mg/0.5 Ml Syringe) 0.5 mg IVPUSH Q3H PRN; Protocol PRN Reason: Pain, Severe (Pain Scale 7-10) Piperacillin Sod/Tazobactam (Sod 3.375 gm/ Sodium Chloride) 50 mls @ 100 mls/hr IV Q6H [facility] Last Infusion: 02/03/25 03:10 Dose: Infused Documented By: YURI Potassium Chloride/Sodium Chloride (Kcl 20 Meq In 0.9 % Sodium Chl) 20 meq in 1,000 mls @ 80 mls/hr IVCONT .[id number] [facility] Magnesium Hydroxide (Milk Of Magnesia 30 Ml Oral.Susp) 30 ml PO DAILY PRN PRN Reason: Constipation Melatonin (Melatonin 3 Mg Tablet) 6 mg PO BEDTIME PRN PRN Reason: Insomnia Metoprolol Succinate (Metoprolol Succinate Er 50 Mg Tab.Er.24h) 50 mg PO DAILY [facility]; Protocol Last Admin: 02/03/25 07:09 Dose: 50 mg Documented By: MAYNOR Omeprazole (Omeprazole 20 Mg Capsule.Dr) 20 mg PO DAILY@0630 [facility] Last Admin: 02/03/25 06:13 Dose: 20 mg Documented By: YURI Ondansetron HCl (Ondansetron Hcl 4 Mg/2 Ml Vial) 4 mg IVPUSH QID PRN PRN Reason: Nausea Last Admin: 01/31/25 15:17 Dose: 4 mg Documented By: RAUL Oxycodone HCl (Oxycodone Hcl Immed Release 5 Mg Tablet) 5 mg PO Q6H PRN PRN Reason: Pain, Moderate(Pain Scale 4-6) Sodium Chloride (0.9 % Sodium Chloride Flush 3 Ml Syringe) 3 ml IVFLUSH QSHIFT [facility] Last Admin: 02/03/25 07:12 Dose: 3 ml Documented By: MAYNOR Tamsulosin HCl (Tamsulosin Hcl 0.4 Mg Capsule) 0.4 mg PO DAILY [facility] Last Admin: 02/03/25 07:09 Dose: 0.4 mg Documented By: MAYNOR <Carri Saunders PA-C - Last Filed: 02/03/25 08:04> Labs CBC & Chem 7: 02/02/25 07:51 02/02/25 07:51 <Carri Saunders PA-C - Last Filed: 02/03/25 08:04> Labs: Laboratory Results - last 24 hr 02/02/25 07:51 MCV 101.7 H MCH 32.8 MCHC 32.3 RDW 14.2 Plt Count 162 MPV 12.8 H Absolute Nucleated RBC 0.000 Nucleated RBC % (auto) 0.0 Anion Gap 13 Estim Creat Clear Calc 46.9 Estimated GFR 46 Random Glucose 94 Calcium 8.7 <Carri Saunders PA-C - Last Filed: 02/03/25 08:04> Procedures Date of Service Date of Service: 02/03/25 <Carri Saunders PA-C - Last Filed: 02/03/25 08:04> 02/03/25 <Michael Olivarze MD - Last Filed: 02/03/25 12:28> Progress Note: A&P Assessment and plan (1) Acute cholecystitis: Status: Acute <Carri Saunders PA-C - Last Filed: 02/03/25 08:04> Assessment and Plan: Admitted for acute cholecystitis. Last dose apixaban morning. On IV zosyn. Plan for lap jairo, possible open today. All questions answered. K low normal today, Cr slightly increased. Will begin gentle IVF with K supplementation while NPO awaiting surgery. <Carri Saunders PA-C - Last Filed: 02/03/25 08:04> Admitted for acute cholecystitis. Last dose apixaban morning. On IV zosyn. Plan for lap jairo, possible open today. All questions answered. K low normal today, Cr slightly increased. Will begin gentle IVF with K supplementation while NPO awaiting surgery. <Michael Olivarez MD - Last Filed: 02/03/25 12:28> Time Spent With Patient Time: Total time managing care of this patient today ____ minutes. <Carri Saunders PA-C - Last Filed: 02/03/25 08:04> Quality Stroke Does the patient have a stroke diagnosis?: No <Carri Saunders PA-C - Last Filed: 02/03/25 08:04> VTE Prior VTE?: No <Carri Saunders PA-C - Last Filed: 02/03/25 08:04> VTE Risk Level:: Surgical - moderate <Carri Saunders PA-C - Last Filed: 02/03/25 08:04> VTE Device Contraindication: N/A - Device Ordered <Carri Saunders PA-C - Last Filed: 02/03/25 08:04> VTE Drug Contraindication: N/A - Med Ordered <Carri Saunders PA-C - Last Filed: 02/03/25 08:04>
[2025-02-03] MEDS: KCl 20 mEq in 0.9 % Sodium ChL 20 MEQ/1,000 ML IV.SOLN 80 MEQ IVCONT (08:11)
--- NOTE | 2025-02-03 09:05 | P.PNIM_ITS ---
Subjective Subjective Date of Service: 02/03/25 Interval History: f/u on med consult for pt with acute cholecystitis on apixiban for afib, no pain this morning surgery planned later today Physical Exam 2 Vital Signs: Vital Signs: Last Vital Signs Temp 97.5 F 02/03/25 07:13 Pulse 101 H 02/03/25 07:13 Resp 18 02/03/25 07:13 BP 145/74 H 02/03/25 07:13 Pulse Ox 96 02/03/25 07:13 O2 Del Method Room Air 02/03/25 07:13 BMI result Body Mass Index 35.8 Const: Other: General: AO X 3, no acute distress GI: +BS, mild ruq tenderness Skin: No rash Neuro: motor grossly intact Psych: appropriate affect Objective Data Active Medications Calcium Carbonate (Calcium Carbonate 750 Mg Tab.Chew) 750 mg PO Q4H PRN PRN Reason: Heartburn Fentanyl (Fentanyl Citrate/Pf 100 Mcg/2 Ml Vial) 50 mcg IVPUSH Q5M PRN PRN Reason: Pain, Moderate to Severe (Pain Scale 4-10) Stop: 02/03/25 14:45 Heparin Sodium (Porcine) (Heparin Sodium,Porcine 5,000 Unit/Ml Vial) 5,000 unit SUBCUT Q12H [facility] Last Admin: 02/03/25 07:45 Dose: Not Given Documented By: MAYNOR Non-Admin Reason: Physician Held Med Hydromorphone HCl (Hydromorphone Hcl 0.5 Mg/0.5 Ml Syringe) 0.5 mg IVPUSH Q3H PRN; Protocol PRN Reason: Pain, Severe (Pain Scale 7-10) Piperacillin Sod/Tazobactam (Sod 3.375 gm/ Sodium Chloride) 50 mls @ 100 mls/hr IV Q6H [facility] Last Infusion: 02/03/25 08:41 Dose: Infused Documented By: MAYNOR Potassium Chloride/Sodium Chloride (Kcl 20 Meq In 0.9 % Sodium Chl) 20 meq in 1,000 mls @ 80 mls/hr IVCONT .[id number] [facility] Last Admin: 02/03/25 08:11 Dose: 80 mls/hr Documented By: GIGI Magnesium Hydroxide (Milk Of Magnesia 30 Ml Oral.Susp) 30 ml PO DAILY PRN PRN Reason: Constipation Melatonin (Melatonin 3 Mg Tablet) 6 mg PO BEDTIME PRN PRN Reason: Insomnia Metoprolol Succinate (Metoprolol Succinate Er 50 Mg Tab.Er.24h) 50 mg PO DAILY [facility]; Protocol Last Admin: 02/03/25 07:09 Dose: 50 mg Documented By: MAYNOR Naloxone HCl (Naloxone Hcl 0.4 Mg/Ml Vial) 0.04 mg IVPUSH Q5M PRN PRN Reason: Excessive sedation or RR < 8 Omeprazole (Omeprazole 20 Mg Capsule.) 20 mg PO DAILY@0630 [facility] Last Admin: 02/03/25 06:13 Dose: 20 mg Documented By: YURI Ondansetron HCl (Ondansetron Hcl 4 Mg/2 Ml Vial) 4 mg IVPUSH QID PRN PRN Reason: Nausea Last Admin: 01/31/25 15:17 Dose: 4 mg Documented By: RAUL Ondansetron HCl (Ondansetron Hcl 4 Mg/2 Ml Vial) 4 mg IVPUSH ONCE PRN PRN Reason: Nausea and Vomiting Stop: 02/03/25 14:45 Oxycodone HCl (Oxycodone Hcl Immed Release 5 Mg Tablet) 5 mg PO Q6H PRN PRN Reason: Pain, Moderate(Pain Scale 4-6) Sodium Chloride (0.9 % Sodium Chloride Flush 3 Ml Syringe) 3 ml IVFLUSH QSHIFT [facility] Last Admin: 02/03/25 07:12 Dose: 3 ml Documented By: MAYNOR Tamsulosin HCl (Tamsulosin Hcl 0.4 Mg Capsule) 0.4 mg PO DAILY [facility] Last Admin: 02/03/25 07:09 Dose: 0.4 mg Documented By: MAYNOR Labs 02/02/25 07:51 02/02/25 07:51 Labs: Laboratory Results - last 24 hr 02/02/25 07:51 MCV 101.7 H MCH 32.8 MCHC 32.3 RDW 14.2 Plt Count 162 MPV 12.8 H Absolute Nucleated RBC 0.000 Nucleated RBC % (auto) 0.0 Anion Gap 13 Estim Creat Clear Calc 46.9 Estimated GFR 46 Random Glucose 94 Calcium 8.7 Microbiology Microbiology Results: Microbiology 01/30/25 14:49 Blood Culture - Preliminary Blood - Venous No growth after 48 hours. 01/30/25 14:49 Blood Culture - Preliminary Blood - Venous No growth after 48 hours. Assessment and Plan (1) Acute cholecystitis: Status: Acute (2) Persistent atrial fibrillation: Status: Acute (3) Pulmonary hypertension: Status: Acute (4) (HFpEF) heart failure with preserved ejection fraction: Status: Acute Plan 84 HTN, AFIB on eliquis, pulm HTN, chronic HFpEF admitted to surgery with acute cholecystitis after presenting with abdominal pain, n/v/d, No fever, both US and CT point to acute cholecystitis Acute cholecystitis management per surgery Continue Zosyn, follow culture IVF, diet per surgery The perioperative risk for this pt with AF, CHF, pulmonary hypertension, and HTN undergoing surgery for acute cholecystitis is?high? Using the RCRI, the estimated risk of major adverse cardiac events is?10?15%? and the ACS NSQIP calculator estimates 30-day mortality at 3?5% and serious complications at 15?25%. Early laparoscopic cholecystectomy within 72 hours is preferred if feasible, there is no further testting indicated at this time, aft er holding eliquis. Surgery planned today 02/03 Persistent afib Continue metoprolol for rate contro hold Apixiban in the event he needs surgery HTN continue norvasc and metoprolol chronic HFpEF compensated hold Lasix for now BPH Flomax DVT prophylaxis: compression device, heparin, hold before surgery, resume Apixiban after surgery when deemed apropriate by surgery Will follow Quality Stroke Does the patient have a stroke diagnosis?: No VTE Prior VTE?: No VTE Risk Level:: Surgical - moderate VTE Device Contraindication: N/A - Device Ordered VTE Drug Contraindication: N/A - Med Ordered
[2025-02-03] MEDS: Lactated Ringers 1,000 ML 80 ML IVCONT (09:33)
--- NOTE | 2025-02-03 12:21 | W.PM.OPN ---
Operative Note Operative Note Date of Service: 02/03/25 Narrative: Preoperative diagnosis: Acute cholecystitis, cholelithiasis Postoperative diagnosis: Same, purulent cholecystitis Procedure: Laparoscopic cholecystectomy Surgeon: Michael Olivarez MD Audio Tape Librarian: Fabio Smith PA-C Anesthesia: General endotracheal Indications for procedure: 84-year-old male patient with multiple medical problems presenting with complaints of abdominal pain right upper quadrant found to have evidence of acute cholecystitis due to cholelithiasis. Operative findings: Acute cholecystitis with purulence bile. Markedly distended gallbladder with adherent transverse colon. Specimen: gallbladder Estimated blood loss: 75 mL Drain: Large MUSTAPHA to bulb suctioned Complications: None Procedure details: Patient was brought to the OR and placed in a supine position. After administering general anesthesia the patient's abdomen was prepped with ChloraPrep and draped in a sterile fashion. A surgical time-out was called the consent confirmed. Patient received preoperative antibiotics and Venodyne boots were in place. Local anesthesia consisting of 0.5% Sensorcaine without epinephrine was infiltrated in a periumbilical region. A 5 mm incision was made above the umbilicus in a transverse fashion. The Veress needle was then inserted while elevating abdominal cavity with towel clips. After positive drop test the abdomen was insufflated to a pressure of 15 mm of mercury. The Veress needle was then removed and a 5 mm trocar inserted. The camera was inserted in the abdomen explored. A 12 mm trocar was then placed in the epigastrium. Two 5 mm trocars placed in the right upper quadrant by the personalized living assistant. The patient was placed in reverse Trendelenburg positioning and rotated to the left. Gallbladder was found to be markedly distended and intrahepatic. The laparoscopic needle was used to drain the gallbladder. Hydropic fluid was drained from the gallbladder as well as some purulence material. The gallbladder was grasped with the fundus and retracted cephalad by the personalized living assistant. The infundibulum was then grasped and retracted away from the liver bed, also by the personalized living assistant. The Dolphin dissected was then used by the surgeon to dissect the peritoneum off the infundibulum to reveal the junction with the cystic duct. Cystic artery was noted slightly medial to the cystic duct. After obtaining a critical view the cystic duct was doubly clipped and divided. The cystic artery was then doubly clipped and divided. The gallbladder was then dissected off the liver bed using electrocautery with an L hook. Hemostasis was assured all times using the electrocautery. When the gallbladder is completely dissected off the liver bed was placed in an Endo-Catch bag and brought out through the epigastric incision. The gallbladder was sent to pathology for further examination. Wounds were irrigated and hemostasis again assured using electrocautery and Surgicel. A large MUSTAPHA drain was placed in the liver bed and brought out through the lateral trocar incision. This was secured using a 2-0 nylon suture. This was connected to a small bulb suctioned. The abdomen was then re-examined. The liver bed was irrigated and suctioned dry. CO2 was then evacuated and all trocars removed. Fascia was closed at the epigastric incision using a [id number] 0 Polysorb suture. Skin was closed in all incisions using a subcuticular 4 0 Polysorb suture by both the surgeon and personalized living assistant. Sterile dressings consisting of Steri-Strips, 2 x 2 gauze, and Tegaderm were then applied. The patient tolerated the procedure well. Sponge instrument and needle counts reported as correct. The patient was transferred to PACU in stable condition.
--- NOTE | 2025-02-03 12:27 | MHC.CM.PN ---
PER MD ROUNDS, PT WILL HAVE PROCEDURE TODAY CM FOLLOWING FOR DC NEEDS
[2025-02-04] VITALS (7 sets, daily range): BP systolic 119–140; BP diastolic 66–87; PULSE 70–96; RESP 17–18; TEMP 36.3–36.6; O2SAT 94–96
[2025-02-04] MEDS: KCl 20 mEq in 0.9 % Sodium ChL 20 MEQ/1,000 ML IV.SOLN 80 MEQ IVCONT (01:47)
[2025-02-04 06:19] LABS: Hemoglobin 14.5 g/dl (14.0-18.0); NRBC Abs Auto 0.000 X10*3/uL (0.0-0.012); NRBC Pct Auto 0.0 /100WBC (0.0-0.2); SCAN SMEAR FLAG 1
[2025-02-04 06:21] LABS: Hematocrit 44.4 % (42.0-52.0); Imm Gran Abs Auto 0.09 X10*3/uL (0.00-0.03); Imm Gran Pct Auto 0.7 % (0.0-0.4); Lymphocytes Absolute Auto 0.5 X10*3/uL (1.2-4.9); MANUAL DIFF FLAG SCAN; Mean Corpuscular HGB Conc 32.7 g/dl (31.0-36.0); Mean Corpuscular Hemoglobin 32.7 pg (27.0-33.0); Mean Corpuscular Volume 100.0 fL (80.0-98.0); PLT CLUMP 1; Red Blood Count 4.44 X10*6/uL (4.60-5.80)
[2025-02-04 06:29] LABS: PLT ABN DIST 1
[2025-02-04 06:35] LABS: Anion Gap 14 (12-20); Blood Urea Nitrogen 20 mg/dL (9-16); Calcium 8.5 mg/dL (8.4-10.2); Carbon Dioxide 24 mmol/L (22-29); Chloride 106 mmol/L (96-108); Creatinine Clr Calc Pharmacy 57.2; Estimated Glomerular Filt Rate 58; Potassium 3.3 mmol/L (3.3-5.1); Sodium 141 mmol/L (135-145)
[2025-02-04 06:45] LABS: Platelet Count 142 X10*3/uL (160-400); White Blood Count 12.4 X10*3/uL (4.8-10.8)
[2025-02-04 07:00] LABS: Glucose, Whole Blood 134 mg/dL (60-115)
--- NOTE | 2025-02-04 07:54 | P.PNGS_ITS ---
Subjective Subjective Date of Service: 02/04/25 Interval history: States he is not bad this morning. has mild incisional soreness/pain at drain site but has not needed analgesics. Tolerating solid diet. Has not been OOB yet. Using incentive spirometer. Physical Exam 2 Vital Signs: Vital Signs: Last Vital Signs Temp 98 F 02/04/25 06:53 Pulse 96 02/04/25 06:53 Resp 17 02/04/25 06:53 BP 134/70 02/04/25 06:53 Pulse Ox 96 02/04/25 06:53 O2 Del Method Room Air 02/04/25 06:53 O2 Flow Rate 2 02/03/25 15:32 BMI result Body Mass Index 35.8 Const: General: comfortable, no acute distress and alert O rientation/consciousness: patient oriented x3 Resp: Effort & Inspection: normal respiratory effort GI: Other: mild incisional tenderness MUSTAPHA drain sanguineous Inspection: No distended Palpation (GI): Soft to palpation, no guarding and not rigid Skin: General skin exam: no rashes or lesions noted and no jaundice Neuro: General: patient oriented x3 and moves all extremities Objective Data Active Medications Acetaminophen (Acetaminophen 325 Mg Tablet) 650 mg PO Q6H PRN PRN Reason: Pain, Mild 1-3,fever,headache Calcium Carbonate (Calcium Carbonate 750 Mg Tab.Chew) 750 mg PO Q4H PRN PRN Reason: Heartburn Docusate Sodium (Docusate Sodium 100 Mg Capsule) 100 mg PO BID [facility] Last Admin: 02/03/25 20:38 Dose: 100 mg Documented By: UBALDO Heparin Sodium (Porcine) (Heparin Sodium,Porcine 5,000 Unit/Ml Vial) 5,000 unit SUBCUT Q12H [facility] Last Admin: 02/03/25 20:38 Dose: 5,000 unit Documented By: UBALDO Hydromorphone HCl (Hydromorphone Hcl 0.5 Mg/0.5 Ml Syringe) 0.5 mg IVPUSH Q3H PRN; Protocol PRN Reason: Pain, Severe (Pain Scale 7-10) Piperacillin Sod/Tazobactam (Sod 3.375 gm/ Sodium Chloride) 50 mls @ 100 mls/hr IV Q6H [facility] Last Infusion: 02/04/25 03:50 Dose: Infused Documented By: YURI Magnesium Hydroxide (Milk Of Magnesia 30 Ml Oral.Susp) 30 ml PO DAILY PRN PRN Reason: Constipation Melatonin (Melatonin 3 Mg Tablet) 6 mg PO BEDTIME PRN PRN Reason: Insomnia Metoprolol Succinate (Metoprolol Succinate Er 50 Mg Tab.Er.24h) 50 mg PO DAILY [facility]; Protocol Last Admin: 02/03/25 07:09 Dose: 50 mg Documented By: MAYNOR Omeprazole (Omeprazole 20 Mg Capsule.Dr) 20 mg PO DAILY@0630 [facility] Last Admin: 02/04/25 06:15 Dose: 20 mg Documented By: YURI Ondansetron HCl (Ondansetron Hcl 4 Mg/2 Ml Vial) 4 mg IVPUSH QID PRN PRN Reason: Nausea Last Admin: 01/31/25 15:17 Dose: 4 mg Documented By: RAUL Oxycodone HCl (Oxycodone Hcl Immed Release 5 Mg Tablet) 5 mg PO Q6H PRN PRN Reason: Pain, Moderate(Pain Scale 4-6) Polyethylene Glycol (Polyethylene Glycol 3350 17 Gm Powd.Pack) 17 gm PO DAILY PRN PRN Reason: Constipation Sodium Chloride (0.9 % Sodium Chloride Flush 3 Ml Syringe) 3 ml IVFLUSH QSHIFT [facility] Last Admin: 02/03/25 20:38 Dose: 3 ml Documented By: UBALDO Tamsulosin HCl (Tamsulosin Hcl 0.4 Mg Capsule) 0.4 mg PO DAILY [facility] Last Admin: 02/03/25 07:09 Dose: 0.4 mg Documented By: MAYNOR Labs 02/04/25 05:35 02/04/25 05:35 Labs: Laboratory Results - last 24 hr 02/04/25 02/04/25 05:35 06:55 MCV 100.0 H MCH 32.7 MCHC 32.7 RDW 14.1 Plt Count 142 L MPV 13.3 H Immature Gran % (Auto) 0.7 H Neut % (Auto) 90.2 H Lymph % (Auto) 4.0 L [place] % (Auto) 4.9 Eos % (Auto) 0.0 Baso % (Auto) 0.2 Lymph # (Auto) 0.5 L [place] # (Auto) 0.6 Eos # (Auto) 0.0 Baso # (Auto) 0.0 Abs Immat Gran (auto) 0.09 H Absolute Neuts (auto) 11.2 H Absolute Nucleated RBC 0.000 Nucleated RBC % (auto) 0.0 Smear Tech's Comments VERIFIED Anion Gap 14 Estim Creat Clear Calc 57.2 Estimated GFR 58 POC Glucose 134 H Fasting Glucose 117 H Calcium 8.5 Procedures Date of Service Date of Service: 02/04/25 Progress Note: A&P Assessment and plan (1) Acute cholecystitis: Status: Acute (2) S/P laparoscopic cholecystectomy: Status: Acute Plan S/p lap jairo yesterday. Found to have purulent cholecystitis. Doing well this morning. Hemodynamically stable, abd benign with appropriate post op tenderness, dressings clean and intact, MUSTAPHA drain sanguineous. H/H stable. Likely home later today or tomorrow if remains stable. Needs to get OOB and ambulate prior. Ok to resume eliquis tomorrow. Time Spent With Patient Time: Total time managing care of this patient today ____ minutes. Quality Stroke Does the patient have a stroke diagnosis?: No VTE Prior VTE?: No VTE Risk Level:: Surgical - moderate VTE Device Contraindication: N/A - Device Ordered VTE Drug Contraindication: N/A - Med Ordered
[2025-02-04] MEDS: Metoprolol Succinate ER 50 MG TAB.ER.24H PO (08:07)
[2025-02-04] MEDS: 0.9 % Sodium Chloride Flush 3 ML SYRINGE IVFLUSH ×2 (08:09→14:26)
[2025-02-04] MEDS: oxyCODONE HCl Immed Release 5 MG TABLET PO ×2 (08:13→14:31)
--- NOTE | 2025-02-04 08:21 | HO.POSTANES ---
Post Anesthesia Evaluation Post Anesthesia Evaluation Date of Service: 02/04/25 Vital Signs: Vital Signs Temp Pulse Resp BP Pulse Ox O2 Del Method 02/04/25 08:07 93 140/87 H 02/04/25 06:53 98 F 96 17 134/70 96 Room Air 02/04/25 03:46 97.5 F 89 18 128/76 95 Room Air 02/03/25 23:39 98.8 F 87 18 124/57 L 95 CPAP Anesthesia: General Mental Status: Awake Pain Control: Satisfactory Nausea/Vomiting: None Hydration: Adequate Anesthesia-Related Issues: No Anes. Related Issues
[2025-02-04 11:02] LABS: Glucose, Whole Blood 129 mg/dL (60-115)
[2025-02-05 03:38] VITALS: BP 129/85; PULSE 78; RESP 18; TEMP 36.3; O2SAT 95
[2025-02-05 07:01] VITALS: BP 128/74; PULSE 76; RESP 17; TEMP 36.6; O2SAT 95
[2025-02-05 07:13] LABS: Glucose, Whole Blood 77 mg/dL (60-115)
--- NOTE | 2025-02-05 07:26 | P.PNGS_ITS ---
Subjective Subjective Date of Service: 02/05/25 <Carri Saunders PA-C - Last Filed: 02/05/25 07:30> 02/05/25 <Michael Olivarez MD - Last Filed: 02/05/25 09:47> Interval history: Feels well this morning. Ambulated the halls multiple times yesterday. Tolerating solid diet, notes that he gets full more quickly but denies nausea/vomiting. Last BM Monday. Minimal incisional pain. <Carri Saunders PA-C - Last Filed: 02/05/25 07:30> Physical Exam 2 Vital Signs: Vital Signs: Last Vital Signs Temp 98 F 02/05/25 07:01 Pulse 76 02/05/25 07:01 Resp 17 02/05/25 07:01 BP 128/74 02/05/25 07:01 Pulse Ox 95 02/05/25 07:01 O2 Del Method Room Air 02/05/25 07:01 O2 Flow Rate 2 02/03/25 15:32 BMI result Body Mass Index 35.8 <Carri Saunders PA-C - Last Filed: 02/05/25 07:30> Const: General: comfortable, no acute distress and alert <Carri Saunders PA-C - Last Filed: 02/05/25 07:30> Orientation/consciousness: patient oriented x3 <Carri Saunders PA-C - Last Filed: 02/05/25 07:30> Resp: Effort & Inspection: normal respiratory effort and able to speak in complete sentences <Carri Saunders PA-C - Last Filed: 02/05/25 07:30> GI: Other: corpulent abdomen incision sites clean, steris intact MUSTAPHA drain with more serosanguineous appearing drainage this morning, low output mild incisional tenderness <GERALDINE Santos Last Filed: 02/05/25 07:30> Palpation (GI): nontender and no guarding <GERALDINE Santos Last Filed: 02/05/25 07:30> Skin: General skin exam: no rashes or lesions noted and no jaundice < GERALDINE Santos Last Filed: 02/05/25 07:30> Neuro: General: patient oriented x3 and moves all extremities <Carri Saunders PA-C - Last Filed: 02/05/25 07:30> Objective Data Active Medications Acetaminophen (Acetaminophen 325 Mg Tablet) 650 mg PO Q6H PRN PRN Reason: Pain, Mild 1-3,fever,headache Apixaban (Apixaban 5 Mg Tablet) 5 mg PO BID [facility] Calcium Carbonate (Calcium Carbonate 750 Mg Tab.Chew) 750 mg PO Q4H PRN PRN Reason: Heartburn Docusate Sodium (Docusate Sodium 100 Mg Capsule) 100 mg PO BID [facility] Last Admin: 02/04/25 22:04 Dose: 100 mg Documented By: DANIEL Hydromorphone HCl (Hydromorphone Hcl 0.5 Mg/0.5 Ml Syringe) 0.5 mg IVPUSH Q3H PRN; Protocol PRN Reason: Pain, Severe (Pain Scale 7-10) Piperacillin Sod/Tazobactam (Sod 3.375 gm/ Sodium Chloride) 50 mls @ 100 mls/hr IV Q6H [facility] Last Infusion: 02/05/25 04:01 Dose: Infused Documented By: NIC Magnesium Hydroxide (Milk Of Magnesia 30 Ml Oral.Susp) 30 ml PO DAILY PRN PRN Reason: Constipation Melatonin (Melatonin 3 Mg Tablet) 6 mg PO BEDTIME PRN PRN Reason: Insomnia Metoprolol Succinate (Metoprolol Succinate Er 50 Mg Tab.Er.24h) 50 mg PO DAILY [facility]; Protocol Last Admin: 02/04/25 08:07 Dose: 50 mg Documented By: HANNAH Omeprazole (Omeprazole 20 Mg Capsule.Dr) 20 mg PO DAILY@0630 [facility] Last Admin: 02/05/25 06:08 Dose: 20 mg Documented By: NIC Ondansetron HCl (Ondansetron Hcl 4 Mg/2 Ml Vial) 4 mg IVPUSH QID PRN PRN Reason: Nausea Last Admin: 01/31/25 15:17 Dose: 4 mg Documented By: RAUL Oxycodone HCl (Oxycodone Hcl Immed Release 5 Mg Tablet) 5 mg PO Q6H PRN PRN Reason: Pain, Moderate(Pain Scale 4-6) Last Admin: 02/04/25 14:31 Dose: 5 mg Documented By: HANNAH Polyethylene Glycol (Polyethylene Glycol 3350 17 Gm Powd.Pack) 17 gm PO DAILY PRN PRN Reason: Constipation Sodium Chloride (0.9 % Sodium Chloride Flush 3 Ml Syringe) 3 ml IVFLUSH QSHIFT [facility] Last Admin: 02/05/25 01:07 Dose: Not Given Documented By: NIC Non-Admin Reason: Previously Administered Tamsulosin HCl (Tamsulosin Hcl 0.4 Mg Capsule) 0.4 mg PO DAILY [facility] Last Admin: 02/04/25 08:07 Dose: 0.4 mg Documented By: HANNAH <Carri Saunders PA-C - Last Filed: 02/05/25 07:30> Labs CBC & Chem 7: 02/04/25 05:35 02/04/25 05:35 <Carri Saunders PA-C - Last Filed: 02/05/25 07:30> Labs: Laboratory Results - last 24 hr 02/04/25 02/05/25 10:58 07:09 POC Glucose 129 H 77 <Carri Saunders PA-C - Last Filed: 02/05/25 07:30> Microbiology Microbiology Results: Microbiology 01/30/25 14:49 Blood Culture - Final Blood - Venous No growth after 5 days. 01/30/25 14:49 Blood Culture - Final Blood - Venous No growth after 5 days. <Carri Saunders PA-C - Last Filed: 02/05/25 07:30> Procedures Date of Service Date of Service: 02/05/25 <Carri Saunders PA-C - Last Filed: 02/05/25 07:30> 02/05/25 <Michael Olivarez MD - Last Filed: 02/05/25 09:47> Progress Note: A&P Assessment and plan (1) S/P laparoscopic cholecystectomy: Status: Acute <Carri Saunders PA-C - Last Filed: 02/05/25 07:30> Assessment and Plan: POD #2 s/p lap jairo found to have purulent acute cholecystitis. Doing well post op, tolerating diet, hemodynamically stable with benign abd with appropriate post op tenderness, clean incisions. MUSTAPHA drain output more serosanguineous this morning, low output and therefore removed uneventfully at bedside. Patient stable and feels ready for dc to home today. F/u in office in 1 week. Resume eliquis today. <Carri Saunders PA-C - Last Filed: 02/05/25 07:30> POD #2 s/p lap jairo found to have purulent acute cholecystitis. Doing well post op, tolerating diet, hemodynamically stable with benign abd with appropriate post op tenderness, clean incisions. MUSTAPHA drain output more serosanguineous this morning, low output and therefore removed uneventfully at bedside. Patient stable and feels ready for dc to home today. F/u in office in 1 week. Resume eliquis today. Patient seen and examined, agree with the above assessment and plan. MUSTAPHA producing thin fluid, no bile. Agree with starting Eliquis today, resume all medications as per hospitalist team. Plan discharge to home today. <Michael Olivarez MD - Last Filed: 02/05/25 09:47> Time Spent With Patient Time: Total time managing care of this patient today ____ minutes. <Carri Sanuders PA-C - Last Filed: 02/05/25 07:30> Quality Stroke Does the patient have a stroke diagnosis?: No <Carri Saunders PA-C - Last Filed: 02/05/25 07:30> VTE Prior VTE?: No <Carri Saunders PA-C - Last Filed: 02/05/25 07:30> VTE Risk Level:: Surgical - moderate <Carri Saunders PA-C - Last Filed: 02/05/25 07:30> VTE Device Contraindication: N/A - Device Ordered <Carri Saunders PA-C - Last Filed: 02/05/25 07:30> VTE Drug Contraindication: N/A - Med Ordered <Carri Saunders PA-C - Last Filed: 02/05/25 07:30>
[2025-02-05] MEDS: Metoprolol Succinate ER 50 MG TAB.ER.24H PO (07:44)
--- NOTE | 2025-02-05 09:41 | PM.DS ---
DS: Providers Provider Date of admission: 01/30/25 16:11 Date of discharge: 02/05/25 Primary care physician: Inocente Painting MD Attending physician on admission: Michael Olivarez Consults: 01/30/25 16:10 Consult to Hospitalist Routine Comment: Consulting Provider: [facility] Hospitalists Reason For Exam: Acute jairo, AFib, Pulm HTN, HFpEF, Bradycardia Attending physician on discharge: Michael Olivarez DS: Diagnosis Discharge Diagnosis (1) S/P laparoscopic cholecystectomy: Status: Acute DS: Summary Hospital Course Hospital Course: HPI AT ADMISSION: Behzad Mendoza is a 84 year old male presenting with complaints of epigastric and right upper quadrant abdominal pain intermittently for the past 2 weeks. The pain would last between 12 in 36 hours and subsequently subside however the current pain became quite severe and he subsequently saw attention in the emergency department. He reports nausea and vomiting but denies fever or chills. He denies any sick contacts or eating any unusual foods. He presented to the emergency department and was noted to be tender in the epigastrium and right upper quadrant with a positive Hernandez sign. Laboratories revealed an elevated WBC of 20,000. Ultrasound revealed multiple gallstones within the gallbladder with a thickened gallbladder wall. This was confirmed on CT abdomen and pelvis with evidence of inflammatory changes around the gallbladder suggestive of acute cholecystitis due to cholelithiasis. His past medical history is significant for atrial fibrillation on Eliquis, bradycardia, heart failure with preserved ejection fraction, diastolic dysfunction, pulmonary hypertension, sleep apnea, and morbid obesity. HOSPITAL COURSE: The patient was admitted to the surgical service for further treatment of the acute cholecystitis. He was started on IV zosyn, gentle IVF, clear liquids, PRN analgesics. Hospitalist consultation was obtained for assistance with the patient's multiple medical issues. Patient is on Eliquis for atrial fibrillation with his last dose the day of presentation. Eliquis is being held pending potential surgery. He had continued moderate RUQ tenderness with positive hernandez sign and it was recommended to proceed with laparoscopic, possible open cholecystectomy however given his last eliquis dose this was planned for 02/03/25 and he was added onto the OR schedule. He remained inpatient for IV abx during this time. On 02/03/25, a laparoscopic cholecystectomy was performed by Dr. Olivarez without complication. The patient was found to have acute cholecystitis with purulent bile and markedly distended gallbladder with adherent transverse colon. MUSTAPHA drain was placed intraoperatively. The patient tolerated the procedure well. He had an uncomplicated recovery course. On POD #2, he felt well and was tolerating a solid diet without nausea or vomiting, had good pain control and was ambulating without difficulty. He was hemodynamically stable. His abdomen was benign with appropriate post op tenderness and clean incisions. His MUSTAPHA drain had serosanguineous, nonbilious output, low output and was removed uneventfully. He felt ready for discharge. He was discharged to home on 02/05/25 in stable condition. He is to follow up in the office in 1 week. His eliquis was resumed 02/05/25 morning. Status at Discharge Overall status at discharge: patient is progressing back to baseline Time Attestation Discharge Coordination Time (in mins): 30 Quality: Safe Use of Opioids Does Pt have an Active Cancer Diagnosis on the Problem List?: No Quality: Stroke Does the patient have a stroke diagnosis?: No Physical Exam Vital Signs: Vital Signs: Last Vital Signs Temp 98 F 02/05/25 07:01 Pulse 76 02/05/25 07:01 Resp 17 02/05/25 07:01 BP 128/74 02/05/25 07:01 Pulse Ox 95 02/05/25 07:01 O2 Del Method Room Air 02/05/25 07:01 O2 Flow Rate 2 02/03/25 15:32 BMI result Body Mass Index 35.8 Const: General: comfortable, no acute distress and alert Orientation/consciousness: patient oriented x3 Resp: Effort & Inspection: normal respiratory effort and able to speak in complete sentences GI: Other: abdomen soft incisions clean, steris intact mild incisional/drain site tenderness MUSTAPHA drain removed Palpation (GI): no guarding Percussion: Yes normal to percussion Skin: General skin exam: no rashes or lesions noted and no jaundice Neuro: General: patient oriented x3 and moves all extremities DS: Data Data Completed and Pending Completed studies during hospitalization [Text1]: 02/03/25 11:52 Surgical [PTH] Routine Gallbladder, cholecystectomy: -Acute on chronic cholecystitis with hemorrhage and necrosis. -Cholelithiasis Labs on day of discharge: Laboratory Results - last 24 hr 02/04/25 02/05/25 10:58 07:09 POC Glucose 129 H 77 Discharge Plan Discharge Anticipated Discharge Date/Time: 02/05/25 07:25 Patient Disposition: Home, Self-Care Discharge Diagnosis: acute cholecystitis, s/p laparoscopic cholecystectomy Referrals: Inocente Painting MD [Primary Care Provider, Internal Medicine] - 1 Week Michael Olivarez MD [Physician, General Surgery] - 1 Week Discharge Medications: New docusate sodium [Colace] 100 mg capsule 100 mg PO BID PRN (Reason: constipation) Qty: 30 0RF oxycodone 5 mg tablet 5 mg PO Q4H PRN (Reason: pain (scale score 7-10)) Qty: 24 0RF Rx Instructions: Partial Fill upon patient request. Continued furosemide 40 mg tablet 40 mg PO DAILY Qty: 90 3RF amlodipine 2.5 mg tablet 2.5 mg PO DAILY Qty: 90 3RF Jardiance 10 mg tablet 10 mg PO DAILY Qty: 90 3RF metoprolol succinate 50 mg tablet extended release 24 hr 50 mg PO DAILY Qty: 90 3RF ascorbic acid (vitamin C) [Vitamin C] 500 mg Tablet 500 mg PO DAILY tamsulosin 0.4 mg capsule 0.4 mg PO DAILY pantoprazole 40 mg tablet,delayed release (DR/EC) 40 mg PO DAILY@0630 cholecalciferol (vitamin D3) 25 mcg (1,000 unit) tablet 25 mcg PO DAILY Held Eliquis 5 mg tablet 5 mg PO BID Qty: 180 3RF Hold Instructions: Resume on 02/05/25. Discharge Orders: Discharge Order (Routine); Ordered 02/05/25 Ordered By: Carri Saunders Diet: Low fat, low cholesterol Activity on Discharge: No heavy lifting Stand Alone Forms: Patient Portal Discharge page Print Language: Nicarag[place] Activity Restrictions/Additional Instructions: If the incision area is tender, you may apply an ice pack for short intervals (No more than 20 minutes on, followed by at least 20 minutes off). Do not apply heat. Do not use creams, lotions, or topical antibiotics. Ok to shower. You have steri strips (small white strips) covering your incision- these will fall off ~1 week. You may have yellow/red tinged fluid drain from your old drain site. This is normal and expected. Keep the area covered until the site closes/drainage stops- this can take a few days. No heavy lifting (>10lbs) or strenuous activity! Take Tylenol Extra-strength 1-2 tabs every 6 hours for the first day, then as needed. Oxycodone every 6-8 hours as needed for pain. Colace 100 mg every day as needed for constipation. Follow up in office with Dr. Olivarez in 1 week. ([phone]) Call Your Doctor If: -Your temperature exceeds 101.5? F -You experience excessive pain or swelling -You have an unexpected reaction to medication -You have excessive bleeding -You experience continued vomiting/nausea -Your incision begins to separate -Your incision shows signs of infection such as increased redness, swelling, excessive pain, drainage (light blood or clear fluid is normal) or heat Care Plan Goals: Return to baseline health and resume normal activities following recovery period. Health Concerns: acute cholecystitis a fib on eliquis heart failure RUMA Plan of Treatment: s/p laparoscopic cholecystectomy Follow up with general surgery in 1 week MUSTAPHA drain care Resume eliquis 02/05 Assessment: Doing well post op Patient Instructions: Laparoscopic Cholecystectomy (DC) Discharge Date/Time: 02/05/25 09:24
--- NOTE | 2025-02-05 13:01 | MHC.CM.PN ---
Patient dc to home today self care. provided transport home.
== END 2025-02-05 09:24 | disposition home or self-care (01) | DRG 418 ==
LOC: HO.ED 16:02 → HO.EDOVER 16:25 → HO.S3 19:21
PROVIDERS: Internal Medicine; Physician Assistant Medical; Physician Assistant Surgical; Student in an Organized Health Care Education/Training Program; Admitting Provider Surgery; Emergency Provider Emergency Medicine; PCP Internal Medicine Medical Oncology; Visit Provider Surgery
PROC: 0FT44ZZ Resection of Gallbladder, Percutaneous Endoscopic Approach (ICD-10-PCS; CPT 47562; principal; 2025-02-03 10:20)
DX: K80.00 Calculus of gallbladder with acute cholecystitis without obstruction (principal); I48.19 Other persistent atrial fibrillation; I50.32 Chronic diastolic (congestive) heart failure; I11.0 Hypertensive heart disease with heart failure; N40.0 Benign prostatic hyperplasia without lower urinary tract symptoms; I27.20 Pulmonary hypertension, unspecified; Z79.01 Long term (current) use of anticoagulants; Z79.899 Other long term (current) drug therapy
CPT/HCPCS: 36415; 74176; 76705; 80048; 80053; 80076; 81001; 82947; 83605; 83690; 83735; 84484; 85025; 85027; 85610; 87040; 88304; 93005; 94660; 99285; J0131; J0616; J1100; J1644; J2003; J2371; J2405; J2543; J2704; J3010; J3480; J7120

== ENCOUNTER → 2025-01-30 12:24 | Outpatient (BNV) | payer MEDICARE, SELFPAY | PROVIDERS: Admitting Provider Surgery; Emergency Provider Emergency Medicine; PCP Internal Medicine Medical Oncology; Visit Provider Internal Medicine Cardiovascular Disease | DX: I48.91 Unspecified atrial fibrillation (principal); I45.10 Unspecified right bundle-branch block | CPT/HCPCS: 93010 ==

== ENCOUNTER → 2025-01-30 12:24 | Outpatient (BNV) | payer MEDICARE, SELFPAY | PROVIDERS: Emergency Provider Emergency Medicine; PCP Internal Medicine Medical Oncology; Visit Provider Radiology Diagnostic Radiology | DX: K57.30 Diverticulosis of large intestine without perforation or abscess without bleeding (principal); K82.8 Other specified diseases of gallbladder; R10.11 Right upper quadrant pain | CPT/HCPCS: 74176; 76705 ==

== ENCOUNTER → 2025-01-30 16:11 | Outpatient (BNV) | payer MEDICARE, SELFPAY | PROVIDERS: Admitting Provider Surgery; Emergency Provider Emergency Medicine; PCP Internal Medicine Medical Oncology; Visit Provider Surgery | DX: K81.0 Acute cholecystitis (principal) | CPT/HCPCS: 99222; 99232 ==

== ENCOUNTER → 2025-01-30 16:11 | Outpatient (BNV) | payer MEDICARE, SELFPAY | PROVIDERS: Admitting Provider Surgery; Emergency Provider Emergency Medicine; PCP Internal Medicine Medical Oncology; Visit Provider Internal Medicine | DX: K81.0 Acute cholecystitis (principal); I48.19 Other persistent atrial fibrillation; I50.30 Unspecified diastolic (congestive) heart failure; I27.20 Pulmonary hypertension, unspecified | CPT/HCPCS: 99222; 99232; 99233 ==